=== PATIENT | male | born 1945 | race Caucasian/White ===

== ENCOUNTER 2019-10-31 15:40 | Emergency (ER) | payer MEDICARE, MEDICAID, SELFPAY ==
[2019-10-31 15:48] VITALS: BP 136/84; PULSE 81; RESP 16; TEMP 36.9; O2SAT 96; BMI 25.0
--- NOTE | 2019-10-31 16:01 | ED_ITS ---
Entered by Shelli Bear, acting as scribe for Ade Burr MD, [facility] [place] - Altered Mental Status General: Chief Complaint: Altered Mental Status Stated Complaint: AMS,WEAKNESS Time Seen by Provider: 10/31/19 16:01 Source: family Mode of arrival: wheelchair Limitations: altered mental status History of Present Illness: HPI narrative: 74 yo Male presents to ED with complaint of altered mental status and weakness. Pt's caregiver states that the patient has been acting like he can't walk and had to be brought in using a wheelchair and he normally walks just fine. Pt's caregiver states that the patient is MR and he is the equivalent of a 2 year old and cannot tell you what is wrong. Pt's caregiver states that patient has fallen a couple of times in the last few days. MD complaint: altered mental status and weakness Onset (ago): day(s) Timing confirmed by: family member Consistency of symptoms: Getting Worse Associated symptoms: Reports no associated symptoms Review of Systems General: Reports: ROS unobtainable due to mental status Neuro: Reports: weakness in extremities and confusion PFSH ED PFSH: Statuses (acute, chronic, etc) shown below reflect problem list status as previously entered and may not be historically accurate Social History Smoking and tobacco status: never smoked Physical Exam Const: COMMON NORMALS: no apparent distress, average body habitus, no limitations, healthy appearing, alert and well nourished ORIENTATION/CONSCIOUSNESS: not oriented to person, not oriented to place and not oriented to time HENMT: COMMON NORMALS: normocephalic, head/scalp atraumatic and moist oral mucous membranes HEAD & SCALP: normocephalic and atraumatic Eye: COMMON NORMALS: PERRL, EOMs intact bilaterally, conjunctivae normal and no scleral icterus CONJUNCTIVA: Yes conjunctivae normal PUPIL: Yes PERRL Neck/C-Spine: COMMON NORMALS: full ROM, supple, no meningeal signs, no JVD and no carotid bruits Chest: COMMONS NORMALS: inspection of chest normal and palpation of chest normal Resp: COMMON NORMALS: normal respiratory effort, no retractions, no use of accessory muscles, clear to auscultation bilaterally and percussion normal AUSCULTATION: clear to auscultation bilaterally PERCUSSION: percussion normal Cardio: COMMON NORMALS: no JVD, regular rate, regular rhythm, S1 normal heart sound, S2 normal heart sound, no gallops, no clicks, no murmurs, no rub and peripheral pulses 2+ throughout RATE: regular rate RHYTHM: regular rhythm HEART SOUNDS: S1 normal and S2 normal PERIPHERAL PULSES: pulses 2+ throughout GI: COMMON NORMALS: normal to inspection, nondistended, normoactive bowel sounds, soft to palpation, non-tender, no hepatosplenomegaly, no masses and no bruits PALPATION: Yes soft and Yes no hepatosplenomegaly : COMMON NORMALS: Yes no CVA tenderness BLADDER/KIDNEY EXAM: Yes no CVA tenderness Back/Pelvis: COMMON NORMALS: no CVA tenderness Extremity: COMMON NORMALS: normal to inspection, full ROM, normal capillary refill, no calf tenderness and no pedal edema Neuro: SENSORIUM/ORIENTATION: Yes alert, No oriented to person, No oriented to place and No oriented to time MENINGEAL SIGNS: Yes no meningeal signs OTHER: Unable to perform a complete neurologic exam due to patient condition and altered mental status Skin: COMMON NORMALS: no rashes or lesions noted, no wounds, skin turgor normal, no jaundice, no petechiae and no mottling GENERAL SKIN EXAM: no rashes or lesions noted and turgor normal Course Consultations: Consultation #1: Dr. Chua, neurosurgeon at [facility] in [place]. Subdural hematoma is too small for neurosurgery intervention. He should be transferred to [facility] in [place] for neurologic work-up as his symptoms are concerning. Consultation #2: Indiana Avery, ED physician at [facility] in [place] she kindly accepted the patient to her service. Vital Signs: Vital signs: Vital Signs Temperature 98.5 F 10/31/19 15:48 Pulse Rate 78 10/31/19 19:24 Respiratory Rate 16 10/31/19 19:24 Blood Pressure 139/78 10/31/19 19:24 Pulse Oximetry 95 10/31/19 19:24 MDM - Altered Mental Status MDM Narrative: Medical decision making narrative: 74-year-old male patient was brought into the emergency department with complaints of altered mental status. Per his caregiver he has also falling down a few times the last 2 days. His falls were unwitnessed. Evaluation in the emergency department yielded his subacute subdural hematoma on the right frontal area of his brain. Caregivers report that the patient is unable to walk today where he usually walks unassisted. He is therefore transferred to [facility] in [place] for further evaluation and management Lab Data: Labs: Lab Results 10/31/19 10/31/19 10/31/19 Range/Units 16:55 16:55 16:55 WBC 7.3 (4.0-10.0) 10^3/ uL RBC 4.49 (4.1-5.3) 10^6/u L Hgb 13.1 (11.7-16.6) g/dL Hct 39.6 L (42.0-52.0) % MCV 88.2 (80-94) fL MCH 29.2 (28.0-34.0) pg MCHC 33.1 (30.0-36.0) g/dL RDW 14.1 (12.1-15.1) % Plt Count 150 (130-400) 10^3/c mm MPV 10.1 (7.4-10.4) fL Neut % (Auto) 59.0 % Lymph % (Auto) 20.2 % [place] % (Auto) 17.7 % Eos % (Auto) 2.2 % Baso % (Auto) 0.5 % Neut # (Auto) 4.3 (1.8-7.7) 10^3/u L Lymph # (Auto) 1.5 (0.8-4.8) 10^3/u L [place] # (Auto) 1.3 H (0.2-0.9) 10^3/u L Eos # (Auto) 0.2 (0.0-0.8) 10^3/u L Baso # (Auto) 0.0 (0.0-0.1) 10^3/u L Nucleated RBC % (a uto) 0 % Nucleated RBCs # 0.0 /100WBC Sodium 135 L (136-145) mmol/L Potassium 4.0 (3.5-5.1) mmol/L Chloride 96 L (98-107) mmol/L Carbon Dioxide 28 (22-29) mmol/L Anion Gap 15.0 (5-19) BUN 14 (8-23) mg/dL Creatinine 1.3 H (0.7-1.2) mg/dL Glucose 118 H (74-106) mg/dL Lactate 1.0 (0.5-2.2) mmol/L Calcium 9.5 (8.5-10.5) mg/dL Total Bilirubin 0.6 (0.15-1.2) mg/dL AST 15 (0-40) U/L ALT 12 (0-41) U/L Alkaline Phosphata se 55 (40-130) IU/L C-Reactive Protein 64.5 H (0.0-4.9) mg/L Total Protein 7.4 (6.6-8.7) g/dL Albumin 4.0 (3.5-5.2) g/dL Globulin 3.4 (1.3-4.6) g/dL Urine Color (Yellow) Urine Appearance (CLEAR) Urine pH (5-7) Ur Specific Gravit y (1.005-1.030) Urine Protein (Negative) Urine Glucose (UA) (Normal) Urine Ketones (Negative) Urine Occult Blood (Negative) Urine Nitrate (Negative) Urine Bilirubin (NEGATIVE) Urine Urobilinogen (Negative) mg/dL Ur Leukocyte Skylar ase (Negative) 10/31/19 Range/Units 17:52 WBC (4.0-10.0) 10^3/ uL RBC (4.1-5.3) 10^6/u L Hgb (11.7-16.6) g/dL Hct (42.0-52.0) % MCV (80-94) fL MCH (28.0-34.0) pg MCHC (30.0-36.0) g/dL RDW (12.1-15.1) % Plt Count (130-400) 10^3/c mm MPV (7.4-10.4) fL Neut % (Auto) % Lymph % (Auto) % [place] % (Auto) % Eos % (Auto) % Baso % (Auto) % Neut # (Auto) (1.8-7.7) 10^3/u L Lymph # (Auto) (0.8-4.8) 10^3/u L [place] # (Auto) (0.2-0.9) 10^3/u L Eos # (Auto) (0.0-0.8) 10^3/u L Baso # (Auto) (0.0-0.1) 10^3/u L Nucleated RBC % (a uto) % Nucleated RBCs # /100WBC Sodium (136-145) mmol/L Potassium (3.5-5.1) mmol/L Chloride (98-107) mmol/L Carbon Dioxide (22-29) mmol/L Anion Gap (5-19) BUN (8-23) mg/dL Creatinine (0.7-1.2) mg/dL Glucose (74-106) mg/dL Lactate (0.5-2.2) mmol/L Calcium (8.5-10.5) mg/dL Total Bilirubin (0.15-1.2) mg/dL AST (0-40) U/L ALT (0-41) U/L Alkaline Phosphata se (40-130) IU/L C-Reactive Protein (0.0-4.9) mg/L Total Protein (6.6-8.7) g/dL Albumin (3.5-5.2) g/dL Globulin (1.3-4.6) g/dL Urine Color Yellow (Yellow) Urine Appearance Clear (CLEAR) Urine pH 5 (5-7) Ur Specific Gravit y 1.015 (1.005-1.030) Urine Protein Neg (Negative) Urine Glucose (UA) Norm (Normal) Urine Ketones Negative (Negative) Urine Occult Blood Neg (Negative) Urine Nitrate Negative (Negative) Urine Bilirubin 1+ H (NEGATIVE) Urine Urobilinogen Norm (Negative) mg/dL Ur Leukocyte Skylar ase Negative (Negative) Imaging Data^: CT Head: Radiologist's impression: [place] [address] CT Scan Report Signed Patient: Yaakov Toure #: [id number] : 4Acct#:[id number] Age/Sex: 74 / MADM Date: 10/31/19 Loc: ERRoom/Bed: Attending Dr: Ordering Provider/Ordering MD: Ade Burr MD, [facility] [place] of Service: 10/31/19 Procedure(s): CT head wo con* [id number] Accession Number(s): [id number] Report Number: [id number] PROCEDURE INFORMATION: Exam: CT Head Without Contrast Exam date and time: 10/31/2019 4:45 PM Age: 74 years old Clinical indication: Weakness, extremity and weakness, facial; Patient HX: ? Sinus infection/ couldn't walk , weak shaky; Additional info: AMS TECHNIQUE: Imaging protocol: Computed tomography of the head without contrast. Total DLP: 475.91 mGy-cm Radiation optimization: All CT scans at this facility use at least one of these dose optimization techniques: automated exposure control; mA and/or kV adjustment per patient size (includes targeted exams where dose is matched to clinical indication); or iterative reconstruction. COMPARISON: No relevant prior studies available. FINDINGS: Brain: Mild diffuse cortical volume loss. Mild hypodensities in supratentorial periventricular and subcortical white matter. Right frontal subdural hematoma measuring 4.8 mm in thickness. This is isodense with the brain cortex. Ventricles: Normal. No ventriculomegaly. Bones/joints: Unremarkable. No acute fracture. Sinuses: Visualized sinuses are unremarkable. No fluid levels. Mastoid air cells: Visualized mastoid air cells are well aerated. Soft tissues: Unremarkable. Vasculature: No hyperdense artery. CT/CT head wo con* [id number] IMPRESSION: 1. Small subacute (isodense) small right frontal subdural hematoma. 2. Mild microangiopathy. Radiation Dose CTDIVOL = (mGy): DLP = 475.91 (mGy-cm) Dictated By:Reed Estrella Signed By:Kartik Estrella Date/Time:10/31/191723 DD/ CXR: Radiologist's impression: [facility] [address] [place] [address] XRay Report Signed Patient: Yaakov Toure #: [id number] : 4At#:[id number] Age/Sex: 74 / MADM Date: 10/31/19 Loc: ERRoom/Bed: Attending Dr: Ordering Provider/Ordering MD: Ade Burr [place], [facility] [place] of Service: 10/31/19 Procedure(s): XR chest 1V portable [id number] Accession Number(s): [id number] Report Number: [id number] PROCEDURE INFORMATION: Exam: XR Chest, 1 View Exam date and time: 10/31/2019 5:02 PM Age: 74 years old Clinical indication: Other: Weakness, shakey and can't walk; Additional info: AMS TECHNIQUE: Imaging protocol: XR of the chest Views: 1 view. COMPARISON: CR Chest 1 [place] [id number] 04/12/2019 10:03 PM FINDINGS: Lungs: Discoid atelectasis in both lung bases. Pleural space: Unremarkable. No pleural effusion. No pneumothorax. Heart/Mediastinum: Unremarkable. No cardiomegaly. Bones/joints: Unremarkable. XR/XR chest 1V portable [id number] IMPRESSION: Basilar atelectasis. Dictated By:Reed Estrella Signed By:Reed EstrellaSigned Date/Time:10/31/191752 DD/ 51 Discharge Plan Discharge Patient Disposition: Xfer Short-Term Hosp Clinical Impression: Subacute subdural hematoma Altered mental status Qualifiers: Altered mental status type: disorientation Qualified Code(s): R41.0 - Disorientation, unspecified Condition: Stable Referrals: Arturo Bell MD [Family Provider] - Discharge Date/Time: 10/31/19 19:12 Coding Level of Care Code ED Ship Erector for Chg Fwd Exam Problem Focused The documentation recorded by the Chema barboza Carmen, accurately reflects the service I personally performed and the decisions made by Aminah gunderson Adegoke I, MD, [facility] [place] Oct 31, 2019 15:40
--- NOTE | 2019-10-31 16:42 | XRR_ITS ---
PROCEDURE INFORMATION: Exam: XR Chest, 1 View Exam date and time: 10/31/2019 5:02 PM Age: 74 years old Clinical indication: Other: Weakness, shakey and can't walk; Additional info: AMS TECHNIQUE: Imaging protocol: XR of the chest Views: 1 view. COMPARISON: CR Chest 1 [place] [id number] 04/12/2019 10:03 PM FINDINGS: Lungs: Discoid atelectasis in both lung bases. Pleural space: Unremarkable. No pleural effusion. No pneumothorax. Heart/Mediastinum: Unremarkable. No cardiomegaly. Bones/joints: Unremarkable. XR/XR chest 1V portable [id number] IMPRESSION: Basilar atelectasis.
--- NOTE | 2019-10-31 16:42 | CTR_ITS ---
PROCEDURE INFORMATION: Exam: CT Head Without Contrast Exam date and time: 10/31/2019 4:45 PM Age: 74 years old Clinical indication: Weakness, extremity and weakness, facial; Patient HX: ? Sinus infection/ couldn't walk , weak shaky; Additional info: AMS TECHNIQUE: Imaging protocol: Computed tomography of the head without contrast. Total DLP: 475.91 mGy-cm Radiation optimization: All CT scans at this facility use at least one of these dose optimization techniques: automated exposure control; mA and/or kV adjustment per patient size (includes targeted exams where dose is matched to clinical indication); or iterative reconstruction. COMPARISON: No relevant prior studies available. FINDINGS: Brain: Mild diffuse cortical volume loss. Mild hypodensities in supratentorial periventricular and subcortical white matter. Right frontal subdural hematoma measuring 4.8 mm in thickness. This is isodense with the brain cortex. Ventricles: Normal. No ventriculomegaly. Bones/joints: Unremarkable. No acute fracture. Sinuses: Visualized sinuses are unremarkable. No fluid levels. Mastoid air cells: Visualized mastoid air cells are well aerated. Soft tissues: Unremarkable. Vasculature: No hyperdense artery. CT/CT head wo con* [id number] IMPRESSION: 1. Small subacute (isodense) small right frontal subdural hematoma. 2. Mild microangiopathy. Radiation Dose CTDIVOL = (mGy): DLP = 475.91 (mGy-cm)
[2019-10-31 17:11] LABS: Basophils % 0.5 %; Eosinophils # 0.2 10^3/uL (0.0-0.8); Eosinophils % 2.2 %; Hematocrit 39.6 % (42.0-52.0); Hemoglobin 13.1 g/dL (11.7-16.6); Lymphocytes # 1.5 10^3/uL (0.8-4.8); Lymphocytes % 20.2 %; Mean Corpuscular HGB Conc 33.1 g/dL (30.0-36.0); Mean Corpuscular Hemoglobin 29.2 pg (28.0-34.0); Mean Corpuscular Volume 88.2 fL (80-94); Mean Platelet Volume 10.1 fL (7.4-10.4); Monocytes # 1.3 10^3/uL (0.2-0.9); Monocytes % 17.7 %; Neutrophils # 4.3 10^3/uL (1.8-7.7); Nucleated Red Blood Cells % 0 %; Platelet Count 150 10^3/cmm (130-400); Red Blood Count 4.49 10^6/uL (4.1-5.3); Red Cell Distribution Width 14.1 % (12.1-15.1); White Blood Count 7.3 10^3/uL (4.0-10.0)
[2019-10-31 17:31] LABS: Alanine Aminotransferase 12 U/L (0-41); Alkaline Phosphatase 55 IU/L (40-130); Aspartate Amino Transferase 15 U/L (0-40); Blood Urea Nitrogen 14 mg/dL (8-23); C Reactive Protein 64.5 mg/L (0.0-4.9); Calcium 9.5 mg/dL (8.5-10.5); Carbon Dioxide 28 mmol/L (22-29); Chloride 96 mmol/L (98-107); Globulin 3.4 g/dL (1.3-4.6); Glucose 118 mg/dL (74-106); Sodium 135 mmol/L (136-145); Total Bilirubin 0.6 mg/dL (0.15-1.2); Total Protein 7.4 g/dL (6.6-8.7)
[2019-10-31 18:08] LABS: Add Urine Microscopic? NO
[2019-10-31 18:09] LABS: Bilirubin Urine 1+ (NEGATIVE); Blood Urine Neg (Negative); Glucose Urine UA Norm (Normal); Ketones Urine Negative (Negative); Leukocyte Esterase Urine Negative (Negative); Nitrate Urine Negative (Negative); Protein Urine Neg (Negative); Specific Gravity, Urine 1.015 (1.005-1.030); Urine Appearance Clear (CLEAR); Urine Color Yellow (Yellow); Urobilinogen Urine Norm (Negative); pH Urine 5 (5-7)
[2019-10-31 19:24] VITALS: BP 139/78; PULSE 78; RESP 16; O2SAT 95
== END 2019-10-31 19:12 | disposition short-term general hospital (02) ==
PROVIDERS: Emergency Provider Family Medicine; Family Provider Internal Medicine
DX: S06.5X9A Traumatic subdural hemorrhage with loss of consciousness of unspecified duration, initial encounter (principal); W19.XXXA Unspecified fall, initial encounter
CPT/HCPCS: 36415; 51702; 70450; 71045; 80053; 81003; 83605; 85025; 86140; 99281; 99284

== ENCOUNTER → 2020-03-02 14:51 | Outpatient (BNVA) | payer MEDICARE, MEDICAID, SELFPAY | PROVIDERS: Family Provider Internal Medicine; Visit Provider Specialist | DX: F31.9 Bipolar disorder, unspecified (principal); S06.5X9A Traumatic subdural hemorrhage with loss of consciousness of unspecified duration, initial encounter; X58.XXXA Exposure to other specified factors, initial encounter; F31.74 Bipolar disorder, in full remission, most recent episode manic; Q07.9 Congenital malformation of nervous system, unspecified | CPT/HCPCS: 99214 ==

== ENCOUNTER 2020-06-04 10:11 | Emergency (ER) | payer MEDICARE, MEDICAID, SELFPAY ==
[2020-06-04 10:22] VITALS: BP 166/108; PULSE 85; RESP 18; TEMP 36.2; O2SAT 99; BMI 28.8
[2020-06-04 10:29] VITALS: PULSE 84; RESP 16; O2SAT 97
--- NOTE | 2020-06-04 10:34 | XR_ITS ---
NOTE: Report was unsigned for reason: Order was edited. Original Signature date and time was: 06/04/20 @ 11:07 WS: [id number] AP pelvis, AP and frog-leg views both hips, 06/04/2020 Clinical Data: fall, non-weightbearing Comparison: None. Findings: The hips are intact. No fractures are seen. No pelvic fractures are noted. The SI joints and pubic symphysis are unremarkable. The soft tissues are normal. MTDD XR/XR hip BI 2V wo/w pel [id number] Impression: Negative pelvis and hips.
--- NOTE | 2020-06-04 10:34 | XR_ITS ---
WS: [id number] Portable AP upright chest, 06/04/2020 Clinical Data: dyspnea/cough Comparison: Portable chest, 10/31/2019. Findings: There is volume loss in the right lung with a patchy opacity. This could represent atelecta sis and pneumonia. The right diaphragm is elevated. The left lung shows minimal atelectasis over the surface of the left diaphragm unchanged. The heart is normal. The pulmonary vascularity is not increa sed. The aortic arch and descending aorta show tortuosity. XR/XR chest 1V portable [id number] Impression: 1. Patchy opacity in the right lung which could represent pneumonia and recomme nd repeat chest x-ray in one to 2 days. 2. Minimal atelectasis over the surface of the left diaphragm unchanged. 3. Atherosclerosis and elevated right diaphragm.
--- NOTE | 2020-06-04 10:34 | ECG_ITS ---
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 Measurements Intervals [place] Rate: 82 P: 49 KS: 153 QRS: 43 QRSD: 94 T: 64 QT: 362 QTc: 424 Interpretive Statements SINUS RHYTHM INTERPRETATION BASED ON A DEFAULT AGE OF 40 YEARS No previous ECG available for comparison Electronically Signed On 06-04-2020 21:13:59 CDT by Ludy Lara M.D. [id number]
--- NOTE | 2020-06-04 10:38 | W.ED.FALL ---
HPI - Fall General: Chief Complaint: Fall Stated Complaint: FELL OUT OF BED, NOSE BLEED, FEET SWOLLEN Time Seen by Provider: 06/04/20 10:20 History of Present Illness: HPI Narrative: 74-year-old male he is a resident of a shelter. He hit his nose and his had a brief episode of epistaxis there is no loss of consciousness. Reportedly been concerned recently about him having fluid retention and he has not been walking as much as normal he generally has a shuffling gait but lately he has not even been getting up and getting around without assistance which is unusual evidently for him no previous fall to he did partially weight-bear after the fall today. He has significant mental handicap and developmental delay and is nonverbal. Street from caregiver present in room today MD complaint: fall Review of Systems General: Reports: ROS unobtainable due to mental status PFSH ED PFSH: Social History Smoking and tobacco status: never smoked Alcohol intake: never History of recent travel: No Current gender identity: Male Physical Exam Const: COMMON NORMALS: no acute distress GENERAL APPEARANCE: cooperative and comfortable HENMT: COMMON NORMALS: normocephalic, atraumatic, hearing grossly normal bilaterally, external ears normal, EAC's normal, TM's normal bilaterally, Normal nasal mucous membranes and turbinates present, moist oral mucous membranes and oropharynx normal HEAD & SCALP: normocephalic and atraumatic NOSE: Normal nasal mucous membranes and turbinates present EXTERNAL EAR: Yes external ears normal EXTERNAL AUDITORY CANAL: EAC's normal TYMPANIC MEMBRANE: TM's normal bilaterally OTHER: Dried blood in the nares no active bleeding mild swelling around the bridge of the nose or does not appear to be any significant deformity Eye: COMMON NORMALS: Equal, round and reactive pupils present, EOMs intact bilaterally, conjunctivae normal and no scleral icterus CONJUNCTIVA: Yes conjunctivae normal PUPIL: Yes Equal, round and reactive pupils present Neck/C-Spine: COMMON NORMALS: full ROM, no lymphadenopathy, supple and no JVD Lymph: LYMPHATIC: no lymphadenopathy noted and no lymphedema noted Resp: COMMON NORMALS: normal respiratory effort, No retractions, No use of accessory muscles and clear to auscultation bilaterally AUSCULTATION: clear to auscultation bilaterally Cardio: COMMON NORMALS: no JVD, regular rate, regular rhythm and No murmurs present (Cardio) RATE: regular rate RHYTHM: regular rhythm GI: COMMON NORMALS: Soft to palpation and No hepatosplenomegaly present AUSCULTATION: Yes normoactive bowel sounds PALPATION: Yes Soft to palpation, No Tenderness to palpation present (GI), No Guarding due to palpation present (GI) and Yes No hepatosplenomegaly present Extremity: COMMON NORMALS: normal to inspection, capillary refill normal, no clubbing, cyanosis or edema, no calf tenderness and no pedal edema Skin: COMMON NORMALS: no rashes or lesions noted GENERAL SKIN EXAM: no rashes or lesions noted Course Vital Signs: Vital signs: Vital Signs Temperature 97.2 F L 06/04/20 10:22 Pulse Rate 74 06/04/20 12:50 Respiratory Rate 16 06/04/20 10:29 Blood Pressure 134/92 06/04/20 12:50 Pulse Oximetry 96 06/04/20 12:50 MDM - Fall MDM Narrative: Medical decision making narrative: No acute fractures will discharge home can swab inside nares with [id number] antibiotic or Vaseline follow-up as needed Lab Data: Labs: Lab Results 06/04/20 06/04/20 06/04/20 Range/Units 11:24 11:24 11:46 WBC 6.0 (4.0-10.0) 10^3/ uL RBC 4.71 (4.1-5.3) 10^6/u L Hgb 13.8 (11.7-16.6) g/dL Hct 41.8 L (42.0-52.0) % MCV 88.7 (80-94) fL MCH 29.3 (28.0-34.0) pg MCHC 33.0 (30.0-36.0) g/dL RDW 14.1 (12.1-15.1) % Plt Count 215 (130-400) 10^3/c mm MPV 9.2 (7.4-10.4) fL Neut % (Auto) 61.9 % Lymph % (Auto) 20.2 % [place] % (Auto) 12.3 % Eos % (Auto) 3.6 % Baso % (Auto) 0.5 % Neut # (Auto) 3.74 (1.8-7.7) 10^3/u L Lymph # (Auto) 1.2 (0.8-4.8) 10^3/u L [place] # (Auto) 0.7 (0.2-0.9) 10^3/u L Eos # (Auto) 0.2 (0.0-0.8) 10^3/u L Baso # (Auto) 0.0 (0.0-0.1) 10^3/u L Nucleated RBC % (a uto) 0 % Nucleated RBCs # 0.0 /100WBC Sodium 134 L (136-145) mmol/L Potassium 3.9 (3.5-5.1) mmol/L Chloride 98 (98-107) mmol/L Carbon Dioxide 27 (22-29) mmol/L Anion Gap 12.9 (5-19) BUN 16 (8-23) mg/dL Creatinine 1.1 (0.7-1.2) mg/dL GFR Calculation Not Reportable Glucose 103 (65-115) mg/dL Calculated Osmolal ity 275 L (285-295) mOsm/k g Calcium 9.1 (8.5-10.5) mg/dL Total Bilirubin 0.2 (0.15-1.2) mg/dL AST 10 (0-40) U/L ALT 9 (0-41) U/L Alkaline Phosphata se 43 (40-130) IU/L Creatine Kinase 47 (39-308) U/L Total Protein 7.2 (6.6-8.7) g/dL Albumin 3.7 (3.5-5.2) g/dL Globulin 3.5 (1.3-4.6) g/dL Urine Color Yellow (Yellow) Urine Appearance Clear (CLEAR) Urine pH 6 (5-7) Ur Specific Gravit y 1.010 (1.005-1.030) Urine Protein Neg (Negative) Urine Glucose (UA) Norm (Normal) Urine Ketones Negative (Negative) Urine Blood Neg (Negative) Urine Nitrate Negative (Negative) Urine Bilirubin Neg (NEGATIVE) Urine Urobilinogen Neg (Negative) mg/dL Ur Leukocyte Skylar ase Negative (Negative) Discharge Plan Discharge Patient Disposition: Home Clinical Impression: Fall, Epistaxis Condition: Stable Prescriptions: No Action trihexyphenidyl 2 mg tablet 2 mg PO BID RF: 0 divalproex [Depakote] 500 mg tablet,delayed release (DR/EC) 500 mg PO BID RF: 0 olanzapine [Zyprexa] 5 mg tablet 5 mg PO BID RF: 0 chlorhexidine gluconate 0.12 % mouthwash 15 ml BUCCAL BID RF: 0 clomipramine [Anafranil] 50 mg capsule 50 mg PO DAILY RF: 0 quetiapine [Seroquel] 100 mg tablet 100 mg PO DAILY RF: 0 carbamide peroxide [Debrox] 6.5 % drops 5 drop EAR-BOTH DAILY RF: 0 dextromethorphan-guaifenesin 10-200 mg/5 mL liquid 7.5 ml PO Q8H PRNRF: 0 alum-mag hydroxide-simeth [Mylanta Maximum Strength] 400-400-40 mg/5 mL suspension 5 ml PO QID PRNRF: 0 ibuprofen [IBU] 600 mg tablet 600 mg PO Q6H PRNRF: 0 lorazepam 2 mg tablet 2 mg PO Q6H PRNRF: 0 loratadine 10 mg capsule 10 mg PO DAILY RF: 0 acetaminophen [Tylenol] 325 mg capsule 650 mg PO QID RF: 0 omeprazole 20 mg capsule,delayed release(DR/EC) 20 mg PO DAILY RF: 0 alum-mag hydroxide-simeth [Mylanta Maximum Strength] 400-400-40 mg/5 mL suspension 30 ml PO .q 4 hours PRNRF: 0 bismuth subsalicylate [Pepto-Bismol] 262 mg/15 mL suspension 524 mg PO .q 4 hours PRNRF: 0 fluconazole [Diflucan] 100 mg tablet 100 mg PO DAILY Qty: 7 RF: 0 Discharge Orders: Discharge Order (Routine); Ordered 06/04/20 Ordered By: Paul Hummel Discharge Diet: Usual diet Discharge Activity: Resume usual activity Activity Restrictions/Additional Instructions: Follow-up with your primary care doctor within the next 5 days Discharge Date/Time: 06/04/20 12:50 Coding Level of Care Code ED Lead Php Developer for Tushar Galvez
--- NOTE | 2020-06-04 10:40 | XR_ITS ---
WS: [id number] Nasal bones, 3 views, 06/04/2020 Clinical Data: fall Comparison: None. Findings: The nasal bone is intact. There is a mild irregularity of the tip of the nasal spine which could repr esent an old injury. The maxillary sinuses show no air-fluid levels. The frontal and sphenoid sinuses are unremarkable. The orbits are normal. XR/XR nasal bones min 3V [id number] Impression: 1. Negative for new injury. 2. Slight irregularity of nasal spine which could represent an old injury.
[2020-06-04 10:46] VITALS: O2SAT 96
--- NOTE | 2020-06-04 11:02 | PC.NURSE ---
portable xray at bedside
[2020-06-04 11:31] LABS: Basophils % 0.5 %; Eosinophils # 0.2 10^3/uL (0.0-0.8); Eosinophils % 3.6 %; Hematocrit 41.8 % (42.0-52.0); Hemoglobin 13.8 g/dL (11.7-16.6); Lymphocytes # 1.2 10^3/uL (0.8-4.8); Lymphocytes % 20.2 %; Mean Corpuscular Hemoglobin 29.3 pg (28.0-34.0); Mean Corpuscular Volume 88.7 fL (80-94); Mean Platelet Volume 9.2 fL (7.4-10.4); Monocytes # 0.7 10^3/uL (0.2-0.9); Monocytes % 12.3 %; Neutrophils # 3.74 10^3/uL (1.8-7.7); Neutrophils % 61.9 %; Nucleated Red Blood Cells % 0 %; Platelet Count 215 10^3/cmm (130-400); Red Blood Count 4.71 10^6/uL (4.1-5.3); Red Cell Distribution Width 14.1 % (12.1-15.1)
[2020-06-04 11:47] LABS: Alanine Aminotransferase 9 U/L (0-41); Albumin Level 3.7 g/dL (3.5-5.2); Alkaline Phosphatase 43 IU/L (40-130); Anion Gap 12.9 (5-19); Aspartate Amino Transferase 10 U/L (0-40); Blood Urea Nitrogen 16 mg/dL (8-23); Calcium 9.1 mg/dL (8.5-10.5); Carbon Dioxide 27 mmol/L (22-29); Chloride 98 mmol/L (98-107); Creatine Phosphokinase 47 U/L (39-308); Globulin 3.5 g/dL (1.3-4.6); Glucose 103 mg/dL (65-115); Osmolality Calculated 275 mOsm/kg (285-295); Potassium 3.9 mmol/L (3.5-5.1); Sodium 134 mmol/L (136-145); Total Bilirubin 0.2 mg/dL (0.15-1.2); Total Protein 7.2 g/dL (6.6-8.7)
[2020-06-04 11:52] LABS: Add Urine Microscopic? NO
[2020-06-04 11:56] LABS: Urine Appearance Clear (CLEAR); Urine Color Yellow (Yellow); pH Urine 6 (5-7)
[2020-06-04 11:57] LABS: Bilirubin Urine Neg (NEGATIVE); Blood Urine Neg (Negative); Glucose Urine UA Norm (Normal); Ketones Urine Negative (Negative); Leukocyte Esterase Urine Negative (Negative); Nitrate Urine Negative (Negative); Protein Urine Neg (Negative); Urobilinogen Urine Neg (Negative)
[2020-06-04 12:14] VITALS: BP 162/98; PULSE 75; O2SAT 96
[2020-06-04 12:50] VITALS: BP 134/92; PULSE 74; O2SAT 96
== END 2020-06-04 12:50 | disposition home or self-care (01) ==
PROVIDERS: Emergency Provider Family Medicine
DX: R04.0 Epistaxis (principal)
CPT/HCPCS: 12345; 36415; 70160; 71045; 73521; 73523; 80053; 81003; 82550; 85025; 93005; 97161; 99283

== ENCOUNTER → 2020-06-22 10:38 | Outpatient (BNVA) | payer MEDICARE, MEDICAID, SELFPAY | PROVIDERS: Visit Provider Internal Medicine | DX: Z20.828 Contact with and (suspected) exposure to other viral communicable diseases (principal) | CPT/HCPCS: 87635 ==

== ENCOUNTER → 2020-07-23 13:36 | Outpatient (BNVA) | payer MEDICARE, MEDICAID, SELFPAY | PROVIDERS: Family Provider Internal Medicine; Visit Provider Nurse Practitioner | DX: Z11.59 Encounter for screening for other viral diseases (principal) | CPT/HCPCS: 87635 ==

== ENCOUNTER 2020-07-26 09:22 | Day surgery (SDC) | payer MEDICARE, MEDICAID, SELFPAY ==
[2020-07-26 10:01] VITALS: BP 153/87; PULSE 94; RESP 18; TEMP 36.2; O2SAT 95
[2020-07-26] MEDS: sodium chloride 0.9% 1,000 ML 30 ML IV (10:05)
--- NOTE | 2020-07-26 10:19 | P.HP_ITS ---
Same Day Surgery H&P Indication for Procedure/HPI DATE OF PROCEDURE: July 26, 2020 CHIEF COMPLAINT/INDICATIONFOR SURGICAL PROCEDURE: History of colon polyp PREOP DIAGNOSIS: c PLANNED PROCEDRUE: Operation Date: 07/26/20 10:45 Proposed Procedures p Colonoscopy 59973 K63.5(Not Applicable) - Arturo Bell MD Medications/Allergies* Home Medications Medication Instructions Recorded Confirmed Type carbamide peroxide 6.5 % ear drops 5 drop EAR-BOTH DAILY 03/02/20 07/23/20 Hi story chlorhexidine gluconate 0.12 % 15 ml BUCCAL BID 03/02/20 07/23/20 History mouthwash dextromethorphan-guaifenesin 10 7.5 ml PO Q8H PRN 03/02/20 07/23/20 History mg-200 mg/5 mL oral liquid divalproex 500 mg tablet,delayed 500 mg PO BID 03/02/20 07/23/20 History release ibuprofen 600 mg tablet 600 mg PO Q6H PRN 03/02/20 07/23/20 History loratadine 10 mg capsule 10 mg PO DAILY 03/02/20 07/23/20 History olanzapine 5 mg tablet 5 mg PO BID tab 03/02/20 07/23/20 History quetiapine 100 mg tablet 100 mg PO DAILY 03/02/20 07/23/20 History trihexyphenidyl 2 mg tablet 2 mg PO BID tab 03/02/20 07/23/20 History acetaminophen 325 mg capsule 650 mg PO QID cap 06/01/20 07/23/20 History aluminum-mag hydroxide-simethicone 30 ml PO .q 4 hours PRN ml 06/01/20 07/23/20 History 400 mg-400 mg-40 mg/5 mL oral susp bismuth subsalicylate 262 mg/15 mL 524 mg PO .q 4 hours PRN ml 06/01/20 07/23/20 History oral suspension omeprazole 20 mg capsule,delayed 20 mg PO DAILY 06/01/20 07/23/20 History release clomipramine [Anafranil] 50 mg PO DAILY 06/22/20 07/23/20 History Allergies/Adverse Reactions Allergy/AdvReac Type Severity Reaction Status Date / Time No Known Allergies Allergy Verified 06/08/20 14:31 Current Medications: Generic Name Dose Route Start Last Admin Trade Name Freq PRN Reason Stop Dose Admin Sodium Chloride 1,000 mls @ 30 mls/hr 07/26/20 09:45 07/26/20 10:05 Sodium Chloride 0.9% IV 07/27/20 09:44 30 mls/hr .Q24H ROLA Administration Pertinent History/Comorbid Conditions* Social History Smoking and tobacco status: never smoked Alcohol intake: never History of recent travel: No Current gender identity: Male Pertinent Exam Findings alert, oriented x 3, clear to auscultation bilaterally, regular rate & rhythm, operative site marked and procedure specific exam findings Recommendations Surgery/Procedure today Coding Level of Care Code Acute Substation Operator Chief for Tushar Galvez
--- NOTE | 2020-07-26 10:34 | ANES.PREANE2 ---
Pre-Anesthetic Assessment Pre-Anesthetic Assessment: Height/Weight: Height 1.75 m Weight 80.286 kg Temp Pulse Resp BP Pulse Ox 97.1 F L 94 18 153/87 95 07/26/20 10:01 07/26/20 10:01 07/26/20 10:01 07/26/20 10:01 07/26/20 10:01 Preop Diagnosis: hx polyps Proposed Procedure: Operation Date: 07/26/20 10:45 Proposed Procedures p Colonoscopy 18864 K63.5(Not Applicable) - Arturo Bell MD Familial anesthetic complications: None Was Beta Abdiaziz taken within 24 hours: N/A Last intake: Intake Last Liquid Date 07/25/20 Last Liquid Time 20:00 Last Solid Date 07/24/20 Last Solid Time 18:00 Social: Social History: No alcohol and No tobacco Exam: Pre-Anes Outpt Exam: alert, oriented x 3, clear to auscultation bilaterally and regular rate & rhythm Airway: Cervical ROM: WNL Dentition: Full Additional comments: not cooperating with MP class CV/HEM: CV/HEM: HTN GI: GI: GERD Neuropsych: Comments: Severe MR, psychosis, organic affective disorder, expressive aphasia Anesthetic Plan: ASA status: 3 Anesthesia: MAC Risk of > 500 ml blood loss (7ml/kg in children): No Meds/Allergies Current Medications: Current Medications Generic Name Dose Route Start Last Admin Trade Name Freq PRN Reason Stop Dose Admin Sodium Chloride 1,000 mls @ 30 ml s/hr 07/26/20 09:45 07/26/20 10:05 Sodium Chloride 0.9% IV 07/27/20 09:44 30 mls/hr .Q24H ROLA Administration PFSH Anesthesia PFSH: Social History Smoking and tobacco status: never smoked Alcohol intake: never History of recent travel: No Current gender identity: Male Data Anesthesia Cardiac Studies: No Data to Display
[2020-07-26 12:49] VITALS: BP 117/86; PULSE 73; RESP 14; TEMP 36.1; O2SAT 98
--- NOTE | 2020-07-26 12:53 | ANE.PACU2 ---
Inpatient post-anesthesia follow up: Airway intact: Yes Vital signs: Temperature 97 F Pulse Rate 73 Respiratory Rate 14 Blood Pressure 117/86 Pulse Oximetry 98 Oxygen Delivery Me thod Nasal Cannula Oxygen Flow Rate 2 Fraction of Inspir ed Oxygen Hydration adequate: Yes Nausea and vomiting: No Pain level: 1 Mental status: Baseline
[2020-07-26 13:15] VITALS: BP 139/79; PULSE 72; RESP 18; O2SAT 100
== END 2020-07-26 13:28 | disposition home or self-care (01) ==
PROVIDERS: Family Provider Internal Medicine; Visit Provider Internal Medicine
PROC: 0DJD8ZZ Inspection of Lower Intestinal Tract, Via Natural or Artificial Opening Endoscopic (ICD-10-PCS; CPT 45378; principal; 2020-07-26 10:45)
DX: Z86.010 Personal history of colon polyps (principal)
CPT/HCPCS: 12345; G0121; J2250; J2704; J7030

== ENCOUNTER 2020-08-26 21:18 | Inpatient (IN) | payer MEDICARE, MEDICAID, SELFPAY ==
--- NOTE | 2020-08-26 21:20 | XR_ITS ---
WS: [id number] PORTABLE CHEST HISTORY: sob COMPARISON: 06/04/2020 Moderate elevation RIGHT hemidiaphragm. Improved aeration throughout the RIGHT lung. Minimal atelecta sis at the LEFT lung base. No pleural effusion or pneumothorax. Cardiac size: Normal. Mediastinum/Aorta: Normal mediastinum. No osseous abnormality seen. XR/XR chest 1V portable [id number] IMPRESSION: 1. Improved aeration RIGHT upper lobe. 2. Subsegmental atelectasis LEFT lung base.
[2020-08-26 21:22] VITALS: BP 146/84; PULSE 125; RESP 18; TEMP 38.2; O2SAT 91; BMI 28.0
--- NOTE | 2020-08-26 21:37 | ECG_ITS ---
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: : 1945 Requested By: Sylvie Douglas Order Number: [id number] Milena MD: MELBA MINA Measurements Intervals [place] Rate: 119 P: 76 MS: 130 QRS: 81 QRSD: 85 T: 80 QT: 291 QTc: 409 Interpretive Statements SINUS TACHYCARDIA LOW QRS VOLTAGE IN EXTREMITY LEADS [QRS DEFLECTION < 0.5 mV IN LIMB LEADS] ABNORMAL RHYTHM ECG Compared to ECG 06/04/2020 10:48:06 Low QRS voltage now present Sinus rhythm no longer present Electronically Signed On 08-27-2020 20:03:16 BUILDING SERVICES SUPERVISOR by MELBA MINA [id number]
[2020-08-26 21:39] VITALS: BP 152/89; PULSE 107; RESP 32; TEMP 38.8; O2SAT 93
--- NOTE | 2020-08-26 21:45 | ED_ITS ---
HPI - Weakness General: Chief complaint: Airway/Esophagus Foreign Body Stated complaint: poss aspiration Time Seen by Provider: 08/26/20 21:35 Source: patient Mode of arrival: ambulatory Limitations: physical limitation History of Present Illness: HPI Narrative: 75-year-old male who has a history of mental retardation and lives at a halfway. Per caregiver patient has had a cough and increased weakness. She states he typically is able to ambulate and is not able to ambulate at all currently. She states that he has had a cough along with gurgling and she is concerned he may have aspirated. He is febrile here with a temperature 100.8. Unable to get any history from patient as he is nonverbal. Associated symptoms: Reports fever(s) Review of Systems General: Reports: ROS unobtainable due to mental status Const: Reports: fever(s) Resp: Reports: productive cough PFSH ED PFSH: Social History Smoking and tobacco status: never smoked Alcohol intake: never History of recent travel: No Current gender identity: Male Physical Exam Const: COMMON NORMALS: negative for patient oriented x3 and negative for alert EXAM LIMITATIONS: altered mental status GENERAL APPEARANCE: ill appearing HENMT: COMMON NORMALS: normocephalic and atraumatic HEAD & SCALP: normocephalic and atraumatic Eye: COMMON NORMALS: Equal, round and reactive pupils present and EOMs intact bilaterally PUPIL: Yes Equal, round and reactive pupils present Neck/C-Spine: COMMON NORMALS: full ROM and supple Chest: COMMONS NORMALS: normal inspection of the chest and normal palpation of entire chest wall Resp: COMMON NORMALS: normal respiratory effort, No retractions and No use of accessory muscles AUSCULTATION: rales Cardio: COMMON NORMALS: regular rate, regular rhythm and No murmurs present (Cardio) RATE: regular rate RHYTHM: regular rhythm GI: COMMON NORMALS: Normal to inspection, nondistended, normoactive bowel sounds present, Soft to palpation, non-tender and no masses PALPATION: Yes Soft to palpation Extremity: COMMON NORMALS: normal to inspection and full ROM Neuro: COMMON NORMALS: negative for patient oriented x3 SENSORIUM/ORIENTATION: No alert Psych: COMMON NORMALS: cooperative; negative for mental status grossly normal Skin: COMMON NORMALS: no rashes or lesions noted and no wounds GENERAL SKIN EXAM: no rashes or lesions noted Course Vital Signs: Vital signs: Vital Signs Temperature 102 F H 08/26/20 21:39 Pulse Rate 105 H 08/26/20 23:03 Respiratory Rate 23 H 08/26/20 23:03 Blood Pressure 152/89 08/26/20 21:39 Pulse Oximetry 92 08/26/20 23:03 MDM - Weakness MDM Narrative: Medical decision making narrative: Yaakov presents here with generalized weakness along with decreased mental status. Patient did test positive for COVID-19 and he is febrile here as well. This is likely causing his weakness and confusion. I spoke to the hospitalist and will admit. Patient has no signs of septic shock. Lab Data: Labs: Lab Results 08/26/20 08/26/20 08/26/20 Range/Units 22:15 22:30 22:30 WBC 5.9 (4.0-10.0) 10^3/ uL RBC 4.94 (4.1-5.3) 10^6/u L Hgb 14.5 (11.7-16.6) g/dL Hct 46.2 (42.0-52.0) % MCV 93.5 (80-94) fL MCH 29.4 (28.0-34.0) pg MCHC 31.4 (30.0-36.0) g/dL RDW 14.7 (12.1-15.1) % Plt Count 174 (130-400) 10^3/c mm MPV 10.8 H (7.4-10.4) fL Neut % (Auto) 80.3 % Lymph % (Auto) 7.6 % Tama % (Auto) 10.5 % Eos % (Auto) 0.5 % Baso % (Auto) 0.3 % Neut # (Auto) 4.74 (1.8-7.7) 10^3/u L Lymph # (Auto) 0.5 L (0.8-4.8) 10^3/u L Tama # (Auto) 0.6 (0.2-0.9) 10^3/u L Eos # (Auto) 0.0 (0.0-0.8) 10^3/u L Baso # (Auto) 0.0 (0.0-0.1) 10^3/u L Nucleated RBC % (a uto) 0 % Nucleated RBCs # 0.0 /100WBC Sodium 128 L (136-145) mmol/L Potassium 4.8 (3.5-5.1) mmol/L Chloride 94 L (98-107) mmol/L Carbon Dioxide 22 (22-29) mmol/L Anion Gap 16.8 (5-19) BUN 16 (8-23) mg/dL Creatinine 0.9 (0.7-1.2) mg/dL GFR Calculation Not Reportable Glucose 149 H (65-115) mg/dL Calculated Osmolal ity 270 L (285-295) mOsm/k g Lactic Acid (0.5-2.2) mmol/L Calcium 8.9 (8.5-10.5) mg/dL Total Bilirubin 0.3 (0.15-1.2) mg/dL AST 26 (0-40) U/L ALT 14 (0-41) U/L Alkaline Phosphata se 51 (40-130) IU/L C-Reactive Protein 65.0 H (0.0-4.9) mg/L Total Protein 7.4 (6.6-8.7) g/dL Albumin 3.5 (3.5-5.2) g/dL Globulin 3.9 (1.3-4.6) g/dL SARS-CoV-2 Ag (Rap id) Positive H (Negative) 08/26/20 Range/Units 22:30 WBC (4.0-10.0) 10^3/ uL RBC (4.1-5.3) 10^6/u L Hgb (11.7-16.6) g/dL Hct (42.0-52.0) % MCV (80-94) fL MCH (28.0-34.0) pg MCHC (30.0-36.0) g/dL RDW (12.1-15.1) % Plt Count (130-400) 10^3/c mm MPV (7.4-10.4) fL Neut % (Auto) % Lymph % (Auto) % Tama % (Auto) % Eos % (Auto) % Baso % (Auto) % Neut # (Auto) (1.8-7.7) 10^3/u L Lymph # (Auto) (0.8-4.8) 10^3/u L Tama # (Auto) (0.2-0.9) 10^3/u L Eos # (Auto) (0.0-0.8) 10^3/u L Baso # (Auto) (0.0-0.1) 10^3/u L Nucleated RBC % (a uto) % Nucleated RBCs # /100WBC Sodium (136-145) mmol/L Potassium (3.5-5.1) mmol/L Chloride (98-107) mmol/L Carbon Dioxide (22-29) mmol/L Anion Gap (5-19) BUN (8-23) mg/dL Creatinine (0.7-1.2) mg/dL GFR Calculation Glucose (65-115) mg/dL Calculated Osmolal ity (285-295) mOsm/k g Lactic Acid 2.4 H (0.5-2.2) mmol/L Calcium (8.5-10.5) mg/dL Total Bilirubin (0.15-1.2) mg/dL AST (0-40) U/L ALT (0-41) U/L Alkaline Phosphata se (40-130) IU/L C-Reactive Protein (0.0-4.9) mg/L Total Protein (6.6-8.7) g/dL Albumin (3.5-5.2) g/dL Globulin (1.3-4.6) g/dL SARS-CoV-2 Ag (Rap id) (Negative) Imaging Data^: CXR: Attestation: I personally reviewed and interpreted this imaging study as follows: My impression: no acute abnormality EKG Data^: EKG 1: Attestation: I personally reviewed and interpreted this EKG as follows: EKG interpretation date: 08/26/20 EKG interpretation time: 21:58 Interpretation: sinus tach hr [address] or t wave abnormalities qrs 85 qtc 361 Discharge Plan Discharge Patient Disposition: Admitted As Inpatient Clinical Impression: COVID-19, Weakness Condition: Stable Coding Level of Care Code ED Senior Information Security Consultant for Chg Fwd Exam Comprehensive
--- NOTE | 2020-08-26 22:00 | PC.NURSE ---
Patient's critical care nurse brings patient in for possible aspiration. Patient lives at a half-way. The critical care nurse states she has been off work for a few days and came to work today to find patient is no longer able to ambulate as usual, he has had a loss of appetite, and is generally not acting himself. Caregiver reports that patient is normally up walking around the home and talking. home care giver states the patient talks at the level of a 1 yr old.
[2020-08-26 22:43] LABS: SARS Covid-2 Antigen Positive (Negative)
[2020-08-26 23:03] VITALS: PULSE 105; RESP 23; O2SAT 92
[2020-08-26 23:09] LABS: Basophils % 0.3 %; Eosinophils % 0.5 %; Hematocrit 46.2 % (42.0-52.0); Hemoglobin 14.5 g/dL (11.7-16.6); Lymphocytes # 0.5 10^3/uL (0.8-4.8); Lymphocytes % 7.6 %; Mean Corpuscular HGB Conc 31.4 g/dL (30.0-36.0); Mean Corpuscular Hemoglobin 29.4 pg (28.0-34.0); Mean Corpuscular Volume 93.5 fL (80-94); Mean Platelet Volume 10.8 fL (7.4-10.4); Monocytes # 0.6 10^3/uL (0.2-0.9); Monocytes % 10.5 %; Neutrophils # 4.74 10^3/uL (1.8-7.7); Neutrophils % 80.3 %; Nucleated Red Blood Cells % 0 %; Platelet Count 174 10^3/cmm (130-400); Red Blood Count 4.94 10^6/uL (4.1-5.3); Red Cell Distribution Width 14.7 % (12.1-15.1); White Blood Count 5.9 10^3/uL (4.0-10.0)
[2020-08-26 23:28] LABS: Albumin Level 3.5 g/dL (3.5-5.2); Alkaline Phosphatase 51 IU/L (40-130); Blood Urea Nitrogen 16 mg/dL (8-23); Calcium 8.9 mg/dL (8.5-10.5); Carbon Dioxide 22 mmol/L (22-29); Chloride 94 mmol/L (98-107); Globulin 3.9 g/dL (1.3-4.6); Glucose 149 mg/dL (65-115); Osmolality Calculated 270 mOsm/kg (285-295); Sodium 128 mmol/L (136-145); Total Bilirubin 0.3 mg/dL (0.15-1.2); Total Protein 7.4 g/dL (6.6-8.7)
[2020-08-26 23:29] LABS: Lactic Sepsis W/Reflex 2.4 mmol/L (0.5-2.2)
[2020-08-26 23:30] LABS: Alanine Aminotransferase 14 U/L (0-41); Anion Gap 16.8 (5-19); Aspartate Amino Transferase 26 U/L (0-40); Potassium 4.8 mmol/L (3.5-5.1)
[2020-08-26 23:57] VITALS: BP 171/81; PULSE 112; RESP 23; O2SAT 93
[2020-08-26 23:58] LABS: Fibrinogen 516 mg/dL (174-498)
[2020-08-27] VITALS (10 sets, daily range): BP systolic 124–163; BP diastolic 65–94; PULSE 70–112; RESP 17–30; TEMP 36.3–38.8; O2SAT 88–94
[2020-08-27 00:01] LABS: D Dimer 1.91 ug/mIFEU (0-0.59)
[2020-08-27 00:07] LABS: Protein Urine Neg (Negative); Urine Appearance SL Hazy (CLEAR); Urine Color Yellow (Yellow); pH Urine 5 (5-7)
[2020-08-27 00:08] LABS: Add Urine Microscopic? YES; Bilirubin Urine Neg (Negative); Blood Urine 3+ (Negative); Glucose Urine UA Norm (Normal); Ketones Urine 1+ (Negative); Leukocyte Esterase Urine Negative (Negative); Nitrate Urine Negative (Negative); Urobilinogen Urine 1 mg/dL (Negative)
[2020-08-27 00:13] LABS: Add Urine Culture? Yes; Bacteria Urine 1+ /hpf; Squamous Epithelial Cell Urine 0-4 /hpf (0-5); WBC Urine 0-4 /hpf (0-5)
[2020-08-27 00:44] LABS: Reflex Lactate Order REFLEX LACTIC ORDERD
--- NOTE | 2020-08-27 01:35 | PC.SOCIAL ---
Wilfredo's contacts for nursing: Corporate Analyst: Kelly [phone] apparatus repair mechanic: Zackery Blair [phone] Information given to floor
[2020-08-27 03:32] LABS: Lactic Acid level (Lactate) 1.3 mmol/L (0.5-2.2)
--- NOTE | 2020-08-27 05:07 | P.HP_ITS ---
Providers/Chief Complaint Admitting Physician: Negin Arizmendi MD Primary Care Provider: Arturo Bell MD Chief Complaint: poss aspiration History of Present Illness Yaakov Toure is a 75 year old male with past medical history of severe mental retardation, bipolar disorder with behavior disturbances) brought to the ER today from [place] assisted living facility because of 3 to 4 days of cough with expectoration, fever and increasing lethargy. History is obtained by talking to caregivers at the facility. At a baseline patient is able to ambulate independently, speaks a few legible words however these are out of context. He has been more lethargic over the past 3 to 4 days. They were initially concerned that he may have aspirated and have changed his diet to normal pur?ed consistency since yesterday. Upon presentation to the ER he was noted to have a temperature of 100.8, unable to ambulate, needing a two-person assist to move from wheelchair to the bed. Sepsis noted to be significantly weaker than his baseline. More subacutely he has been having increasing gait disturbances, per review of notes from Dr. Tee, patient had a subdural hematoma in October 2019. He tested positive for COVID-19 antigen. He was maintaining oxygen saturation on room air of 94% and received Bamlanivimab in the ER. Chest x-ray does not show any gross consolidation, appears to be unchanged since June 2020.. Final radiology interpretation is pending at this time. A CT of the head was also ordered however this has not been performed just yet. Review of Systems General: Reports: ROS unobtainable due to medical condition and ROS unobtainable due to mental status Medications/Allergies Home Medications Medication Instructions Recorded Confirmed Last Taken Type carbamide peroxide 6.5 % ear drops 5 drop EAR-BOTH DAILY 03/02/20 07/23/20 07/23/20 History chlorhexidine gluconate 0.12 % 15 ml BUCCAL BID 03/02/20 07/23/20 07/23/20 History mouthwash dextromethorphan-guaifenesin 10 7.5 ml PO Q8H PRN 03/02/20 07/23/20 07/23/20 History mg-200 mg/5 mL oral liquid divalproex 500 mg tablet,delayed 500 mg PO BID 03/02/20 07/23/20 07/25/20 History release ibuprofen 600 mg tablet 600 mg PO Q6H PRN 03/02/20 07/23/20 07/20/20 History loratadine 10 mg capsule 10 mg PO DAILY 03/02/20 07/23/20 07/25/20 History olanzapine 5 mg tablet 5 mg PO BID tab 03/02/20 07/23/20 07/25/20 History quetiapine 100 mg tablet 100 mg PO DAILY 03/02/20 07/23/20 07/25/20 History trihexyphenidyl 2 mg tablet 2 mg PO BID tab 03/02/20 07/23/20 07/25/20 History acetaminophen 325 mg capsule 650 mg PO QID cap 06/01/20 07/23/20 07/23/20 History aluminum-mag hydroxide-simethicone 30 ml PO .q 4 hours PRN ml 06/01/20 07/23/20 07/23/20 History 400 mg-400 mg-40 mg/5 mL oral susp bismuth subsalicylate 262 mg/15 mL 524 mg PO .q 4 hours PRN ml 06/01/20 07/23/20 Unknown History oral suspension omeprazole 20 mg capsule,delayed 20 mg PO DAILY 06/01/20 07/23/20 07/25/20 History release clomipramine [Anafranil] 50 mg PO DAILY 06/22/20 07/23/20 07/25/20 History lorazepam 2 mg tablet 2 mg PO Q6H PRN #20 tab 06/24/20 07/23/20 07/24/20 Rx Allergies Allergy/AdvReac Type Severity Reaction Status Date / Time No Known Allergies Allergy Verified 06/08/20 14:31 PFSH Acute PFSH: Medical History (Updated 08/27/20 @ 05:25 by Negin Arizmendi MD) Bipolar 1 disorder Social History Smoking and tobacco status: never smoked Alcohol intake: never History of recent travel: No Current gender identity: Male Vitals/I&O/Wt Last Vital Signs Temp 98.7 F 08/27/20 04:00 Pulse 86 08/27/20 04:00 Resp 17 08/27/20 04:00 BP 131/81 08/27/20 04:00 Pulse Ox 94 08/27/20 04:00 08/26/20 08/26/20 08/27/20 14:59 22:59 06:59 Output Total 250 / 250 Balance -250 / -250 Weight last 48 hrs Weight 86.183 kg Physical Exam Urinary Catheter Management^: Martinez: Cath Placed During This Visit: yes Urinary Catheter Date of Insertion: 08/26/20 Urinary Catheter Time of Insertion: 23:59 Data : 08/26/20 22:30 08/26/20 22:30 Micro: Microbiology 08/26/20 22:30 Blood Culture - Preliminary Blood SPECIMEN COLLECTED 08/26/20 22:30 Blood Culture - Preliminary Blood SPECIMEN COLLECTED A&P Assessment and plan (1) COVID-19: Admit to [facility] Currently hemodynamically stable, maintaining 94% saturation on room air. No gross consolidation noted on chest x-ray, D-dimer noted to be elevated, CTA of the chest ordered to evaluate for PE. Patient received Bamlanivimab in the ER Noted to have increased coughing and aspiration at the snf facility, n.p.o. for now except for meds, dysphagia screening in the morning and retrial of different consistencies. Has been on pur?ed diet most recently. IV ceftriaxone 1 g every 24 hours empirically to cover for aspiration. Status: Acute (2) Weakness: Likely related to the acute viral illness CT head ordered to rule out underlying CVA or and or hemorrhage given history of subdural hematoma earlier this year. Status: Acute (3) Hyponatremia: Clinically appears to be dehydrated, start D5 normal saline at 75 cc/h. Status: Acute Additional A&P Information DVT prophylaxis SCDs for now while pending CT head Full code per advanced directives at assisted living Attestations Medical Necessity Statement*: less than 2 midnight admission for managemet of mild to moderate Covid19, generalized weakness, need for iv hydration Coding Level of Care Code Acute Medical Office Secretary for [facility] Fw Diagnoses COVID-19 U07.1 Weakness R53.1 Hyponatremia E87.1
[2020-08-27] MEDS: cefTRIAXone 1,000 MG in sodium chloride 0.9% (plus) 50 ML 100 MG IV (08:49)
[2020-08-27] MEDS: dextrose 5%-sod chloride 0.9% 1,000 ML 75 ML IV ×2 (08:49→23:47)
[2020-08-27] MEDS: quetiapine 100 mg Tablet PO (08:50)
[2020-08-27] MEDS: divalproex DR 500 mg Tablet PO ×2 (08:50→17:23)
[2020-08-27] MEDS: pantoprazole DR 40 mg Tablet PO (08:50)
[2020-08-27] MEDS: OLANZapine 5 mg TABLET PO ×2 (08:50→17:23)
--- NOTE | 2020-08-27 18:05 | PM.PN ---
Subjective Subjective: Interval history: CTA of the chest and CT of the head were ordered for today. Due to baseline functioning, patient will require sedation for this to be done. Consent needs to be obtained from guardian for both the contrast and the sedation. At this point in time I have asked for the CT of the head to be done without contrast and will work on getting the consent. Cannot be done until security is available for transport. Patient did have endoscopy in July so it may be helpful to see what he was sedated with at that point in time. H&P indicates that patient received monoclonal antibody therapy in the emergency room. I have not been able to verify this and documentation from the ED physician, ED nursing staff or from pharmacy. There is an order listed for infusion but I do not know that it was ever carried out. With hospitalization, monoclonal antibody treatment not indicated/recommended. Mr. Toure simply repeats go home go home during evaluation. Does not answer questions much. Review of some old records indicates this is probably his baseline. Rash developed upper chest this evening, macular, erythematous, not spreading or urticarial. He spencer snot seem to be scratching at this. No change in vital signs initially noted but he later developed a fever and I suspect it was related to this.. In addition to this, decreased ROM on neck during examination. Previous documentation in chart indicate normal ROM or no indication of baseline. Review of medicaton lists shows he is normally on trihexaphenidyl but not given here. Could be an extrapyramidal response. However, also history of subdural hematoma earlier this year with a not dissimilar presentation. Vitals/I&O/Wt Last Vital Signs Temp 97.8 F 08/27/20 16:00 Pulse 89 08/27/20 16:00 Resp 22 H 08/27/20 16:00 BP 151/83 08/27/20 16:00 Pulse Ox 92 08/27/20 16:00 08/27/20 08/27/20 08/27/20 06:59 14:59 22:59 Intake Total 120 / 120 Output Total 250 / 250 800 / 800 Balance -250 / -250 -680 / -680 Weight last 48 hrs Weight 86.183 kg Physical Exam Const: OTHER: Awake, unhappy with current setting, asks to go home, not otherwise very interactive, ill appearing HENMT: OTHER: dry lips, secretions noted to oral mucosal surfaces Neck/C-Spine: OTHER: Limited ROM front to back, better side to side, moans when I touch him so hard to discern if pain in the neck Resp: OTHER: Coarse breath sounds with upper airway mucus noted, occasional productive cough Cardio: OTHER: 1+ pulses, regular rhythm, distant heart sounds GI: OTHER: Abdomen soft, nondistended, grimaces with touch, positive bowel sounds : OTHER: normal external, randolph noted Extremity: NARRATIVE EXTREMITY EXAM: no pitting edema, doughy skin Neuro: OTHER: moans, generally weak but will move extremities in response to touch at times Psych: OTHER: scared, anxious, can be consoled briefly Skin: OTHER: pale, red macules across upper chest and neck, not urticaria Urinary Catheter Management^: Randolph: Cath Placed During This Visit: yes Reason for Continuing Indwelling Catheter: Acute Urinary Retention or Obstruction Urinary Catheter Date of Insertion: 08/26/20 Urinary Catheter Time of Insertion: 23:59 Data : 08/26/20 22:30 08/26/20 22:30 Micro: Microbiology 08/26/20 22:30 Blood Culture - Preliminary Blood Gram positive cocci 08/26/20 22:30 Blood Culture - Preliminary Blood SPECIMEN COLLECTED A&P Assessment and plan (1) Weakness: At baseline walks around but has been total care patient recently Status: Acute (2) COVID-19: Recent fever, productive cough, increasing lethargy and generalized weakness. Thus far on room air with stable oxygenation. Work-up currently with lymphopenia, elevated fibrinogen and D-dimer, lactic acidosis, elevated CRP. 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 Has associated intermittent explosive disorder, OCD Status: Chronic (5) Bipolar 1 disorder, manic, full remission: Chronically on clomipramine, Depakote, Zyprexa and Seroquel. Takes trihexyphenidyl as well. Status: Chronic (6) Subdural hematoma: History of subdural hematoma in October of this year in which patient presented with alteration of mental status and difficulty walking. 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, behavioral Gram positive Cocci in 1/4 blood culture bottles Will see if can get CT head without contrast without sedation Give trihexaphenidyl (aware of general contraindication at his age but on at home for quite some time) and monitor response to treatment Under the circumstances and history this is the most urgent to perform in my opionion Hold CTA chest presently, not requiring oxygen, and need to rule out bleed in head For CTA and/or LP consideration, assuming neck not extrapyrimadol symptoms, will need conscious sedation and staffing available for these to be done Can consider echo evaluation of right heart chambers as he might be more cooperative with that Add Vancomycin to Rocephin Follow up cultures Mucolytic, has lisaitsusison ordered Would not be cooperative with inhaler treatments Monitor respiratory status for change, especially in response to current clinical condition and the usual medications he is on Continue sips and chips and meds diet Check depakote level if not done already Repeat labs in am Randolph removed Decrease IVFs rate If no bleed on CT head, start lovenox SCDs in place Supportive care otherwise Full code Disposition plans will depend I think on the level of care patient will need and clinical course Attestations Medical Necessity Statement*: Change to inpatient status as with positive blood cultures, IV antibiotics and other issues as noted above stay will now extend beyond 2 midnights Coding Level of Care Code Acute 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
[2020-08-27] MEDS: diphenhydrAMINE 25 mg Capsule PO (18:46)
[2020-08-27] MEDS: vancomycin 1,000 MG in sodium chloride 0.9% 250 ML 250 MG IV (20:22)
[2020-08-27 20:34] LABS: Valproic Acid Level 56.6 ug/mL (50-100)
[2020-08-27] MEDS: acetaminophen 325 mg Tablet 650 MG PO ×2 (21:25)
--- NOTE | 2020-08-27 23:26 | PC.NURSE ---
AT APPROXIMATELY 2030 THE PATIENT WAS FOUND TO BE PALE, FINGERS AND TOES CYANOTIC, CAP REFILL <3 SECONDS. ELEVATED TEMPERATURE, OXYGEN SATURATION 88% ON ROOM AIR, OTHER VS UNREMARKABLE. 2 LITERS OF OXYGEN VIA NASAL CANULA APPLIED TO PATIENT. APPROXIMATELY 1 HOUR LATER, PATIENT WAS STILL FEBRILE. OTHER VS WNL. THE PATIENT WAS FOUND TO BE UNRESPONSIVE TO VOICE OR TOUCH. MINIMAL RESPONSE TO STERNAL RUB. AFTER APPROXIMATELY 45 SECONDS THE PATIENT BEGAN TO RESPOND. AT THIS POINT PO TYLENOL WAS GIVEN, THE PATIENT SWALLOWED WITHOUT ISSUE. HOSPITALIST WAS CALLED AND INFORMED OF CONDITION AND VITAL SIGNS. NO NEW ORDERS RECEIVED, WILL MONITOR.
--- NOTE | 2020-08-27 23:38 | CTR_ITS ---
PROCEDURE INFORMATION: Exam: CT Head Without Contrast Exam date and time: 08/27/2020 6:13 PM Age: 75 years old Clinical indication: Altered mental status/memory loss; Confusion or disorientation; Patient HX: AMS HX of subdural 10/20 TECHNIQUE: Imaging protocol: Computed tomography of the head without contrast. Radiation optimization: All CT scans at this facility use at least one of these dose optimization techniques: automated exposure control; mA and/or kV adjustment per patient size (includes targeted exams where dose is matched to clinical indication); or iterative reconstruction. COMPARISON: CT head wo con* [id number] 10/31/2019 5:17 PM RADIATION DOSE METRICS: Total DLP (mGy-cm): 1855.95 FINDINGS: Brain: Mild cortical volume loss. Mild hypodensities in supratentorial periventricular white matter. No intracranial hemorrhage. Cerebral ventricles: Stable mild prominence of the lateral ventricles. Bones/joints: Unremarkable. No acute fracture. Paranasal sinuses: Visualized sinuses are unremarkable. No fluid levels. Mastoid air cells: Visualized mastoid air cells are well aerated. Orbital cavity: Prior cataract surgery. Vasculature: No hyperdense artery. Soft tissues: Unremarkable. CT/CT head wo con* [id number] IMPRESSION: 1. No acute intracranial abnormality. 2. Mild microangiopathy. Radiation Dose CTDIVOL = (mGy): DLP = 1855.95 (mGy-cm)
[2020-08-28] VITALS (8 sets, daily range): BP systolic 101–145; BP diastolic 74–88; PULSE 63–92; RESP 18–26; TEMP 36.4–38.3; O2SAT 91–95
[2020-08-28] MEDS: enoxaparin 40 mg/0.4 mL Syringe SUBCUT ×2 (00:59→23:46)
--- NOTE | 2020-08-28 01:31 | PC.NURSE ---
AT SHIFT CHANGE, IT WAS REPORTED THAT THE PATIENT EXPERIENCED A RED RASH TO HIS CHEST. THE BOUNDARIES WERE MARKED BY PREVIOUS NURSE AND THERE WAS NO NOTED PROGRESSION. WHEN THIS NURSE WENT IN TO ROUND AT 0100, IT WAS NOTED THAT THE PATIENT'S ARMS WERE NOW RED. MESSAGE SENT TO HOSPITALIST, AWAITING REPLY.
[2020-08-28] MEDS: dexamethasone 4 mg/mL INJ 6 MG IVP (03:34)
--- NOTE | 2020-08-28 05:14 | CTR_ITS ---
PROCEDURE INFORMATION: Exam: CT Angiography Chest With Contrast Exam date and time: 08/28/2020 2:10 PM Age: 75 years old Clinical indication: Abnormal findings; Abnormal diagnostic tests; Elevated d-dimer; Patient HX: Covid + w elev d-dimer; Additional info: Evalute for pe TECHNIQUE: Imaging protocol: Computed tomographic angiography of the chest with intravenous contrast. 3D rendering (Not supervised by radiologist): MIP and/or 3D reconstructed images were created by the technologist. Radiation optimization: All CT scans at this facility use at least one of these dose optimization techniques: automated exposure control; mA and/or kV adjustment per patient size (includes targeted exams where dose is matched to clinical indication); or iterative reconstruction. Contrast material: OMNI 350; Contrast volume: 73 ml; Contrast route: INTRAVENOUS (IV); COMPARISON: CT Chest/Abdomen/Pelvis w IV* 04/13/2019 12:06 AM RADIATION DOSE METRICS: Total DLP (mGy-cm): 542.43 FINDINGS: Pulmonary arteries: Normal. No pulmonary emboli. Aorta: Unremarkable. No aortic aneurysm. No aortic dissection. Lungs: Bilateral geographic ground-glass opacities, right greater than left, consistent with [id number] bilateral Covid-19 pneumonia versus other viral pneumonia. Pleural space: Mild bilateral pleural fluid collections. Heart: Severe calcified coronary artery disease. Lymph nodes: Unremarkable. No enlarged lymph nodes. Gallbladder and bile ducts: Continued multiple gallstones within the gallbladder. Kidneys and ureters: Multiple right renal simple cysts with the largest measuring > 1.0 cm . Bones/joints: Unremarkable. No acute fracture. Soft tissues: Unremarkable. Other findings: Examination is limited secondary to motion artifact. Examination is limited by artifact from one or both arms by the patient's side. CT/CT angio chest PE protcl [id number] IMPRESSION: 1. Examination is limited secondary to motion artifact. 2. Bilateral geographic ground-glass opacities, right greater than left, consistent with [id number] bilateral Covid-19 pneumonia versus other viral pneumonia. 3. Severe calcified coronary artery disease. 4. Mild bilateral pleural fluid collections. 5. No pulmonary embolus or aortic dissection. COMMENTS: Consistent with the [employer]'s Incidental Findings Committee white paper (J Am Seth Radiol 2018): Any incidental renal lesion less than 1 cm or classified as too small to characterize, or any incidental cystic renal lesion characterized as simple-appearing, is likely benign. No follow-up imaging is recommended for these lesions per consensus recommendations based on imaging criteria. Radiation Dose CTDIVOL = (mGy): DLP = 542.43 (mGy-cm)
[2020-08-28 06:59] LABS: Basophils % 0.1 %; Hematocrit 37.5 % (42.0-52.0); Hemoglobin 12.3 g/dL (11.7-16.6); Lymphocytes # 0.6 10^3/uL (0.8-4.8); Lymphocytes % 6.3 %; Mean Corpuscular HGB Conc 32.8 g/dL (30.0-36.0); Mean Corpuscular Hemoglobin 28.9 pg (28.0-34.0); Mean Corpuscular Volume 88.2 fL (80-94); Mean Platelet Volume 10.1 fL (7.4-10.4); Monocytes # 0.9 10^3/uL (0.2-0.9); Monocytes % 10.6 %; Neutrophils # 7.15 10^3/uL (1.8-7.7); Neutrophils % 82.2 %; Nucleated Red Blood Cells % 0 %; Platelet Count 195 10^3/cmm (130-400); Red Blood Count 4.25 10^6/uL (4.1-5.3); Red Cell Distribution Width 14.7 % (12.1-15.1); White Blood Count 8.7 10^3/uL (4.0-10.0)
[2020-08-28 07:25] LABS: INR 1.09 (0.8-1.2)
[2020-08-28 07:28] LABS: Partial Thromboplastin Time 34.2 SECONDS (23.9-36.7)
[2020-08-28 07:32] LABS: Alanine Aminotransferase 11 U/L (0-41); Albumin Level 2.9 g/dL (3.5-5.2); Alkaline Phosphatase 41 IU/L (40-130); Anion Gap 13.2 (5-19); Aspartate Amino Transferase 20 U/L (0-40); Blood Urea Nitrogen 12 mg/dL (8-23); C Reactive Protein 136.6 mg/L (0.0-4.9); Carbon Dioxide 24 mmol/L (22-29); Chloride 99 mmol/L (98-107); Ferritin 332 ng/mL (30-400); Globulin 3.2 g/dL (1.3-4.6); Glucose 145 mg/dL (65-115); Lactate Dehydrogenase 237 U/L (135-225); Osmolality Calculated 276 mOsm/kg (285-295); Potassium 4.2 mmol/L (3.5-5.1); Sodium 132 mmol/L (136-145); Total Bilirubin 0.3 mg/dL (0.15-1.2); Total Protein 6.1 g/dL (6.6-8.7)
[2020-08-28 07:37] LABS: Creatine Phosphokinase 433 U/L (39-308)
[2020-08-28] MEDS: cefTRIAXone 2,000 MG in sodium chloride 0.9% (plus) 50 ML 100 MG IV (08:50)
--- NOTE | 2020-08-28 10:13 | USCV_ITS ---
Yaakov Toure Age: 75 Gender: M : 1945 Exam Date: 08/28/2020 12:40 Ordering Phys: Ranjan Park MD Technologist: Brandy Mcghee [place] [facility] [place]: Gram + ve cocci bcx, ? endocarditis BP: 110 / 75 HR: 80 Rhythm: Sinus Technical Quality: Suboptimal MEASUREMENTS (Male / Female) Normal Values 2D ECHO LV Diastolic Diameter PLAX 3.3 cm 4.2 - 5.9 / 3.9 - 5.3 cm LV Systolic Diameter PLAX 1.6 cm LV Chamber Size 4.1 cm IVS Diastolic Thickness 1.3 cm 0.6 - 1.0 / 0.6 - 0.9 cm IVS Systolic Thickness 1.3 cm LVPW Diastolic Thickness 0.8 cm 0.6 - 1.0 / 0.6 - 0.9 cm LVPW Systolic Thickness 0.8 cm RV Chamber Size 2.7 cm LVOT Diameter 1.8 cm LV Ejection Fraction 2D Teich 83.4 % LV Ejection Fraction MOD 2C 70.6 % LV Ejection Fraction 2C AL 72.3 % LA Diameter 2.9 cm LA Width 2.9 cm LA Height 3.9 cm RA Width 2.6 cm RA Height 3.6 cm Aorta at Sinotubular Diameter 2.6 cm M-MODE LV Diastolic Diameter MM 4.7 cm 4.2 - 5.9 / 3.9 - 5.3 cm LV Systolic Diameter MM 3.6 cm LV Ejection Fraction MM Teich 48.0 % IVS Diastolic Thickness MM 1.2 cm 0.6 - 1.0 / 0.6 - 0.9 cm IVS Systolic Thickness MM 1.5 cm LVPW Diastolic Thickness MM 1.4 cm 0.6 - 1.0 / 0.6 - 0.9 cm LVPW Systolic Thickness MM 1.7 cm Aortic Annulus Diameter 3.6 cm LA Ao Ratio MM 1.1 MV E Point Septal Separation 0.9 cm DOPPLER AV Peak Velocity 136.0 cm/s LVOT Peak Velocity 102.0 cm/s AV Area Cont Eq vti 2.0 cm squared AV Area Cont Eq pk 2.0 cm squared MV Area PHT 3.1 cm squared Mitral E to A Ratio 0.8 MV E' Velocity 40.5 cm/s Mitral E to MV E' Ratio 7.0 Mitral E to LV E' Lateral Ratio 5.8 Mitral E to LV E' Septal Ratio 8.9 TR Peak Velocity 231.0 cm/s TR Peak Gradient 21.3 mmHg TV Peak E Velocity 85.0 cm/s Right Atrial Pressure 3.0 mmHg Pulmonary Artery Systolic Pressu 24.3 mmHg FINDINGS Left Ventricle Normal left ventricular cavity size. No regional wall motion abnormalities. Normal left ventricular systolic function. Left ventricular ejection fraction is estimated at 60 %. Grade I/IV diastolic dysfunction (abnormal relaxation filling pattern), normal to mildly elevated filling pressures. Right Ventricle The right ventricle is normal in size and function. Right Atrium The right atrium is normal in size. Left Atrium The left atrium is normal in size. Mitral Valve Moderately thickened mitral valve. Mitral annular calcification. No mitral valve stenosis. Mild mitral valve regurgitation. Aortic Valve Moderate aortic valve calcification. No aortic valve stenosis. Mild aortic valve regurgitation. Tricuspid Valve Structurally normal tricuspid valve without significant stenosis or regurgitation. Pulmonary artery systolic pressure is normal. Pulmonic Valve Structurally normal pulmonic valve without significant stenosis. There is no pulmonic regurgitation. Pericardium Normal pericardium without effusion. Aorta Normal ascending aorta dimension. CONCLUSIONS 1-Normal left ventricular cavity size. No regional wall motion abnormalities. Normal left ventricular systolic function. Left ventricular ejection fraction is estimated at 60 %. Grade I/IV diastolic dysfunction (abnormal relaxation filling pattern), normal to mildly elevated filling pressures. 2-Moderately thickened mitral valve. Mitral annular calcification. No mitral valve stenosis. Mild mitral valve regurgitation. 3-Moderate aortic valve calcification. No aortic valve stenosis. Mild aortic valve regurgitation. 4-There is no pericardial effusion. 5-Pulmonary artery systolic pressure is within normal limits. 6-Right atrial pressure is around 5 mm of mercury. 7-There are no prior echocardiogram studies to compare. Ludy Lara MD (Electronically Signed) Final Date: 28 August 2020 19:15 S
--- NOTE | 2020-08-28 10:14 | CTR_ITS ---
PROCEDURE INFORMATION: Exam: CT Lumbar Spine Without Contrast Exam date and time: 08/28/2020 2:10 PM Age: 75 years old Clinical indication: Low back pain; Patient HX: Neck and back pain w gram + ve cocci - epidural abcess vs osteo; Additional info: R/O epidural abscess vs verebral osteo TECHNIQUE: Imaging protocol: Computed tomography images of the lumbar spine without contrast. Radiation optimization: All CT scans at this facility use at least one of these dose optimization techniques: automated exposure control; mA and/or kV adjustment per patient size (includes targeted exams where dose is matched to clinical indication); or iterative reconstruction. COMPARISON: No relevant prior studies available. RADIATION DOSE METRICS: Total DLP (mGy-cm): 2039.6 FINDINGS: Vertebrae: Moderate to severe multilevel spine degenerative changes including degenerative disc disease, spondylosis and facet degenerative changes. Prominent Schmorl's nodes involving L1-L2, L2-L3 and L3-L4. Discs/Spinal canal/Neural foramina: No significant disc protrusion. No severe spinal canal stenosis. No significant neural foraminal narrowing. Vasculature: Calcification of the abdominal aorta and/or iliac arteries consistent with atherosclerotic vessel disease. Soft tissues: Unremarkable. CT/CT lumbar spine wo con* [id number] IMPRESSION: No acute findings. MRI with and without contrast is more sensitive epidural abscess/discitis/osteomyelitis. Radiation Dose CTDIVOL = (mGy): DLP = 2039.6 (mGy-cm)
--- NOTE | 2020-08-28 10:14 | CTR_ITS ---
PROCEDURE INFORMATION: Exam: CT Cervical Spine Without Contrast Exam date and time: 08/28/2020 2:10 PM Age: 75 years old Clinical indication: Neck pain; Patient HX: Neck and back pain w gram + ve cocci - epidural abcess vs osteo; Additional info: Gram +ve cocci TECHNIQUE: Imaging protocol: Computed tomography images of the cervical spine without contrast. Axial, coronal and sagittal reformatted images were created and reviewed. Radiation optimization: All CT scans at this facility use at least one of these dose optimization techniques: automated exposure control; mA and/or kV adjustment per patient size (includes targeted exams where dose is matched to clinical indication); or iterative reconstruction. COMPARISON: No relevant prior studies available. RADIATION DOSE METRICS: Total DLP (mGy-cm): 704.44 FINDINGS: Bones/joints: Normal cervical lordosis. No CT evidence of acute fracture, dislocation or subluxation. Alignment anatomic. Vertebral body heights maintained. Discs/Spinal canal/Neural foramina: Mild multilevel degenerative changes, characterized by disc space narrowing, osteophytosis and uncovertebral and facet joint hypertrophy. Mild multilevel neural foraminal narrowing. No significant spinal stenosis. Soft tissues: Grossly unremarkable. Lungs: Grossly unremarkable. CT/CT cervical spin wo con* [id number] IMPRESSION: No acute findings. Radiation Dose CTDIVOL = (mGy): DLP = 704.44 (mGy-cm)
--- NOTE | 2020-08-28 10:14 | CTR_ITS ---
PROCEDURE INFORMATION: Exam: CT Thoracic Spine Without Contrast Exam date and time: 08/28/2020 2:10 PM Age: 75 years old Clinical indication: Pain in thoracic spine; Without myelpathy or radiculopathy; Patient HX: Neck and back pain w gram + ve cocci - epidural abcess vs osteo; Additional info: Gram +ve cocci, evaluate for epidual abscess, osteo TECHNIQUE: Imaging protocol: Computed tomography images of the thoracic spine without contrast. Radiation optimization: All CT scans at this facility use at least one of these dose optimization techniques: automated exposure control; mA and/or kV adjustment per patient size (includes targeted exams where dose is matched to clinical indication); or iterative reconstruction. COMPARISON: No relevant prior studies available. RADIATION DOSE METRICS: Total DLP (mGy-cm): 2445.07 FINDINGS: Vertebrae: Mild levoscoliosis. Mild thoracic spondylosis. Discs/Spinal canal/Neural foramina: No significant disc protrusion. No severe spinal canal stenosis. No significant neural foraminal narrowing. Soft tissues: Unremarkable. Lungs: Lung findings as discussed in CTA chest. CT/CT thoracic spin wo con* [id number] IMPRESSION: 1. Mild levoscoliosis. 2. Mild thoracic spondylosis. Radiation Dose CTDIVOL = (mGy): DLP = 2445.07 (mGy-cm)
[2020-08-28] MEDS: vancomycin 1,000 MG in sodium chloride 0.9% 250 ML 250 MG IV ×2 (12:07→21:57)
[2020-08-28] MEDS: OLANZapine 5 mg TABLET PO ×2 (12:25→17:59)
[2020-08-28] MEDS: pantoprazole DR 40 mg Tablet PO (12:25)
[2020-08-28] MEDS: divalproex DR 500 mg Tablet PO ×2 (12:25→17:59)
[2020-08-28] MEDS: quetiapine 100 mg Tablet PO (12:26)
--- NOTE | 2020-08-28 12:54 | PM.PN ---
Subjective Subjective: Interval history: This morning patient was examined, he is sleeping, he is arousable, does awaken, does not really respond to questions, does not really follow commands, a bit agitated when I try to uncover him, much happy when I put him back under the covers Vitals/I&O/Wt Last Vital Signs Temp 98.9 F 08/28/20 12:00 Pulse 80 08/28/20 12:00 Resp 18 08/28/20 12:00 BP 101/74 08/28/20 12:00 Pulse Ox 91 08/28/20 12:00 08/27/20 08/28/20 08/28/20 22:59 06:59 14:59 Intake Total 1370 / 1370 160 / 1530 Output Total 1200 / 1200 800 / 2000 Balance 170 / 170 -640 / -470 Weight last 48 hrs Weight 86.183 kg Physical Exam Const: COMMON NORMALS: no acute distress EXAM LIMITATIONS: behavioral limitations and physical limitations ORIENTATION/CONSCIOUSNESS: Yes awake; not oriented to person, not oriented to place and not oriented to time Neck/C-Spine: COMMON NORMALS: no JVD Chest: COMMONS NORMALS: normal inspection of the chest Resp: COMMON NORMALS: normal respiratory effort, No retractions, No use of accessory muscles and clear to auscultation bilaterally AUSCULTATION: clear to auscultation bilaterally, no crackles and no wheezes Cardio: COMMON NORMALS: no JVD, regular rate, regular rhythm, S1 normal heart sound present and S2 normal heart sound present RATE: regular rate RHYTHM: regular rhythm HEART SOUNDS: S1 normal heart sound present and S2 normal heart sound present GI: COMMON NORMALS: Normal to inspection, nondistended, normoactive bowel sounds present, Soft to palpation, non-tender and No hepatosplenomegaly present PALPATION: Yes Soft to palpation and Yes No hepatosplenomegaly present Extremity: COMMON NORMALS: capillary refill normal, no clubbing, cyanosis or edema and no pedal edema Neuro: SENSORIUM/ORIENTATION: No oriented to person, No oriented to place and No oriented to time Urinary Catheter Management^: Maritnez: Cath Placed During This Visit: yes, but has since been removed by the nurse Reason for Continuing Indwelling Catheter: Decision to DC Catheter Urinary Catheter Date of Insertion: 08/26/20 Urinary Catheter Time of Insertion: 23:59 Date Urinary Catheter Removed: 08/28/20 Time Urinary Catheter Discontinued: 20:15 Data : 08/28/20 05:40 08/28/20 05:40 Micro: Microbiology 08/26/20 23:53 Urine Culture - Preliminary Urine Catheterized 08/26/20 22:30 Blood Culture - Preliminary Blood Gram positive cocci 08/26/20 22:30 Blood Culture - Preliminary Blood Gram positive cocci 08/28/20 05:10 Blood Culture - Preliminary Blood SPECIMEN COLLECTED 08/28/20 05:40 Blood Culture - Preliminary Blood SPECIMEN COLLECTED A&P Assessment and plan (1) Gram-positive bacteremia: -Likely a component of his weakness -Etiology is unclear this point -Is on broad-spectrum antibiotics vancomycin and Rocephin -Cardiac echocardiogram ordered -CT of the cervical, thoracic, lumbar spine ordered -Continue to monitor for fevers, monitor inflammatory markers, follow cultures -Full code -Lovenox for DVT prophylaxis Status: Acute (2) Weakness: At baseline walks around but has been total care patient recently Status: Acute (3) COVID-19: Recent fever, productive cough, increasing lethargy and generalized weakness. Thus far on room air with stable oxygenation. Work-up currently with lymphopenia, elevated fibrinogen and D-dimer, lactic acidosis, elevated CRP. 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 Has associated intermittent explosive disorder, OCD Status: Chronic (6) Bipolar 1 disorder, manic, full remission: Chronically on clomipramine, Depakote, Zyprexa and Seroquel. Takes trihexyphenidyl as well. Status: Chronic (7) Subdural hematoma: History of subdural hematoma in October of this year in which patient presented with alteration of mental status and difficulty walking. Status: Chronic Additional A&P Information Elevated blood sugar without a known history of diabetes Abnormal urinalysis consistent with volume depletion plus minus concentrated specimen with contamination longterm concern for aspiration Rash, believe due to fever Decreased ROM neck, differential: baseline, medication effect/lack of med effect, sole seamer bleed, infection, behavioral Plan for today, will obtain cardiac echocardiogram, CT imaging of the spine, continue antibiotics, Mucolytic, has robitsusison ordered Would not be cooperative with inhaler treatments Monitor respiratory status for change, especially in response to current clinical condition and the usual medications he is on Continue sips and chips and meds diet Check depakote level Martinez removed Decrease IVFs rate If no bleed on CT head, start lovenox SCDs in place Supportive care otherwise Full code Disposition plans will depend I think on the level of care patient will need and clinical course Attestations Medical Necessity Statement*: Patient requires hospitalization for gram-positive bacteremia, COVID-19 Coding Level of Care Code Acute Restorative Care Technician for [facility] Diagnoses Gram-positive bacteremia R78.81 Weakness R53.1 COVID-19 U07.1 Hyponatremia E87.1 Developmental abnormality of central nervous system Q07.9 Bipolar 1 disorder, manic, full remission F31.74 Subdural hematoma S06.5X9A
[2020-08-28] MEDS: LORazepam 2 mg/mL INJ 1 mL 1 MG IVP (14:10)
[2020-08-28] MEDS: iohexol 350 mg/mL 100 mL Btl IV (14:40)
[2020-08-28] MEDS: dextrose 5%-sod chloride 0.9% 1,000 ML 75 ML IV (17:59)
[2020-08-29] VITALS: BP 124/70; PULSE 68; RESP 16; TEMP 36.4; O2SAT 95
[2020-08-29 04:00] VITALS: BP 120/62; PULSE 66; RESP 18; TEMP 36.9; O2SAT 97
[2020-08-29 04:52] LABS: Basophils % 0.1 %; Hemoglobin 12.1 g/dL (11.7-16.6); Lymphocytes # 0.8 10^3/uL (0.8-4.8); Lymphocytes % 11.9 %; Mean Corpuscular HGB Conc 32.7 g/dL (30.0-36.0); Mean Corpuscular Hemoglobin 28.8 pg (28.0-34.0); Mean Corpuscular Volume 88.1 fL (80-94); Mean Platelet Volume 9.2 fL (7.4-10.4); Monocytes # 0.9 10^3/uL (0.2-0.9); Monocytes % 12.3 %; Neutrophils # 5.19 10^3/uL (1.8-7.7); Neutrophils % 74.1 %; Nucleated Red Blood Cells % 0 %; Platelet Count 210 10^3/cmm (130-400); Red Cell Distribution Width 14.4 % (12.1-15.1)
[2020-08-29] MEDS: dexamethasone 4 mg/mL INJ 6 MG IVP (04:54)
[2020-08-29 05:09] LABS: Lactate (Lactic Acid level) 0.9 mmol/L (0.5-2.2)
[2020-08-29 05:18] LABS: Procalcitonin 0.12 ng/mL (0-0.5)
[2020-08-29 05:26] LABS: INR 1.09 (0.8-1.2)
[2020-08-29 05:31] LABS: Alanine Aminotransferase 9 U/L (0-41); Albumin Level 2.7 g/dL (3.5-5.2); Alkaline Phosphatase 35 IU/L (40-130); Aspartate Amino Transferase 15 U/L (0-40); Blood Urea Nitrogen 18 mg/dL (8-23); C Reactive Protein 92.9 mg/L (0.0-4.9); Calcium 8.1 mg/dL (8.5-10.5); Carbon Dioxide 25 mmol/L (22-29); Chloride 103 mmol/L (98-107); Globulin 2.9 g/dL (1.3-4.6); Glucose 139 mg/dL (65-115); Osmolality Calculated 284 mOsm/kg (285-295); Sodium 135 mmol/L (136-145); Total Bilirubin 0.2 mg/dL (0.15-1.2); Total Protein 5.6 g/dL (6.6-8.7)
[2020-08-29 07:05] LABS: Magnesium 2.3 mg/dL (1.7-2.3); Phosphorus 2.8 mg/dL (2.5-4.5)
[2020-08-29 08:00] VITALS: BP 123/81; PULSE 82; RESP 16; TEMP 36.5; O2SAT 92
[2020-08-29] MEDS: dextrose 5%-sod chloride 0.9% 1,000 ML 75 ML IV (08:15)
[2020-08-29] MEDS: OLANZapine 5 mg TABLET PO ×2 (08:16→18:46)
[2020-08-29] MEDS: pantoprazole DR 40 mg Tablet PO (08:16)
[2020-08-29] MEDS: cefTRIAXone 2,000 MG in sodium chloride 0.9% (plus) 50 ML 100 MG IV (08:16)
[2020-08-29] MEDS: quetiapine 100 mg Tablet PO (08:16)
[2020-08-29] MEDS: divalproex DR 500 mg Tablet PO ×2 (08:16→18:46)
[2020-08-29] MEDS: vancomycin 1,000 MG in sodium chloride 0.9% 250 ML 250 MG IV ×2 (10:28→20:06)
[2020-08-29 12:00] VITALS: BP 121/76; PULSE 76; RESP 16; TEMP 37.2; O2SAT 92
--- NOTE | 2020-08-29 12:24 | PM.PN ---
Subjective Subjective: Interval history: This morning patient is awake, alert, does not really see much, all he says is his teeth is hurting him, overnight no fevers, remains normotensive Vitals/I&O/Wt Last Vital Signs Temp 97.7 F 08/29/20 08:00 Pulse 82 08/29/20 08:00 Resp 16 08/29/20 08:00 BP 123/81 08/29/20 08:00 Pulse Ox 92 08/29/20 08:00 08/28/20 08/29/20 08/29/20 22:59 06:59 14:59 Intake Total 250 / 1550 1000 / 1000 Output Total 800 / 800 Balance 250 / 1550 -800 / 750 1000 / 1000 Physical Exam Const: COMMON NORMALS: no acute distress EXAM LIMITATIONS: behavioral limitations and physical limitations ORIENTATION/CONSCIOUSNESS: Yes awake; not oriented to person, not oriented to place and not oriented to time Neck/C-Spine: COMMON NORMALS: no JVD Chest: COMMONS NORMALS: normal inspection of the chest Resp: COMMON NORMALS: normal respiratory effort, No retractions, No use of accessory muscles and clear to auscultation bilaterally AUSCULTATION: clear to auscultation bilaterally, no crackles and no wheezes Cardio: COMMON NORMALS: no JVD, regular rate, regular rhythm, S1 normal heart sound present and S2 normal heart sound present RATE: regular rate RHYTHM: regular rhythm HEART SOUNDS: S1 normal heart sound present and S2 normal heart sound present GI: COMMON NORMALS: Normal to inspection, nondistended, normoactive bowel sounds present, Soft to palpation, non-tender and No hepatosplenomegaly present PALPATION: Yes Soft to palpation and Yes No hepatosplenomegaly present Extremity: COMMON NORMALS: capillary refill normal, no clubbing, cyanosis or edema and no pedal edema Neuro: SENSORIUM/ORIENTATION: No oriented to person, No oriented to place and No oriented to time Urinary Catheter Management^: Martinez: Cath Placed During This Visit: yes, but has since been removed by the nurse Reason for Continuing Indwelling Catheter: Decision to DC Catheter Urinary Catheter Date of Insertion: 08/26/20 Urinary Catheter Time of Insertion: 23:59 Date Urinary Catheter Removed: 08/28/20 Time Urinary Catheter Discontinued: 20:15 Data : 08/29/20 04:40 08/29/20 04:40 Micro: Microbiology 08/26/20 23:53 Urine Culture - Final Urine Catheterized 08/28/20 05:10 Blood Culture - Preliminary Blood NEGATIVE TO DATE 08/28/20 05:40 Blood Culture - Preliminary Blood NEGATIVE TO DATE 08/26/20 22:30 Blood Culture - Preliminary Blood Gram positive cocci 08/26/20 22:30 Blood Culture - Preliminary Blood Gram positive cocci A&P Assessment and plan (1) Gram-positive bacteremia: -Likely a component of his weakness -Likely secondary to endocarditis -Echocardiogram: 1-Normal left ventricular cavity size. No regional wall motion abnormalities. Normal left ventricular systolic function. Left ventricular ejection fraction is estimated at 60 %. Grade I/IV diastolic dysfunction (abnormal relaxation filling pattern), normal to mildly elevated filling pressures. 2-Moderately thickened mitral valve. Mitral annular calcification. No mitral valve stenosis. Mild mitral valve regurgitation. 3-Moderate aortic valve calcification. No aortic valve stenosis. Mild aortic valve regurgitation. 4-There is no pericardial effusion. 5-Pulmonary artery systolic pressure is within normal limits. -Will review echocardiogram with cardiology -CT cervical/lumbar/thoracic spine does not show any significant evidence vertebral osteomyelitis or epidural abscess -Is on broad-spectrum antibiotics vancomycin and Rocephin -Blood culture showing gram-positive cocci, waiting on sensitivity and identification -We will likely require PICC line placement, IV antibiotics for 2 weeks, with transesophageal echocardiogram in 2 to 4 weeks -Continue to monitor for fevers, monitor inflammatory markers, follow cultures -Full code -Lovenox for DVT prophylaxis Status: Acute (2) Weakness: At baseline walks around but has been total care patient recently Status: Acute (3) COVID-19: Recent fever, productive cough, increasing lethargy and generalized weakness. Thus far on room air with stable oxygenation. Work-up currently with lymphopenia, elevated fibrinogen and D-dimer, lactic acidosis, elevated CRP. 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 Has associated intermittent explosive disorder, OCD Status: Chronic (6) Bipolar 1 disorder, manic, full remission: Chronically on clomipramine, Depakote, Zyprexa and Seroquel. Takes trihexyphenidyl as well. Status: Chronic (7) Subdural hematoma: History of subdural hematoma in October of this year in which patient presented with alteration of mental status and difficulty walking. Status: Chronic Additional A&P Information Elevated blood sugar without a known history of diabetes Abnormal urinalysis consistent with volume depletion plus minus concentrated specimen with contamination [facility] concern for aspiration Rash, believe due to fever Decreased ROM neck, differential: baseline, medication effect/lack of med effect, transportation agent bleed, infection, behavioral Mucolytic, has robitsusison ordered Would not be cooperative with inhaler treatments Monitor respiratory status for change, especially in response to current clinical condition and the usual medications he is on Continue sips and chips and meds diet Check depakote level Martinez removed Decrease IVFs rate If no bleed on CT head, start lovenox SCDs in place Supportive care otherwise Full code Disposition plans will depend I think on the level of care patient will need and clinical course Plan: Await for identification for organism on blood cultures, hopefully PICC line placement tomorrow, de-escalation of antibiotic therapy Attestations Medical Necessity Statement*: Patient requires hospitalization for gram-positive bacteremia, COVID-19 Coding Level of Care Code Acute Automation Controls Specialist for [facility] F[facility] Diagnoses Gram-positive bacteremia R78.81 Weakness R53.1 COVID-19 U07.1 Hyponatremia E87.1 Developmental abnormality of central nervous system Q07.9 Bipolar 1 disorder, manic, full remission F31.74 Subdural hematoma S06.5X9A
[2020-08-29 16:07] VITALS: PULSE 80; O2SAT 94
[2020-08-29 20:00] VITALS: BP 135/85; PULSE 72; RESP 20; TEMP 36.4; O2SAT 94
[2020-08-29] MEDS: enoxaparin 40 mg/0.4 mL Syringe SUBCUT (23:17)
[2020-08-30] VITALS (7 sets, daily range): BP systolic 114–134; BP diastolic 74–84; PULSE 18–77; RESP 16–22; TEMP 36.4–36.7; O2SAT 91–95
[2020-08-30] MEDS: dexamethasone 4 mg/mL INJ 6 MG IVP (02:50)
--- NOTE | 2020-08-30 06:17 | NUR.SHIFT ---
Patient had mainly slept overnight. Patient's IV infiltrated and was DC'd. This and another nurse attempted an IV but was unsuccessful. The patient has +3 pitting edema in the bilateral lower extremities and +2 in the right arm.
[2020-08-30] MEDS: OLANZapine 5 mg TABLET PO ×2 (09:28→17:50)
[2020-08-30] MEDS: divalproex DR 500 mg Tablet PO ×2 (09:28→17:50)
[2020-08-30] MEDS: quetiapine 100 mg Tablet PO (09:29)
[2020-08-30] MEDS: pantoprazole DR 40 mg Tablet PO (09:29)
[2020-08-30 11:44] LABS: Vancomycin Trough 14.6 ug/mL (10-15)
--- NOTE | 2020-08-30 13:57 | XR_ITS ---
WS: [id number] CHEST XRAY TECHNIQUE: Portable chest. CLINICAL INFORMATION: PICC placement COMPARISON: None. FINDINGS: Right PICC line with tip in distal SVC. No pneumothorax. Heart: Normal cardiac silhouette. Lungs: Moderate chronic emphysematous changes. Elevation hemidiaphragm. Subsegmental atelectasis in t he right lung and both lower lobes. Mild interstitial thickening/edema bilaterally. Bones: Normal visualized bony structures. XR/XR chest 1V portable [id number] IMPRESSION: Right PICC line with tip in the distal SVC on the final image
[2020-08-30] MEDS: cefTRIAXone 2,000 MG in sodium chloride 0.9% (plus) 50 ML 100 MG IV (14:58)
[2020-08-30] MEDS: vancomycin 1,000 MG in sodium chloride 0.9% 250 ML 250 MG IV ×2 (14:59→19:57)
--- NOTE | 2020-08-30 15:33 | PM.PN ---
Subjective Subjective: Interval history: This morning patient was examined, he is curled up in bed, he does not really say anything, is watching cartoons on the TV, no fevers overnight, Vitals/I&O/Wt Last Vital Signs Temp 97.9 F 08/30/20 15:29 Pulse 70 08/30/20 15:29 Resp 22 H 08/30/20 15:29 BP 117/74 08/30/20 15:29 Pulse Ox 95 08/30/20 15:29 08/30/20 08/30/20 08/30/20 06:59 14:59 22:59 Intake Total 120 / 120 Balance 120 / 120 Physical Exam Const: COMMON NORMALS: no acute distress EXAM LIMITATIONS: behavioral limitations and physical limitations ORIENTATION/CONSCIOUSNESS: Yes awake; not oriented to person, not oriented to place and not oriented to time Neck/C-Spine: COMMON NORMALS: no JVD Chest: COMMONS NORMALS: normal inspection of the chest Resp: COMMON NORMALS: normal respiratory effort, No retractions, No use of accessory muscles and clear to auscultation bilaterally AUSCULTATION: clear to auscultation bilaterally, no crackles and no wheezes Cardio: COMMON NORMALS: no JVD, regular rate, regular rhythm, S1 normal heart sound present and S2 normal heart sound present RATE: regular rate RHYTHM: regular rhythm HEART SOUNDS: S1 normal heart sound present and S2 normal heart sound present GI: COMMON NORMALS: Normal to inspection, nondistended, normoactive bowel sounds present, Soft to palpation, non-tender and No hepatosplenomegaly present PALPATION: Yes Soft to palpation and Yes No hepatosplenomegaly present Extremity: COMMON NORMALS: capillary refill normal, no clubbing, cyanosis or edema and no pedal edema Neuro: SENSORIUM/ORIENTATION: No oriented to person, No oriented to place and No oriented to time Urinary Catheter Management^: Martinez: Cath Placed During This Visit: yes, but has since been removed by the nurse Reason for Continuing Indwelling Catheter: Decision to DC Catheter Urinary Catheter Date of Insertion: 08/26/20 Urinary Catheter Time of Insertion: 23:59 Date Urinary Catheter Removed: 08/28/20 Time Urinary Catheter Discontinued: 20:15 Data : 08/29/20 04:40 08/29/20 04:40 Micro: Microbiology 08/26/20 22:30 Blood Culture - Preliminary Blood Staph capitis sub ureolyticus Staphylococcus species 08/26/20 22:30 Blood Culture - Preliminary Blood Gram positive cocci A&P Assessment and plan (1) Gram-positive bacteremia: -Likely a component of his weakness -Likely secondary to endocarditis -Staph capitis sub ureolyticus -Staphylococcus species -Second blood culture still pending gram-positive so far -Echocardiogram: 1-Normal left ventricular cavity size. No regional wall motion abnormalities. Normal left ventricular systolic function. Left ventricular ejection fraction is estimated at 60 %. Grade I/IV diastolic dysfunction (abnormal relaxation filling pattern), normal to mildly elevated filling pressures. 2-Moderately thickened mitral valve. Mitral annular calcification. No mitral valve stenosis. Mild mitral valve regurgitation. 3-Moderate aortic valve calcification. No aortic valve stenosis. Mild aortic valve regurgitation. 4-There is no pericardial effusion. 5-Pulmonary artery systolic pressure is within normal limits. -Will review echocardiogram with cardiology -CT cervical/lumbar/thoracic spine does not show any significant evidence vertebral osteomyelitis or epidural abscess -Is on broad-spectrum antibiotics vancomycin and Rocephin -Still waiting on full identification and susceptibility -PICC line to be placed today -Likely require 2 weeks of IV antibiotics, followed up by transesophageal echocardiogram -Continue to monitor for fevers, monitor inflammatory markers, follow cultures -Full code -Lovenox for DVT prophylaxis -Will be moved to a correction for IV antibiotics Status: Acute (2) Weakness: At baseline walks around but has been total care patient recently Status: Acute (3) COVID-19: Recent fever, productive cough, increasing lethargy and generalized weakness. Thus far on room air with stable oxygenation. Work-up currently with lymphopenia, elevated fibrinogen and D-dimer, lactic acidosis, elevated CRP. 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 Has associated intermittent explosive disorder, OCD Status: Chronic (6) Bipolar 1 disorder, manic, full remission: Chronically on clomipramine, Depakote, Zyprexa and Seroquel. Takes trihexyphenidyl as well. Status: Chronic (7) Subdural hematoma: History of subdural hematoma in October of this year in which patient presented with alteration of mental status and difficulty walking. Status: Chronic Additional A&P Information SCDs in place Supportive care otherwise Full code Disposition plans will depend I think on the level of care patient will need and clinical course Plan: Await for identification for organism on blood cultures, PICC line to be placed today, will move to the correction hopefully tomorrow Attestations Medical Necessity Statement*: Patient requires hospitalization for gram-positive bacteremia, awaiting correction placement, awaiting susceptibility and identifications Coding Level of Care Code Acute Motion Graphics Artist for [facility] Fwd Diagnoses Gram-positive bacteremia R78.81 Weakness R53.1 COVID-19 U07.1 Hyponatremia E87.1 Developmental abnormality of central nervous system Q07.9 Bipolar 1 disorder, manic, full remission F31.74 Subdural hematoma S06.5X9A
--- NOTE | 2020-08-30 16:08 | PC.SOCIAL ---
IMM Update Pg. 2 of IMM updated and reviewed with patient's Evelyn liang over the phone at [phone].
--- NOTE | 2020-08-30 21:00 | PC.NURSE ---
Both hands of the patient are cold to the touch and the patients lips are partially blue. This nurse reviewed todays AM labs, V/S Cardiac auscultation. AM labs are WNL, the BP dropped over the course of a few hours, however, they are still WNL, no advantageous cardiac sounds auscultated. Lower extremities pulse is present and skin is warm. Will continue to monitor.
[2020-08-30] MEDS: dextrose 5%-sod chloride 0.9% 1,000 ML 30 ML IV (22:53)
[2020-08-30] MEDS: enoxaparin 40 mg/0.4 mL Syringe SUBCUT (23:08)
[2020-08-31] MEDS: dexamethasone 4 mg/mL INJ 6 MG IVP (02:53)
[2020-08-31 03:43] LABS: INR 1.13 (0.8-1.2)
[2020-08-31 03:50] LABS: C Reactive Protein 19.6 mg/L (0.0-4.9)
[2020-08-31 04:00] VITALS: BP 135/73; PULSE 69; RESP 18; TEMP 36.5; O2SAT 94
[2020-08-31 04:00] LABS: Procalcitonin 0.08 ng/mL (0-0.5)
--- NOTE | 2020-08-31 06:20 | NUR.SHIFT ---
Patient has had an uneventful night. Patient has had periods of wakefulness and sleeping.
[2020-08-31 07:56] VITALS: BP 134/78; PULSE 75; RESP 18; TEMP 37.1; O2SAT 91
[2020-08-31] MEDS: divalproex DR 500 mg Tablet PO (07:56)
[2020-08-31] MEDS: cefTRIAXone 2,000 MG in sodium chloride 0.9% (plus) 50 ML 100 MG IV (07:56)
[2020-08-31] MEDS: pantoprazole DR 40 mg Tablet PO (07:57)
[2020-08-31] MEDS: OLANZapine 5 mg TABLET PO (07:57)
[2020-08-31] MEDS: quetiapine 100 mg Tablet PO (07:57)
[2020-08-31 08:00] VITALS: PULSE 60; O2SAT 92
[2020-08-31] MEDS: vancomycin 1,000 MG in sodium chloride 0.9% 250 ML 250 MG IV (09:28)
[2020-08-31 10:17] LABS: Basophils % 0.3 %; Hematocrit 35.2 % (42.0-52.0); Hemoglobin 11.4 g/dL (11.7-16.6); Lymphocytes # 0.6 10^3/uL (0.8-4.8); Mean Corpuscular HGB Conc 32.4 g/dL (30.0-36.0); Mean Corpuscular Hemoglobin 28.6 pg (28.0-34.0); Mean Corpuscular Volume 88.4 fL (80-94); Mean Platelet Volume 9.8 fL (7.4-10.4); Monocytes # 0.4 10^3/uL (0.2-0.9); Monocytes % 6.3 %; Neutrophils # 5.28 10^3/uL (1.8-7.7); Nucleated Red Blood Cells % 0 %; Platelet Count 216 10^3/cmm (130-400); Red Blood Count 3.98 10^6/uL (4.1-5.3); Red Cell Distribution Width 14.4 % (12.1-15.1); White Blood Count 6.5 10^3/uL (4.0-10.0)
[2020-08-31 10:37] LABS: Alanine Aminotransferase 18 U/L (0-41); Albumin Level 2.7 g/dL (3.5-5.2); Alkaline Phosphatase 38 IU/L (40-130); Blood Urea Nitrogen 18 mg/dL (8-23); Calcium 7.7 mg/dL (8.5-10.5); Carbon Dioxide 23 mmol/L (22-29); Chloride 107 mmol/L (98-107); Globulin 2.8 g/dL (1.3-4.6); Glucose 171 mg/dL (65-115); Osmolality Calculated 298 mOsm/kg (285-295); Sodium 141 mmol/L (136-145); Total Bilirubin 0.2 mg/dL (0.15-1.2); Total Protein 5.5 g/dL (6.6-8.7)
[2020-08-31 10:44] LABS: Anion Gap 15.1 (5-19); Aspartate Amino Transferase 23 U/L (0-40); Potassium 4.1 mmol/L (3.5-5.1)
[2020-08-31 12:00] VITALS: BP 130/75; PULSE 77; RESP 18; TEMP 36.9; O2SAT 92
--- NOTE | 2020-08-31 12:17 | P.DS_ITS ---
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 (6) Bipolar 1 disorder, manic, full remission: Status: Chronic (7) Subdural hematoma: Status: Chronic Reason for Visit Reason for Visit: poss aspiration Hospital Course Hospital Course This is a 75-year-old with intellectual disability, bipolar disorder, behavioral disturbances, who presents from [facility] because of a 3 to 4 days history of cough, fevers, increasing lethargy Patient was admitted to [facility] for acute respiratory failure secondary to COVID-19, admitted to the [facility] general medical floors, received remdesivir, Decadron, inhaler therapy, antibiotics for secondary bacterial infection. Patient clinically improved, lungs were clear to auscultation bilaterally, patient had no particular complaints, no observable cough, saturating in the high 90s on room air, afebrile. Patient finished 4 out of 5 days of remdesivir, decision was made to cut short treatment as he remained on room air for the last 48 hours. I have dischargeD the patient albuterol, Advair, vitamin C, zinc, was discharged to [facility]. Patient was also found to have gram-positive bacteremia secondary to staph species, concerning for endocarditis, I reviewed echocardiogram with cardiology service Dr. Saenz who did not see any gross vegetations, patient will require a transesophageal echocardiogram at some point, however cannot perform at this time given his COVID-19 positive status and high risk of aerosolization and exposure. Staph species are penicillin resistant, sensitive to vancomycin, repeat blood cultures negative. I have discharged patient on 6 weeks of vancomycin, [facility] to dose vancomycin based on vancomycin troughs, weekly CBCs and CMP's. Last vancomycin trough on 08/30/2020 was 14.6, recheck trough tomorrow morning at 730am, currently on vancomycin 1000 mg every 12 hours, total of 6 weeks starting on 08/27/2020, creatinine discharge 0.7. T he plan is to do a transesophageal echocardiogram in 2 to 3 weeks, patient is to follow-up with cardiology service. In addition patient is to follow-up with infectious disease in 2 to 3 weeks. PICC line was also placed. Physical Exam Const: COMMON NORMALS: no acute distress EXAM LIMITATIONS: behavioral limitations and physical limitations ORIENTATION/CONSCIOUSNESS: Yes awake; not oriented to person, not oriented to place and not oriented to time Neck/C-Spine: COMMON NORMALS: no JVD Chest: COMMONS NORMALS: normal inspection of the chest Resp: COMMON NORMALS: normal respiratory effort, No retractions, No use of accessory muscles and clear to auscultation bilaterally AUSCULTATION: clear to auscultation bilaterally, no crackles and no wheezes Cardio: COMMON NORMALS: no JVD, regular rate, regular rhythm, S1 normal heart sound present and S2 normal heart sound present RATE: regular rate RHYTHM: regular rhythm HEART SOUNDS: S1 normal heart sound present and S2 normal heart sound present GI: COMMON NORMALS: Normal to inspection, nondistended, normoactive bowel sounds present, Soft to palpation, non-tender and No hepatosplenomegaly present PALPATION: Yes Soft to palpation and Yes No hepatosplenomegaly present Extremity: COMMON NORMALS: capillary refill normal, no clubbing, cyanosis or edema and no pedal edema Neuro: SENSORIUM/ORIENTATION: No oriented to person, No oriented to place and No oriented to time Urinary Catheter Management^: Martinez: Cath Placed During This Visit: yes, but has since been removed by the nurse Reason for Continuing Indwelling Catheter: Decision to DC Catheter Urinary Catheter Date of Insertion: 08/26/20 Urinary Catheter Time of Insertion: 23:59 Date Urinary Catheter Removed: 08/28/20 Time Urinary Catheter Discontinued: 20:15 Discharge Data Data Completed and Pending: Completed Studies During Hospitalization Category Date Time Status CT angio chest PE protcl [id number] Rout ine Cat Scan 08/28/20 05:[address] cervical spin wo con* [id number] Rout ine Cat Scan 08/28/20 10:[address] head wo con* 7 0450 Urgent Cat Scan 08/27/20 23:[address] lumbar spine w o con* [id number] Routi ne Cat Scan 08/28/20 10:[address] thoracic spin wo con* [id number] Rout ine Cat Scan 08/28/20 10:14 Completed CXRP [XR chest 1V portable [id number]] R outine Exams 08/30/20 13:57 Completed XR chest 1V alicia ble [id number] Stat Exams 08/26/20 21:20 Completed CV echo complete* [id number] Routine Ultrasound 08/28/20 10:13 Completed Pending at discharge Category Date Time Status Blood Culture AM LABS Lab 08/28/20 05:10 Results Blood Culture Sta t Lab 08/26/20 22:30 Results C Reactive Protei n Timed Lab 08/30/20 04:00 Ordered Complete Blood Co unt w/Auto AM LABS Lab 08/30/20 04:00 Ordered Comprehensive Met abolic Panel AM LA BS Lab 08/30/20 04:00 Ordered Magnesium Timed Lab 08/30/20 04:00 Ordered Phosphorus Timed Lab 08/30/20 04:00 Ordered Procalcitonin Darrick ed Lab 08/30/20 04:00 Ordered Prothrombin Time INR AM LABS Lab 08/30/20 04:00 Ordered Labs from last 24 hours 08/31/20 08/31/20 08/31/20 10:00 09:55 03:15 WBC 6.5 RBC 3.98 L Hgb 11.4 L Hct 35.2 L MCV 88.4 MCH 28.6 MCHC 32.4 RDW 14.4 Plt Count 216 MPV 9.8 Neut % (Auto) 81.0 Lymph % (Auto) 9.0 Prowers % (Auto) 6.3 Eos % (Auto) 0.0 Baso % (Auto) 0.3 Neut # (Auto) 5.28 Lymph # (Auto) 0.6 L [place] # (Auto) 0.4 Eos # (Auto) 0.0 Baso # (Auto) 0.0 Nucleated RBC % (a uto) 0 Nucleated RBCs # 0.0 PT INR Sodium 141 Potassium 4.1 Chloride 107 Carbon Dioxide 23 Anion Gap 15.1 BUN 18 Creatinine 0.7 GFR Calculation Not Reportable Glucose 171 H Calculated Osmolal ity 298 H Calcium 7.7 L Phosphorus 3.0 Magnesium 2.0 Total Bilirubin 0.2 AST 23 ALT 18 Alkaline Phosphata se 38 L C-Reactive Protein Total Protein 5.5 L Albumin 2.7 L Globulin 2.8 Procalcitonin 08/31/20 08/31/20 08/31/20 03:15 03:15 03:15 WBC RBC Hgb Hct MCV MCH MCHC RDW Plt Count MPV Neut % (Auto) Lymph % (Auto) [place] % (Auto) Eos % (Auto) Baso % (Auto) Neut # (Auto) Lymph # (Auto) [place] # (Auto) Eos # (Auto) Baso # (Auto) Nucleated RBC % (a uto) Nucleated RBCs # PT 14.80 INR 1.13 Sodium Potassium Chloride Carbon Dioxide Anion Gap BUN Creatinine GFR Calculation Glucose Calculated Osmolal ity Calcium Phosphorus Magnesium Total Bilirubin AST ALT Alkaline Phosphata se C-Reactive Protein 19.6 H Total Protein Albumin Globulin Procalcitonin 0.08 Vitals: Last Vital Signs Temp 98.7 F 08/31/20 07:56 Pulse 60 08/31/20 08:00 Resp 18 08/31/20 07:56 BP 134/78 08/31/20 07:56 Pulse Ox 92 08/31/20 08:00 Discharge Plan Discharge Patient Disposition: Xfer SNF Condition: Stable Prescriptions: New vancomycin 1,000 mg recon soln 1,000 mg IV Q12H Qty: 10 RF: 0 albuterol sulfate 90 mcg/actuation HFA aerosol inhaler 1 inh inhalation Q6H PRN (Reason: shortness of breath or wheezing) Qty: 18 RF: 0 Advair Diskus 100-50 mcg/dose blister with device 1 inh inhalation DAILY Qty: 60 RF: 0 ascorbic acid (vitamin C) 500 mg tablet 500 mg PO BID 30 Days Qty: 60 RF: 0 zinc 50 mg tablet 50 mg PO DAILY 30 Days Qty: 30 RF: 0 Continued trihexyphenidyl 2 mg tablet 2 mg PO BID RF: 0 divalproex [Depakote] 500 mg tablet,delayed release (DR/EC) 500 mg PO BID RF: 0 olanzapine [Zyprexa] 5 mg tablet 5 mg PO BID RF: 0 quetiapine [Seroquel] 100 mg tablet 100 mg PO BEDTIME RF: 0 carbamide peroxide [Debrox] 6.5 % drops See Rx Instructions .ROUTE .COMPLEX RF: 0 ibuprofen [IBU] 600 mg tablet 600 mg PO Q6H PRN (Reason: Pain) RF: 0 loratadine 10 mg capsule 10 mg PO DAILY PRN (Reason: Allergy Symptoms) RF: 0 acetaminophen [Tylenol] 325 mg capsule 650 mg PO Q4H PRN (Reason: Pain) RF: 0 omeprazole 20 mg capsule,delayed release(DR/EC) 20 mg PO DAILY RF: 0 alum-mag hydroxide-simeth [Mylanta Maximum Strength] 400-400-40 mg/5 mL suspension 30 ml PO Q4H PRN (Reason: gas relief) RF: 0 bismuth subsalicylate [Pepto-Bismol] 262 mg/15 mL suspension 524 mg PO Q4H PRN (Reason: loose stools) RF: 0 lorazepam 2 mg tablet 2 mg PO Q6H PRN (Reason: Agitation) Qty: 20 RF: 0 clomipramine [Anafranil] 50 mg Capsule 50 mg PO BEDTIME RF: 0 Tussin DM 10-100 mg/5 mL Liquid 10 ml PO Q4H PRN (Reason: Cough) RF: 0 chlorhexidine gluconate 2 % Liquid See Rx Instructions .ROUTE .COMPLEX RF: 0 Ensure Liquid 1 ea PO DAILY PRN (Reason: unknown) RF: 0 Milk of Magnesia See Rx Instructions .ROUTE .COMPLEX RF: 0 Neosporin ([id number]) See Rx Instructions .ROUTE .COMPLEX RF: 0 Discharge Orders: Discharge Order (Routine); Ordered 08/31/20 Ordered By: Ranjan Park Other Ambulatory Orders: Complete Blood Count w/Auto (WEEKLY) Timeframe: 20200907 Location: Determined by Patient Ordered By: Ranjan Park Complete Blood Count w/Auto (WEEKLY) Timeframe: 20200908 Location: Determined by Patient Ordered By: Ranjan Park Complete Blood Count w/Auto (WEEKLY) Timeframe: 20200909 Location: Determined by Patient Ordered By: Ranjan Park Complete Blood Count w/Auto (WEEKLY) Timeframe: 20200910 Location: Determined by Patient Ordered By: Ranjan Park Complete Blood Count w/Auto (WEEKLY) Timeframe: 20200911 Location: Determined by Patient Ordered By: Ranjan Park Comprehensive Metabolic Panel (WEEKLY) Timeframe: 20200907 Facility: [facility] - Location: Lab - Main Lab Ordered By: Ranjan Park Comprehensive Metabolic Panel (WEEKLY) Timeframe: 20200908 Facility: [facility] - Location: Lab - Main Lab Ordered By: Ranjan Park Comprehensive Metabolic Panel (WEEKLY) Timeframe: 20200909 Facility: [facility] - Location: Lab - Main Lab Ordered By: Ranjan Park Comprehensive Metabolic Panel (WEEKLY) Timeframe: 20200910 Facility: [facility] - Location: Lab - Main Lab Ordered By: Ranjan Park Comprehensive Metabolic Panel (WEEKLY) Timeframe: 20200911 Facility: [facility] - Location: Lab - Main Lab Ordered By: Ranjan Park Referrals: Arturo Bell MD [Primary Care Provider] - Negin Arizmendi MD [Hospitalist] - 2 weeks (Endocarditis) Ludy Lara MD [Physician] - 2 weeks (NEEDS DAWNA FOR ENDOCARDITIS COVID POSITIVE) Discharge Activity: Resume usual activity Patient Instructions: Endocarditis (DC) Activity Restrictions/Additional Instructions: care home pharmacy to dose vancomycin vanc trough: 14.6, 08/30/2020 next trough 09/01/2020 7:30am total 6 weeks, starting 08/27/2020 Follow-up with cardiology in 2 weeks for a transesophageal echocardiogram Follow-up with infectious disease in 2 to 3 weeks after transesophageal echocardiogram Monitor for fevers, inhaler therapy as required COVID-19, facemask, handwashing, social distancing, self isolate for 3 weeks starting 08/27/2020 Discharge Attestations Time Spent in Discharge Care*: less than 30 min Quality Metrics Clinical Quality Measures During this hospital stay, did patient experience: None Coding Level of Care Code Acute Sport Psychologist for g Fwd Exam Detailed Diagnoses Gram-positive bacteremia R78.81 Weakness R53.1 COVID-19 U07.1 Hyponatremia E87.1 Developmental abnormality of central nervous system Q07.9 Bipolar 1 disorder, manic, full remission F31.74 Subdural hematoma S06.5X9A
[2020-08-31 16:00] VITALS: BP 128/75; PULSE 75; RESP 18; TEMP 37; O2SAT 93
[2020-08-31 17:36] VITALS: BP 128/75; PULSE 75; RESP 18; TEMP 37; O2SAT 93
== END 2020-08-31 17:37 | disposition skilled nursing facility (03) | DRG 177 ==
LOC: ER 23:35 → MEDSURG 08-27 00:02
PROVIDERS: Hospitalist; Admitting Provider Student in an Organized Health Care Education/Training Program; Emergency Provider Emergency Medicine; PCP Internal Medicine; Visit Provider Family Medicine
DX: U07.1 COVID-19 (principal); J96.00 Acute respiratory failure, unspecified whether with hypoxia or hypercapnia; F72 Severe intellectual disabilities; E87.1 Hypo-osmolality and hyponatremia; I38 Endocarditis, valve unspecified; F31.9 Bipolar disorder, unspecified; F63.81 Intermittent explosive disorder; I08.0 Rheumatic disorders of both mitral and aortic valves; B95.7 Other staphylococcus as the cause of diseases classified elsewhere
CPT/HCPCS: 12345; 36415; 36569; 36592; 51702; 70450; 71045; 71275; 72125; 72128; 72131; 80053; 80164; 80202; 81001; 82550; 82728; 83605; 83615; 83735; 84100; 84145; 85025; 85378; 85384; 85610; 85730; 86140; 87040; 87077; 87086; 87186; 87205; 87426; 93005; 93306; 96372; 96375; 99283; G0378; J0696; J1100; J1650; J2060; J3370; J7050; Q9967

== ENCOUNTER 2020-09-06 10:58 | Outpatient (CLI) | payer MEDICARE, MEDICAID, SELFPAY ==
[2020-09-06 10:59] VITALS: BP 147/89; PULSE 75; RESP 16; TEMP 36.7; O2SAT 94; BMI 28.8
--- NOTE | 2020-09-06 11:10 | ED_ITS ---
HPI - General Adult General: Chief complaint: General Medical Stated complaint: PICC LINE REPLACEMENT Time Seen by Provider: 09/06/20 10:59 Source: other (custodial staff) Mode of arrival: EMS Limitations: other (Developmental delay) History of Present Illness: HPI narrative: 75-year-old male with a history of developmental delay who had a recent hospital admission for Covid pneumonia leading to acute respiratory failure. During his hospital admission he also was diagnosed with gram-positive bacteremia and was placed on intravenous vancomycin for 6 weeks because there are concerns for infective endocarditis and sensitivity showed resistance to penicillins. He is being scheduled for a DAWNA in about 1 to 2 weeks. Apparently sometime today he pulled out his PICC line and the custodial sent him here to get a new PICC line inserted. The nurse apparently informed the custodial staff that PICC line insertion is not a procedure usually done in the emergency department but he was still sent over. The patient is not in any distress and there is no bleeding from the PICC line site. Review of Systems General: Reports: ROS unobtainable due to mental status PFSH ED PFSH: Medical History Bipolar 1 disorder Colorectal polyp detected on colonoscopy Developmental abnormality of central nervous system Intermittent explosive disorder Obsessive-compulsive behavior Organic affective disorder Subdural hematoma (~10/2019) Social History Smoking and tobacco status: never smoked Alcohol intake: never History of recent travel: No Current gender identity: Male Physical Exam Const: COMMON NORMALS: no acute distress, average body habitus, patient oriented x3, no limitations, healthy appearing, alert and well nourished HENMT: COMMON NORMALS: normocephalic, atraumatic and moist oral mucous membranes HEAD & SCALP: normocephalic and atraumatic Eye: PERIORBITAL: periorbital findings abnormal positive left periorbital ecchymosis Neck/C-Spine: COMMON NORMALS: no JVD Resp: COMMON NORMALS: normal respiratory effort, No retractions, No use of accessory muscles, clear to auscultation bilaterally and percussion normal AUSCULTATION: clear to auscultation bilaterally PERCUSSION: percussion normal Cardio: COMMON NORMALS: no JVD, regular rate, regular rhythm, S1 normal heart sound present, S2 normal heart sound present, No gallops present (Cardio), No clicks present (Cardio), No murmurs present (Cardio), No rub (Cardio) and Peripheral pulses 2+ throughout RATE: regular rate RHYTHM: regular rhythm HEART SOUNDS: S1 normal heart sound present and S2 normal heart sound present PERIPHERAL PULSES: Peripheral pulses 2+ throughout GI: COMMON NORMALS: Normal to inspection, nondistended, normoactive bowel sounds present, Soft to palpation, non-tender, No hepatosplenomegaly present, no masses and no bruits PALPATION: Yes Soft to palpation and Yes No hepatosplenomegaly present Extremity: COMMON NORMALS: normal to inspection, full ROM, capillary refill normal, no calf tenderness and no pedal edema NARRATIVE EXTREMITY EXAM: No obvious injuries noted. There is some bruising on his right bicep muscle but I cannot identify any puncture wound for the PICC line site. He does have a puncture wound noted on his left upper arm that is bandaged. No active bleeding noted. Vascular status intact, difficult to examine neuro status as the patient is unable to respond to my questions due to his baseline developmental delay. 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 He currently has a PICC line to receive IV vancomycin for 6 weeks due to bacteremia and concerns for infective endocarditis. As PICC lines are not inserted in the emergency department arrangements were made for him to get a PICC line done by outpatient services today and he is discharged from the ED to outpatient services for the PICC line insertion. Medical Records: Attestation: I reviewed the patient's medical records. Discharge Plan Discharge Patient Disposition: [facility] Not MCR w Plan Readm Clinical Impression: Gram-positive bacteremia Condition: Stable Prescriptions: Continued trihexyphenidyl 2 mg tablet 2 mg PO BID RF: 0 divalproex [Depakote] 500 mg tablet,delayed release (DR/EC) 500 mg PO BID RF: 0 olanzapine [Zyprexa] 5 mg tablet 5 mg PO BID RF: 0 quetiapine [Seroquel] 100 mg tablet 100 mg PO BEDTIME RF: 0 carbamide peroxide [Debrox] 6.5 % drops See Rx Instructions .ROUTE .COMPLEX RF: 0 ibuprofen [IBU] 600 mg tablet 600 mg PO Q6H PRN (Reason: Pain) RF: 0 loratadine 10 mg capsule 10 mg PO DAILY PRN (Reason: Allergy Symptoms) RF: 0 acetaminophen [Tylenol] 325 mg capsule 650 mg PO Q4H PRN (Reason: Pain) RF: 0 omeprazole 20 mg capsule,delayed release(DR/EC) 20 mg PO DAILY RF: 0 alum-mag hydroxide-simeth [Mylanta Maximum Strength] 400-400-40 mg/5 mL suspension 30 ml PO Q4H PRN (Reason: gas relief) RF: 0 bismuth subsalicylate [Pepto-Bismol] 262 mg/15 mL suspension 524 mg PO Q4H PRN (Reason: loose stools) RF: 0 lorazepam 2 mg tablet 2 mg PO Q6H PRN (Reason: Agitation) Qty: 20 RF: 0 clomipramine [Anafranil] 50 mg Capsule 50 mg PO BEDTIME RF: 0 Tussin DM 10-100 mg/5 mL Liquid 10 ml PO Q4H PRN (Reason: Cough) RF: 0 chlorhexidine gluconate 2 % Liquid See Rx Instructions .ROUTE .COMPLEX RF: 0 Ensure Liquid 1 ea PO DAILY PRN (Reason: unknown) RF: 0 Milk of Magnesia See Rx Instructions .ROUTE .COMPLEX RF: 0 Neosporin ([id number]) See Rx Instructions .ROUTE .COMPLEX RF: 0 vancomycin 1,000 mg recon soln 1,000 mg IV Q12H Qty: 10 RF: 0 albuterol sulfate 90 mcg/actuation HFA aerosol inhaler 1 inh inhalation Q6H PRN (Reason: shortness of breath or wheezing) Qty: 18 RF: 0 Advair Diskus 100-50 mcg/dose blister with device 1 inh inhalation DAILY Qty: 60 RF: 0 ascorbic acid (vitamin C) 500 mg tablet 500 mg PO BID 30 Days Qty: 60 RF: 0 zinc 50 mg tablet 50 mg PO DAILY 30 Days Qty: 30 RF: 0 Discharge Orders: Discharge ED (Routine); Ordered 09/06/20 Ordered By: Ade Burr Referrals: Arturo Bell MD [Primary Care Provider] - 1-3 days Discharge Diet: Usual diet Discharge Activity: Resume usual activity Patient Instructions: Peripherally Inserted Central Catheters and Midline Catheters (ED) Activity Restrictions/Additional Instructions: Return for any new or worsening symptoms. You will be taken to the outpatient department where a new PICC line will be inserted. Follow the care of the PICC line as instructed by the PICC line nurse. Continue IV antibiotics as prescribed. Coding Level of Care Code ED Green Marketing Specialist for Tushar Fwd Exam Comprehensive
[2020-09-06 11:50] VITALS: BP 156/83; PULSE 81; RESP 18; O2SAT 96
--- NOTE | 2020-09-06 13:24 | XR_ITS ---
WS: [id number] XR chest 1V portable [id number] REASON FOR EXAM: PICC LINE VERIFICATION FINDINGS: No PICC line is identified between the shoulder and the chest bilaterally. On the edge of the film th ere appears to be a small bore catheter containing multiple complex loops in the right upper arm. Thi s may represent the PICC line, correlation with insertion site. XR/XR chest 1V portable [id number] IMPRESSION: Question of PICC line, right upper arm as above.
[2020-09-06 14:00] VITALS: BP 150/84; PULSE 78; RESP 14; O2SAT 96
--- NOTE | 2020-09-06 17:10 | SUR.PHASEII ---
discharged with all belongings back to [place] at 1710
== END 2020-09-06 12:46 | disposition home or self-care (01) ==
LOC: ER 11:24 → OPS 12:48
PROVIDERS: Emergency Provider Family Medicine; PCP Internal Medicine; Visit Provider Internal Medicine
DX: Z45.2 Encounter for adjustment and management of vascular access device (principal)
CPT/HCPCS: 12345; 36569; 71045; 99281

== ENCOUNTER 2020-11-23 20:31 | Inpatient (IN) | payer MEDICARE, MEDICAID, SELFPAY ==
[2020-11-23 20:34] VITALS: BP 134/82; PULSE 88; RESP 18; TEMP 35.9; O2SAT 91; BMI 34.0
--- NOTE | 2020-11-23 20:39 | XR_ITS ---
WS: [id number] Exam: XR hip RT 2-3V wo/w pel* [id number] Date/Time of Exam: 11/23/2020 8:48 PM Reason For Exam: fall There is a markedly comminuted displaced fracture of the subtrochanteric region of the right femur. L arge butterfly fragment noted at the fracture site. Significant angulation and displacement of the lo wer fragment. No dislocation. Minimal DJD of the joint compartment. XR/XR hip RT 2-3V wo/w pel* [id number] IMPRESSION: 1. Comminuted, angulated, displaced subtrochanteric fracture of the right femur .
--- NOTE | 2020-11-23 20:41 | W.ED.FALL ---
HPI - Fall General: Chief Complaint: Fall Stated Complaint: FALL Time Seen by Provider: 11/23/20 20:36 Source: EMS Mode of arrival: EMS Limitations: altered mental status History of Present Illness: HPI Narrative: 75-year-old male who is here from a senior living as a history of severe MR. Patient had tripped and fell there and has obvious deformity to his right hip. Staff at facility denies any other injuries. No history is available from patient due to his MR. Review of Systems General: Reports: ROS unobtainable due to mental status PFS ED PFSH: Medical History Bipolar 1 disorder Colorectal polyp detected on colonoscopy Developmental abnormality of central nervous system Intermittent explosive disorder Obsessive-compulsive behavior Organic affective disorder Subdural hematoma (~10/2019) Social History Smoking and tobacco status: never smoked Alcohol intake: never History of recent travel: No Current gender identity: Male Physical Exam Const: COMMON NORMALS: no acute distress, patient oriented x3 and healthy appearing HENMT: COMMON NORMALS: normocephalic and atraumatic HEAD & SCALP: normocephalic and atraumatic Eye: COMMON NORMALS: Equal, round and reactive pupils present and EOMs intact bilaterally PUPIL: Yes Equal, round and reactive pupils present Neck/C-Spine: COMMON NORMALS: full ROM and supple Chest: COMMONS NORMALS: normal inspection of the chest and normal palpation of entire chest wall Resp: COMMON NORMALS: normal respiratory effort, No retractions, No use of accessory muscles and clear to auscultation bilaterally AUSCULTATION: clear to auscultation bilaterally Cardio: COMMON NORMALS: regular rate, regular rhythm and No murmurs present (Cardio) RATE: regular rate RHYTHM: regular rhythm GI: COMMON NORMALS: Normal to inspection, nondistended, normoactive bowel sounds present, Soft to palpation, non-tender and no masses PALPATION: Yes Soft to palpation Extremity: NARRATIVE EXTREMITY EXAM: Obvious deformity and tenderness to right hip distal pulses and sensation intact Neuro: COMMON NORMALS: patient oriented x3, moves all extremities and no focal motor deficits Psych: COMMON NORMALS: mental status grossly normal, Normal thought process present and cooperative THOUGHT PROCESS: Normal thought process present Skin: COMMON NORMALS: no rashes or lesions noted and no wounds GENERAL SKIN EXAM: no rashes or lesions noted Course Vital Signs: Vital signs: Vital Signs Temperature 96.7 F L 11/23/20 20:34 Pulse Rate 88 11/23/20 20:34 Respiratory Rate 18 11/23/20 20:34 Blood Pressure 134/82 11/23/20 20:34 Pulse Oximetry 91 11/23/20 20:34 MDM - Fall MDM Narrative: Medical decision making narrative: Patient presents here with a hip fracture from a fall. I did speak to orthopedist along with hospitalist and will admit. He has no other signs of any other injuries from his fall. Imaging Data^: xr r hip: Attestation: I personally reviewed and interpreted this imaging study as follows: My impression: comminuted hip fx Discharge Plan Discharge Patient Disposition: Admitted As Inpatient Clinical Impression: Closed right hip fracture Condition: Stable Coding Level of Care Code ED Frickertron Checker for Tushar Galvez Exam Comprehensive
--- NOTE | 2020-11-23 20:54 | XR_ITS ---
WS: [id number] Exam: XR chest 1V portable [id number] Date/Time of Exam: 11/23/2020 8:54 PM Reason For Exam: fall Comparison 09/06/2020. Plaque atelectatic change in both lower lung zones. The lungs are fully expanded. No acute infiltrate s or pleural effusions. Chronic elevation of the right diaphragm. Unremarkable cardiomediastinal silh ouette. Regional bony structures are intact. XR/XR chest 1V portable [id number] IMPRESSION: 1. Bibasal plaque atelectasis. No acute process.
--- NOTE | 2020-11-23 20:54 | ECG_ITS ---
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
[2020-11-23 21:44] VITALS: BP 134/82; PULSE 101; RESP 20; O2SAT 96
[2020-11-23 21:56] LABS: Basophils % 0.3 %; Eosinophils # 0.1 10^3/uL (0.0-0.8); Eosinophils % 0.9 %; Hematocrit 40.5 % (42.0-52.0); Hemoglobin 13.4 g/dL (11.7-16.6); Lymphocytes # 1.1 10^3/uL (0.8-4.8); Lymphocytes % 9.5 %; Mean Corpuscular HGB Conc 33.1 g/dL (30.0-36.0); Mean Corpuscular Hemoglobin 29.5 pg (28.0-34.0); Mean Corpuscular Volume 89.2 fL (80-94); Mean Platelet Volume 10.6 fL (7.4-10.4); Monocytes # 1.1 10^3/uL (0.2-0.9); Monocytes % 9.4 %; Neutrophils # 8.99 10^3/uL (1.8-7.7); Neutrophils % 79.5 %; Nucleated Red Blood Cells % 0 %; Platelet Count 178 10^3/cmm (130-400); Red Blood Count 4.54 10^6/uL (4.1-5.3); Red Cell Distribution Width 14.1 % (12.1-15.1); White Blood Count 11.3 10^3/uL (4.0-10.0)
--- NOTE | 2020-11-23 22:03 | P.HP_ITS ---
Providers/Chief Complaint Primary Care Provider: Arturo Bell MD Chief Complaint: FALL History of Present Illness Yaakov Toure is a 75 year old male who has history of bipolar disorder, resident of a custodial presented today after sustaining a fall. As per the caregiver Mr. Toure was changing his trousers when he lost his balance and fell backwards. Patient is not able to provide any history. He needs verbal clues to get an answer. He gets a lot of of antipsychotics for his agitation as well. Diagnosis in the ER revealed right femur displaced fracture with a lot of subcutaneous swelling. No vascular compromise. Dr. Peterson has been notified and consulted. Most of the information was taken from the caregiver. Diagnostics revealed tachycardia, afebrile, mild leukocytosis, I would request urinalysis, Martinez catheter placement, BNP level, he has mild signs of fluid overload, hip x-ray reviewed with findings mentioned above. Chest x-ray reveals right hemidiaphragm, EKG reviewed sinus rhythm. Review of Systems General: Reports: ROS unobtainable due to medical condition (Intellectual disability) Medications/Allergies Home Medications Medication Instructions Recorded Confirmed Last Taken Type carbamide peroxide 6.5 % ear drops See Rx Instructions .ROUTE .COMPLEX 03/02/20 11/23/20 07/23/20 History divalproex 500 mg tablet,delayed 500 mg PO BID@08,199903/02/20 11/23/20 11/23/20 History release ibuprofen 600 mg tablet 600 mg PO Q6H PRN 03/02/20 11/23/20 07/20/20 History loratadine 10 mg capsule 10 mg PO DAILY PRN 03/02/20 11/23/20 07/25/20 History olanzapine 5 mg tablet 5 mg PO BID@08 tab 03/02/20 11/23/20 11/23/20 History quetiapine 100 mg tablet 100 mg PO BEDTIME@199903/02/20 11/23/20 11/22/20 History trihexyphenidyl 2 mg tablet 2 mg PO BID@08 tab 03/02/20 11/23/20 11/23/20 History acetaminophen 325 mg capsule 650 mg PO Q4H PRN cap 06/01/20 11/23/20 07/23/20 History aluminum-mag hydroxide-simethicone 30 ml PO Q4H PRN ml 06/01/20 11/23/20 07/23/20 History 400 mg-400 mg-40 mg/5 mL oral susp bismuth subsalicylate 262 mg/15 mL 524 mg PO Q4H PRN ml 06/01/20 11/23/20 Unknown History oral suspension omeprazole 20 mg capsule,delayed 20 mg PO DAILY@0800 06/01/20 11/23/20 11/23/20 History release clomipramine [Anafranil] 50 mg PO BEDTIME@199906/22/20 11/23/20 11/22/20 History lorazepam 2 mg tablet 2 mg PO Q6H PRN #20 tab 06/24/20 11/23/20 07/24/20 Rx Milk of Magnesia See Rx Instructions .ROUTE .COMPLEX 08/27/20 11/23/20 Unknown History Neosporin ([id number]) See Rx Instructions .ROUTE .COMPLEX 08/27/20 11/23/20 Unknown History chlorhexidine gluconate See Rx Instructions .ROUTE .COMPLEX 08/27/20 11/23/20 11/23/20 History dextromethorphan-guaifenesin 10 ml PO Q4H PRN 08/27/20 11/23/20 Unknown History [Tussin DM] nebulizers #1 ea 09/13/20 11/23/20 Unknown Rx ascorbic acid (vitamin C) 500 mg 500 mg PO BID@0800,1999 cap 10/05/20 11/23/20 11/23/20 History capsule zinc 50 mg tablet 50 mg PO DAILY@0800 10/05/20 11/23/20 Unknown History wheelchair #1 ea 11/03/20 11/23/20 Unknown Rx albuterol sulfate [Ventolin HFA] 1 inh INHALATION DAILY@0800 11/23/20 11/23/20 11/23/20 History fluticasone propion-salmeterol 1 inh INHALATION DAILY@0800 11/23/20 11/23/20 11/23/20 History [Advair Diskus] furosemide 60 mg PO DAILY@0800 11/23/20 11/23/20 11/23/20 History Allergies Allergy/AdvReac Type Severity Reaction Status Date / Time No Known Allergies Allergy Verified 11/23/20 14:47 PFSH Acute PFSH: Medical History Bipolar 1 disorder Colorectal polyp detected on colonoscopy 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 Intermittent explosive disorder Leg edema Normal colonoscopy Obsessive-compulsive behavior Organic affective disorder Subdural hematoma (~10/2019) Traumatic subdural hematoma Surgical History Hx of colonoscopy Family History Other Family history non-contributory Social History Smoking and tobacco status: never smoked Alcohol intake: never History of recent travel: No Current gender identity: Male Vitals/I&O/Wt Last Vital Signs Temp 96.7 F L 11/23/20 20:34 Pulse 101 H 11/23/20 21:44 Resp 20 H 11/23/20 21:44 BP 134/82 11/23/20 21:44 Pulse Ox 96 11/23/20 21:44 Weight last 48 hrs Weight 104.326 kg Physical Exam Narrative: EXAM NARRATIVE: Patient was playing in bed with caregiver at the bedside was saturating well on room air I turned off his nasal cannula oxygenation patient was not showing any respiratory distress He was complaining of right knee pain, has underlying intellectual disability S1, S2 sinus tachycardia No acute respiratory distress with active stridor or audible wheezing Abdomen soft bowel sound present Massive swelling of right leg at the site of fracture no active drainage, tender to palpation no vascular compromise of lower extremity Bilateral lower extremity edema 1+ Neuro exam limited because of intellectual disability Grossly moving all of his extremities Data : 11/23/20 21:50 11/23/20 21:50 A&P Assessment and plan (1) Closed right hip fracture: Displaced right hip fracture Dr. Peterson consulted No vascular compromise We will keep him n.p.o., SCDs Morphine and Dilaudid for analgesia Considering underlying bipolar disorder intellectual disability, weightbearing to reduce traction and swelling would not be a suitable option at this time Status: Acute (2) Frailty: prison resident who at baseline is able to ambulate on his own, eats regular diet, has baseline intellectual disability, sustained a fall while he was changing his dress before going to bed and sustained right femur fracture Kindly add calcium and vitamin D at the time of discharge DVT prophylaxis to be added after his surgery Status: Acute Attestations Medical Necessity Statement*: Anticipating stay in the hospital course more than 2 midnights for right femur fracture with excessive subcutaneous swelling Time Spent in Patient Care: (>than 50% of time spent in counselling and/or direct pt care on unit) . 30mins Coding Level of Care Code Acute Teletray Operator for Tushar Galvez Diagnoses Closed right hip fracture S72.001A Frailty R54
[2020-11-23 22:06] LABS: INR 1.12 (0.8-1.2)
[2020-11-23 22:12] VITALS: BP 134/82; PULSE 98; RESP 18; O2SAT 99
[2020-11-23 22:12] LABS: Anion Gap 14.1 (5-19); Blood Urea Nitrogen 20 mg/dL (8-23); Calcium 8.9 mg/dL (8.5-10.5); Carbon Dioxide 30 mmol/L (22-29); Chloride 96 mmol/L (98-107); Glucose 168 mg/dL (65-115); Osmolality Calculated 288 mOsm/kg (285-295); Potassium 4.1 mmol/L (3.5-5.1); Sodium 136 mmol/L (136-145)
[2020-11-23 23:23] VITALS: BP 134/82; PULSE 110; RESP 18; O2SAT 95
[2020-11-23 23:31] VITALS: RESP 18; O2SAT 96
[2020-11-23] MEDS: HYDROmorphone 1 mg/mL INJ 1 mL IVP (23:31)
[2020-11-24] VITALS (30 sets, daily range): BP systolic 75–134; BP diastolic 50–88; PULSE 95–126; RESP 16–19; TEMP 36.5–38.7; O2SAT 90–98
--- NOTE | 2020-11-24 | SCC_ITS ---
Procedure Done: Right IM nail femur (subtrochanteric femur fracture) 234.7 seconds of fluoroscopic guidance, for a cumulative dose of 37.92 mGy, was provided to Dr. Peterson by the radiology department. C-arm images of the RIGHT femur were saved for the patient's permanent record. [facility]
--- NOTE | 2020-11-24 | XR_ITS ---
WS: [id number] Exam: XR hip RT 2-3V wo/w pel* [id number] Date/Time of Exam: 11/24/2020 12:00 AM Reason For Exam: FALL, gamma nail Intraoperative C-arm images of the right hip are submitted for evaluation. There is internal orthopedic fixation of a comminuted subtrochanteric fracture of the right femur. An intramedullary ama courses the length of the femur. A femoral neck screw is in satisfactory position . There is some separation of fracture fragments at the fracture site.
[2020-11-24] MEDS: dextrose 5%-sod chloride 0.45% 1,000 ML 75 ML IV ×2 (00:52→13:50)
[2020-11-24 06:03] LABS: Blood Urea Nitrogen 20 mg/dL (8-23); Calcium 8.8 mg/dL (8.5-10.5); Carbon Dioxide 28 mmol/L (22-29); Chloride 97 mmol/L (98-107); Glucose 229 mg/dL (65-115); Osmolality Calculated 292 mOsm/kg (285-295); Sodium 136 mmol/L (136-145)
[2020-11-24 06:09] LABS: Anion Gap 15.7 (5-19); Potassium 4.7 mmol/L (3.5-5.1)
--- NOTE | 2020-11-24 06:25 | PC.NURSE ---
while in caring for another pt OR team came to pts room and retrieved pt to take him to OR for his surgery. OR team stated they would take care of all consents and medications for surgery.
--- NOTE | 2020-11-24 06:37 | P.CONIM_ITS ---
Providers/Reason For Consult Consulting Physican/Specialty*: orthopedics Reason for Consult*: Femur fracture Attending Physician: Ludy Del Rio MD Primary Care Provider: Arturo Bell MD History of Present Illness History of Present Illness Yaakov Toure is a 75 year old male who has history of bipolar disorder, resident of a fdc presented today after sustaining a fall. As per the caregiver Mr. Toure was changing his trousers when he lost his balance and fell backwards. Patient is not able to provide any history. He needs verbal clues to get an answer. He gets a lot of of antipsychotics for his agitation as well. Diagnosis in the ER revealed right femur displaced fracture with a lot of subcutaneous swelling. No vascular compromise. physician primary care sports medicine at bedside Review of Systems General: Reports: ROS unobtainable due to medical condition (Intellectual disability) and ROS unobtainable due to mental status Eyes: Denies: photophobia Meds/Allergies Home Medications and Allergies Home Medications Medication Instructions Recorded Confirmed Last Taken Type carbamide peroxide 6.5 % ear drops See Rx Instructions .ROUTE .COMPLEX 03/02/20 11/23/20 07/23/20 History divalproex 500 mg tablet,delayed 500 mg PO BID@0800,199903/02/20 11/23/20 11/23/20 History release ibuprofen 600 mg tablet 600 mg PO Q6H PRN 03/02/20 11/23/20 07/20/20 History loratadine 10 mg capsule 10 mg PO DAILY PRN 03/02/20 11/23/20 07/25/20 History olanzapine 5 mg tablet 5 mg PO BID@08 tab 03/02/20 11/23/20 11/23/20 History quetiapine 100 mg tablet 100 mg PO BEDTIME@199903/02/20 11/23/20 11/22/20 History trihexyphenidyl 2 mg tablet 2 mg PO BID@0800,1999 tab 03/02/20 11/23/20 11/23/20 History acetaminophen 325 mg capsule 650 mg PO Q4H PRN cap 06/01/20 11/23/20 07/23/20 History aluminum-mag hydroxide-simethicone 30 ml PO Q4H PRN ml 06/01/20 11/23/20 07/23/20 History 400 mg-400 mg-40 mg/5 mL oral susp bismuth subsalicylate 262 mg/15 mL 524 mg PO Q4H PRN ml 06/01/20 11/23/20 Unknown History oral suspension omeprazole 20 mg capsule,delayed 20 mg PO DAILY@0800 06/01/20 11/23/20 11/23/20 History release clomipramine [Anafranil] 50 mg PO BEDTIME@199906/22/20 11/23/20 11/22/20 History lorazepam 2 mg tablet 2 mg PO Q6H PRN #20 tab 06/24/20 11/23/20 07/24/20 Rx Milk of Magnesia See Rx Instructions .ROUTE .COMPLEX 08/27/20 11/23/20 Unknown History Neosporin ([id number]) See Rx Instructions .ROUTE .COMPLEX 08/27/20 11/23/20 Unknown History chlorhexidine gluconate See Rx Instructions .ROUTE .COMPLEX 08/27/20 11/23/20 11/23/20 History dextromethorphan-guaifenesin 10 ml PO Q4H PRN 08/27/20 11/23/20 Unknown History [Tussin DM] nebulizers #1 ea 09/13/20 11/23/20 Unknown Rx ascorbic acid (vitamin C) 500 mg 500 mg PO BID@0800,1999 cap 10/05/20 11/23/20 11/23/20 History capsule zinc 50 mg tablet 50 mg PO DAILY@0810/05/20 11/23/20 Unknown History wheelchair #1 ea 11/03/20 11/23/20 Unknown Rx albuterol sulfate [Ventolin HFA] 1 inh INHALATION DAILY@0811/23/20 11/23/20 11/23/20 History fluticasone propion-salmeterol 1 inh INHALATION DAILY@0811/23/20 11/23/20 11/23/20 History [Advair Diskus] furosemide 60 mg PO DAILY@0811/23/20 11/23/20 11/23/20 History Allergies Allergy/AdvReac Type Severity Reaction Status Date / Time No Known Allergies Allergy Verified 11/23/20 14:47 Current Medications Current Medications Generic Name Dose Route Start Last Admin Trade Name Freq PRN Reason Stop Dose Admin Dextrose/Sodium Chloride 1,000 mls @ 75 mls/hr 11/24/20 00:45 11/24/20 00:52 Dextrose 5%-Sod Chloride 0.45% IV 75 mls/hr .[id number] ROLA Administration PFSH Acute PFSH: Medical History Bipolar 1 disorder Colorectal polyp detected on colonoscopy 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 Intermittent explosive disorder Leg edema Normal colonoscopy Obsessive-compulsive behavior Organic affective disorder Subdural hematoma (~10/2019) Traumatic subdural hematoma Surgical History Hx of colonoscopy Family History Other Family history non-contributory Social History Smoking and tobacco status: never smoked Alcohol intake: never History of recent travel: No Current gender identity: Male Vitals/I&O/Wt Last Vital Signs Temp 96.7 F L 11/23/20 20:34 Pulse 102 H 11/24/20 06:24 Resp 18 11/24/20 06:24 BP 134/82 11/24/20 05:28 Pulse Ox 96 11/24/20 06:24 11/23/20 11/23/20 11/24/20 14:59 22:59 06:59 Output Total 400 / 400 Balance -400 / -400 Weight last 48 hrs Weight 230 lb Physical Exam Narrative: EXAM NARRATIVE: right thigh swelling Urinary Catheter Management^: Martinez: Cath Placed During This Visit: yes Reason for Continuing Indwelling Catheter: Acute Urinary Retention or Obstruction Urinary Catheter Date of Insertion: 11/23/20 Urinary Catheter Time of Insertion: 23:25 A&P Assessment and plan (1) Subtrochanteric fracture of femur: Right IM nail Status: Acute Additional A&P Information rig Consult Attestations Medical Necessity Statement: right femur fracture Coding Level of Care Code Acute Vocal Music Instructor for Tushar Galvez Diagnoses Subtrochanteric fracture of femur S72.23XA
--- NOTE | 2020-11-24 06:41 | W.PM.OPSUD ---
Surgery/Procedure H&P Update DATE OF PROCEDURE: November 24, 2020 DATE H&P PERFORMED: 11/24/20 H&P UPDATE INFORMATION: I have reviewed H&P completed within last 30 days PREOP DIAGNOSIS: hx polyps PLANNED PROCEDURE: Operation Date: 11/24/20 07:00 Proposed Procedures p Trochanteric Femoral Nail(Right) - Rich Peterson DO
--- NOTE | 2020-11-24 06:44 | ANES.PREANE2 ---
Pre-Anesthetic Assessment Pre-Anesthetic Assessment: Height/Weight: Height 1.75 m Weight 104.326 kg Temp Pulse Resp BP Pulse Ox 96.7 F L 102 H 18 134/82 96 11/23/20 20:34 11/24/20 06:24 11/24/20 06:24 11/24/20 05:28 11/24/20 06:24 Preop Diagnosis: hx polyps Proposed Procedure: Operation Date: 11/24/20 07:00 Proposed Procedures p Trochanteric Femoral Nail(Right) - Rich H Kristen, DO Was Beta Abdiaziz taken within 24 hours: N/A Social: Social History: No alcohol and No tobacco Exam: Pre-Anes Outpt Exam: alert, oriented x 3, clear to auscultation bilaterally and regular rate & rhythm Airway: Submandibular: WNL Cervical ROM: WNL MP: 2 GI: GI: GERD Neuropsych: Neuropsych: Anxiety, Bipolar, Deficit and Seizure Anesthetic Plan: ASA status: 3 Anesthesia: Regional (specify below) Other: SAB Risk of > 500 ml blood loss (7ml/kg in children): Yes, adequate IV access and fluids planned Meds/Allergies Current Medications: Current Medications Generic Name Dose Route Start Last Admin Trade Name Freq PRN Reason Stop Dose Admin Dextrose/Sodium Ch loride 1,000 mls @ 75 ml s/hr 11/24/20 00:45 11/24/20 00:52 Dextrose 5%-Sod Chloride 0.45% IV 75 mls/hr .[id number] ROLA Administration PFSH Anesthesia PFSH: Medical History Bipolar 1 disorder Colorectal polyp detected on colonoscopy 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 Intermittent explosive disorder Leg edema Normal colonoscopy Obsessive-compulsive behavior Organic affective disorder Subdural hematoma (~10/2019) Traumatic subdural hematoma Surgical History Hx of colonoscopy Family History Other Family history non-contributory Social History Smoking and tobacco status: never smoked Alcohol intake: never History of recent travel: No Current gender identity: Male Data Anesthesia CBC & Chem 7: 02/23/21 21:50 11/24/20 05:43 Other Labs: Laboratory Results - last 48 hr 11/23/20 11/23/20 11/23/20 21:50 21:50 21:50 WBC 11.3 H RBC 4.54 Hgb 13.4 Hct 40.5 L MCV 89.2 MCH 29.5 MCHC 33.1 RDW 14.1 Plt Count 178 MPV 10.6 H Neut % (Auto) 79.5 Lymph % (Auto) 9.5 [place] % (Auto) 9.4 Eos % (Auto) 0.9 Baso % (Auto) 0.3 Neut # (Auto) 8.99 H Lymph # (Auto) 1.1 [place] # (Auto) 1.1 H Eos # (Auto) 0.1 Baso # (Auto) 0.0 Nucleated RBC % (auto) 0 Nucleated RBCs # 0.0 PT 14.80 INR 1.12 Sodium 136 Potassium 4.1 Chloride 96 L Carbon Dioxide 30 H Anion Gap 14.1 BUN 20 Creatinine 1.3 H GFR Calculation Not Reportable Glucose 168 H Calculated Osmolality 288 Calcium 8.9 11/24/20 05:43 WBC RBC Hgb Hct MCV MCH MCHC RDW Plt Count MPV Neut % (Auto) Lymph % (Auto) [place] % (Auto) Eos % (Auto) Baso % (Auto) Neut # (Auto) Lymph # (Auto) [place] # (Auto) Eos # (Auto) Baso # (Auto) Nucleated RBC % (auto) Nucleated RBCs # PT INR Sodium 136 Potassium 4.7 Chloride 97 L Carbon Dioxide 28 Anion Gap 15.7 BUN 20 Creatinine 1.3 H GFR Calculation Not Reportable Glucose 229 H Calculated Osmolality 292 Calcium 8.8 Cardiac Studies: No Data to Display
[2020-11-24] MEDS: sodium chloride 0.9% 1,000 ML 30 ML IV ×2 (07:02→08:45)
--- NOTE | 2020-11-24 08:36 | P.OP_ITS ---
Operative Report Date of procedure: November 24, 2020 Pre-op Diagnosis: Right Subtrochanteric femur fracture Post-op diagnosis: same Procedure Done: Right IM nail femur (subtrochanteric femur fracture) Anesthesia: General Estimated blood loss (mL): 100 Condition: stable Disposition: PACU Procedure: Right IM nail for subtrochanteric femur fracture. Patient was brought to the operative suite after undergoing anesthesia was placed onto the fracture table. All areas impingement well-padded. Traction was applied fracture was reduced. Patient was then prepped and draped in normal sterile fashion. Skin incision made proximal to the greater trochanter. Starting pin was inserted. Opening reamer was inserted. Bowel wire is passed across the fracture into the distal femur. Canal was reamed to 12-1/2. A 11 x 400 nail from Valentin Uzhun was inserted. Lag screw was placed up into the femoral head after measuring in drilling. This was 100 mm lag screw. Next edges brought to the distal locking screws. Perfect circles were done and stab incisions were made and screws placed in the distal and proximal screw holes. Wounds were irrigated and closed with Vicryl and pepper. Sterile dressings were applied patient was transferred to the PACU in stable condition.
--- NOTE | 2020-11-24 09:41 | P.ANESPOST_ITS ---
Inpatient post-anesthesia follow up: Airway intact: Yes Vital signs: Temperature 97.7 F Pulse Rate [Monito r] 88 Pulse Rate 114 Respiratory Rate 18 Blood Pressure [Le ft Arm] 134/82 Blood Pressure 107/81 Pulse Oximetry 93 Oxygen Delivery Me thod Room Air Oxygen Flow Rate 3 Fraction of Inspir ed Oxygen Hydration adequate: Yes Nausea and vomiting: No Pain level: 2 Ronny tional Comments: Sedate
--- NOTE | 2020-11-24 12:52 | DCPLANNER ---
care services manager spoke with Guardian and was told that if patient needed to go to a nursing facility, that the guardian wanted patient to go to [facility]. care services manager filled out Patient Choice, with verbal consent for [facility] for first choice and [facility] as second choice.
--- NOTE | 2020-11-24 13:37 | PM.PN ---
Subjective Subjective: Interval history: Yaakov is a 75-year-old white male admitted last night secondary to hip fracture following mechanical fall. He did not have syncope. History and physical was reviewed. Patient has significant communication impairments. This is his baseline. Medications: Reviewed: Yes Vitals/I&O/Wt Last Vital Signs Temp 97.8 F 11/24/20 10:40 Pulse 98 11/24/20 10:40 Resp 18 11/24/20 10:40 BP 105/65 11/24/20 10:40 Pulse Ox 91 11/24/20 10:40 11/23/20 11/24/20 11/24/20 22:59 06:59 14:59 Intake Total 500 / 500 910 / 910 Output Total 400 / 400 300 / 300 Balance 100 / 100 610 / 610 Weight last 48 hrs Weight 104.326 kg Physical Exam Narrative: EXAM NARRATIVE: General exam is no apparent distress Cardiovascular regular in rhythm without murmur Lungs clear Abdomen is soft with positive bowel sounds Extremities no cyanosis clubbing nor edema. Right hip with dressing clean and dry. Cap refill right lower extremity intact and pulse intact. Urinary Catheter Management^: Martinez: Cath Placed During This Visit: yes Reason for Continuing Indwelling Catheter: Acute Urinary Retention or Obstruction Urinary Catheter Date of Insertion: 11/23/20 Urinary Catheter Time of Insertion: 23:25 Data : 11/23/20 21:50 11/24/20 05:43 A&P Assessment and plan (1) Closed right hip fracture: Directly postoperative, IM nailing for right subtrochanteric femur fracture Will likely need detention facility placement Status: Acute (2) Frailty: custodial resident who at baseline is able to ambulate on his own, eats regular diet, has baseline intellectual disability, sustained a fall while he was changing his dress before going to bed and sustained right femur fracture Past history of subdural hematoma, traumatic in 2019 Status: Acute Additional A&P Information History of bipolar disorder Laboratory tomorrow Lovenox for DVT prophylaxis Full Code Attestations Medical Necessity Statement*: Needs continued hospitalization for close follow-up following hip fracture repair. Coding Level of Care Code Acute Data Base Design Analyst for Tushar Galvez Diagnoses Closed right hip fracture S72.001A Frailty R54
--- NOTE | 2020-11-24 14:12 | PC.RESP ---
Pt attempted to use Incentive Spirometer. Pt unable, at this time, we did DB&cough x5.
--- NOTE | 2020-11-24 14:25 | PC.PT ---
Attempted Physical Therapy evaluation at this time. Patient was unable to communicate and would not follow commands. Will try again tomorrow.
[2020-11-24] MEDS: HYDROcodone-acetaminophen 5-325 mg Tablet PO (14:28)
--- NOTE | 2020-11-24 16:52 | PC.NURSE ---
DISCHARGE PLAN PATIENT'S CAREGIVER REQUESTED THAT PATIENT BE DISCHARGED TO SNF, PREFERENCE IS [facility].
--- NOTE | 2020-11-24 18:28 | PC.NURSE ---
SHIFT SUMMARY PATIENT HAS DONE WELL SINCE ARRIVING TO THE FLOOR FROM THE OR. RECEIVED PAIN MEDICATION ONCE. GOOD NEUROVASCULAR CHECKS. MILD SWELLING TO THE RIGHT LEG. GOOD URINE OUTPUT. INCREASING PO INTAKE. NO COMPLAINTS AT THIS TIME.
--- NOTE | 2020-11-24 20:38 | PC.RESP ---
Patient is unable to perform IS effectively. Pt was able to deep breath and cough.
[2020-11-24] MEDS: acetaminophen 325 mg Tablet 650 MG PO (21:02)
[2020-11-24] MEDS: divalproex DR 500 mg Tablet PO (21:03)
[2020-11-24] MEDS: quetiapine 100 mg Tablet PO (21:03)
[2020-11-24] MEDS: ascorbic acid 500 mg Tablet PO (21:03)
[2020-11-24] MEDS: OLANZapine 5 mg TABLET PO (21:03)
[2020-11-24] MEDS: enoxaparin 40 mg/0.4 mL Syringe SUBCUT (21:04)
[2020-11-25] VITALS (18 sets, daily range): BP systolic 101–126; BP diastolic 68–84; PULSE 99–129; RESP 6–28; TEMP 36.5–38.4; O2SAT 86–98
--- NOTE | 2020-11-25 00:20 | PC.RESP ---
Discussed oxygen levels and change in oxygen device with nurse. Patient does feel warm to the touch, nurse verifies that patient has been febrile. Nurse states she is going to discuss with the Physician.
--- NOTE | 2020-11-25 01:05 | XR_ITS ---
WS: [id number] Exam: XR chest 1V portable [id number] Date/Time of Exam: 11/25/2020 1:15 AM Reason For Exam: hypoxia Comparison 11/23/2020. Patchy infiltrates noted in the right basal region. There is also atelectasis and/or infiltrate in th e left lower lobe that is developed since the last exam. Cardiomediastinal structures appear normal. No pneumothorax or pleural effusion. Large bowel interposed beneath the right diaphragm. Bony structu res are intact. Monitoring leads superimpose the chest. XR/XR chest 1V portable [id number] IMPRESSION: 1. Patchy infiltrates in the right lower lung zone. There is also atelectasis a nd possible associated infiltrate in the left lower lobe.
[2020-11-25 01:31] LABS: ABG PCO2 33.6 mmHg (35-45); Arterial Blood Gas Hematocrit 29.8 % (42-52); Base Excess ABG 3.2 mmol/L (-2.0-2.0); Blood Gas Sample Type Arterial; HCO3 ABG 26.3 mmol/L (22-26); PO2 ABG 59.1 mmHg (80.0-100.0)
[2020-11-25 01:32] LABS: Blood Gas Operator Identificat HARKR; Blood Gas Sample Site Brachial, right; Oxygen Device OXY MASK
[2020-11-25] MEDS: acetaminophen 325 mg Tablet 650 MG PO (02:10)
[2020-11-25 02:45] LABS: Basophils # 0.1 10^3/uL (0.0-0.1); Basophils % 0.5 %; Hematocrit 29.7 % (42.0-52.0); Hemoglobin 9.7 g/dL (11.7-16.6); Lymphocytes # 1.5 10^3/uL (0.8-4.8); Lymphocytes % 7.3 %; Mean Corpuscular HGB Conc 32.7 g/dL (30.0-36.0); Mean Corpuscular Hemoglobin 29.8 pg (28.0-34.0); Mean Corpuscular Volume 91.1 fL (80-94); Mean Platelet Volume 12.2 fL (7.4-10.4); Monocytes # 2.5 10^3/uL (0.2-0.9); Monocytes % 12.3 %; Neutrophils # 15.97 10^3/uL (1.8-7.7); Neutrophils % 79.5 %; Nucleated Red Blood Cells % 0 %; Platelet Count 186 10^3/cmm (130-400); Red Blood Count 3.26 10^6/uL (4.1-5.3); Red Cell Distribution Width 14.4 % (12.1-15.1); White Blood Count 20.1 10^3/uL (4.0-10.0)
[2020-11-25 03:06] LABS: Slide Review Slide Review Perform
[2020-11-25 03:07] LABS: Blood Urea Nitrogen 34 mg/dL (8-23); Calcium 8.3 mg/dL (8.5-10.5); Carbon Dioxide 21 mmol/L (22-29); Chloride 98 mmol/L (98-107); Glucose 185 mg/dL (65-115); Osmolality Calculated 284 mOsm/kg (285-295); Sodium 131 mmol/L (136-145)
[2020-11-25 03:10] LABS: Anion Gap 16.8 (5-19); Potassium 4.8 mmol/L (3.5-5.1)
[2020-11-25 04:24] LABS: D Dimer 1.82 ug/mIFEU (0-0.59)
[2020-11-25] MEDS: HYDROcodone-acetaminophen 5-325 mg Tablet PO (08:05)
[2020-11-25] MEDS: divalproex DR 500 mg Tablet PO ×2 (08:05→19:51)
[2020-11-25] MEDS: zinc gluconate 50 mg Tablet PO (08:06)
[2020-11-25] MEDS: OLANZapine 5 mg TABLET PO ×2 (08:06→19:52)
[2020-11-25] MEDS: sennosides-docusate Tablet 1 TAB PO (08:06)
[2020-11-25] MEDS: ascorbic acid 500 mg Tablet PO (08:07)
[2020-11-25] MEDS: pantoprazole DR 40 mg Tablet PO (08:07)
--- NOTE | 2020-11-25 08:27 | US_ITS ---
WS: [id number] ULTRASOUND RENAL TECHNIQUE: Ultrasound examination of both kidneys. CLINICAL INFORMATION: renal failure COMPARISON: None. FINDINGS: Technically difficult examination. Examination performed in chair. RIGHT: Right kidney is normal in size and appearance. Echogenicity: Normal. Cortical thickness: 1.6 cm; Normal. Hydronephrosis: None. Perinephric fluid: None. Right kidney measures: 10.0 cm x 4.5 cm x 5.4 cm. LEFT: Left kidney is normal in size and appearance. Echogenicity: Normal. Cortical thickness: 1.1 cm; Normal. Hydronephrosis: None. Perinephric fluid: None. Left kidney measures: 12.2 cm x 5.4 cm x 4.9 cm. Normal visualized aorta. Martinez catheter. Aorta not visualized. US/US renal BI* [id number] IMPRESSION: Technically difficult examination. 1. No hydronephrosis in either kidney. 2. Kidneys are otherwise grossly unremarkable. 3. Martinez catheter.
--- NOTE | 2020-11-25 08:33 | P.PN_ITS ---
Subjective Subjective: Interval history: Patient postop day #1 from his right femoral nail. Patient does not communicate much in the room today but looks comfortable in bed. Vitals/I&O/Wt Last Vital Signs Temp 100.6 F H 11/25/20 07:21 Pulse 112 H 11/25/20 07:21 Resp 17 11/25/20 07:21 BP 126/76 11/25/20 07:21 Pulse Ox 95 11/25/20 07:21 11/24/20 11/25/20 11/25/20 22:59 06:59 14:59 Intake Total 240 / 2200 1145 / 3345 50 / 50 Output Total 500 / 800 175 / 975 Balance -260 / 1400 970 / 2370 50 / 50 Weight last 48 hrs Weight 230 lb Physical Exam Narrative: EXAM NARRATIVE: Patient resting comfortably in bed. Dressing clean dry and intact. Urinary Catheter Management^: Martinez: Cath Placed During This Visit: yes Reason for Continuing Indwelling Catheter: Perioperative Use in Selected Surgeries Urinary Catheter Date of Insertion: 11/23/20 Urinary Catheter Time of Insertion: 23:25 Data : 11/25/20 02:24 11/25/20 02:24 A&P Assessment and plan (1) Subtrochanteric fracture of femur: Postop day #1 right femur fracture. Up with physical therapy. Weight-bear as tolerated right lower extremity. Discharge planning. Status: Acute Attestations Medical Necessity Statement*: Patient needs medical issues resolved before he can be discharged. Coding Level of Care Code Acute Landscape Contractor for Tushar Galvez Diagnoses Subtrochanteric fracture of femur S72.23XA
[2020-11-25 09:48] LABS: NT Pro B Type Natriuretic Pept 1815 pg/mL (0-450)
--- NOTE | 2020-11-25 09:49 | P.PN_ITS ---
Subjective Subjective: Interval history: Yaakov was eating some breakfast this morning. He did not appear to be choking. He had some fevers last night. Oxygen requirement increased to 12 L per oxygen mask. Medications: Reviewed: Yes Vitals/I&O/Wt Last Vital Signs Temp 100.6 F H 11/25/20 07:21 Pulse 108 H 11/25/20 09:41 Resp 18 11/25/20 09:41 BP 126/76 11/25/20 07:21 Pulse Ox 92 11/25/20 09:41 11/24/20 11/25/20 11/25/20 22:59 06:59 14:59 Intake Total 240 / 2200 1145 / 3345 650 / 650 Output Total 500 / 800 175 / 975 Balance -260 / 1400 970 / 2370 650 / 650 Weight last 48 hrs Weight 104.326 kg Physical Exam Narrative: EXAM NARRATIVE: General exam is no apparent distress Cardiovascular regular in rhythm without murmur Lungs coarse at the bases with diminished breath sounds Abdomen is soft with positive bowel sounds Extremities no cyanosis clubbing . Right hip with dressing clean and dry. Cap refill right lower extremity intact and pulse intact. 1+ edema present most extremities Urinary Catheter Management^: Martinez: Cath Placed During This Visit: yes Reason for Continuing Indwelling Catheter: Perioperative Use in Selected Surgeries Urinary Catheter Date of Insertion: 11/23/20 Urinary Catheter Time of Insertion: 23:25 Data : 11/25/20 02:24 11/25/20 02:24 A&P Assessment and plan (1) Closed right hip fracture: Postoperative day #1 IM nailing for right subtrochanteric femur fracture Will need custodial facility placement Status: Acute (2) Frailty: shelter resident who at baseline is able to ambulate on his own, eats regular diet, has baseline intellectual disability, sustained a fall while he was changing his dress before going to bed and sustained right femur fracture Past history of subdural hematoma, traumatic in 2019 Status: Acute Additional A&P Information Acute hypoxic respiratory failure. Suspect aspiration. DuoNeb as needed Aspiration pneumonitis. IV antibiotics consisting of vancomycin and Zosyn will be initiated. Secondary to fever will obtain blood cultures. Dysphagia level 1 diet. Speech therapy evaluation. Mild hyponatremia. Elevated BNP. Some elevation may have occurred secondary to renal failure. However, on exam he appears slightly fluid overloaded. His fluid will be discontinued currently. Check echocardiogram. Despite his renal dysfunction may need a dose of IV Lasix should respiratory status not improve with di scontinuation of fluids Acute kidney injury. May be secondary to hypotension noted yesterday evening. He has Martinez so obstruction is less likely. Check renal ultrasound. UA with micro, urine culture History of bipolar disorder Lovenox for DVT prophylaxis Full Code Attestations Medical Necessity Statement*: Needs continued hospitalization for close follow-up of aspiration pneumonitis, acute kidney injury postoperative day #1 hip surgery Coding Level of Care Code Acute Deployment Technician for Chg Fwd Diagnoses Closed right hip fracture S72.001A Frailty R54
[2020-11-25] MEDS: vancomycin 1,250 MG/250 ML PIGGYBACK 200 MG IV (09:55)
[2020-11-25 10:49] LABS: Bilirubin Urine Neg (Negative); Blood Urine Neg (Negative); Glucose Urine UA Norm (Normal); Ketones Urine 1+ (Negative); Leukocyte Esterase Urine Negative (Negative); Nitrate Urine Negative (Negative); Protein Urine Neg (Negative); Urine Appearance Clear (CLEAR); Urine Color Yellow (Yellow); Urobilinogen Urine Norm (Negative); pH Urine 5 (5-7)
[2020-11-25 10:52] LABS: Add Urine Culture? No; Bacteria Urine TRACE /hpf; Fine Granular Casts Urine RARE /lpf; Squamous Epithelial Cell Urine 0-4 /hpf (0-5); WBC Urine RARE /hpf (0-5)
[2020-11-25] MEDS: piperacillin-tazobactam 3.375 GM in sodium chloride 0.9% (plus) 50 ML IV ×2 (11:39→19:10)
[2020-11-25] MEDS: ipratropium-albuterol 3 mL Neb INHALATION ×2 (13:10→20:41)
[2020-11-25 16:39] LABS: Anion Gap 16.1 (5-19); Blood Urea Nitrogen 43 mg/dL (8-23); Carbon Dioxide 24 mmol/L (22-29); Chloride 92 mmol/L (98-107); Glucose 212 mg/dL (65-115); Osmolality Calculated 283 mOsm/kg (285-295); Potassium 4.1 mmol/L (3.5-5.1); Sodium 128 mmol/L (136-145)
[2020-11-25 16:43] LABS: Creatine Phosphokinase 1773 U/L (39-308)
[2020-11-25] MEDS: FUROsemide 10 mg/mL SDV 4mL 40 MG IVP (17:46)
[2020-11-25] MEDS: quetiapine 100 mg Tablet PO (19:51)
[2020-11-25] MEDS: heparin 5,000 unit/mL INJ 1 mL 5000 UNIT SUBCUT (21:09)
[2020-11-26] VITALS (15 sets, daily range): BP systolic 117–124; BP diastolic 74–83; PULSE 95–175; RESP 18–22; TEMP 37.2–37.8; O2SAT 92–95
[2020-11-26 02:59] LABS: Basophils % 0.2 %; Hematocrit 24.2 % (42.0-52.0); Hemoglobin 7.9 g/dL (11.7-16.6); Lymphocytes # 1.3 10^3/uL (0.8-4.8); Lymphocytes % 9.3 %; Mean Corpuscular HGB Conc 32.6 g/dL (30.0-36.0); Mean Corpuscular Hemoglobin 30.2 pg (28.0-34.0); Mean Corpuscular Volume 92.4 fL (80-94); Mean Platelet Volume 11.4 fL (7.4-10.4); Monocytes # 1.7 10^3/uL (0.2-0.9); Monocytes % 12.1 %; Neutrophils # 11.03 10^3/uL (1.8-7.7); Neutrophils % 77.8 %; Nucleated Red Blood Cells % 0 %; Platelet Count 180 10^3/cmm (130-400); Red Blood Count 2.62 10^6/uL (4.1-5.3); Red Cell Distribution Width 14.8 % (12.1-15.1); White Blood Count 14.2 10^3/uL (4.0-10.0)
[2020-11-26 03:25] LABS: Alanine Aminotransferase 15 U/L (0-41); Albumin Level 2.5 g/dL (3.5-5.2); Alkaline Phosphatase 55 IU/L (40-130); Aspartate Amino Transferase 43 U/L (0-40); Blood Urea Nitrogen 49 mg/dL (8-23); Calcium 7.7 mg/dL (8.5-10.5); Carbon Dioxide 23 mmol/L (22-29); Chloride 94 mmol/L (98-107); Globulin 3.1 g/dL (1.3-4.6); Glucose 194 mg/dL (65-115); Osmolality Calculated 288 mOsm/kg (285-295); Sodium 130 mmol/L (136-145); Total Bilirubin 0.2 mg/dL (0.15-1.2); Total Protein 5.6 g/dL (6.6-8.7)
[2020-11-26] MEDS: piperacillin-tazobactam 3.375 GM in sodium chloride 0.9% (plus) 50 ML IV ×3 (03:48→21:54)
[2020-11-26] MEDS: ipratropium-albuterol 3 mL Neb INHALATION ×2 (08:45→15:23)
--- NOTE | 2020-11-26 10:05 | PM.PN ---
Subjective Subjective: Interval history: Patient sleepy this morning. Urine output picked up yesterday after Lasix dose. Medications: Reviewed: Yes Vitals/I&O/Wt Last Vital Signs Temp 98.9 F 11/26/20 07:35 Pulse 115 H 11/26/20 08:54 Resp 18 11/26/20 08:48 BP 124/77 11/26/20 07:35 Pulse Ox 94 11/26/20 08:48 11/25/20 11/26/20 11/26/20 22:59 06:59 14:59 Intake Total 50 / 1364.167 700 / 2064.167 Output Total 450 / 550 985 / 1535 Balance -400 / 814.167 -285 / 529.167 Physical Exam Narrative: EXAM NARRATIVE: General exam is no apparent distress, sleepy. Will open eyes to verbal stimuli Cardiovascular tachy but regular rhythm without murmur Lungs coarse at the bases Abdomen is soft with positive bowel sounds Extremities no cyanosis clubbing . Right hip with dressing clean and dry. Cap refill right lower extremity intact and pulse intact. 1+ edema present most extremities Urinary Catheter Management^: Martinez: Cath Placed During This Visit: yes Reason for Continuing Indwelling Catheter: Accurate Measurement of Urinary Output in Critically Ill Patients Urinary Catheter Date of Insertion: 11/23/20 Urinary Catheter Time of Insertion: 23:25 Data : 11/26/20 02:33 11/26/20 02:33 Micro: Microbiology 11/25/20 10:00 Urine Culture - Preliminary Urine Catheterized 11/25/20 14:31 Blood Culture - Preliminary Blood SPECIMEN COLLECTED 11/25/20 14:31 Blood Culture - Preliminary Blood SPECIMEN COLLECTED A&P Assessment and plan (1) Closed right hip fracture: Postoperative day #2 IM nailing for right subtrochanteric femur fracture Will need fpc facility placement Status: Acute (2) 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 Hemoglobin 7.9 today. Was 9.7 yesterday. Repeat tomorrow. May improve with diuresis. Acute hypoxic respiratory failure. Suspect aspiration. DuoNeb as needed. Oxygen has been able to be weaned to 4 L Aspiration pneumonitis. IV antibiotics consisting of vancomycin and Zosyn will be initiated. Secondary to fever blood cultures were obtained. Dysphagia level 1 diet. Speech therapy evaluation is being performed. Check MRSA PCR Mild hyponatremia. Improved following dose of Lasix yesterday. Repeat dose today. Elevated BNP. Some elevation may have occurred secondary to renal failure. However, on exam he appears slightly fluid overloaded. Echocardiogram August 20 demonstrated EF of 60% 1/4 diastolic dysfunction, mild mitral and aortic regurgitation. Repeat dose of Lasix today. As he is somewhat tachycardic will check EKG Acute kidney injury. May be secondary to hypotension noted yesterday evening. He has Martinez so obstruction is less likely. Renal ultrasound showed no hydronephrosis. Urinalysis negative. Urine culture pending. History of bipolar disorder Lethargy. May be related to psychiatric medication. Hold these with the exception of trihexyphenidyl Lovenox changed to heparin for DVT prophylaxis secondary to renal dysfunction Full Code Attestations Medical Necessity Statement*: Needs continued hospitalization for IV antibiotics secondary to pneumonia Coding Level of Care Code Acute Lining Feller for [facility] Fwd Diagnoses Closed right hip fracture S72.001A Frailty R54
--- NOTE | 2020-11-26 10:06 | ECG_ITS ---
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 Measurements Intervals [place] Rate: 113 P: 35 MO: 126 QRS: 18 QRSD: 87 T: 65 QT: 306 QTc: 420 Interpretive Statements SINUS TACHYCARDIA NONSPECIFIC T-WAVE ABNORMALITY ABNORMAL RHYTHM ECG Compared to ECG 11/23/2020 21:37:50 T-wave abnormality now present Sinus rhythm no longer present Electronically Signed On 11-27-2020 11:31:57 PRIMER WATERPROOFING MACHINE ADJUSTER by Melinda Carrion M.D. [id number]
[2020-11-26 10:47] LABS: Valproic Acid Level 33.9 ug/mL (50-100)
[2020-11-26] MEDS: sennosides-docusate Tablet 1 TAB PO (11:01)
[2020-11-26] MEDS: heparin 5,000 unit/mL INJ 1 mL 5000 UNIT SUBCUT (11:02)
[2020-11-26] MEDS: pantoprazole DR 40 mg Tablet PO (11:02)
[2020-11-26] MEDS: vancomycin 1,250 MG/250 ML PIGGYBACK 200 MG IV (11:49)
--- NOTE | 2020-11-26 16:33 | PC.SOCIAL ---
IMM Update Attempted to call patient's guardian to discuss medicare rights, voicemail left.
--- NOTE | 2020-11-26 17:29 | PC.SLP ---
Patient unable to be awakened to participate in therapy.
[2020-11-26] MEDS: HYDROcodone-acetaminophen 5-325 mg Tablet PO (19:03)
[2020-11-26] MEDS: HYDROmorphone 1 mg/mL INJ 1 mL 0.4 MG IVP (19:36)
--- NOTE | 2020-11-26 19:41 | PC.NURSE ---
Pt was observed to have a pulse of 180s on telemetry. Vitals obtained. Blood pressure stable. Oxygen saturation 88% on 2 L, titrated up to 4 L. Sats improved to 92%. EKG obtained showing a fib with RVR. Dr. Del Rio notified. Orders given for cardizem 15 mg IV push now. New 20 g IV inserted in left AC. Cardizem given. Vitals obtained-- temp 100.0, pulse 160s, respirations 20, O2 sats 92% on 5L, BP 122/83. Dr. Del Rio notified of pulse post cardizem push. Orders given for cardizem gtt. Bedside report given to Kelly Mir LPN.
[2020-11-26] MEDS: budesonide 0.5 mg/2 mL Neb INHALATION (20:14)
--- NOTE | 2020-11-26 20:26 | PC.NURSE ---
cardizem drip started at fixed rate of 5m/hr. Pt vitals currently bp 131/83 HR 165, O2 sat 94% on 5L. Monitoring closely
[2020-11-26] MEDS: apixaban 5 mg Tablet PO (20:30)
--- NOTE | 2020-11-26 20:51 | PC.NURSE ---
Patient was running excellerated pulse rate per telemetry monitors in room, this nurse went and assessed patient on Med Surge and called Dr. Del Rio to see about increasing cardizem or giving a push to help control heart rate. Dr. Del Rio gave orders to turn cardizem gtt up to 15. Continuing to monitor patients vitals from telemetry monitors in ICU. Continue care.
[2020-11-27] VITALS (17 sets, daily range): BP systolic 108–155; BP diastolic 66–82; PULSE 81–100; RESP 17–18; TEMP 36.4–37.4; O2SAT 92–97
[2020-11-27] MEDS: ipratropium-albuterol 3 mL Neb INHALATION ×4 (03:26→20:31)
[2020-11-27] MEDS: piperacillin-tazobactam 3.375 GM in sodium chloride 0.9% (plus) 50 ML IV ×3 (05:16→21:32)
[2020-11-27 06:45] LABS: Basophils % 0.1 %; Hemoglobin 7.8 g/dL (11.7-16.6); Lymphocytes # 1.2 10^3/uL (0.8-4.8); Lymphocytes % 7.7 %; Mean Corpuscular HGB Conc 32.5 g/dL (30.0-36.0); Mean Corpuscular Hemoglobin 30.1 pg (28.0-34.0); Mean Corpuscular Volume 92.7 fL (80-94); Mean Platelet Volume 11.2 fL (7.4-10.4); Monocytes # 1.4 10^3/uL (0.2-0.9); Neutrophils # 12.24 10^3/uL (1.8-7.7); Neutrophils % 81.5 %; Nucleated Red Blood Cells % 0.1 %; Platelet Count 222 10^3/cmm (130-400); Red Blood Count 2.59 10^6/uL (4.1-5.3); Red Cell Distribution Width 15.2 % (12.1-15.1)
[2020-11-27 07:15] LABS: Alanine Aminotransferase 12 U/L (0-41); Albumin Level 2.8 g/dL (3.5-5.2); Alkaline Phosphatase 48 IU/L (40-130); Anion Gap 16.1 (5-19); Aspartate Amino Transferase 27 U/L (0-40); Blood Urea Nitrogen 48 mg/dL (8-23); Calcium 8.1 mg/dL (8.5-10.5); Carbon Dioxide 24 mmol/L (22-29); Chloride 99 mmol/L (98-107); Globulin 3.3 g/dL (1.3-4.6); Glucose 154 mg/dL (65-115); Osmolality Calculated 296 mOsm/kg (285-295); Potassium 4.1 mmol/L (3.5-5.1); Sodium 135 mmol/L (136-145); Total Bilirubin 0.3 mg/dL (0.15-1.2); Total Protein 6.1 g/dL (6.6-8.7)
[2020-11-27] MEDS: budesonide 0.5 mg/2 mL Neb INHALATION ×2 (08:16→20:31)
[2020-11-27] MEDS: pantoprazole DR 40 mg Tablet PO (08:42)
[2020-11-27] MEDS: sennosides-docusate Tablet 1 TAB PO (08:42)
--- NOTE | 2020-11-27 09:29 | PC.CHAP ---
Pastoral Care Encounter/Spiritual Assessment Type of Contact [] Declined engineer technician visit [] Patient/Family/Request visit [] Outpatient visit [] Follow-up visit [] Physician referral [] Code/Alert [X] Routine visit [] Staff referral [] Actively dying [] Patient sleeping [] Family support [] [] Out of room [] Palliative care [] [] Receiving care in room [] Pre-surgical visit [] Trauma [] Long length of stay [] ICU visit [] Other: Relational/Emotional Strength [] Patient feels connected with others/family/visitors/staff [] Distress [] Loneliness/isolation [] Abandonment Spirituality of Patient [] Person of Tiana [] Attends Scientology of their Tiana [] Believes in Prayer [] Reads Bible or Samaritan materials [] There are Spiritual issues to be addressed Seam Presser Interventions [X] Prayer [] Active listening [] Non-anxious presence [] Spiritual/emotional support [] Crisis/trauma care [] Spiritual counseling [] Bereavement support [] Provided bereavement packet [] Provided Bible/devotional materials [] Provided toy/stuffed animal, coloring book to patient or family member [] Provided Communion [] Anointing/[place] [] Salvation [] Completed spiritual assessment [] Other: Impact on Illness or Injury [] Angry [] Fearful [] Anxious [] Often cries [] Exhaustion [] Unable to work [] Unable to attend restorationism [] Unable to walk/stand [] Unable to read [] Unable to drive [] Unable to eat/drink [] Unable to sleep [] Unable to be with family [] Patient intubated [] Other: Summary Pt awake but unresponsive to any verbal communication. Seam Presser did pray Time spent with patient 2 min
--- NOTE | 2020-11-27 10:13 | P.PN_ITS ---
Subjective Subjective: Interval history: Patient is postop day #3 for his right hip nail. For a subtrochanteric femur fracture patient is resting in bed comfortably not very communicative. Vitals/I&O/Wt Last Vital Signs Temp 98.2 F 11/27/20 08:00 Pulse 81 11/27/20 08:25 Resp 18 11/27/20 08:17 BP 108/66 11/27/20 08:00 Pulse Ox 97 11/27/20 08:17 11/26/20 11/27/20 11/27/20 22:59 06:59 14:59 Intake Total 780.333 / 1070.333 150 / 1220.333 120 / 120 Output Total 950 / 1650 Balance 780.333 / 370.333 -800 / -429.667 120 / 120 Physical Exam Narrative: EXAM NARRATIVE: Dressing dry. Urinary Catheter Management^: Martinez: Cath Placed During This Visit: yes Reason for Continuing Indwelling Catheter: Accurate Measurement of Urinary Output in Critically Ill Patients Urinary Catheter Date of Insertion: 11/23/20 Urinary Catheter Time of Insertion: 23:25 Data : 11/27/20 06:26 11/27/20 06:26 Micro: Microbiology 11/25/20 10:00 Urine Culture - Final Urine Catheterized 11/26/20 Unknown MRSA Culture - Final Nose 11/25/20 14:31 Blood Culture - Preliminary Blood NEGATIVE TO DATE 11/25/20 14:31 Blood Culture - Preliminary Blood NEGATIVE TO DATE A&P Additional A&P Information Postop day #3 right IM nail for subtrochanteric femur fracture. Weight-bear as tolerated DVT prophylaxis with Lovenox. Attestations Medical Necessity Statement*: needs placement in [place] Coding Level of Care Code Acute Service Observer Chief for Tushar Galvez
[2020-11-27] MEDS: vancomycin 1,250 MG/250 ML PIGGYBACK 200 MG IV (12:32)
--- NOTE | 2020-11-27 15:19 | P.PN_ITS ---
Subjective Subjective: Interval history: Awake at this present time, sitting in a chair at the bedside, no apparent acute distress, does not participate in conversation, kidney function is improving creatinine at 1.3 today, white blood cell count improving at 15, MRSA PCR returned negative, vancomycin is being discontinued. Overnight patient had an acute event wherein he developed atrial fibrillation with RVR with heart rate going up to 170. He was given Cardizem pushes and then started on Cardizem infusion for a short time which has subsequently been discontinued. This morning patient appears to be in sinus rhythm on telemetry. Hemoglobin stable at 7.8 Medications: Reviewed: Yes Vitals/I&O/Wt Last Vital Signs Temp 97.6 F 11/27/20 11:38 Pulse 87 11/27/20 14:00 Resp 18 11/27/20 11:38 BP 124/68 11/27/20 11:38 Pulse Ox 97 11/27/20 11:38 11/27/20 11/27/20 11/27/20 06:59 14:59 22:59 Intake Total 150 / 1220.333 630 / 630 Output Total 950 / 1650 Balance -800 / -429.667 630 / 630 Physical Exam Narrative: EXAM NARRATIVE: GEN: Awake, does not appear to be in any acute distress CVS: S1S2 N RS: CTA B/L Abd: Soft, nt/nd , bs+ Extremities with 1+ pitting edema bilaterally Urinary Catheter Management^: Martinez: Cath Placed During This Visit: yes Reason for Continuing Indwelling Catheter: Accurate Measurement of Urinary Output in Critically Ill Patients Urinary Catheter Date of Insertion: 11/23/20 Urinary Catheter Time of Insertion: 23:25 Data : 11/27/20 06:26 11/27/20 06:26 Micro: Microbiology 11/25/20 10:00 Urine Culture - Final Urine Catheterized 11/26/20 Unknown MRSA Culture - Final Nose 11/25/20 14:31 Blood Culture - Preliminary Blood NEGATIVE TO DATE 11/25/20 14:31 Blood Culture - Preliminary Blood NEGATIVE TO DATE A&P Assessment and plan (1) Closed right hip fracture: Postoperative day #3 IM nailing for right subtrochanteric femur fracture Will need half-way facility placement Status: Acute (2) Frailty: 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 Hemoglobin stable at 7.8 today. Acute hypoxic respiratory failure. Suspect aspiration. DuoNeb as needed. Oxygen has been able to be weaned to 2 L Aspiration pneumonitis. IV antibiotics consisting of vancomycin and Zosyn are currently ongoing. Will discontinue vancomycin as MRSA PCR has returned negative. Fever curve appears to be improving. T-max over last 24 hours is 100 Fahrenheit blood culture thus far negative to date dysphagia level 1 diet. Speech therapy evaluation is being performed. Mild hyponatremia. This is improving Elevated BNP. Some elevation may have occurred secondary to renal failure. However, on exam he appears slightly fluid overloaded. Echocardiogram August 20 demonstrated EF of 60% 1/4 diastolic dysfunction, mild mitral and aortic regurgitation. Repeat dose of Lasix 20 mg today. A. fib with RVR overnight, currently patient back in sinus rhythm. Heart rate in the 80s. We will add low-dose of metoprolol to 12.5 mg p.o. daily. Patient was started on Eliquis 5 mg twice daily last night, however will discontinue the same. At this present time risks of bleeding outweigh benefit from stroke prevention given recent surgery, history of subdural hematoma in 2020. Acute kidney injury. May be secondary to hypotension. He has Martinez so obstruction is less likely. Renal ultrasound showed no hydronephrosis. Urinalysis negative. Urine culture pending. Creatinine is currently improving History of bipolar disorder Lethargy. Improving with holding psychiatric medications apart from trihexyphenidyl Lovenox changed to heparin for DVT prophylaxis secondary to renal dysfunction Full Code Attestations Medical Necessity Statement*: Ongoing need for IV antibiotics, disposition planning, pending placement at SNF Coding Level of Care Code Acute Equity Structurer for [facility] Fwd Diagnoses Closed right hip fracture S72.001A Frailty R54
[2020-11-27] MEDS: iron polysaccharide complex 150 mg Capsule PO (17:41)
[2020-11-27] MEDS: heparin 5,000 unit/mL INJ 1 mL 5000 UNIT SUBCUT (17:41)
[2020-11-27] MEDS: HYDROcodone-acetaminophen 5-325 mg Tablet PO (18:15)
[2020-11-27] MEDS: divalproex DR 500 mg Tablet PO (21:31)
[2020-11-28] VITALS (17 sets, daily range): BP systolic 113–146; BP diastolic 62–85; PULSE 83–98; RESP 17–18; TEMP 36.5–37.9; O2SAT 92–98
[2020-11-28] MEDS: heparin 5,000 unit/mL INJ 1 mL 5000 UNIT SUBCUT (00:42)
[2020-11-28] MEDS: ipratropium-albuterol 3 mL Neb INHALATION ×3 (03:14→20:16)
[2020-11-28] MEDS: HYDROcodone-acetaminophen 5-325 mg Tablet PO (04:48)
[2020-11-28] MEDS: piperacillin-tazobactam 3.375 GM in sodium chloride 0.9% (plus) 50 ML IV ×3 (06:13→22:08)
[2020-11-28 06:29] LABS: Basophils % 0.1 %; Hematocrit 21.5 % (42.0-52.0); Hemoglobin 6.8 g/dL (11.7-16.6); Lymphocytes # 1.2 10^3/uL (0.8-4.8); Lymphocytes % 8.8 %; Mean Corpuscular HGB Conc 31.6 g/dL (30.0-36.0); Mean Corpuscular Hemoglobin 28.8 pg (28.0-34.0); Mean Corpuscular Volume 91.1 fL (80-94); Mean Platelet Volume 10.6 fL (7.4-10.4); Monocytes # 1.4 10^3/uL (0.2-0.9); Monocytes % 10.1 %; Neutrophils # 10.57 10^3/uL (1.8-7.7); Neutrophils % 78.4 %; Nucleated Red Blood Cells % 0.3 %; Platelet Count 232 10^3/cmm (130-400); Red Blood Count 2.36 10^6/uL (4.1-5.3); White Blood Count 13.5 10^3/uL (4.0-10.0)
[2020-11-28] MEDS: budesonide 0.5 mg/2 mL Neb INHALATION ×2 (07:27→20:16)
[2020-11-28 08:05] LABS: Alanine Aminotransferase 11 U/L (0-41); Albumin Level 2.5 g/dL (3.5-5.2); Alkaline Phosphatase 51 IU/L (40-130); Anion Gap 13.5 (5-19); Aspartate Amino Transferase 22 U/L (0-40); Blood Urea Nitrogen 40 mg/dL (8-23); Calcium 8.1 mg/dL (8.5-10.5); Carbon Dioxide 28 mmol/L (22-29); Chloride 101 mmol/L (98-107); Globulin 3.1 g/dL (1.3-4.6); Glucose 132 mg/dL (65-115); Magnesium 2.3 mg/dL (1.7-2.3); Osmolality Calculated 300 mOsm/kg (285-295); Potassium 3.5 mmol/L (3.5-5.1); Sodium 139 mmol/L (136-145); Total Bilirubin 0.4 mg/dL (0.15-1.2); Total Protein 5.6 g/dL (6.6-8.7)
[2020-11-28] MEDS: metoprolol succinate ER (24 HR) 25 mg Tablet 12.5 MG PO (08:45)
[2020-11-28] MEDS: sennosides-docusate Tablet 1 TAB PO (08:45)
[2020-11-28] MEDS: pantoprazole DR 40 mg Tablet PO (08:45)
[2020-11-28] MEDS: iron polysaccharide complex 150 mg Capsule PO ×2 (08:45→17:43)
[2020-11-28] MEDS: divalproex DR 500 mg Tablet PO ×2 (08:45→22:07)
--- NOTE | 2020-11-28 10:24 | PC.NURSE ---
attempted to call [facility] for consent for blood. was unable to reach her at this time.
--- NOTE | 2020-11-28 11:12 | PC.NURSE ---
attempted to call [facility] for consent of blood. no answer at this time
--- NOTE | 2020-11-28 12:59 | P.PN_ITS ---
Subjective Subjective: Interval history: Hemoglobin trended down to 6.8 today, hemodynamically remained stable, no acute events overnight Medications: Reviewed: Yes Vitals/I&O/Wt Last Vital Signs Temp 99.0 F 11/28/20 12:33 Pulse 91 11/28/20 12:33 Resp 17 11/28/20 12:33 BP 113/62 11/28/20 12:33 Pulse Ox 96 11/28/20 11:24 11/27/20 11/28/20 11/28/20 22:59 06:59 14:59 Intake Total 470 / 1100 50 / 1150 980 / 980 Output Total 1050 / 1050 825 / 1875 Balance -580 / 50 -775 / -725 980 / 980 Physical Exam Narrative: EXAM NARRATIVE: GEN: Awake, does not appear to be in any acute d istress CVS: S1S2 N RS: CTA B/L Abd: Soft, nt/nd , bs+ Extremities with 1+ pitting edema bilaterally Urinary Catheter Management^: Martinez: Cath Placed During This Visit: yes Reason for Continuing Indwelling Catheter: Accurate Measurement of Urinary Output in Critically Ill Patients Urinary Catheter Date of Insertion: 11/23/20 Urinary Catheter Time of Insertion: 23:25 Data : 11/28/20 06:12 11/28/20 06:12 Micro: Microbiology 11/25/20 10:00 Urine Culture - Final Urine Catheterized A&P Assessment and plan (1) Closed right hip fracture: Postoperative day #4 IM nailing for right subtrochanteric femur fracture Will need residential facility placement Status: Acute (2) Frailty: alf resident who at baseline is able to ambulate on his own, eats regular diet, has baseline intellectual disability, sustained a fall while he was changing his dress before going to bed and sustained right femur fracture Past history of subdural hematoma, traumatic in 2019 Status: Acute Additional A&P Information Acute postoperative blood loss anemia. Hemoglobin drifted down to 6.8 today, ordered 1 unit of blood transfusion Acute hypoxic respiratory failure. Suspect aspiration. DuoNeb as needed. Oxygen has been able to be weaned to 2 L Aspiration pneumonitis. IV antibiotics Zosyn are currently ongoing. discon tinued vancomycin as MRSA PCR has returned negative. Fever curve appears to be improving. He is currently afebrile Mild hyponatremia. This is improving Elevated BNP. Some elevation may have occurred secondary to renal failure. However, on exam he appears slightly fluid overloaded. Echocardiogram August 20 demonstrated EF of 60% 1/4 diastolic dysfunction, mild mitral and aortic regurgitation. Has received as needed Lasix during admission, currently appears to be euvolemic A. fib with RVR overnight on November 27, currently patient back in sinus rhythm. Heart rate in the 80s. We will add low-dose of metoprolol to 12.5 mg p.o. daily. Patient was started on Eliquis 5 mg twice daily, however this has been discontinued as this present time risks of bleeding outweigh benefit from stroke prevention given n developing anemia, recent surgery, history of subdural hematoma in 2019. Acute kidney injury. May be secondary to hypotension. He has Martinez so obstruction is less likely. Renal ultrasound showed no hydronephrosis. Urinalysis negative. Urine culture pending. Creatinine is currently improving History of bipolar disorder Lethargy. Improving with holding psychiatric medications apart from trihexyphenidyl. Divalproex has been resumed Lovenox changed to heparin for DVT prophylaxis secondary to renal dysfunction, hold today as hemoglobin drifting down Full Code Dispo : SNF Attestations Medical Necessity Statement*: Hemoglobin drifted down to 6.8 today, 1 unit of blood transfusion ordered Coding Level of Care Code Acute Operations Section Manager for Chg Fwd Diagnoses Closed right hip fracture S72.001A Frailty R54
[2020-11-28] MEDS: sodium chloride 0.9% (100 ml) 100 ML 125 ML (15:00)
--- NOTE | 2020-11-28 17:01 | PC.SOCIAL ---
IM follow up called to Kelly patient caregiver and explained.She verbalized understanding and no questions.
--- NOTE | 2020-11-28 18:30 | PC.NURSE ---
pt ate well today. pt had 1 unit of RBC. pt bruising on right hip is not any worse. pt currently has ice on hip.
[2020-11-29] VITALS (9 sets, daily range): BP systolic 116–150; BP diastolic 70–81; PULSE 79–92; RESP 16–20; TEMP 36.4–37.1; O2SAT 93–98
--- NOTE | 2020-11-29 00:15 | PC.NURSE ---
PT had incontinent episode and stated he felt he still needed to void but could not, Bladder scan showed >380 mls, PT straight cathed with a 14 fr and 350 mls clear yellow urine returned, Pt tolerated well with no complaints of pain or discomfort.
[2020-11-29] MEDS: piperacillin-tazobactam 3.375 GM in sodium chloride 0.9% (plus) 50 ML IV (05:45)
[2020-11-29 07:42] LABS: Basophils % 0.2 %; Eosinophils % 0.2 %; Hematocrit 29.2 % (42.0-52.0); Hemoglobin 9.4 g/dL (11.7-16.6); Lymphocytes # 1.5 10^3/uL (0.8-4.8); Lymphocytes % 10.9 %; Mean Corpuscular HGB Conc 32.2 g/dL (30.0-36.0); Mean Corpuscular Hemoglobin 28.7 pg (28.0-34.0); Mean Corpuscular Volume 89.3 fL (80-94); Mean Platelet Volume 10.2 fL (7.4-10.4); Monocytes # 1.8 10^3/uL (0.2-0.9); Monocytes % 13.5 %; Neutrophils # 9.47 10^3/uL (1.8-7.7); Neutrophils % 70.5 %; Nucleated Red Blood Cells % 0.3 %; Platelet Count 245 10^3/cmm (130-400); Red Blood Count 3.27 10^6/uL (4.1-5.3); Red Cell Distribution Width 16.8 % (12.1-15.1); White Blood Count 13.4 10^3/uL (4.0-10.0)
[2020-11-29 08:07] LABS: Alanine Aminotransferase 15 U/L (0-41); Albumin Level 2.6 g/dL (3.5-5.2); Alkaline Phosphatase 49 IU/L (40-130); Anion Gap 17.4 (5-19); Aspartate Amino Transferase 20 U/L (0-40); Blood Urea Nitrogen 31 mg/dL (8-23); Calcium 7.9 mg/dL (8.5-10.5); Carbon Dioxide 29 mmol/L (22-29); Chloride 99 mmol/L (98-107); Globulin 3.5 g/dL (1.3-4.6); Glucose 109 mg/dL (65-115); Osmolality Calculated 301 mOsm/kg (285-295); Potassium 3.4 mmol/L (3.5-5.1); Sodium 142 mmol/L (136-145); Total Bilirubin 0.4 mg/dL (0.15-1.2); Total Protein 6.1 g/dL (6.6-8.7)
[2020-11-29] MEDS: budesonide 0.5 mg/2 mL Neb INHALATION (08:17)
[2020-11-29] MEDS: ipratropium-albuterol 3 mL Neb INHALATION (08:17)
--- NOTE | 2020-11-29 10:05 | PM.PN ---
Subjective Subjective: Interval history: Yaakov has difficulty communicating which is his baseline. He is much more alert than when I saw him on Sunday. He was transfused a unit of packed red blood cells over the weekend secondary to low hemoglobin. He has had no obvious active bleeding. Medications: Reviewed: Yes Vitals/I&O/Wt Last Vital Signs Temp 97.8 F 11/29/20 08:00 Pulse 86 11/29/20 08:18 Resp 16 11/29/20 08:18 BP 150/81 11/29/20 08:00 Pulse Ox 93 11/29/20 08:18 11/28/20 11/29/20 11/29/20 22:59 06:59 14:59 Intake Total 920 / 1950 630 / 2580 400 / 400 Output Total 900 / 900 1100 / 2000 Balance 20 / 1050 -470 / 580 400 / 400 Physical Exam Narrative: EXAM NARRATIVE: General exam is no apparent distress, sleepy. Will open eyes to verbal stimuli Cardiovascular tachy but regular rhythm without murmur Lungs coarse at the bases Abdomen is soft with positive bowel sounds Extremities no cyanosis clubbing . Right hip with dressing clean and dry. Hematoma right hip fracture repair site noted Urinary Catheter Management^: Martinez: Cath Placed During This Visit: yes Reason for Continuing Indwelling Catheter: Perioperative Use in Selected Surgeries Urinary Catheter Date of Insertion: 11/23/20 Urinary Catheter Time of Insertion: 23:25 Data : 11/29/20 07:10 11/29/20 07:10 A&P Assessment and plan (1) Closed right hip fracture: Postoperative day #5 IM nailing for right subtrochanteric femur fracture Will need retirement facility placement Status: Acute (2) Frailty: long term resident who at baseline is able to ambulate on his own, eats regular diet, has baseline intellectual disability, sustained a fall while he was changing his dress before going to bed and sustained right femur fracture Past history of subdural hematoma, traumatic in 2019 Status: Acute Additional A&P Information Acute postoperative blood loss anemia. He was transfused for hemoglobin of 6.8 and is now 9.4. He does not have any evidence of active bleeding. Heparin subcutaneous restarted for DVT prophylaxis. Eliquis will be okay to use for DVT prophylaxis on discharge and then nursing facility physician will have to decide whether it is warranted after completion of DVT prophylaxis after hip surgery(if history of atrial fibrillation still warrants continued DVT prophylaxis in this patient with history of subdural) Acute hypoxic respiratory failure. Consistent with aspiration pneumonitis. Oxygen has been weaned down to 3 L Aspiration pneumonitis. Continue Zosyn. Vancomycin discontinued as MRSA PCR has returned negative. We will discharge him on Augmentin when he is able to transition to skilled care Mild hyponatremia. This is improving Hypokalemia, supplement Elevated BNP. Some elevation may have occurred secondary to renal failure. However, on exam he appears slightly fluid overloaded. Echocardiogram August 20 demonstrated EF of 60% 1/4 diastolic dysfunction, mild mitral and aortic regurgitation. Has received as needed Lasix during admission, currently appears to be euvolemic. Resume his oral Lasix dosing today. Reduce dose to 40 mg. A. fib with RVR overnight on November 27, currently patient back in sinus rhythm. Heart rate in the 80s. We will add low-dose of metoprolol to 12.5 mg p.o. daily. Acute kidney injury. May be secondary to hypotension. He has Martinez so obstruction is less likely. Renal ultrasound showed no hydronephrosis. Urinalysis negative. This has resolved History of bipolar disorder Lethargy. Improving with holding psychiatric medications apart from trihexyphenidyl. Divalproex has been resumed Heparin for DVT prophylaxis Full Code Awaiting skilled placement Attestations Medical Necessity Statement*: Needs continued hospitalization for treatment of aspiration pneumonitis with IV antibiotics pending retirement facility placement. Coding Level of Care Code Acute Mica Plate Layer Hand for Tushar Fwd Diagnoses Closed right hip fracture S72.001A Frailty R54
[2020-11-29] MEDS: iron polysaccharide complex 150 mg Capsule PO (10:34)
[2020-11-29] MEDS: divalproex DR 500 mg Tablet PO (10:34)
[2020-11-29] MEDS: pantoprazole DR 40 mg Tablet PO (10:34)
[2020-11-29] MEDS: potassium chloride ER 20 mEq Tablet 40 MEQ PO (10:35)
[2020-11-29] MEDS: FUROsemide 40 mg Tablet PO (10:35)
[2020-11-29] MEDS: sennosides-docusate Tablet 1 TAB PO (10:35)
[2020-11-29] MEDS: metoprolol succinate ER (24 HR) 25 mg Tablet 12.5 MG PO (10:36)
[2020-11-29] MEDS: heparin 5,000 unit/mL INJ 1 mL 5000 UNIT SUBCUT (10:36)
--- NOTE | 2020-11-29 14:10 | P.DS_ITS ---
Discharge Providers Date of Admission: 11/23/20 22:55 Date of Discharge: November 29, 2020 Attending Provider at Admission: Ludy Del Rio MD Attending Provider at Discharge: Nick Todd MD Primary Care Provider: Arturo Bell MD Diagnoses at Discharge Discharge Diagnosis (1) Closed right hip fracture: Status: Acute (2) Frailty: Status: Acute Reason for Visit Reason for Visit: FALL Hospital Course Hospital Course Yaakov is a 75-year-old white male with underlying history of traumatic brain injury who presented with a fall, sustaining a right hip fracture. Surgical evaluation occurred and he underwent right IM nailing of a subtrochanteric femur fracture on November 24. Following the surgery he had fevers, and a clinical picture consistent with aspiration pneumonitis. He required oxygen. He was placed on broad-spectrum antibiotics, nebs, and closely monitored. He was changed to a dysphagia level 1 diet. Urine was checked and no evidence of infection. With this he slowly improved. Many of his psychiatric medications were adjusted and/or held. Lethargy lessened, fever defervesced. He did have significant anemia and required 1 unit of packed red blood cells post surgery secondary to acute blood loss anemia from his surgery. He had no evidence of ongoing blood loss. On November 29 it was thought he was stable to transition to skilled care. At that time he was afebrile and vital signs were stable. He was saturating 97% on 3 L per nasal cannula. White blood cell count had decreased to 13.4. Hemoglobin had stabilized at 9.4. He will finish 4 more days of Augmentin, as he is already finished 6 days of Zosyn. He will follow-up with orthopedics per their instruction, and the primary care provider at halfway facility in 3 to 5 days with a CBC and BMP. Physical Exam Narrative: EXAM NARRATIVE: Please see note from earlier today Urinary Catheter Management^: Martinez: Cath Placed During This Visit: yes Reason for Continuing Indwelling Catheter: Perioperative Use in Selected Surgeries Urinary Catheter Date of Insertion: 11/23/20 Urinary Catheter Time of Insertion: 23:25 Discharge Data Data Completed and Pending: Completed Studies During Hospitalization Category Date Time Status XR chest 1V alicia ble [id number] Stat Exams 11/23/20 20:54 Completed XR chest 1V alicia ble [id number] Stat Exams 11/25/20 01:05 Completed XR hip RT 2-3V wo /w pel* [id number] Rout ine Exams 11/24/20 Completed XR hip RT 2-3V wo /w pel* [id number] Stat Exams 11/23/20 20:39 Completed US renal BI* [id number] Routine Ultrasound 11/25/20 08:27 Completed Pending at discharge Category Date Time Status BMP [Basic [employer] lic Panel] AM LABS Lab 11/30/20 04:00 Ordered Blood Culture Sta t Lab 11/25/20 14:31 Results Complete Blood Co unt w/Auto AM LABS Lab 11/30/20 04:00 Ordered Leukocyte Reduced RBC Routine Lab 11/28/20 10:30 Results Type and Screen R outine Lab 11/28/20 10:30 Results Labs from last 24 hours 11/29/20 11/29/20 11/28/20 07:10 07:10 10:30 WBC 13.4 H RBC 3.27 L Hgb 9.4 L Hct 29.2 L MCV 89.3 MCH 28.7 MCHC 32.2 RDW 16.8 H Plt Count 245 MPV 10.2 Neut % (Auto) 70.5 Lymph % (Auto) 10.9 Sully % (Auto) 13.5 Eos % (Auto) 0.2 Baso % (Auto) 0.2 Neut # (Auto) 9.47 H Lymph # (Auto) 1.5 Sully # (Auto) 1.8 H Eos # (Auto) 0.0 Baso # (Auto) 0.0 Nucleated RBC % (a uto) 0.3 Nucleated RBCs # 0.0 Sodium 142 Potassium 3.4 L Chloride 99 Carbon Dioxide 29 Anion Gap 17.4 BUN 31 H Creatinine 0.9 GFR Calculation Not Reportable Glucose 109 Calculated Osmolal ity 301 H Calcium 7.9 L Total Bilirubin 0.4 AST 20 ALT 15 Alkaline Phosphata se 49 Total Protein 6.1 L Albumin 2.6 L Globulin 3.5 Crossmatch See Detail Vitals: Last Vital Signs Temp 97.6 F 11/29/20 11:15 Pulse 87 11/29/20 11:15 Resp 18 11/29/20 11:15 BP 145/75 11/29/20 11:15 Pulse Ox 97 11/29/20 11:15 Discharge Plan Discharge Patient Disposition: Xfer SNF Condition: Stable Prescriptions: New hydrocodone-acetaminophen 5-325 mg tablet 1 tab PO Q6H PRN (Reason: pain) Qty: 20 RF: 0 metoprolol succinate 25 mg Tablet Extended Release 24 Hr 12.5 mg PO DAILY Qty: 30 RF: 0 sennosides-docusate sodium 8.6-50 mg Tablet 1 tab PO DAILY Qty: 30 RF: 0 ipratropium-albuterol 0.5 mg-3 mg(2.5 mg base)/3 mL Solution For Nebulization 3 ml inhalation Q4H.RESPIRATORY PRN (Reason: Shortness Of Breath) Qty: 100 R F: 0 furosemide 40 mg Tablet 40 mg PO DAILY@0800 Qty: 30 RF: 0 amoxicillin-pot clavulanate [Augmentin] 875-125 mg tablet 1 tab PO BID Qty: 8 RF: 0 enoxaparin [Lovenox] 40 mg/0.4 mL syringe 40 mg SUBCUT DAILY 21 Days Qty: 8.4 RF: 0 Continued trihexyphenidyl 2 mg tablet 2 mg PO BID@08,1999 RF: 0 divalproex [Depakote] 500 mg tablet,delayed release (DR/EC) 500 mg PO BID@0800,1999 RF: 0 quetiapine [Seroquel] 100 mg tablet 100 mg PO BEDTIME@1999 RF: 0 loratadine 10 mg capsule 10 mg PO DAILY PRN (Reason: Allergy Symptoms) RF: 0 acetaminophen [Tylenol] 325 mg capsule 650 mg PO Q4H PRN (Reason: Pain) RF: 0 omeprazole 20 mg capsule,delayed release(DR/EC) 20 mg PO DAILY@0800 RF: 0 alum-mag hydroxide-simeth [Mylanta Maximum Strength] 400-400-40 mg/5 mL suspension 30 ml PO Q4H PRN (Reason: gas relief) RF: 0 bismuth subsalicylate [Pepto-Bismol] 262 mg/15 mL suspension 524 mg PO Q4H PRN (Reason: loose stools) RF: 0 (DME) nebulizers Misc See Rx Instructions .ROUTE .MEDSUPPLY Qty: 1 RF: 0 (DME) wheelchair See Rx Instructions .Route .MEDSUPPLY Qty: 1 RF: 0 clomipramine [Anafranil] 50 mg Capsule 50 mg PO BEDTIME@1999 RF: 0 Advair Diskus 100-50 mcg/dose Blister With Device 1 inh INHALATION DAILY@0800 RF: 0 Ventolin HFA 90 mcg/actuation Hfa Aerosol Inhaler 1 inh INHALATION DAILY@0800 RF: 0 chlorhexidine gluconate 2 % Liquid See Rx Instructions .ROUTE .COMPLEX RF: 0 Milk of Magnesia See Rx Instructions .ROUTE .COMPLEX RF: 0 Changed lorazepam 2 mg tablet 1 mg PO Q6H PRN (Reason: Agitation) Qty: 20 RF: 0 Discontinued zinc 50 mg tablet 50 mg PO DAILY@0800 RF: 0 ascorbic acid (vitamin C) 500 mg capsule 500 mg PO BID@799,1999 RF: 0 olanzapine [Zyprexa] 5 mg tablet 5 mg PO BID@799,1999 RF: 0 carbamide peroxide [Debrox] 6.5 % drops See Rx Instructions .ROUTE .COMPLEX RF: 0 ibuprofen [IBU] 600 mg tablet 600 mg PO Q6H PRN (Reason: Pain) RF: 0 furosemide 40 mg tablet 60 mg PO DAILY@0800 RF: 0 dextromethorphan-guaifenesin [Tussin DM] 10-100 mg/5 mL Liquid 10 ml PO Q4H PRN (Reason: Cough) RF: 0 Neosporin ([id number]) See Rx Instructions .ROUTE .COMPLEX RF: 0 Discharge Orders: Discharge Order (Routine); Ordered 11/29/20 Ordered By: Nick Todd Referrals: Arturo Bell MD [Primary Care Provider] - 4-7 days Discharge Diet: Cardiac and Soft Mechanical Discharge Activity: Increase activity as tolerated Patient Instructions: Opioid Safety Activity Restrictions/Additional Instructions: You are being discharged from the hospital today during which time you have been under the care of Dr. Peterson. You had a right femur fracture fracture. You were treated for this injury with right intramedullary nail. You may resume you normal diet (including any special diets as directed by your primary doctor) as well as your home medications. You should follow up with you primary doctor if you have any questions regarding medication you took prior to your stay in the hospital. You may take your pain medication as prescribed. After the first few days, take your pain medication as needed. Do not drive or drink alcohol while taking your pain medication. Your injury may increase your risk of developing a blood clot,or DVT, in your arm or leg. This could potentially dislodge and travel to your lungs and become a life threatening condition called apulmonary embolus,or PE. You have been prescribed Lovenox to be taken to prevent this. Frequent movement of the legs will also help prevent this from occurring. If you develop any new or worsening cough, chestpain, bloody sputum or shortness of breath, call 911 or go to the EmergencyRoom. Always keep your surgical incision/dressing clean and dry. If you experience increasing pain at your incision site, redness, swelling, increasing discharge, foul odors, or fevers (greater than 100.4), night sweats or chills you should call the office at the above number. If you feel this is an emergency you should be evaluated in the Emergency Department of a nearby hospital. Orthopedic Patient Instructions Summary: Weight Bearing: Weight-bear as tolerated Activity: As tolerated. Diet: Regular. . Wound Care: Keep dressing clean and dry. Anticoagulation: Lovenox Pain Medication: Take only as needed. Ice, rest and elevation will be of great benefit. Please plan to follow-up [facility] Dr Peterson in 2 weeks. You will need to call the clinic [phone] to schedule this visit. Thank you far allowing me to participate in your care. Do not hesitate to call the office with any questions or concerns. Dysphagia level 1 diet Monitor for oversedation with his psychiatric medication Oxygen 3 L per nasal cannula titrate to keep sat greater than or equal to 92% Please arrange follow-up with Dr. Peterson prior to patient's discharge Follow-up with primary care provider at halfway facility 3 to 4 days with CBC and BMP Discharge Attestations Time Spent in Discharge Care*: greater than 30 min Quality Metrics Clinical Quality Measures During this hospital stay, did patient experience: None Coding Level of Care Code Acute Termite Technician for Chg Fwd Diagnoses Closed right hip fracture S72.001A Frailty R54
--- NOTE | 2020-11-29 17:06 | PC.NURSE ---
Removed patient's randolph catheter. Patient tolerated well. Bilateral IV's removed catheter tip intact. Coban applied. [facility] transport came and picked up patient on 3L NC. Skin issues addressed and reported on to [facility].
--- NOTE | 2020-11-29 17:13 | PC.NURSE ---
Narcotic scripts that were printed for patient to be delivered to [facility] need a signature from the physician. Dr. Todd notified and stated he will send scripts in electronically to [facility] pharmacy.
== END 2020-11-29 17:00 | disposition skilled nursing facility (03) | DRG 480 ==
LOC: ER 21:09 → ER IP 22:55 → MEDSURG 11-24 11:16
PROVIDERS: Orthopaedic Surgery; Student in an Organized Health Care Education/Training Program; Admitting Provider Internal Medicine; Emergency Provider Emergency Medicine; PCP Internal Medicine; Visit Provider Internal Medicine
PROC: 0QS606Z Reposition Right Upper Femur with Intramedullary Internal Fixation Device, Open Approach (ICD-10-PCS; CPT 27245; principal; 2020-11-24 07:00)
DX: S72.21XA Displaced subtrochanteric fracture of right femur, initial encounter for closed fracture (principal); J96.01 Acute respiratory failure with hypoxia; J69.0 Pneumonitis due to inhalation of food and vomit; E87.1 Hypo-osmolality and hyponatremia; N17.9 Acute kidney failure, unspecified; D62 Acute posthemorrhagic anemia; W01.0XXA Fall on same level from slipping, tripping and stumbling without subsequent striking against object, initial encounter; Z86.16 Personal history of COVID-19; F31.9 Bipolar disorder, unspecified; F79 Unspecified intellectual disabilities; F63.81 Intermittent explosive disorder; I95.9 Hypotension, unspecified; I48.91 Unspecified atrial fibrillation; Z87.820 Personal history of traumatic brain injury
CPT/HCPCS: 36415; 36430; 36600; 51702; 71045; 73502; 76000; 76770; 80048; 80053; 80164; 81001; 82550; 82803; 83605; 83735; 83880; 85025; 85378; 85610; 86850; 86900; 86920; 87040; 87086; 87641; 92526; 92610; 93005; 94640; 94660; 96365; 96372; 96375; 97110; 97161; 97166; 97530; 97535; 99285; C1713; C1776; J0690; J1170; J1644; J1650; J1940; J2250; J2405; J2543; J2704; J3010; J3370; J3490; J7030; J7626; J7799; P9016

== ENCOUNTER → 2020-12-23 10:48 | Outpatient (BNVA) | payer OTHER, SELFPAY | PROVIDERS: PCP Internal Medicine; Visit Provider Orthopaedic Surgery | DX: Z48.89 Encounter for other specified surgical aftercare (principal); W19.XXXD Unspecified fall, subsequent encounter; S72.23 Displaced subtrochanteric fracture of unspecified femur | CPT/HCPCS: 73502 ==

== ENCOUNTER 2021-01-05 17:12 | Outpatient (CLI) | payer OTHER, MEDICARE, SELFPAY ==
[2021-01-05 17:42] LABS: Basophils % 0.5 %; Eosinophils # 0.1 10^3/uL (0.0-0.8); Eosinophils % 1.2 %; Hematocrit 41.5 % (42.0-52.0); Lymphocytes % 27.6 %; Mean Corpuscular HGB Conc 31.3 g/dL (30.0-36.0); Mean Corpuscular Hemoglobin 28.3 pg (28.0-34.0); Mean Corpuscular Volume 90.2 fL (80-94); Mean Platelet Volume 10.6 fL (7.4-10.4); Monocytes # 0.8 10^3/uL (0.2-0.9); Monocytes % 10.5 %; Neutrophils % 59.8 %; Nucleated Red Blood Cells % 0 %; Platelet Count 281 10^3/cmm (130-400); Red Cell Distribution Width 15.2 % (12.1-15.1); White Blood Count 7.4 10^3/uL (4.0-10.0)
[2021-01-05 19:11] LABS: Blood Urea Nitrogen 27 mg/dL (8-23); Calcium 9.3 mg/dL (8.5-10.5); Carbon Dioxide 26 mmol/L (22-29); Chloride 101 mmol/L (98-107); Glucose 137 mg/dL (65-115); Osmolality Calculated 295 mOsm/kg (285-295); Sodium 139 mmol/L (136-145)
[2021-01-05 19:29] LABS: Anion Gap 16.5 (5-19); Potassium 4.5 mmol/L (3.5-5.1)
== END 2021-01-05 17:13 | disposition home or self-care (01) ==
PROVIDERS: PCP Internal Medicine; Visit Provider Internal Medicine
DX: D64.9 Anemia, unspecified (principal); M62.81 Muscle weakness (generalized)
CPT/HCPCS: 80048; 85025

== ENCOUNTER → 2021-02-03 10:19 | Outpatient (BNVA) | payer MEDICARE, MEDICAID, SELFPAY | PROVIDERS: PCP Internal Medicine; Visit Provider Orthopaedic Surgery | DX: Z48.89 Encounter for other specified surgical aftercare (principal); S72.001D Fracture of unspecified part of neck of right femur, subsequent encounter for closed fracture with routine healing; X58.XXXD Exposure to other specified factors, subsequent encounter | CPT/HCPCS: 73502 ==

== ENCOUNTER → 2021-02-24 10:50 | Outpatient (BNVA) | payer MEDICARE, MEDICAID, SELFPAY | PROVIDERS: PCP Internal Medicine; Visit Provider Orthopaedic Surgery | DX: Z48.89 Encounter for other specified surgical aftercare (principal); S72.001D Fracture of unspecified part of neck of right femur, subsequent encounter for closed fracture with routine healing; X58.XXXD Exposure to other specified factors, subsequent encounter | CPT/HCPCS: 73502 ==

== ENCOUNTER 2022-09-01 18:50 | Inpatient (IN) | payer MEDICARE, MEDICAID, SELFPAY ==
[2022-09-01 18:52] VITALS: BP 158/107; PULSE 135; RESP 24; TEMP 37.7; O2SAT 92; BMI 25.9
--- NOTE | 2022-09-01 18:56 | CTR_ITS ---
PROCEDURE INFORMATION: Exam: CT Head Without Contrast Exam date and time: 09/01/2022 7:19 PM Age: 77 years old Clinical indication: Altered mental status/memory loss and fever; Patient HX: Lethargy and fever per caregivers. History of dementia. ; Additional info: Fever AMS TECHNIQUE: Imaging protocol: Computed tomography of the head without contrast. Radiation optimization: All CT scans at this facility use at least one of these dose optimization techniques: automated exposure control; mA and/or kV adjustment per patient size (includes targeted exams where dose is matched to clinical indication); or iterative reconstruction. COMPARISON: CT head wo con* [id number] 08/27/2020 7:28 PM RADIATION DOSE METRICS: Total DLP (mGy-cm): 1260.56 FINDINGS: Brain: Moderate cortical volume loss. Mild hypodensities in supratentorial periventricular and subcortical white matter, consistent with microangiopathy. No intracranial hemorrhage. Images were repeated through the upper head due to motion. Cerebral ventricles: No ventriculomegaly. Paranasal sinuses: Visualized sinuses are unremarkable. No fluid levels. Mastoid air cells: Visualized mastoid air cells are well aerated. Orbital cavities: Prior cataract surgery. Bones/joints: Unremarkable. No acute fracture. Soft tissues: Possible contusion in the superior midline parietal scalp. Vasculature: No hyperdense artery. CT/CT head wo con* [id number] IMPRESSION: 1. No acute intracranial abnormality.
--- NOTE | 2022-09-01 18:56 | XRR_ITS ---
PROCEDURE INFORMATION: Exam: XR Chest Exam date and time: 09/01/2022 7:08 PM Age: 77 years old Clinical indication: Cough and other: AMS; Additional info: Fever AMS TECHNIQUE: Imaging protocol: Radiologic exam of the chest. Views: 1 view. COMPARISON: CR XR chest 1V portable [id number] 11/25/2020 1:21 AM FINDINGS: Lungs: There is extensive consolidation in the lateral inferior right lung. The left lung is clear. Pleural spaces: No pneumothorax. Heart/Mediastinum: Cardiomediastinal contours are unremarkable. Diaphragm: There is moderate asymmetric elevation of the right hemidiaphragm. Bones/joints: Bones are unremarkable. XR/XR chest 1V portable [id number] IMPRESSION: Extensive right lung consolidation consistent with pneumonia.
--- NOTE | 2022-09-01 18:57 | ECG_ITS ---
[facility] Test Date: 2022-09-01 Pat Name: Yaakov Toure Department: Room: Gender: Male [place] Tender: : 1945 Requested By: Niko Mccarty Order Number: [id number] Milena MD: Melinda Carrion M.D. Measurements Intervals [place] Rate: 136 P: 69 ME: 135 QRS: 60 QRSD: 86 T: 68 QT: 286 QTc: 430 Interpretive Statements SINUS TACHYCARDIA MODERATE ST DEPRESSION [0.05+ mV ST DEPRESSION] Compared to ECG 11/26/2020 10:44:51 ST (T wave) deviation now present T-wave abnormality no longer present Electronically Signed On 09-02-2022 7:45:22 QUALITY LEAD by Melinda Carrion M.D. [id number]
[2022-09-01 18:59] LABS: Glucose Point of Care 244 mg/dL (70-110)
[2022-09-01] MEDS: sodium chloride 0.9% 1,000 ML 999 ML IV ×2 (19:03→20:53)
[2022-09-01] MEDS: naloxone 0.4 mg/ml SDV IVP (19:03)
--- NOTE | 2022-09-01 19:14 | W.ED.AMS ---
HPI - Altered Mental Status General: Chief Complaint: Altered Mental Status Stated Complaint: AMS Time Seen by Provider: 09/01/22 18:56 Source: family (Caregiver) History of Present Illness: 77-year-old male who is significantly mentally handicapped. He lives in a longterm setting. Yesterday, he saw his primary care physician because he had refused to walk. He apparently not infrequently does this, sometimes when ill. Today, he had looked more ill to his caregivers. He had a 102 temperature at home. He was brought in by private vehicle. On arrival in triage, the patient became unresponsive. He appeared to be breathing and eyes were open. He did not respond to sternal rub. This seemed to resolve on its own. It lasted a couple of minutes. There is no tonic-clonic activity Of note, he was given Luther for the first time in quite a while today due to his potential hip pain and inability to walk. He has only had 1 dose. complaint: altered mental status and decreased responsiveness Onset (ago): hour(s) Timing confirmed by: caregiver Severity: moderate Context: other Associated symptoms: Reports other Review of Systems General: Reports: ROS unobtainable due to mental status and Other (Taken from caregiver) Const: Reports: fever(s); Denies: chills Resp: Denies: dyspnea, productive cough or non-productive cough GI: Denies: vomiting or diarrhea Skin/Breast: Denies: rash Neuro: Reports: behavioral changes PFS ED PFSH: Medical History Bipolar 1 disorder Closed right hip fracture Colorectal polyp detected on colonoscopy 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 Intermittent explosive disorder Leg edema Normal colonoscopy Obsessive-compulsive behavior Organic affective disorder Subdural hematoma (~10/2019) Traumatic subdural hematoma Subtrochanteric fracture of femur Surgical History (Updated 09/01/22 @ 22:01 by Ludy Del Rio MD) History of hip surgery Hx of colonoscopy Family History Other Family history non-contributory Social History Smoking and tobacco status: never smoked Alcohol intake: never History of recent travel: No Current gender identity: Male Physical Exam Const: GENERAL APPEARANCE: cooperative, lethargic, ill appearing and frail appearing ORIENTATION/CONSCIOUSNESS: Yes awake and Yes lethargic HENMT: COMMON NORMALS: normocephalic, atraumatic and Normal external nose present HEAD & SCALP: normocephalic and atraumatic FACE & SINUS: normal facial exam and face symmetric NOSE: Normal external nose present Eye: COMMON NORMALS: Equal, round and reactive pupils present and EOMs intact bilaterally PUPIL: Yes Equal, round and reactive pupils present Neck/C-Spine: GENERAL: Yes trachea midline Chest: CHEST: Yes Symmetrical chest wall rise Resp: COMMON NORMALS: normal respiratory effort, No use of accessory muscles and clear to auscultation bilaterally AUSCULTATION: clear to auscultation bilaterally Cardio: COMMON NORMALS: regular rate and regular rhythm RATE: regular rate RHYTHM: regular rhythm GI: COMMON NORMALS: Normal to inspection, nondistended, normoactive bowel sounds present and Soft to palpation PALPATION: Yes Soft to palpation Neuro: BHARAT COMA SCALE: document GCS findings [place] coma scale eye opening: Spontaneous [place] coma scale verbal response: None [place] coma scale motor response: Localising [place] coma scale total score: 10 SENSORIUM/ORIENTATION: Yes lethargic Skin: COMMON NORMALS: no wounds Course Vital Signs: Vital signs: Vital Signs Temperature 99.9 F H 09/01/22 18:52 Pulse Rate 135 H 09/01/22 18:52 Respiratory Rate 24 H 09/01/22 18:52 Blood Pressure 158/107 09/01/22 18:52 Pulse Oximetry 92 09/01/22 18:52 Oxygen Delivery Me thod 09/01/22 18:52 Oxygen Flow Rate 3 09/01/22 18:52 MDM - Altered Mental Status Medical Decision Making 77-year-old male presenting with fever and altered mental status. He had a brief period of nonresponsiveness in triage. He appears back to baseline now. His heart rate is elevated. Blood pressure 102/70. He has received 1 L of fluid, and is on his way through 2.5 more liters to complete sepsis bolus. His lactic acid is significantly elevated at 4. His white blood cell count is 10.3. His CRP is 68. He has a right lung consolidation consistent with pneumonia. His swabs for influenza are negative. He has received Rocephin and Zithromax here. He will be admitted. He is hypoxic, now on oxygen at 3 L satting 96%. Spoke with hospitalist, has agreed to admission. Lab Data 09/01/22 19:02 09/01/22 19: Radiology Impressions Chest X-Ray 09/01/22 18:56 IMPRESSION: Extensive right lung consolidation consistent with pneumonia. ADDENDUM: 09/01/22 193 THIS REPORT CONTAINS FINDINGS THAT MAY BE CRITICAL TO PATIENT CARE. The findings were verbally communicated via telephone conference with [place] [employer]OWERS at 7:33 PM [employer]ODU[employer] PROCESSOR on 09/01/2022. The findings were acknowledged and understood. Head CT 09/01/22 18:56 IMPRESSION: 1. No acute intracranial abnormality. Laboratory Results WBC 10.3 10^3/uL (4.0-10.0) H 09/01/22 19: RBC 4.15 10^6/uL (4.1-5.3) 09/01/22 19: Hgb 12.7 g/dL (11.7-16.6) 09/01/22 19: Hct 38.1 % (42.0-52.0) L 09/01/22 19: MCV 91.8 fl (80-94) 09/01/22 19: MCH 30.6 pg (28.0-34.0) 09/01/22 19: MCHC 33.3 g/dL (30.0-36.0) 09/01/22 19: RDW 15.7 % (12.1-15.1) H 09/01/22 19: Plt Count 352 10^3/cmm (130-400) 09/01/22 19: MPV 10.4 fL (7.4-10.4) 09/01/22 19: Neut % (Auto) 80.9 % 09/01/22 19: Lymph % (Auto) 7.2 % 09/01/22 19: [place] % (Auto) 10.9 % 09/01/22 19: Eos % (Auto) 0.3 % 09/01/22 19: Baso % (Auto) 0.4 % 09/01/22 19: Neut # (Auto) 8.37 10^3/uL (1.8-7.7) H 09/01/22 19:02 Lymph # (Auto) 0.7 10^3/uL (0.8-4.8) L 09/01/22 19:02 [place] # (Auto) 1.1 10^3/uL (0.2-0.9) H 09/01/22 19:02 Eos # (Auto) 0.0 10^3/uL (0.0-0.8) 09/01/22 19:02 Baso # (Auto) 0.0 10^3/uL (0.0-0.1) 09/01/22 19:02 Nucleated RBC % (auto) 0 % 09/01/22 19: Nucleated RBCs # 0.0 /100WBC 09/01/22 19:02 Specimen Type Arterial 09/01/22 20:00 Sample Site Brachial, right 09/01/22 20:00 ABG pH 7.53 (7.35-7.45) H 09/01/22 20:00 ABG pCO2 35.0 mmHg (35-45) 09/01/22 20:00 ABG pO2 65.4 mmHg (80.0-100.0) L 09/01/22 20:00 ABG HCO3 28.9 mmol/L (22-26) H 09/01/22 20:00 ABG Base Excess 6.0 mmol/L (-2.0-2.0) H 09/01/22 20:00 Alexis Test N/a 09/01/22 20:00 Hematocrit 34.9 % (42-52) L 09/01/22 20:00 O2 Delivery Device Nc 09/01/22 20:00 O2 Liters/Min 3.0 % 09/01/22 20:00 General Distillery Worker ID Hinja 09/01/22 20:00 Sodium 139 mmol/L (136-145) 09/01/22 19:02 Potassium 4.1 mmol/L (3.5-5.1) 09/01/22 19:02 Chloride 97 mmol/L (98-107) L 09/01/22 19:02 Carbon Dioxide 26 mmol/L (22-29) 09/01/22 19:02 Anion Gap 20.1 (5-19) H 09/01/22 19:02 BUN 32 mg/dL (8-23) H 09/01/22 19:02 Creatinine 1.6 mg/dL (0.7-1.2) H 09/01/22 19:02 GFR Calculation Not Reportable 09/01/22 19:02 Glucose 216 mg/dL (65-115) H 09/01/22 19:02 POC Glucose 244 mg/dL (70-110) H 09/01/22 18:55 Calculated Osmolality 301 mOsm/kg (285-295) H 09/01/22 19:02 Lactate 4.3 mmol/L (0.5-2.2) H* 09/01/22 19:02 Calcium 9.0 mg/dL (8.5-10.5) 09/01/22 19:02 Magnesium 2.2 mg/dL (1.7-2.3) 09/01/22 19:02 Total Bilirubin 0.7 mg/dL (0.15-1.2) 09/01/22 19:02 AST 27 U/L (0-40) 09/01/22 19: ALT 9 U/L (0-41) 09/01/22 19:02 Alkaline Phosphatase 119 U/L (40-130) 09/01/22 19:02 C-Reactive Protein 68.5 mg/L (0.0-4.9) H 09/01/22 19:02 Total Protein 6.8 g/dL (6.6-8.7) 09/01/22 19:02 Albumin 3.2 g/dL (3.5-5.2) L 09/01/22 19:02 Globulin 3.6 g/dL (1.3-4.6) 09/01/22 19:02 Procalcitonin 3.01 ng/mL (0-0.5) H 09/01/22 19:02 Valproic Acid 34.8 ug/mL (50-100) L 09/01/22 19:02 Influenza Type A Ag negative (Negative) 09/01/22 19:02 Influenza Type B Ag negative (Negative) 09/01/22 19:02 SARS-CoV-2 Ag (Rapid) negative (Negative) 09/01/22 19:02 Group A Strep Rapid Negative (Negative) 09/01/22 19:02 Critical Care Time Critical Care Time: Critical Care Time: Yes Total Critical Care Time: 35 Attestation: This case had a high probability of a clinically significant, sudden, or life threatening deterioration of this patient's condition which required my full and direct attention, intervention and personal management. Time is independent of any procedures performed. Discharge Plan Discharge Patient Disposition: Admitted As Inpatient Admit Provider: Ludy Del Rio Clinical Impression: Sepsis, Altered mental status, Pneumonia Condition: Stable Coding Level of Care Code ED Wood Science Professor for g Fwd Exam Comprehensive
[2022-09-01 19:24] LABS: Rapid Strep A Test Negative (Negative)
[2022-09-01 19:29] LABS: Alanine Aminotransferase 9 U/L (0-41); Albumin Level 3.2 g/dL (3.5-5.2); Alkaline Phosphatase 119 U/L (40-130); Blood Urea Nitrogen 32 mg/dL (8-23); C Reactive Protein 68.5 mg/L (0.0-4.9); Carbon Dioxide 26 mmol/L (22-29); Chloride 97 mmol/L (98-107); Globulin 3.6 g/dL (1.3-4.6); Glucose 216 mg/dL (65-115); Magnesium 2.2 mg/dL (1.7-2.3); Osmolality Calculated 301 mOsm/kg (285-295); Sodium 139 mmol/L (136-145); Total Bilirubin 0.7 mg/dL (0.15-1.2); Total Protein 6.8 g/dL (6.6-8.7)
[2022-09-01 19:31] LABS: Valproic Acid Level 34.8 ug/mL (50-100)
[2022-09-01 19:38] LABS: Basophils % 0.4 %; Eosinophils % 0.3 %; Hematocrit 38.1 % (42.0-52.0); Hemoglobin 12.7 g/dL (11.7-16.6); Lymphocytes # 0.7 10^3/uL (0.8-4.8); Lymphocytes % 7.2 %; Mean Corpuscular HGB Conc 33.3 g/dL (30.0-36.0); Mean Corpuscular Hemoglobin 30.6 pg (28.0-34.0); Mean Corpuscular Volume 91.8 fl (80-94); Mean Platelet Volume 10.4 fL (7.4-10.4); Monocytes # 1.1 10^3/uL (0.2-0.9); Monocytes % 10.9 %; Neutrophils # 8.37 10^3/uL (1.8-7.7); Neutrophils % 80.9 %; Nucleated Red Blood Cells % 0 %; Platelet Count 352 10^3/cmm (130-400); Red Blood Count 4.15 10^6/uL (4.1-5.3); Red Cell Distribution Width 15.7 % (12.1-15.1); White Blood Count 10.3 10^3/uL (4.0-10.0)
[2022-09-01 19:40] LABS: Anion Gap 20.1 (5-19); Aspartate Amino Transferase 27 U/L (0-40); Potassium 4.1 mmol/L (3.5-5.1)
[2022-09-01 19:41] LABS: Lactate (Lactic Acid level) 4.3 mmol/L (0.5-2.2)
[2022-09-01 19:43] LABS: Influenza A by IFA negative (Negative); Influenza B by IFA negative (Negative)
[2022-09-01 20:05] LABS: ABG PH Result 7.53 (7.35-7.45); Arterial Blood Gas Hematocrit 34.9 % (42-52); Blood Gas Sample Site Brachial, right; Blood Gas Sample Type Arterial; HCO3 ABG 28.9 mmol/L (22-26); Oxygen Device NC; PO2 ABG 65.4 mmHg (80.0-100.0)
[2022-09-01 20:16] LABS: SARS Covid-2 Antigen negative (Negative)
[2022-09-01] MEDS: cefTRIAXone 1,000 MG in sodium chloride 0.9% (plus) 50 ML 100 MG IV (20:44)
[2022-09-01] MEDS: azithromycin 500 MG in sodium chloride 0.9% 250 ML 250 MG IV (20:52)
--- NOTE | 2022-09-01 20:54 | PM.HP ---
Providers/Chief Complaint Primary Care Provider: Denis Saini DO Chief Complaint: AMS History of Present Illness Yaakov Toure is a 77 year old male long term resident, intellectual disability, traumatic brain injury, presented to hospital for febrile episodes, hypoxia. Patient was seen by Dr. Padilla roughly 3 days ago, he recommended echo to rule out decompensated heart failure, caregiver is at the bedside who is stating that since his hip surgery a year back patient has been very inconsistent with his ability to get out of bed independently, when he is not able to get out of bed long term would know that something is wrong with him & this time he was evaluated by Dr. Padilla who recommended to increase his Lasix. No significant improvement in his motivation to get up from bed in the last few days. Today he started spiking fever 102 and was hypoxic in low 80s that prompted his visit to the ER. Does not use oxygen at baseline. In the ER he is tachycardic, hypoxic requiring 3 L of oxygen, septic with right-sided pneumonia he has been given septic bolus blood cultures requested lactic acid is high At baseline he does not communicate mostly answers in 1 or 2 word but very inconsistent When he arrived in the ER he was unresponsive for about a minute however he was hemodynamically stable, he did not lose pulses eyes were open and he kept staring towards the ceiling and he was breathing fine, he went back to his baseline spontaneously, patient does get mood stabilizers Patient is wearing briefs, on 3 L, makes eye contact, no acute distress patient seems very comfortable at the time of my evaluation Review of Systems General: Reports: ROS unobtainable due to medical condition Medications/Allergies Home Medications Medication Instructions Recorded Confirmed Last Taken Type trihexyphenidyl 2 mg tablet 2 mg PO BID@0800,199903/02/20 08/31/22 11/23/20 History bismuth subsalicylate 262 mg/15 mL 524 mg PO Q4H PRN loose stools 06/01/20 08/31/22 Unknown History oral suspension (Pepto-Bismol) clomipramine 50 mg capsule 50 mg PO BEDTIME@199906/22/20 08/31/22 11/22/20 History (Anafranil) nebulizers #1 ea 09/13/20 08/31/22 Unknown Rx wheelchair #1 ea 11/03/20 08/31/22 Unknown Rx albuterol sulfate 90 mcg/actuation 1 inh inhalation DAILY@0800 11/23/20 08/31/22 11/23/20 History aerosol inhaler (Ventolin HFA) furosemide 40 mg tablet 40 mg PO DAILY@0800 #30 tabs 11/29/20 08/31/22 Unknown Rx ipratropium 0.5 mg-albuterol 3 mg 3 ml inhalation Q4H.RESPIRATORY 11/29/20 08/31/22 Unknown Rx (2.5 mg base)/3 mL nebulization PRN Shortness Of Breath #100 mL soln metoprolol succinate 25 mg 12.5 mg PO DAILY #30 tabs 11/29/20 08/31/22 Unknown Rx tablet,extended release 24 hr sennosides 8.6 mg-docusate sodium 1 tab PO DAILY #30 tabs 11/29/20 08/31/22 Unknown Rx 50 mg tablet loratadine 10 mg capsule 10 mg PO DAILY PRN Allergy 10/04/21 08/31/22 Unknown Rx Symptoms #30 caps aluminum-mag hydroxide-simethicone 30 ml PO Q4H PRN gas relief #3,000 10/10/21 08/31/22 Unknown Rx 400 mg-400 mg-40 mg/5 mL oral susp mL (Mylanta Maximum Strength) dextromethorphan-guaifenesin 10 See Rx Instructions .Route 10/10/21 08/31/22 Unknown Rx mg-100 mg/5 mL oral syrup (Tussin .COMPLEX #237 mL DM) acetaminophen 325 mg tablet See Rx Instructions .Route 04/24/22 08/31/22 Unknown Rx .COMPLEX #120 tabs divalproex 500 mg tablet,delayed 500 mg PO BID@0800,1999 #60 tabs 05/15/22 08/31/22 Unknown Rx release (Depakote) quetiapine 100 mg tablet (Seroquel) 100 mg PO BEDTIME@1999 #30 tabs 05/15/22 08/31/22 Unknown Rx omeprazole 20 mg capsule,delayed See Rx Instructions .Route 06/13/22 08/31/22 Unknown Rx release .COMPLEX #30 caps furosemide 40 mg tablet See Rx Instructions .Route 06/26/22 08/31/22 Unknown Rx .COMPLEX #90 tabs olanzapine 10 mg tablet See Rx Instructions .Route 07/03/22 08/31/22 Unknown Rx .COMPLEX #30 tabs chlorhexidine gluconate 0.12 % See Rx Instructions .Route 07/18/22 08/31/22 Unknown Rx mouthwash .COMPLEX #473 mL Allergies Allergy/AdvReac Type Severity Reaction Status Date / Time No Known Allergies Allergy Verified 08/31/22 08:37 PFSH Acute PFSH: Medical History Bipolar 1 disorder Closed right hip fracture Colorectal polyp detected on colonoscopy 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 Intermittent explosive disorder Leg edema Normal colonoscopy Obsessive-compulsive behavior Organic affective disorder Subdural hematoma (~10/2019) Traumatic subdural hematoma Subtrochanteric fracture of femur Surgical History (Updated 09/01/22 @ 22:01 by Ludy Del Rio MD) History of hip surgery Hx of colonoscopy Family History Other Family history non-contributory Social History Smoking and tobacco status: never smoked Alcohol intake: never History of recent travel: No Current gender identity: Male Vitals/I&O/Wt Last Vital Signs Temp 99.9 F H 09/01/22 18:52 Pulse 135 H 09/01/22 18:52 Resp 24 H 09/01/22 18:52 BP 158/107 09/01/22 18:52 Pulse Ox 92 09/01/22 18:52 O2 Del Method 09/01/22 18:52 O2 Flow Rate 3 09/01/22 18:52 Weight last 48 hrs Weight 79.56 kg Physical Exam Narrative: Elderly male No acute distress Seems very comfortable Laying supine Currently on 3 L nasal cannula Bilateral breath sounds with rhonchi at the base of the lungs No audible stridor or wheezing Abdomen soft Lower extremity with trace edema Patient looks at you, answers in 1 or 2 words Does not communicate very well Intellectual disability S1, S2 sinus tachycardia Data 09/01/22 19:02 09/01/22 19:02 Micro: Microbiology 09/01/22 19:50 Blood Culture - Preliminary Blood SPECIMEN COLLECTED 09/01/22 19:45 Blood Culture - Preliminary Blood SPECIMEN COLLECTED A&P Assessment and plan (1) Sepsis: (2) Altered mental status: (3) Pneumonia: (4) Dementia: Qualifiers: Dementia type: unspecified type Dementia severity: moderate Dementia behavioral or psychological symptom: without behavioral, psychotic, or mood disturbance or anxiety Qualified Code(s): F03.B0 - Unspecified dementia, moderate, without behavioral disturbance, psychotic disturbance, mood disturbance, and anxiety (5) Organic affective disorder: (6) Bipolar 1 disorder: Plan Sepsis related to community-acquired pneumonia Dense pneumonia right side No recent episode of aspiration or vomiting I would use broad-spectrum antibiotics for now sputum culture He has been given septic bolus Sepsis criteria met with febrile episodes, tachypnea tachycardia and high lactic acid Requested procalcitonin level Repeat lactic acid Continue IV antibiotics and IV fluids Patient is full code Currently he is on 3 L which is a new requirement Hypoxia related to [facility] pneumonia with underlying sepsis Mechanical soft diet, speech therapy evaluation DVT prophylaxis Heparin Attestations Medical Necessity Statement*: More than 2 midnights anticipated for management of sepsis Time Spent in Patient Care: 40 Coding Level of Care Code Acute Medical Oncology Physician for [facility] Diagnoses Sepsis A41.9 Altered mental status R41.82 Pneumonia J18.9 Dementia F03.B0 Dementia type: unspecified type Dementia severity: moderate Dementia behavioral or psychological symptom: without behavioral, psychotic, or mood disturbance or anxiety Organic affective disorder F06.30 Bipolar 1 disorder F31.9
--- NOTE | 2022-09-01 21:06 | PC.NURSE ---
Pt is more verbal at this time. Answers questions with one word to short phrases
[2022-09-01 21:39] LABS: Procalcitonin 3.01 ng/mL (0-0.5)
[2022-09-01] MEDS: sodium chloride 0.9% 500 ML 999 ML IV (22:30)
[2022-09-01 22:47] LABS: Adenovirus Not Detected (NOT DETECT); Chlamydia Pneumoniae Not Detected (NOT DETECT); Coronavirus 229E,HKU1,NL63,OC4 Not Detected (NOT DETECT); Human Metapneumovirus Not Detected (NOT DETECT); Human Rhinovirus/Enterovirus Not Detected (NOT DETECT); Influenza A Not Detected (NOT DETECT); Influenza A H1 Not Detected (NOT DETECT); Influenza A H1-2009 Not Detected (NOT DETECT); Influenza A H3 Not Detected (NOT DETECT); Influenza B Not Detected (NOT DETECT); Mycoplasma Pneumoniae Not Detected (NOT DETECT); Parainfluenza Virus Type 1 Not Detected (NOT DETECT); Parainfluenza Virus Type 2 Not Detected (NOT DETECT); Parainfluenza Virus Type 3 Not Detected (NOT DETECT); Parainfluenza Virus Type 4 Not Detected (NOT DETECT); Respiratory Syncytial Virus A Not Detected (NOT DETECT); Respiratory Syncytial Virus B Not Detected (NOT DETECT); SARS-COV-2 Not Detected (NOT DETECT)
[2022-09-01 23:10] VITALS: BP 89/60; PULSE 96; RESP 21; O2SAT 91
[2022-09-01 23:16] VITALS: BP 98/60; PULSE 96; RESP 20; O2SAT 94
[2022-09-02] VITALS (8 sets, daily range): BP systolic 120–136; BP diastolic 68–84; PULSE 97–109; RESP 16–24; TEMP 36.3–37.1; O2SAT 93–97
[2022-09-02] MEDS: vancomycin 1,250 MG/250 ML PIGGYBACK 200 MG IV ×2 (00:02→23:50)
[2022-09-02] MEDS: sodium chloride 0.9% 1,000 ML 75 ML IV ×2 (00:02→20:40)
[2022-09-02] MEDS: heparin 5,000 unit/mL INJ 1 mL 5000 UNIT SUBCUT ×3 (00:02→23:48)
--- NOTE | 2022-09-02 00:55 | PC.NURSE ---
Caregiver states that patient is incontinent. Dr. Del Rio ordered stright cath to obtain UA.
[2022-09-02 01:00] LABS: Add Urine Microscopic? NO; Charge for UA Resulting for Rev
[2022-09-02] MEDS: piperacillin-tazobactam 3.375 GM in sodium chloride 0.9% (plus) 50 ML IV ×3 (01:08→20:36)
[2022-09-02 01:18] LABS: Bilirubin Urine Neg (Negative); Blood Urine Neg (Negative); Glucose Urine UA 1+ (Normal); Ketones Urine Negative (Negative); Leukocyte Esterase Urine Negative (Negative); Nitrate Urine Negative (Negative); Protein Urine Neg (Negative); Urine Appearance Clear (CLEAR); Urine Color Yellow (Yellow); Urobilinogen Urine Neg (Negative); pH Urine 5 (5-7)
[2022-09-02 05:25] LABS: Hematocrit 29.6 % (42.0-52.0); Hemoglobin 9.5 g/dL (11.7-16.6); Mean Corpuscular HGB Conc 32.1 g/dL (30.0-36.0); Mean Corpuscular Hemoglobin 30.5 pg (28.0-34.0); Mean Corpuscular Volume 95.2 fl (80-94); Mean Platelet Volume 10.3 fL (7.4-10.4); Platelet Count 243 10^3/cmm (130-400); Red Blood Count 3.11 10^6/uL (4.1-5.3); Red Cell Distribution Width 15.9 % (12.1-15.1); White Blood Count 14.9 10^3/uL (4.0-10.0)
[2022-09-02 05:46] LABS: Blood Urea Nitrogen 34 mg/dL (8-23); Calcium 8.2 mg/dL (8.5-10.5); Carbon Dioxide 27 mmol/L (22-29); Chloride 102 mmol/L (98-107); Glucose 139 mg/dL (65-115); Magnesium 1.6 mg/dL (1.7-2.3); Osmolality Calculated 296 mOsm/kg (285-295); Phosphorus 3.9 mg/dL (2.5-4.5); Sodium 138 mmol/L (136-145)
[2022-09-02 05:47] LABS: Lactate (Lactic Acid level) 2.3 mmol/L (0.5-2.2)
[2022-09-02 06:16] LABS: Absolute Segmented Neutrophil 10.6 10/cmm (1.6-7.1); Band Neutrophils Absolute 2.5 10^3/cmm (0.0-1.2); Eosinophils 0 %; Lymphocytes 8 %; Lymphocytes Absolute 1.2 10^3/cmm (1.2-3.4); Monocytes Absolute 0.6 10^3/cmm (0.1-0.6); Segmented Neutrophils 71 %; Total Cells Counted 100 (0-100)
[2022-09-02 06:17] LABS: Absolute Neutrophil 13.1 10^3/cmm (1.4-6.5); Anisocytosis 1+; Platelet Estimate Normal (Normal); Toxic Granulation 2+
[2022-09-02] MEDS: divalproex DR 500 mg Tablet PO ×2 (09:37→20:43)
[2022-09-02] MEDS: hyDRALAzine 25 mg Tablet PO ×3 (09:38→20:43)
[2022-09-02] MEDS: metoprolol succinate ER (24 HR) 25 mg Tablet 12.5 MG PO (09:38)
[2022-09-02] MEDS: pantoprazole DR 40 mg Tablet PO (09:38)
--- NOTE | 2022-09-02 18:48 | P.PN_ITS ---
Subjective Subjective: Patient was seen and examined this morning, was afebrile, his other vitals and labs have been reviewed. Medications: Medication Review Details: Generic Name Dose Route Start Last Admin Trade Name Juan Manuel PRN Reason Stop Dose Admin Divalproex Sodium 500 mg 09/02/22 08:00 09/02/22 09:[address] 50 0 Mg Tablet PO 500 mg BID@799,1999 ROLA Administration Heparin Sodium (Po rcine) 5,000 unit 09/01/22 23:17 09/02/22 12:16 Heparin 5,000 Un it/Ml Inj 1 Ml SUBCUT 5,000 unit Q12H ROLA Administration Hydralazine HCl 25 mg 09/02/22 09:00 09/02/22 17:53 Hydralazine 25 M g Tablet PO 25 mg TID ROLA Administration Sodium Chloride 1,000 mls @ 75 ml s/hr 09/01/22 23:17 09/02/22 00:02 Sodium Chloride 0.9% IV 75 mls/hr .[id number] ROLA Administration Piperacillin Sod/T azobactam 50 mls @ 12.5 mls /hr 09/01/22 23:30 09/02/22 14:04 Sod 3.375 gm/ So dium Chloride IV Infused Q8H ROLA Infusion Protocol As Directed Vancomycin/PEG/NAD A/Lysine/Water 1,250 mg in 250 m ls @ 200 mls/hr 09/01/22 23:30 09/02/22 00:58 Vancocin IV Infused Q24H ROLA Infusion Metoprolol Succina te 12.5 mg 09/02/22 09:00 09/02/22 09:38 Metoprolol Succi sandhya Er (24 Hr) 25 Mg Tablet PO 12.5 mg DAILY ROLA Administration Pantoprazole Sodiu m 40 mg 09/02/22 09:00 09/02/22 09:[address] 40 Mg Tablet PO 40 mg DAILY ROLA Administration Trihexyphenidyl HC l 2 mg 09/02/22 08:00 09/02/22 12:16 Trihexyphenidyl 2 Mg Tablet PO 2 mg BID@799,1999 ROLA Administration Vitals/I&O/Wt Last Vital Signs Temp 97.4 F L 09/02/22 16:00 Pulse 109 H 12/03/22 16:00 Resp 18 09/02/22 16:00 BP 130/78 09/02/22 16:00 Pulse Ox 95 09/02/22 16:00 O2 Del Method 09/02/22 16:00 O2 Flow Rate 2.5 09/02/22 16:00 09/02/22 09/02/22 09/02/22 06:59 14:59 22:59 Intake Total 800 / 3100 1250 / 1250 Output Total 625 / 625 Balance 175 / 2475 1250 / 1250 Weight last 48 hrs Weight 79.56 kg Physical Exam Narrative: Not in acute distress, awake Resp: COMMON NORMALS: normal respiratory effort, No retractions, No use of accessory muscles and clear to auscultation bilaterally EFFORT & INSPECTION: Yes symmetric chest movement AUSCULTATION: clear to auscultation bilaterally Cardio: COMMON NORMALS: regular rate, regular rhythm, S1 normal heart sound present, S2 normal heart sound present, No gallops present (Cardio), No murmurs present (Cardio), No rub (Cardio) and Peripheral pulses 2+ throughout RATE: regular rate RHYTHM: regular rhythm HEART SOUNDS: S1 normal heart sound present and S2 normal heart sound present PERIPHERAL PULSES: Peripheral pulses 2+ throughout GI: COMMON NORMALS: Normal to inspection, nondistended, normoactive bowel sounds present, Soft to palpation, non-tender, No hepatosplenomegaly present and no masses AUSCULTATION: Yes normoactive bowel sounds PALPATION: Yes Soft to palpation and Yes No hepatosplenomegaly present RECTAL EXAM: Yes deferred Extremity: COMMON NORMALS: no clubbing, cyanosis or edema and no pedal edema Data 09/02/22 05:16 09/02/22 05:16 Micro: Microbiology 09/01/22 19:02 Group A Streptococcus Rapid Screen - Preliminary Throat 09/02/22 05:00 MRSA Culture - Final Nose 09/01/22 19:50 Blood Culture - Preliminary Blood SPECIMEN COLLECTED 09/01/22 19:45 Blood Culture - Preliminary Blood SPECIMEN COLLECTED A&P Assessment and plan (1) Sepsis: (2) Altered mental status: (3) Pneumonia: (4) Dementia: Qualifiers: Dementia type: unspecified type Dementia severity: moderate Dementia behavioral or psychological symptom: without behavioral, psychotic, or mood disturbance or anxiety Qualified Code(s): F03.B0 - Unspecified dementia, moderate, without behavioral disturbance, psychotic disturbance, mood disturbance, and anxiety (5) Organic affective disorder: (6) Bipolar 1 disorder: Plan Assessment: Sepsis secondary to pneumonia Intellectual disability H/O TBI BPD1 Plan: CT head without contrast: Has not shown any acute intracranial pathology X-ray chest: Extensive right lung consolidation. Follow blood culture Monitor x-ray chest Sputum gram stain and culture if obtained any MRSA PCR Urine Legionella antigen Bacterial antigen panel Procalcitonin Currently on broad-spectrum antibiotics Continue gentle IV hydration CODE STATUS; full code DVT prophylaxis on Lovenox Attestations Medical Necessity Statement*: Patient is still in hospital for management of sepsis. Coding Level of Care Code Acute Endodontics Dentist for [facility] Fwd Diagnoses Sepsis A41.9 Altered mental status R41.82 Pneumonia J18.9 Dementia F03.B0 Dementia type: unspecified type Dementia severity: moderate Dementia behavioral or psychological symptom: without behavioral, psychotic, or mood disturbance or anxiety Organic affective disorder F06.30 Bipolar 1 disorder F31.9
[2022-09-02] MEDS: quetiapine 100 mg Tablet PO (20:43)
[2022-09-03] VITALS (8 sets, daily range): BP systolic 93–110; BP diastolic 62–69; PULSE 80–136; RESP 14–23; TEMP 36.4–36.9; O2SAT 93–98
[2022-09-03] MEDS: piperacillin-tazobactam 3.375 GM in sodium chloride 0.9% (plus) 50 ML IV ×3 (05:03→21:31)
[2022-09-03 05:30] LABS: Basophils % 0.1 %; Eosinophils % 0.1 %; Hematocrit 25.2 % (42.0-52.0); Lymphocytes # 1.3 10^3/uL (0.8-4.8); Lymphocytes % 12.8 %; Mean Corpuscular HGB Conc 31.7 g/dL (30.0-36.0); Mean Corpuscular Hemoglobin 30.1 pg (28.0-34.0); Mean Corpuscular Volume 94.7 fl (80-94); Mean Platelet Volume 10.5 fL (7.4-10.4); Monocytes # 1.2 10^3/uL (0.2-0.9); Monocytes % 11.8 %; Neutrophils # 7.38 10^3/uL (1.8-7.7); Neutrophils % 74.7 %; Nucleated Red Blood Cells % 0 %; Platelet Count 213 10^3/cmm (130-400); Red Blood Count 2.66 10^6/uL (4.1-5.3); Red Cell Distribution Width 16.1 % (12.1-15.1); White Blood Count 9.9 10^3/uL (4.0-10.0)
[2022-09-03 05:50] LABS: Anion Gap 13.5 (5-19); Blood Urea Nitrogen 39 mg/dL (8-23); Calcium 8.1 mg/dL (8.5-10.5); Carbon Dioxide 27 mmol/L (22-29); Chloride 105 mmol/L (98-107); Glucose 125 mg/dL (65-115); Osmolality Calculated 305 mOsm/kg (285-295); Potassium 3.5 mmol/L (3.5-5.1); Sodium 142 mmol/L (136-145)
[2022-09-03] MEDS: divalproex DR 500 mg Tablet PO ×2 (09:09→21:31)
[2022-09-03] MEDS: hyDRALAzine 25 mg Tablet PO ×2 (09:09→16:38)
[2022-09-03] MEDS: metoprolol succinate ER (24 HR) 25 mg Tablet 12.5 MG PO (09:09)
[2022-09-03] MEDS: pantoprazole DR 40 mg Tablet PO (09:09)
[2022-09-03] MEDS: sodium chloride 0.9% 1,000 ML 75 ML IV (09:26)
[2022-09-03] MEDS: heparin 5,000 unit/mL INJ 1 mL 5000 UNIT SUBCUT ×2 (12:48→23:09)
--- NOTE | 2022-09-03 16:46 | PM.PN ---
Subjective Subjective: Patient was seen and examined this morning, WBC count is trending down. Saturating well on minimal supplemental oxygen. Medications: Medication Review Details: Generic Name Dose Route Start Last Admin Trade Name Juan Manuel PRN Reason Stop Dose Admin Divalproex Sodium 500 mg 09/02/22 08:00 09/03/22 09:[address] 50 0 Mg Tablet PO 500 mg BID@0800,1999 ROLA Administration Heparin Sodium (Po rcine) 5,000 unit 09/01/22 23:17 09/03/22 12:48 Heparin 5,000 Un it/Ml Inj 1 Ml SUBCUT 5,000 unit Q12H ROLA Administration Hydralazine HCl 25 mg 09/02/22 09:00 09/03/22 16:38 Hydralazine 25 M g Tablet PO 25 mg TID ROLA Administration Sodium Chloride 1,000 mls @ 75 ml s/hr 09/01/22 23:17 09/03/22 09:26 Sodium Chloride 0.9% IV 75 mls/hr .[id number] ROLA Administration Piperacillin Sod/T azobactam 50 mls @ 12.5 mls /hr 09/01/22 23:30 09/03/22 13:13 Sod 3.375 gm/ So dium Chloride IV 12.5 mls/hr Q8H ROLA Administration Protocol As Directed Vancomycin/PEG/NAD A/Lysine/Water 1,250 mg in 250 m ls @ 200 mls/hr 09/01/22 23:30 09/03/22 01:21 Vancocin IV Infused Q24H ROLA Infusion Metoprolol Succina te 12.5 mg 09/02/22 09:00 09/03/22 09:09 Metoprolol Succi sandhya Er (24 Hr) 25 Mg Tablet PO 12.5 mg DAILY ROLA Administration Pantoprazole Sodiu m 40 mg 09/02/22 09:00 09/03/22 09:[address] 40 Mg Tablet PO 40 mg DAILY ROLA Administration Quetiapine Fumarat e 100 mg 09/02/22 20:00 09/02/22 20:43 Quetiapine 100 M g Tablet PO 100 mg BEDTIME@1999 ROLA Administration Trihexyphenidyl HC l 2 mg 09/02/22 08:00 09/03/22 09:08 Trihexyphenidyl 2 Mg Tablet PO 2 mg BID@08,1999 [facility] Administration Vitals/I&O/Wt Last Vital Signs Temp 97.6 F 09/03/22 15:41 Pulse 87 09/03/22 15:41 Resp 15 09/03/22 15:41 BP 106/67 09/03/22 15:41 Pulse Ox 95 09/03/22 15:41 O2 Del Method 09/03/22 15:41 O2 Flow Rate 2 09/03/22 08:00 09/03/22 09/03/22 09/03/22 06:59 14:59 22:59 Intake Total 300 / 2580 1530 / 1530 Balance 300 / 2580 1530 / 1530 Weight last 48 hrs Weight 79.56 kg Physical Exam Narrative: Not in acute distress, awake Resp: COMMON NORMALS: normal respiratory effort, No retractions, No use of accessory muscles and clear to auscultation bilaterally EFFORT & INSPECTION: Yes symmetric chest movement AUSCULTATION: clear to auscultation bilaterally Cardio: COMMON NORMALS: regular rate, regular rhythm, S1 normal heart sound present, S2 normal heart sound present, No gallops present (Cardio), No murmurs present (Cardio), No rub (Cardio) and Peripheral pulses 2+ throughout RATE: regular rate RHYTHM: regular rhythm HEART SOUNDS: S1 normal heart sound present and S2 normal heart sound present PERIPHERAL PULSES: Peripheral pulses 2+ throughout GI: COMMON NORMALS: Normal to inspection, nondistended, normoactive bowel sounds present, Soft to palpation, non-tender, No hepatosplenomegaly present and no masses AUSCULTATION: Yes normoactive bowel sounds PALPATION: Yes Soft to palpation and Yes No hepatosplenomegaly present RECTAL EXAM: Yes deferred Extremity: COMMON NORMALS: no clubbing, cyanosis or edema and no pedal edema Data 09/03/22 04:49 09/03/22 04:49 Micro: Microbiology 09/01/22 19:02 Group A Streptococcus Rapid Screen - Final Throat 09/02/22 00:54 Bacterial Antigens - Final Urine,Clean Catch 09/02/22 00:54 Legionella Urinary Antigen - Final Urine Catheterized 09/01/22 19:50 Blood Culture - Preliminary Blood NEGATIVE TO DATE 09/01/22 19:45 Blood Culture - Preliminary Blood NEGATIVE TO DATE 09/02/22 05:00 MRSA Culture - Final Nose A&P Assessment and plan (1) Sepsis: (2) Altered mental status: (3) Pneumonia: (4) Dementia: Qualifiers: Dementia type: unspecified type Dementia severity: moderate Dementia behavioral or psychological symptom: without behavioral, psychotic, or mood disturbance or anxiety Qualified Code(s): F03.B0 - Unspecified dementia, moderate, without behavioral disturbance, psychotic disturbance, mood disturbance, and anxiety (5) Organic affective disorder: (6) Bipolar 1 disorder: Plan Assessment: Sepsis secondary to pneumonia Intellectual disability H/O TBI BPD1 Plan: CT head without contrast: Has not shown any acute intracranial pathology X-ray chest: Extensive right lung consolidation. Follow blood culture:NTD Monitor x-ray chest Sputum gram stain and culture if obtained any MRSA PCR: Negative Urine Legionella antigen: Negative Bacterial antigen panel: Negative Procalcitonin: 3.01 Currently on broad-spectrum antibiotics IV hydration has been discontinued CODE STATUS; full code DVT prophylaxis on Lovenox Attestations Medical Necessity Statement*: Patient needs to be in hospital for management of sepsis. Coding Level of Care Code Acute Utility Person for [facility] Diagnoses Sepsis A41.9 Altered mental status R41.82 Pneumonia J18.9 Dementia F03.B0 Dementia type: unspecified type Dementia severity: moderate Dementia behavioral or psychological symptom: without behavioral, psychotic, or mood disturbance or anxiety Organic affective disorder F06.30 Bipolar 1 disorder F31.9
[2022-09-03] MEDS: quetiapine 100 mg Tablet PO (21:31)
[2022-09-03 22:48] LABS: Glucose Point of Care 169 mg/dL (70-110)
[2022-09-04] VITALS (8 sets, daily range): BP systolic 100–116; BP diastolic 64–75; PULSE 73–100; RESP 16–22; TEMP 36.7–37.6; O2SAT 93–97
[2022-09-04] MEDS: piperacillin-tazobactam 3.375 GM in sodium chloride 0.9% (plus) 50 ML IV ×3 (03:57→20:25)
[2022-09-04 05:48] LABS: Basophils % 0.1 %; Eosinophils % 0.2 %; Hematocrit 25.2 % (42.0-52.0); Lymphocytes # 1.2 10^3/uL (0.8-4.8); Lymphocytes % 13.4 %; Mean Corpuscular HGB Conc 31.7 g/dL (30.0-36.0); Mean Corpuscular Hemoglobin 30.4 pg (28.0-34.0); Mean Corpuscular Volume 95.8 fl (80-94); Mean Platelet Volume 10.5 fL (7.4-10.4); Monocytes # 0.7 10^3/uL (0.2-0.9); Monocytes % 7.3 %; Neutrophils # 7.15 10^3/uL (1.8-7.7); Neutrophils % 77.8 %; Nucleated Red Blood Cells % 0 %; Platelet Count 266 10^3/cmm (130-400); Red Blood Count 2.63 10^6/uL (4.1-5.3); White Blood Count 9.2 10^3/uL (4.0-10.0)
[2022-09-04 06:17] LABS: Anion Gap 11.4 (5-19); Blood Urea Nitrogen 39 mg/dL (8-23); Calcium 8.2 mg/dL (8.5-10.5); Carbon Dioxide 28 mmol/L (22-29); Chloride 109 mmol/L (98-107); Glucose 132 mg/dL (65-115); Osmolality Calculated 311 mOsm/kg (285-295); Potassium 3.4 mmol/L (3.5-5.1); Sodium 145 mmol/L (136-145)
[2022-09-04] MEDS: pantoprazole DR 40 mg Tablet PO (09:10)
[2022-09-04] MEDS: divalproex DR 500 mg Tablet PO ×2 (09:10→19:52)
[2022-09-04] MEDS: metoprolol succinate ER (24 HR) 25 mg Tablet 12.5 MG PO (09:10)
--- NOTE | 2022-09-04 10:37 | PC.SOCIAL ---
IMM update IMM updated with patient's guardian Evelyn Toure. Verbalized an understanding. Initialled, dated, timed, and placed in chart.
--- NOTE | 2022-09-04 11:45 | XR_ITS ---
WS: [id number] EXAMINATION: XR chest 1V portable [id number] REASON FOR EXAM: sob COMPARISON: 09/01/2022 ORDER DATE: 09/04/2022 11:54 AM TECHNIQUE: A single, portable frontal chest x-ray was obtained. X-RAY FINDINGS: There is been a significant degree of improvement in the patchy infiltrate in the right lung base wit h peripheral consolidation significantly diminished. Right diaphragm elevation remains. The left lung remains clear of infiltrate with some minor atelectasis medially. No pleural effusions or pneumothor ax. Cardiomediastinal silhouette is normal. No evidence for pulmonary edema. Soft tissue and osseous structures are unremarkable. No tubes or lines are present. XR/XR chest 1V portable [id number] IMPRESSION: Significant improvement in the right basilar peripheral consolidating infiltra te
--- NOTE | 2022-09-04 11:52 | PC.CHAP ---
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 [] Patient/Family/Request visit [] Outpatient visit [] Follow-up visit [] Physician referral [] Code/Alert [x] Routine visit [] Staff referral [] Actively dying [] Patient sleeping [] Family support [] [] Out of room [] Palliative care [] [] Receiving care in room [] Pre-surgical visit [] Trauma [] Long length of stay [] ICU visit [] Other: Relational/Emotional Strength [] Patient feels connected with others/family/visitors/staff [] Distress [] Loneliness/isolation [] Abandonment Spirituality of Patient [] Person of Tiana [] Attends Muslim of their Tiana [] Believes in Prayer [] Reads Bible or Confucianism materials [] There are Spiritual issues to be addressed Lottery Office Manager Interventions [x] Prayer [] Active listening [] Non-anxious presence [] Spiritual/emotional support [] Crisis/trauma care [] Spiritual counseling [] Bereavement support [] Provided bereavement packet [] Provided Bible/devotional materials [] Provided toy/stuffed animal, coloring book to patient or family member [] Provided Communion [] Anointing/[place] [] Salvation [x] Completed spiritual assessment [] Other: Impact on Illness or Injury [] Angry [] Fearful [] Anxious [] Often cries [] Exhaustion [] Unable to work [] Unable to attend shinto [] Unable to walk/stand [] Unable to read [] Unable to drive [] Unable to eat/drink [] Unable to sleep [] Unable to be with family [] Patient intubated [] Other: Summary patient wont talk Time spent with patient
[2022-09-04] MEDS: heparin 5,000 unit/mL INJ 1 mL 5000 UNIT SUBCUT ×2 (13:01→23:27)
--- NOTE | 2022-09-04 15:46 | PM.PN ---
Subjective Subjective: Patient was seen and examined this morning, WBC count has normalized, serum creatinine has normalized, X-ray chest done today shows significant improvement in right-sided dense consolidation, has been afebrile. We will involve physical therapy today, and anticipating discharge by tomorrow on oral antibiotics. Medications: Medication Review Details: Generic Name Dose Route Start Last Admin Trade Name Juan Manuel PRN Reason Stop Dose Admin Divalproex Sodium 500 mg 09/02/22 08:00 09/04/22 09:[address] 50 0 Mg Tablet PO 500 mg BID@ ROLA Administration Heparin Sodium (Po rcine) 5,000 unit 09/01/22 23:17 09/04/22 13:01 Heparin 5,000 Un it/Ml Inj 1 Ml SUBCUT 5,000 unit Q12H ROLA Administration Piperacillin Sod/T azobactam 50 mls @ 12.5 mls /hr 09/01/22 23:30 09/04/22 13:01 Sod 3.375 gm/ So dium Chloride IV 12.5 mls/hr Q8H ROLA Administration Protocol As Directed Metoprolol Succina te 12.5 mg 09/02/22 09:00 09/04/22 09:10 Metoprolol Succi sandhya Er (24 Hr) 25 Mg Tablet PO 12.5 mg DAILY ROLA Administration Pantoprazole Sodiu m 40 mg 09/02/22 09:00 09/04/22 09:[address] 40 Mg Tablet PO 40 mg DAILY ROLA Administration Quetiapine Fumarat e 100 mg 09/02/22 20:00 09/03/22 21:31 Quetiapine 100 M g Tablet PO 100 mg BEDTIME@1999 ROLA Administration Trihexyphenidyl HC l 2 mg 09/02/22 08:00 09/04/22 09:10 Trihexyphenidyl 2 Mg Tablet PO 2 mg BID@ ROLA Administration Vitals/I&O/Wt Last Vital Signs Temp 98.2 F 09/04/22 12:00 Pulse 93 09/04/22 12:00 Resp 18 09/04/22 12:00 BP 106/71 09/04/22 12:00 Pulse Ox 96 09/04/22 12:00 O2 Del Method 09/04/22 12:00 O2 Flow Rate 2 09/04/22 08:00 09/04/22 09/04/22 09/04/22 06:59 14:59 22:59 Intake Total 170 / 3066.25 650 / 650 Balance 170 / 3066.25 650 / 650 Physical Exam Narrative: Not in acute distress, awake Resp: COMMON NORMALS: normal respiratory effort, No retractions, No use of accessory muscles and clear to auscultation bilaterally EFFORT & INSPECTION: Yes symmetric chest movement AUSCULTATION: clear to auscultation bilaterally Cardio: COMMON NORMALS: regular rate, regular rhythm, S1 normal heart sound present, S2 normal heart sound present, No gallops present (Cardio), No murmurs present (Cardio), No rub (Cardio) and Peripheral pulses 2+ throughout RATE: regular rate RHYTHM: regular rhythm HEART SOUNDS: S1 normal heart sound present and S2 normal heart sound present PERIPHERAL PULSES: Peripheral pulses 2+ throughout GI: COMMON NORMALS: Normal to inspection, nondistended, normoactive bowel sounds present, Soft to palpation, non-tender, No hepatosplenomegaly present and no masses AUSCULTATION: Yes normoactive bowel sounds PALPATION: Yes Soft to palpation and Yes No hepatosplenomegaly present RECTAL EXAM: Yes deferred Extremity: COMMON NORMALS: no clubbing, cyanosis or edema and no pedal edema Data 09/04/22 05:27 09/04/22 05:27 Micro: Microbiology 09/01/22 19:02 Group A Streptococcus Rapid Screen - Final Throat A&P Assessment and plan (1) Sepsis: (2) Altered mental status: (3) Pneumonia: (4) Dementia: Qualifiers: Dementia type: unspecified type Dementia severity: moderate Dementia behavioral or psychological symptom: without behavioral, psychotic, or mood disturbance or anxiety Qualified Code(s): F03.B0 - Unspecified dementia, moderate, without behavioral disturbance, psychotic disturbance, mood disturbance, and anxiety (5) Organic affective disorder: (6) Bipolar 1 disorder: Plan Assessment: Sepsis secondary to pneumonia 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 Follow blood culture:NTD Monitor x-ray chest Sputum gram stain and culture if obtained any MRSA PCR: Negative Urine Legionella antigen: Negative Bacterial antigen panel: Negative Procalcitonin: 3.01 Currently on broad-spectrum antibiotics IV hydration has been discontinued CODE STATUS; full code DVT prophylaxis on Lovenox Attestations Medical Necessity Statement*: Patient is still in hospital for management of sepsis. 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
[2022-09-04] MEDS: potassium chloride ER 20 mEq Tablet 40 MEQ PO (17:46)
[2022-09-04] MEDS: quetiapine 100 mg Tablet PO (19:52)
[2022-09-05] VITALS (7 sets, daily range): BP systolic 97–125; BP diastolic 61–74; PULSE 82–116; RESP 16–18; TEMP 36.5–37.4; O2SAT 94–100
[2022-09-05] MEDS: piperacillin-tazobactam 3.375 GM in sodium chloride 0.9% (plus) 50 ML IV (04:37)
[2022-09-05 06:44] LABS: Basophils % 0.2 %; Eosinophils % 0.2 %; Hematocrit 26.3 % (42.0-52.0); Hemoglobin 8.3 g/dL (11.7-16.6); Lymphocytes # 1.2 10^3/uL (0.8-4.8); Lymphocytes % 14.9 %; Mean Corpuscular HGB Conc 31.6 g/dL (30.0-36.0); Mean Corpuscular Hemoglobin 30.4 pg (28.0-34.0); Mean Corpuscular Volume 96.3 fl (80-94); Mean Platelet Volume 10.4 fL (7.4-10.4); Monocytes # 0.7 10^3/uL (0.2-0.9); Monocytes % 9.2 %; Neutrophils % 70.9 %; Nucleated Red Blood Cells % 0.2 %; Platelet Count 289 10^3/cmm (130-400); Red Blood Count 2.73 10^6/uL (4.1-5.3); Red Cell Distribution Width 15.9 % (12.1-15.1); White Blood Count 8.1 10^3/uL (4.0-10.0)
[2022-09-05] MEDS: divalproex DR 500 mg Tablet PO (10:34)
[2022-09-05] MEDS: pantoprazole DR 40 mg Tablet PO (10:35)
[2022-09-05] MEDS: metoprolol succinate ER (24 HR) 25 mg Tablet 12.5 MG PO (10:35)
[2022-09-05] MEDS: heparin 5,000 unit/mL INJ 1 mL 5000 UNIT SUBCUT (10:35)
--- NOTE | 2022-09-05 11:28 | P.DS_ITS ---
Discharge Providers Date of Admission: 09/01/22 20:57 Date of Discharge: September 05, 2022 Attending Provider at Admission: Ludy Del Rio MD Attending Provider at Discharge: Magen Gil MD Primary Care Provider: Denis Saini DO Diagnoses at Discharge Discharge Diagnosis (1) Sepsis: Status: Acute (2) Altered mental status: Status: Acute (3) Pneumonia: Status: Acute (4) Dementia: Status: Acute Qualifiers: Dementia type: unspecified type Dementia severity: moderate Dementia behavioral or psychological symptom: without behavioral, psychotic, or mood disturbance or anxiety Qualified Code(s): F03.B0 - Unspecified dementia, moderate, without behavioral disturbance, psychotic disturbance, mood dis turbance, and anxiety (5) Organic affective disorder: Status: Acute (6) Bipolar 1 disorder: Status: Acute Reason for Visit Reason for Visit: [facility] Hospital Course Hospital Course ?77-year-old male with past medical history of intellectual disability traumatic brain injury, resident of a correction, was brought in with chief complaint of, fever, and hypoxia, patient was admitted for the management of sepsis secondary to right-sided pneumonia: Patient was kept on broad-spectrum antibiotics, DuoNebs supplemental oxygen as needed, blood cultures were negative,MRSA PCR: Negative,Urine Legionella antigen: Negative, Bacterial antigen panel: Negative, Procalcitonin: 3.01. Patient was also managed for prerenal GIRISH, Lasix was kept on hold, patient was continued on gentle IV hydration to which he responded well, serum creatinine has normalized at the time of discharge, Lasix has been kept on hold on discharge, as the patient is currently euvolemic, repeat BMP can be done in a week, and depending upon the current state, decision regarding Lasix initiation can be taken. Patient was also managed for altered mental status possibly secondary to sepsis and pneumonia CT head without contrast was negative, at the time of discharge patient was at his baseline. Overall patient responded well to above medical management, he was discharged on p.o. Augmentin. Will follow with his primary care physician in a week. Physical Exam Narrative: Not in acute distress, awake Resp: COMMON NORMALS: normal respiratory effort, No retractions, No use of accessory muscles and clear to auscultation bilaterally EFFORT & INSPECTION: Yes symmetric chest movement AUSCULTATION: clear to auscultation bilaterally Cardio: COMMON NORMALS: regular rate, regular rhythm, S1 normal heart sound present, S2 normal heart sound present, No gallops present (Cardio), No murmurs present (Cardio), No rub (Cardio) and Peripheral pulses 2+ throughout RATE: regular rate RHYTHM: regular rhythm HEART SOUNDS: S1 normal heart sound present and S2 normal heart sound present PERIPHERAL PULSES: Peripheral pulses 2+ throughout GI: COMMON NORMALS: Normal to inspection, nondistended, normoactive bowel sounds present, Soft to palpation, non-tender, No hepatosplenomegaly present and no masses AUSCULTATION: Yes normoactive bowel sounds PALPATION: Yes Soft to palpation and Yes No hepatosplenomegaly present RECTAL EXAM: Yes deferred Extremity: COMMON NORMALS: no clubbing, cyanosis or edema and no pedal edema Discharge Data Studies Completed and Pending Completed Studies During Hospitalization Category Date Time Status CT head wo con* [id number] Stat Cat Scan 09/01/22 18:56 Completed XR chest 1V portable [id number] Routine Exams 09/04/22 11:45 Completed XR chest 1V portable [id number] Stat Exams 09/01/22 18:56 Completed Pending at discharge Category Date Time Status Basic Metabolic Panel Routine Lab 09/05/22 07:14 Ordered Blood Culture Stat Lab 09/01/22 19:50 Results Sputum Culture and Gram Stain Stat Lab 09/01/22 21:11 Uncollected Radiology Impressions Head CT 09/01/22 18:56 IMPRESSION: 1. No acute intracranial abnormality. Chest X-Ray 09/04/22 11:45 IMPRESSION: Significant improvement in the right basilar peripheral consolidating infiltrate Laboratory Results WBC 8.1 10^3/uL (4.0-10.0) 09/05/22 06:24 Corrected WBC Cancelled 09/05/22 05:30 RBC 2.73 10^6/uL (4.1-5.3) L 09/05/22 06:24 Hgb 8.3 g/dL (11.7-16.6) L 09/05/22 06:24 Hct 26.3 % (42.0-52.0) L 09/05/22 06:24 MCV 96.3 fl (80-94) H 09/05/22 06:24 MCH 30.4 pg (28.0-34.0) 09/05/22 06:24 MCHC 31.6 g/dL (30.0-36.0) 09/05/22 06:24 RDW 15.9 % (12.1-15.1) H 09/05/22 06:24 Plt Count 289 10^3/cmm (130-400) 09/05/22 06:24 MPV 10.4 fL (7.4-10.4) 09/05/22 06:24 Gran % Cancelled 09/05/22 05:30 Neut % (Auto) 70.9 % 09/05/22 06:24 Lymph % (Auto) 14.9 % 09/05/22 06:24 [place] % (Auto) 9.2 % 09/05/22 06:24 Eos % (Auto) 0.2 % 09/05/22 06:24 Baso % (Auto) 0.2 % 09/05/22 06:24 Neut # (Auto) 5.70 10^3/uL (1.8-7.7) 09/05/22 06:24 Lymph # (Auto) 1.2 10^3/uL (0.8-4.8) 09/05/22 06:24 [place] # (Auto) 0.7 10^3/uL (0.2-0.9) 09/05/22 06:24 Eos # (Auto) 0.0 10^3/uL (0.0-0.8) 09/05/22 06:24 Baso # (Auto) 0.0 10^3/uL (0.0-0.1) 09/05/22 06:24 Absolute Gran (auto) Cancelled 09/05/22 05:30 Nucleated RBC % (auto) 0.2 % 09/05/22 06:24 Total Counted 100 (0-100) 09/02/22 05:16 Atypical Lymphs % 0.0 % (0-5) 09/02/22 05:16 Absolute Neutrophils 13.1 10^3/cmm (1.4-6.5) H 09/02/22 05:16 Segmented Neutrophils 71 % 09/02/22 05:16 Abs Segm Neuts (Man) 10.6 10/cmm (1.6-7.1) H 09/02/22 05:16 Band Neutrophils 17.0 % 09/02/22 05:16 Abs Band Neuts (Man) 2.5 10^3/cmm (0.0-1.2) H 09/02/22 05:16 Absolute Lymphocytes 1.2 10^3/cmm (1.2-3.4) 09/02/22 05:16 Lymphocytes (Manual) 8 % 09/02/22 05:16 Monocytes (Manual) 4.0 % 09/02/22 05:16 Absolute Monocytes 0.6 10^3/cmm (0.1-0.6) 09/02/22 05:16 Eosinophils (Manual) 0 % 09/02/22 05:16 Absolute Eosinophils 0.0 10^3/cmm (0.0-0.7) 09/02/22 05:16 Basophils (Manual) 0.0 % 09/02/22 05:16 Absolute Basophils 0.0 10^3/cmm (0.0-0.2) 09/02/22 05:16 Nucleated RBCs # 0.0 /100WBC 09/05/22 06:24 Toxic Granulation 2+ H 09/02/22 05:16 Platelet Estimate Normal (Normal) 09/02/22 05:16 Anisocytosis 1+ H 09/02/22 05:16 Specimen Type Arterial 09/01/22 20:00 Sample Site Brachial, right 09/01/22 20:00 ABG pH 7.53 (7.35-7.45) H 09/01/22 20:00 ABG pCO2 35.0 mmHg (35-45) 09/01/22 20:00 ABG pO2 65.4 mmHg (80.0-100.0) L 09/01/22 20:00 ABG HCO3 28.9 mmol/L (22-26) H 09/01/22 20:00 ABG Base Excess 6.0 mmol/L (-2.0-2.0) H 09/01/22 20:00 Alexis Test N/a 09/01/22 20:00 Hematocrit 34.9 % (42-52) L 09/01/22 20:00 O2 Delivery Device Nc 09/01/22 20:00 O2 Liters/Min 3.0 % 09/01/22 20:00 Office Helper ID Hinja 09/01/22 20:00 Sodium Cancelled 09/05/22 05:30 Potassium Cancelled 09/05/22 05:30 Chloride Cancelled 09/05/22 05:30 Carbon Dioxide Cancelled 09/05/22 05:30 Anion Gap Cancelled 09/05/22 05:30 BUN Cancelled 09/05/22 05:30 Creatinine Cancelled 09/05/22 05:30 GFR Calculation Cancelled 09/05/22 05:30 Glucose Cancelled 09/05/22 05:30 POC Glucose 169 mg/dL (70-110) H 09/03/22 21:56 Calculated Osmolality Cancelled 09/05/22 05:30 Lactate 2.3 mmol/L (0.5-2.2) H 09/02/22 05:16 Calcium Cancelled 09/05/22 05:30 Phosphorus 3.9 mg/dL (2.5-4.5) 09/02/22 05:16 Magnesium 1.6 mg/dL (1.7-2.3) L 09/02/22 05:16 Total Bilirubin 0.7 mg/dL (0.15-1.2) 09/01/22 19:02 AST 27 U/L (0-40) 09/01/22 19:02 ALT 9 U/L (0-41) 09/01/22 19:02 Alkaline Phosphatase 119 U/L (40-130) 09/01/22 19:02 C-Reactive Protein 161.0 mg/L (0.0-4.9) H 09/02/22 05:16 Total Protein 6.8 g/dL (6.6-8.7) 09/01/22 19:02 Albumin 3.2 g/dL (3.5-5.2) L 09/01/22 19:02 Globulin 3.6 g/dL (1.3-4.6) 09/01/22 19:02 Procalcitonin 3.01 ng/mL (0-0.5) H 09/01/22 19:02 Urine Color Yellow (Yellow) 09/02/22 00:54 Urine Appearance Clear (CLEAR) 09/02/22 00:54 Urine pH 5 (5-7) 09/02/22 00:54 Ur Specific [place] 1.020 (1.005-1.030) 09/02/22 00:54 Urine Protein Neg (Negative) 09/02/22 00:54 Urine Glucose (UA) 1+ (Normal) H 09/02/22 00:54 Urine Ketones Negative (Negative) 09/02/22 00:54 Urine Blood Neg (Negative) 09/02/22 00:54 Urine Nitrate Negative (Negative) 09/02/22 00:54 Urine Bilirubin Neg (Negative) 09/02/22 00:54 Urine Urobilinogen Neg mg/dL (Negative) 09/02/22 00:54 Ur Leukocyte Esterase Negative (Negative) 09/02/22 00:54 Nasal Influ A H1 2009 PCR Not detected (NOT DETECT) 09/01/22 21:01 Valproic Acid 34.8 ug/mL (50-100) L 09/01/22 19:02 Adenovirus (PCR) Not detected (NOT DETECT) 09/01/22 21:01 C. pneumoniae DNA (PCR) Not detected (NOT DETECT) 09/01/22 21:01 Coronavirus 229E (PCR) Not detected (NOT DETECT) 09/01/22 21:01 Human Metapneumovir PCR Not detected (NOT DETECT) 09/01/22 21:01 Influenza A (H1) PCR Not detected (NOT DETECT) 09/01/22 21:01 Influenza A (H3) PCR Not detected (NOT DETECT) 09/01/22 21:01 Influenza Type A Ag negative (Negative) 09/01/22 19:02 Influenza Type A (PCR) Not detected (NOT DETECT) 09/01/22 21:01 Influenza Type B Ag negative (Negative) 09/01/22 19:02 Influenza Type B (PCR) Not detected (NOT DETECT) 09/01/22 21:01 M. pneumoniae (PCR) Not detected (NOT DETECT) 09/01/22 21:01 Parainfluenza 1 (PCR) Not detected (NOT DETECT) 09/01/22 21:01 Parainfluenza 2 (PCR) Not detected (NOT DETECT) 09/01/22 21:01 Parainfluenza 3 (PCR) Not detected (NOT DETECT) 09/01/22 21:01 Parainfluenza 4 (PCR) Not detected (NOT DETECT) 09/01/22 21:01 RSV Type A (PCR) Not detected (NOT DETECT) 09/01/22 21:01 RSV Type B (PCR) Not detected (NOT DETECT) 09/01/22 21:01 Entero/Rhino (PCR) Not detected (NOT DETECT) 09/01/22 21:01 SARS-CoV-2 (PCR) Not detected (NOT DETECT) 09/01/22 21:01 SARS-CoV-2 Ag (Rapid) negative (Negative) 09/01/22 19:02 Group A Strep Rapid Negative (Negative) 09/01/22 19:02 Vitals Last Vital Signs Temp 98.9 F 09/05/22 08:00 Pulse 90 09/05/22 08:58 Resp 18 09/05/22 08:58 BP 125/69 09/05/22 08:00 Pulse Ox 94 09/05/22 08:58 O2 Del Method 09/05/22 08:58 O2 Flow Rate 2 09/05/22 08:58 Discharge Plan Discharge Patient Disposition: Home Condition: Stable Prescriptions: New amoxicillin-pot clavulanate [Augmentin] 500-125 mg tablet 1 tab PO BID Qty: 14 0RF Continued hydrocodone-acetaminophen 5-325 mg Tablet 1 tab PO TID PRN (Reason: Pain) Zyprexa 5 mg Tablet 5 mg PO BID Depakote 500 mg Tablet,Delayed Release (Dr/Ec) 500 mg PO BID Seroquel 100 mg Tablet 100 mg PO BEDTIME lorazepam 2 mg Tablet 2 mg PO Q6H PRN (Reason: Agitation) Prilosec 20 mg Capsule,Delayed Release(Dr/Ec) 20 mg PO DAILY Claritin 10 mg Tablet 10 mg PO DAILY chlorhexidine gluconate 0.12 % Mouthwash 15 ml BUCCAL BID Held Lasix 40 mg Tablet 40 mg PO BID Hold Instructions: Resume on 09/19/22. Discharge Orders: Discharge Order (Routine); Ordered 09/05/22 Ordered By: Magen Gil Other Ambulatory Orders: Basic Metabolic Panel (Routine) Timeframe: 1 Week Facility: [facility] - Location: Lab - Main Lab Ordered By: Magen Gil Referrals: Denis Saini DO [Primary Care Provider] - 7-10 days Patient Instructions: Opioid Safety Discharge Attestations Time Spent in Discharge Care*: less than 30 min Quality Metrics Clinical Quality Measures [ No reported AMI, CVA or VTE this stay] Coding Level of Care Code Acute [facility] [place] note Diagnoses Sepsis A41.9 Altered mental status R41.82 Pneumonia J18.9 Dementia F03.B0 Dementia type: unspecified type Dementia severity: moderate Dementia behavioral or psychological symptom: without behavioral, psychotic, or mood disturbance or anxiety Organic affective disorder F06.30 Bipolar 1 disorder F31.9
[2022-09-05 12:56] LABS: Anion Gap 14.6 (5-19); Blood Urea Nitrogen 33 mg/dL (8-23); Calcium 8.4 mg/dL (8.5-10.5); Carbon Dioxide 24 mmol/L (22-29); Chloride 111 mmol/L (98-107); Creatinine Clr Calc Pharmacy 58.1203; Glucose 200 mg/dL (65-115); Osmolality Calculated 315 mOsm/kg (285-295); Potassium 3.6 mmol/L (3.5-5.1); Sodium 146 mmol/L (136-145)
--- NOTE | 2022-09-05 15:04 | PC.NURSE ---
1350 discharge packet given to health care transport from care home. patient in stable condition. patient transferred to wheelchair per 2 total assist.[id number] patient taken to private car and loaded per 3 total assist. patient emily well.
== END 2022-09-05 13:55 | disposition home or self-care (01) | DRG 871 ==
LOC: ER 20:50 → MEDSURG 21:39
PROVIDERS: Admitting Provider Internal Medicine; Emergency Provider Emergency Medicine; PCP Family Medicine; Visit Provider Internal Medicine
DX: A41.9 Sepsis, unspecified organism (principal); J18.9 Pneumonia, unspecified organism; N17.9 Acute kidney failure, unspecified; F79 Unspecified intellectual disabilities; Z87.820 Personal history of traumatic brain injury; F31.9 Bipolar disorder, unspecified; F42.9 Obsessive-compulsive disorder, unspecified; F03.C0 Unspecified dementia, severe, without behavioral disturbance, psychotic disturbance, mood disturbance, and anxiety; Z79.891 Long term (current) use of opiate analgesic; N18.30 Chronic kidney disease, stage 3 unspecified
CPT/HCPCS: 36415; 36416; 36600; 51702; 70450; 71045; 80048; 80053; 80164; 81003; 82803; 82962; 83605; 83735; 84100; 84145; 85007; 85025; 86140; 86403; 87040; 87081; 87426; 87449; 87486; 87581; 87633; 87641; 87804; 87880; 92507; 92523; 92526; 92610; 93005; 94664; 94760; 96365; 96367; 96372; 96375; 97161; 97167; 99285; J0456; J0696; J1644; J2310; J2543; J3370; J7030; J7040; J7050

== ENCOUNTER 2022-09-12 09:59 | Outpatient (CLI) | payer MEDICARE, MEDICAID, SELFPAY ==
[2022-09-12 11:13] LABS: Anion Gap 14.4 (5-19); Blood Urea Nitrogen 15 mg/dL (8-23); Calcium 8.8 mg/dL (8.5-10.5); Carbon Dioxide 24 mmol/L (22-29); Chloride 102 mmol/L (98-107); Glucose 123 mg/dL (65-115); Osmolality Calculated 284 mOsm/kg (285-295); Potassium 4.4 mmol/L (3.5-5.1); Sodium 136 mmol/L (136-145)
== END 2022-09-12 10:00 | disposition home or self-care (01) ==
LOC: LAB 10:02
PROVIDERS: Internal Medicine; PCP Family Medicine; Visit Provider Surgery Surgical Critical Care
DX: N17.9 Acute kidney failure, unspecified (principal)
CPT/HCPCS: 36415; 80048

== ENCOUNTER 2022-09-25 10:03 | Outpatient (CLI) | payer MEDICARE, MEDICAID, SELFPAY ==
[2022-09-25 10:42] LABS: Basophils % 0.2 %; Eosinophils % 0.6 %; Hematocrit 32.7 % (42.0-52.0); Hemoglobin 10.1 g/dL (11.7-16.6); Lymphocytes # 1.4 10^3/uL (0.8-4.8); Lymphocytes % 22.9 %; Mean Corpuscular HGB Conc 30.9 g/dL (30.0-36.0); Mean Corpuscular Hemoglobin 28.9 pg (28.0-34.0); Mean Corpuscular Volume 93.4 fl (80-94); Mean Platelet Volume 9.7 fL (7.4-10.4); Monocytes # 0.6 10^3/uL (0.2-0.9); Monocytes % 9.7 %; Neutrophils # 4.15 10^3/uL (1.8-7.7); Neutrophils % 66.1 %; Nucleated Red Blood Cells % 0 %; Platelet Count 350 10^3/cmm (130-400); Red Cell Distribution Width 16.6 % (12.1-15.1); White Blood Count 6.3 10^3/uL (4.0-10.0)
[2022-09-25 11:16] LABS: Alanine Aminotransferase 12 U/L (0-41); Alkaline Phosphatase 421 U/L (40-130); Anion Gap 13.3 (5-19); Aspartate Amino Transferase 15 U/L (0-40); Blood Urea Nitrogen 10 mg/dL (8-23); Carbon Dioxide 28 mmol/L (22-29); Chloride 102 mmol/L (98-107); Globulin 3.2 g/dL (1.3-4.6); Glucose 99 mg/dL (65-115); Osmolality Calculated 287 mOsm/kg (285-295); Potassium 4.3 mmol/L (3.5-5.1); Sodium 139 mmol/L (136-145); Total Bilirubin 0.3 mg/dL (0.15-1.2); Total Protein 6.2 g/dL (6.6-8.7)
== END 2022-09-25 10:04 | disposition home or self-care (01) ==
LOC: LAB 10:05
PROVIDERS: PCP Family Medicine; Visit Provider Family Medicine
DX: Z01.89 Encounter for other specified special examinations (principal)
CPT/HCPCS: 80053; 85025

== ENCOUNTER 2022-09-29 12:29 | Outpatient (CLI) | payer MEDICARE, MEDICAID, SELFPAY ==
--- NOTE | 2022-09-29 12:15 | USCV_ITS ---
ToureYaakov singh Age: 77 Gender: M : 1945 Exam Date: 09/29/2022 12:48 Ordering Phys: Denis Saini DO Technologist: MARTINE Exam Location: [facility] [place] Indication: LLE Swelling HISTORY: LT Lower extremity swelling. PROCEDURES: Venous duplex imaging was performed in only the left lower extremity. The following venous structures were evaluated: common femoral vein, profunda vein, proximal portion of the greater saphenous vein, superficial femoral vein, and the popliteal vein. In addition, the posterior tibial and peroneal trunk were evaluated. On the left side, the common femoral, superficial femoral, profunda femoral, popliteal, posterior tibial, greater saphenous veins, and the peroneal trunk were identified and interrogated in the standard fashion. These veins were found to be easily compressible with spontaneous blood flow. No evidence of insufficiency or thrombus noted. Serial compression, augmentation maneuvers, and spectral Doppler flow evaluation were performed. FINDINGS: No evidence of DVT seen in any vessel visualized at this time. TDS CONCLUSIONS No evidence of left lower extremity DVT. Itz Orta MD (Electronically Signed) Final Date: 29 September 2022 15:12 S
--- NOTE | 2022-09-29 12:38 | XR_ITS ---
WS: [id number] AP upright chest, 09/29/2022 Clinical Data: Recent Pneumonia Comparison: Lateral chest, 09/04/2022 Findings: Patchy bilateral pulmonary opacities are present over both diaphragms. The right diaphragm is slightly elevated. The heart is at the upper limits of normal. No nodules or masses are seen. The aortic arch and descending thoracic aorta show tortuosity. XR/XR chest 1V [id number] Impression: 1. No change in patchy bilateral basilar pulmonary opacities which can represen t atelectasis and/or pneumonia. 2. Atherosclerosis.
== END 2022-09-29 12:30 | disposition home or self-care (01) ==
LOC: RAD 12:30
PROVIDERS: PCP Family Medicine; Visit Provider Family Medicine
DX: J18.9 Pneumonia, unspecified organism (principal); I50.9 Heart failure, unspecified; M79.89 Other specified soft tissue disorders; I70.90 Unspecified atherosclerosis
CPT/HCPCS: 71045; 93971

== ENCOUNTER 2022-10-23 11:46 | Emergency (ER) | payer MEDICARE, MEDICAID, SELFPAY ==
[2022-10-23 11:48] VITALS: BP 105/67; PULSE 65; RESP 16; TEMP 37.1; O2SAT 95; BMI 30.1
--- NOTE | 2022-10-23 12:12 | XR_ITS ---
WS: [id number] Exam: XR chest 1V portable [id number] Date/Time of Exam: 10/23/2022 12:34 PM Reason For Exam: sob Comparison 09/29/2022. Bibasal plaque atelectasis again noted and showing little change since the last study. Heart size is normal. The mediastinum is normal in contour. Low lung volumes are noted probably secondary to limite d inspiration. No pneumothorax. No pleural effusion. Bony structures are intact. XR/XR chest 1V portable [id number] IMPRESSION: 1. Bibasal plaque atelectasis. 2. Low lung volumes secondary to limited inspiration.
--- NOTE | 2022-10-23 13:02 | ECG_ITS ---
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 Measurements Intervals [place] Rate: 58 P: 12 RI: 175 QRS: 29 QRSD: 103 T: 260 QT: 446 QTc: 440 Interpretive Statements SINUS BRADYCARDIA WITH OCCASIONAL VENTRICULAR PREMATURE COMPLEXES NONSPECIFIC T-WAVE ABNORMALITY Compared to ECG 09/01/2022 18:54:08 Ventricular premature complex(es) now present T-wave abnormality now present Sinus tachycardia no longer present ST (T wave) deviation no longer present Electronically Signed On 10-24-2022 7:41:40 MOLD DUMPER by Fab Smith M.D. [id number]
--- NOTE | 2022-10-23 13:20 | PC.NURSE ---
Pt sitting in wheelchair, caregiver with patient.
--- NOTE | 2022-10-23 13:56 | ED_ITS ---
HPI - General Adult General: Chief complaint: Shortness of Breath/Dyspnea Stated complaint: low ox, lethargic, edema Time Seen by Provider: 10/23/22 13:32 Source: other (Caregiver) Mode of arrival: EMS History of Present Illness: This 77-year-old male with a history of congestive heart failure, GIRISH and pneumonia was brought in to the ER for evaluation by caregiver who states that this morning, patient's lung sounds sounded horrible . So she enlisted the assistance of their RN who stated that patient has coarse crackles and should be brought to the ER for evaluation of pneumonia. In addition, he has bilateral pitting pedal edema that has been present since his last admission with pneumonia. He has no fever, nausea, vomiting or any other systemic symptoms. Oxygen saturation is 95% on room air with a respiratory rate of 16. He is not in acute respiratory distress. Patient is nonverbal. History was obtained primarily from caregiver. Review of Systems General: Reports: ROS unobtainable due to medical condition (Patient is nonv erbal.) PFSH ED PFSH: Medical History Altered mental status Bipolar 1 disorder Closed right hip fracture Colorectal polyp detected on colonoscopy Dementia 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 Intermittent explosive disorder Leg edema Normal colonoscopy Obsessive-compulsive behavior Organic affective disorder Pneumonia Subdural hematoma (~10/2019) Traumatic subdural hematoma Subtrochanteric fracture of femur Surgical History History of hip surgery Hx of colonoscopy Family History Other Family history non-contributory Social History Smoking and tobacco status: never smoked Alcohol intake: never History of recent travel: No Current gender identity: Male Physical Exam Const: COMMON NORMALS: no acute distress, patient oriented x3, no limitations and alert HENMT: COMMON NORMALS: normocephalic HEAD & SCALP: normocephalic Eye: COMMON NORMALS: EOMs intact bilaterally Neck/C-Spine: COMMON NORMALS: full ROM and supple Chest: COMMONS NORMALS: normal inspection of the chest Resp: COMMON NORMALS: normal respiratory effort, No retractions and No use of accessory muscles AUSCULTATION: crackles Laterality: bilateral Cardio: COMMON NORMALS: regular rate, regular rhythm and No murmurs present (Cardio) RATE: regular rate RHYTHM: regular rhythm GI: COMMON NORMALS: Normal to inspection, nondistended, normoactive bowel sounds present and non-tender : COMMON NORMALS: Yes no CVA tenderness BLADDER/KIDNEY EXAM: Yes no CVA tenderness Back/Pelvis: COMMON NORMALS: no CVA tenderness and no thoracic nor lumbar tenderness Extremity: LEFT LOWER EXTREMITY: Yes hip joint (Externally rotated. Left leg shorter than right.) OTHER: Bilateral pitting pedal edema. Neuro: COMMON NORMALS: patient oriented x3 and no focal motor deficits SENSORIUM/ORIENTATION: Yes alert Psych: COMMON NORMALS: mental status grossly normal and cooperative Course Reevaluation(s): Reevaluation #1: When patient was undressed, he was found to have swelling over the left hip with marked limitation of left hip movement. On further questioning, caregiver stated that patient stopped walking about 2 months ago. There was no clear history of fall before he stopped walking. X-ray left hip and pelvis ordered. Reevaluation #2: X-ray confirms a displaced intertrochanteric fracture of the left hip. Time: 15:30 Consultations: Consultation #1: Case discussed with Dr. Burris, orthopedic surgeon on-call regarding the intertrochanteric fracture. There is also avulsion fracture of the lesser trochanter. There is relatively extensive callus formation suggesting that the fracture is several weeks old. Dr. Burris noted that at this time, surgery would not be an option. He recommends discharging patient home and advising him to bear weight as tolerated. He will follow-up with patient in the office if patient/caregiver chose. Vital Signs: Vital signs: Vital Signs Temperature 98.7 F 10/23/22 11:48 Pulse Rate 65 10/23/22 11:48 Respiratory Rate 16 10/23/22 11:48 Blood Pressure 105/67 10/23/22 11:48 Pulse Oximetry 95 10/23/22 11:48 Oxygen Delivery Me thod 10/23/22 11:48 MDM - General Adult Medical Decision Making Medical decision making: Patient was brought in because this morning, his lung sounds sounded horrible and they wanted him to be evaluated for pneumonia. Chest x-ray is negative for pneumonia. Patient does have bilateral pedal edema. Given his history of congestive heart failure, his Lasix dose was adjusted. In the course of evaluation, he was found to have shortening and external rotation of the left lower extremity. X-ray confirms an intertrochanteric fracture of the left hip. Orthopedic surgeon believes that surgery cannot be performed at this time because it appears that injury occurred about 2 months ago and he has significant callus formation around the fracture site. He will follow-up with patient in the office. Reasons to return were discussed. Lab Data 10/23/22 13:40 10/23/22 13:40 Radiology Impressions Chest X-Ray 10/23/22 12:12 IMPRESSION: 1. Bibasal plaque atelectasis. 2. Low lung volumes secondary to limited inspiration. Hip/Pelvis X-Ray 10/23/22 14:58 IMPRESSION: 1. Comminuted intertrochanteric fracture of the left hip showing some degree of displacement. There is avulsion of the lesser trochanter. Lateral displacement of the second prominent fracture fragment seen along the upper femur. Relatively extensive callus formation about the fracture site suggesting this fracture is several weeks old. Laboratory Results WBC 7.1 10^3/uL (4.0-10.0) 10/23/22 13:40 RBC 3.68 10^6/uL (4.1-5.3) L 10/23/22 13:40 Hgb 10.5 g/dL (11.7-16.6) L 10/23/22 13:40 Hct 34.0 % (42.0-52.0) L 10/23/22 13:40 MCV 92.4 fl (80-94) 10/23/22 13:40 MCH 28.5 pg (28.0-34.0) 10/23/22 13:40 MCHC 30.9 g/dL (30.0-36.0) 10/23/22 13:40 RDW 17.2 % (12.1-15.1) H 10/23/22 13:40 Plt Count 64 10^3/cmm (130-400) L 10/23/22 13:40 MPV 12.9 fL (7.4-10.4) H 10/23/22 13:40 Neut % (Auto) 76.4 % 10/23/22 13:40 Lymph % (Auto) 13.4 % 10/23/22 13:40 Crook % (Auto) 8.9 % 10/23/22 13:40 Eos % (Auto) 0.3 % 10/23/22 13:40 Baso % (Auto) 0.6 % 10/23/22 13:40 Neut # (Auto) 5.44 10^3/uL (1.8-7.7) 10/23/22 13:40 Lymph # (Auto) 1.0 10^3/uL (0.8-4.8) 10/23/22 13:40 Crook # (Auto) 0.6 10^3/uL (0.2-0.9) 10/23/22 13:40 Eos # (Auto) 0.0 10^3/uL (0.0-0.8) 10/23/22 13:40 Baso # (Auto) 0.0 10^3/uL (0.0-0.1) 10/23/22 13:40 Nucleated RBC % (auto) 0 % 10/23/22 13:40 Nucleated RBCs # 0.0 /100WBC 10/23/22 13:40 Sodium 130 mmol/L (136-145) L 10/23/22 13:40 Potassium 3.8 mmol/L (3.5-5.1) 10/23/22 13:40 Chloride 93 mmol/L (98-107) L 10/23/22 13:40 Carbon Dioxide 24 mmol/L (22-29) 10/23/22 13:40 Anion Gap 16.8 (5-19) 10/23/22 13:40 BUN 36 mg/dL (8-23) H 10/23/22 13:40 Creatinine 1.3 mg/dL (0.7-1.2) H 10/23/22 13:40 GFR Calculation Not Reportable 10/23/22 13:40 Glucose 142 mg/dL (65-115) H 10/23/22 13:40 Calculated Osmolality 281 mOsm/kg (285-295) L 10/23/22 13:40 Calcium 9.7 mg/dL (8.5-10.5) 10/23/22 13:40 Total Bilirubin 0.5 mg/dL (0.15-1.2) 10/23/22 13:40 AST 13 U/L (0-40) 10/23/22 13:40 ALT 10 U/L (0-41) 10/23/22 13:40 Alkaline Phosphatase 279 U/L (40-130) H 10/23/22 13:40 Troponin T Baseline 27 ng/L (0-15) H 10/23/22 13:40 Troponin T 120 Minute 25.01 ng/L (0-15) H 10/23/22 15:39 Delta Troponin T -1.99 ABS# (0-10) L 10/23/22 15:39 NT-Pro-B Natriuret Pep 192 pg/mL (0-450) 10/23/22 13:40 Total Protein 7.2 g/dL (6.6-8.7) 10/23/22 13:40 Albumin 3.2 g/dL (3.5-5.2) L 10/23/22 13:40 Globulin 4.0 g/dL (1.3-4.6) 10/23/22 13:40 Discharge Plan Discharge Patient Disposition: Home Clinical Impression: Leg edema, CHF (congestive heart failure), Closed intertrochanteric fracture of left femur Condition: Stable Prescriptions: No Action (DME) Hospital Bed See Rx Instructions .ROUTE .MEDSUPPLY Qty: 1 0RF Rx Instructions: Please issue hospital bed for weakness, LE edema, heart failure and fall risk. divalproex 500 mg tablet,delayed release (DR/EC) See Rx Instructions .ROUTE .COMPLEX Qty: 60 3RF Dose Instruction: TAKE ONE TABLET BY MOUTH TWICE DAILY AT 8AM AND 8PM Rx Instructions: TAKE ONE TABLET BY MOUTH TWICE DAILY AT 8AM AND 8PM magnesium hydroxide [Milk of Magnesia] 400 mg/5 mL suspension See Rx Instructions .ROUTE .COMPLEX Qty: 3000 5RF Dose Instruction: take 30ml BY MOUTH EVERY 4 HOURS NEEDED FOR FOR GASTRITIS RELIEF Rx Instructions: take 30ml BY MOUTH EVERY 4TH DAY NEEDED FOR FOR CONSTIPATION acetaminophen 325 mg tablet See Rx Instructions .ROUTE .COMPLEX Qty: 120 5RF Dose Instruction: TAKE TWO TABLETS BY MOUTH EVERY 4 HOURS NEEDED FOR PAIN OR ELEVATED TEMPERATURE > 100 Rx Instructions: TAKE TWO TABLETS BY MOUTH EVERY 4 HOURS NEEDED FOR PAIN OR ELEVATED T EMPERATURE > 100 dextromethorphan-guaifenesin [Siltussin-DM] 10-100 mg/5 mL syrup See Rx Instructions .ROUTE .COMPLEX Qty: 237 5RF Dose Instruction: give 10ML BY MOUTH EVERY 4 HOURS NEEDED FOR cough Rx Instructions: give 10ML BY MOUTH EVERY 4 HOURS NEEDED FOR cough Desitin Rapid Relief 13 % cream 1 applic topical DAILY PRN (Reason: diaper rash) Qty: 57 6RF Rx Instructions: Apply to effected areas, PRN for diaper rash. furosemide [Lasix] 40 mg Tablet 60 mg PO DAILY Hold Instructions: Resume on 09/19/22. lorazepam 2 mg Tablet 2 mg PO Q6H PRN (Reason: Agitation) loratadine [Claritin] 10 mg Tablet 10 mg PO BEDTIME Prilosec 20 mg Capsule,Delayed Release(Dr/Ec) 20 mg PO DAILY Mylanta 200-200-20 mg/5 mL Suspension 30 ml PO Q4H PRN (Reason: Gastric Reflux) Rx Instructions: administer between meals olanzapine 10 mg tablet 5 mg PO BID quetiapine 100 mg tablet 100 mg PO BEDTIME Discharge Orders: Discharge ED (Routine); Ordered 10/23/22 Ordered By: Aleln Gonzalez Referrals: Denis Saini DO [Primary Care Provider] - Patient Instructions: Opioid Safety, Pain Management Activity Restrictions/Additional Instructions: Weightbearing as tolerated. Increase the dose of your Lasix from 60 mg daily to 40 mg twice a day. Call Dr. Burris's office to schedule a follow-up appointment. Return if you develop any new or worsening symptoms. Coding Level of Care Code ED Solid Waste Facility Supervisor for Tushar Fwd Exam Comprehensive
[2022-10-23 14:16] LABS: Basophils % 0.6 %; Eosinophils % 0.3 %; Hemoglobin 10.5 g/dL (11.7-16.6); Lymphocytes % 13.4 %; Mean Corpuscular HGB Conc 30.9 g/dL (30.0-36.0); Mean Corpuscular Hemoglobin 28.5 pg (28.0-34.0); Mean Corpuscular Volume 92.4 fl (80-94); Mean Platelet Volume 12.9 fL (7.4-10.4); Monocytes # 0.6 10^3/uL (0.2-0.9); Monocytes % 8.9 %; Neutrophils # 5.44 10^3/uL (1.8-7.7); Neutrophils % 76.4 %; Nucleated Red Blood Cells % 0 %; Platelet Count 64 10^3/cmm (130-400); Red Blood Count 3.68 10^6/uL (4.1-5.3); Red Cell Distribution Width 17.2 % (12.1-15.1); White Blood Count 7.1 10^3/uL (4.0-10.0)
[2022-10-23 14:36] LABS: Troponin(5th) Baseline 27 ng/L (0-15)
[2022-10-23 14:39] LABS: Alanine Aminotransferase 10 U/L (0-41); Albumin Level 3.2 g/dL (3.5-5.2); Alkaline Phosphatase 279 U/L (40-130); Anion Gap 16.8 (5-19); Aspartate Amino Transferase 13 U/L (0-40); Blood Urea Nitrogen 36 mg/dL (8-23); Calcium 9.7 mg/dL (8.5-10.5); Carbon Dioxide 24 mmol/L (22-29); Chloride 93 mmol/L (98-107); Glucose 142 mg/dL (65-115); NT Pro B Type Natriuretic Pept 192 pg/mL (0-450); Osmolality Calculated 281 mOsm/kg (285-295); Potassium 3.8 mmol/L (3.5-5.1); Sodium 130 mmol/L (136-145); Total Bilirubin 0.5 mg/dL (0.15-1.2); Total Protein 7.2 g/dL (6.6-8.7)
--- NOTE | 2022-10-23 14:39 | PC.NURSE ---
WHILE AT BEDSIDE PT LEFT HIP IS SWOLLEN AND TENDER TO PALPATION. SHORTENING AND EXTERNAL ROTATION NOTED TO LEFT FOOT. INFORMED DR. RIGGINS HE PRESENTED TO BEDSIDE TO EVALUATE.
--- NOTE | 2022-10-23 14:48 | ECG_ITS ---
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 Measurements Intervals [place] Rate: 64 P: 108 NE: 164 QRS: 54 QRSD: 102 T: 92 QT: 419 QTc: 435 Interpretive Statements SINUS RHYTHM WITH OCCASIONAL SUPRAVENTRICULAR PREMATURE COMPLEXES NONSPECIFIC T-WAVE ABNORMALITY Compared to ECG 10/23/2022 13:02:18 Sinus bradycardia no longer present Ventricular premature complex(es) no longer present T-wave abnormality still present Electronically Signed On 10-24-2022 7:40:27 PRINCIPAL SOFTWARE ENGINEER by Fab Smith M.D. [email or web address] [email or web address].[email or web address]/[id number]
--- NOTE | 2022-10-23 14:58 | XR_ITS ---
WS: [id number] Exam: XR hip LT 2-3V wo/w pel* [id number] Date/Time of Exam: 10/23/2022 3:01 PM Reason For Exam: left hip pain and abnormality Comminuted intertrochanteric fracture of the left hip noted with some degree of displacement. Extensive callus formation noted suggesting that this fracture is several weeks old. No dislocation. Moderate DJD of the joint compartment. XR/XR hip LT 2-3V wo/w pel* [id number] IMPRESSION: 1. Comminuted intertrochanteric fracture of the left hip showing some degree of displacement. There is avulsion of the lesser trochanter. Lateral displacement of the second prominent fracture fragment seen along the upper femur. Relative ly extensive callus formation about the fracture site suggesting this fracture is several weeks old.
[2022-10-23 16:29] LABS: Troponin 5 2HR 25.01 ng/L (0-15)
[2022-10-23 16:31] LABS: Troponin 5 2HR Delta -1.99 ABS# (0-10)
[2022-10-23] MEDS: FUROsemide 10 mg/mL SDV 4mL 40 MG IM (18:23)
[2022-10-23 18:42] VITALS: BP 136/81; PULSE 74; RESP 18; O2SAT 94
--- NOTE | 2022-10-24 07:49 | PC.NURSE ---
PC TO HOTLINE FOR POTENTIAL NEGLECT/ ABUSE SPOKE WITH MANOLO AND MADE A REPORT.
--- NOTE | 2022-10-24 10:33 | DCPLANNER ---
Addendum entered by Ashley Bucio 11/15/22 08:08: patient Addendum entered by Ashley Bucio 10/26/22 14:17: Patient has a follow up appointment scheduled for Tuesday, November 01, 2022 at 11:[address] Burris at ortho. Clinic will call patient with appointment information. Original Note: population health manager had message to schedule a follow up appointment for patient with ortho. population health manager sent patients information to the front office staff at ortho. Patients information will be printed and reviewed. Clinic will call patient with appointment information.
== END 2022-10-23 18:44 | disposition home or self-care (01) ==
PROVIDERS: Physician Assistant; Emergency Provider Family Medicine; PCP Family Medicine
DX: R60.0 Localized edema (principal); I50.9 Heart failure, unspecified; S72.142A Displaced intertrochanteric fracture of left femur, initial encounter for closed fracture; F03.90 Unspecified dementia, unspecified severity, without behavioral disturbance, psychotic disturbance, mood disturbance, and anxiety; X58.XXXA Exposure to other specified factors, initial encounter
CPT/HCPCS: 36415; 71045; 73502; 80053; 83880; 84484; 85025; 93005; 96372; 99285; J1940

== ENCOUNTER 2022-10-27 08:25 | Inpatient (IN) | payer MEDICARE, MEDICAID, SELFPAY ==
[2022-10-27] VITALS (131 sets, daily range): BP systolic 63–156; BP diastolic 30–100; PULSE 35–110; RESP 4–29; TEMP 26.8–33.9; O2SAT 85–100; BMI 28.8
--- NOTE | 2022-10-27 08:39 | CT_ITS ---
WS: [id number] CT ABDOMEN PELVIS TECHNIQUE: Noncontrast CT of the abdomen and pelvis with coronal and sagittal reformatted images. CLINICAL INFORMATION: Abdominal pain COMPARISON: 7 14,019 DLP: 973.[address] scans at [facility] use at least one of these dose optimization techniques: automated e xposure control; mA and/or kV adjustment per patient size (includes targeted exams where dose is matc hed to clinical indication); or iterative reconstruction. FINDINGS: Small bilateral pleural effusions with compressive atelectasis in the lung bases RIGHT greater than L EFT. A few air bronchograms in the lower lobes and RIGHT middle lobe. Additional partially visualized hazy groundglass infiltrates. Findings compatible with pneumonia. Recommend correlation for viral pn eumonia. Bronchovascular thickening along the visualized lower nate. Mild diffuse body wall anasarca. Normal noncontrast liver. Cholelithiasis. No gallbladder wall thicke shira or pericholecystic fluid. Fatty atrophy of the pancreas. Mild inflammatory stranding and edema along the pancreatic body and tail suspicious for pancreatitis. No drainable fluid collections. Normal GE junction. Proximal stomach appears normal. Noncontrast spl een is normal. Adrenal glands are normal. No hydronephrosis in either kidney. Renal cortical atrophy. Simple RIGHT renal cyst. RIGHT renal cyst measures 3.1 CM. Normal caliber abdominal aorta. Martinez cat heter. Rectosigmoid constipation. Subacute appearing comminuted fractures involving the LEFT intertrochanteric femur partially visualiz ed. Foreshortening of the femoral shaft with callus formation. Mild displacement widening of the frac ture fragments. This is unchanged in appearance since the recent radiographs. Lumbar scoliosis convex LEFT. CT/CT abdomen pelvis wo con [id number] IMPRESSION: 1. Inflammatory stranding and edema about the body and tail pancreas suspicio us for pancreatitis.Correlation with pancreatic enzymes. 2. Small bilateral pleural effusions with compressive atelectasis in the lung bases. Hazy infiltrates in the visualized lung casanova compatible with pneumonia . Recommend correlation with viral pneumonia. 3. Cholelithiasis. No gallbladder wall thickening or pericholecystic fluid. 4. Martinez catheter. 5. Comminuted LEFT intertrochanteric fracture with callus formation and foresh ortening of the LEFT femur unchanged since the prior radiographs. 6. No other acute findings. Notified Paul Hummel DO at 10/27/2022 10:35 AM.
--- NOTE | 2022-10-27 08:39 | ECG_ITS ---
[facility] Test Date: 2022-10-27 Pat Name: Yaakov Toure Department: Room: Gender: Male Manager Line: : 1945 Requested By: Paul Cartwright Order Number: [id number] Milena MD: Melinda Carrion M.D. Measurements Intervals [place] Rate: 46 P: 0 [place]: 0 QRS: 69 QRSD: 109 T: 233 QT: 519 QTc: 455 Interpretive Statements SUPRAVENTRICULAR BRADYCARDIA MODERATE T-WAVE ABNORMALITY, CONSIDER LATERAL ISCHEMIA [-0.1+ mV T-WAVE IN I/aVL/V5/V6] Compared to ECG 10/23/2022 15:26:18 Possible ischemia now present Sinus rhythm no longer present T-wave abnormality still present Electronically Signed On 10-27-2022 22:03:27 LABOR ARBITRATOR by Melinda Carrion M.D. [email or web address]-[email or web address] [email or web address] Circlewadsworth[facility].[employer]/store/NU/[id number] f
--- NOTE | 2022-10-27 08:39 | XR_ITS ---
WS: [id number] Exam: XR chest 1V portable [id number] Date/Time of Exam: 10/27/2022 8:44 AM Reason For Exam: dyspnea/cough Comparison 10/23/2022. Subsegmental atelectasis in both lower lobes with probable associated airspace infiltrates. No pleura l effusions. Decreased lung volumes secondary to limited inspiration. Normal cardiomediastinal silhou ette. Bony structures are intact. No pneumothorax. XR/XR chest 1V portable [id number] IMPRESSION: 1. Subsegmental atelectasis in both lung bases with probable airspace infiltrat es. Superimposed pneumonia is considered likely. 2. Low lung volumes secondary to limited inspiration.
[2022-10-27 08:49] LABS: Hematocrit 32.4 % (42.0-52.0); Hemoglobin 10.3 g/dL (11.7-16.6); Mean Corpuscular HGB Conc 31.8 g/dL (30.0-36.0); Mean Corpuscular Hemoglobin 28.5 pg (28.0-34.0); Mean Corpuscular Volume 89.5 fl (80-94); Platelet Count 29 10^3/cmm (130-400); Red Blood Count 3.62 10^6/uL (4.1-5.3); Red Cell Distribution Width 16.6 % (12.1-15.1); White Blood Count 6.8 10^3/uL (4.0-10.0)
[2022-10-27 09:06] LABS: Lactic Sepsis W/Reflex 1.9 mmol/L (0.5-2.2)
[2022-10-27 09:07] LABS: Troponin(5th) Baseline 28 ng/L (0-15)
[2022-10-27 09:15] LABS: Alanine Aminotransferase 18 U/L (0-41); Alkaline Phosphatase 252 U/L (40-130); Anion Gap 13.8 (5-19); Aspartate Amino Transferase 18 U/L (0-40); Blood Urea Nitrogen 36 mg/dL (8-23); Calcium 9.7 mg/dL (8.5-10.5); Carbon Dioxide 31 mmol/L (22-29); Chloride 91 mmol/L (98-107); Creatine Phosphokinase 73 U/L (39-308); Globulin 3.6 g/dL (1.3-4.6); Glucose 158 mg/dL (65-115); Lipase 117 U/L (13-60); Magnesium 2.2 mg/dL (1.7-2.3); NT Pro B Type Natriuretic Pept 540 pg/mL (0-450); Osmolality Calculated 286 mOsm/kg (285-295); Potassium 3.8 mmol/L (3.5-5.1); Sodium 132 mmol/L (136-145); Total Bilirubin 0.5 mg/dL (0.15-1.2); Total Protein 6.6 g/dL (6.6-8.7)
[2022-10-27 09:16] LABS: Absolute Neutrophil 5.5 10^3/cmm (1.4-6.5); Absolute Segmented Neutrophil 4.5 10/cmm (1.6-7.1); Eosinophils 0 %; Lymphocytes 11 %; Lymphocytes Absolute 0.7 10^3/cmm (1.2-3.4); Monocytes Absolute 0.5 10^3/cmm (0.1-0.6); Platelet Estimate Decreased (Normal); Segmented Neutrophils 66 %; Total Cells Counted 100 (0-100)
--- NOTE | 2022-10-27 09:23 | W.ED.GENADLT ---
HPI - General Adult General: Chief complaint: Altered Mental Status Stated complaint: LOW HR/ CHF Time Seen by Provider: 10/27/22 08:35 Source: EMS Mode of arrival: EMS History of Present Illness: 77-year-old male presents emergency room via EMS from a local [facility]. Patient has altered mental status. . He is given 40 mg of Lasix by EMS. Patient is not on any beta-blockers digoxin and amiodarone or any other negative inotropes. He is unable to provide any further information. He did have an echocardiogram in August 2020 that showed an ejection fraction of 60% PFS ED PFSH: Medical History Altered mental status Bipolar 1 disorder Closed right hip fracture Colorectal polyp detected on colonoscopy Dementia 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 Intermittent explosive disorder Leg edema Normal colonoscopy Obsessive-compulsive behavior Organic affective disorder Pneumonia Subdural hematoma (~10/2019) Traumatic subdural hematoma Subtrochanteric fracture of femur Surgical History History of hip surgery Hx of colonoscopy Family History Other Family history non-contributory Social History Smoking and tobacco status: never smoked Alcohol intake: never History of recent travel: No Current gender identity: Male Procedures Central Line Placement Left IJ: Time Out Performed: Yes Patient Placed on Monitor/Pulse Ox: Yes Prep: mask, gown and gloves Central Line Prep: Chlorhexidine scrub Local Anesthetic: lidocaine 1% Amount of anesthesia used (mL): 4 Ultrasound Used for Placement: Yes Central Line Lumen Inserted: triple Post Procedure: sutured in place, good blood return, all ports aspirated, flushed, capped and sterile dressing applied Post Procedure X-Ray: tip of catheter in good position Patient Tolerated Procedure: well Complications: none Course Vital Signs: Vital signs: Vital Signs Temperature 100.2 F H 10/29/22 07:53 Pulse Rate 78 10/29/22 07:53 Respiratory Rate 6 L 10/31/22 14:39 Blood Pressure 100/65 10/29/22 07:53 Pulse Oximetry 93 10/29/22 07:53 Oxygen Delivery Me thod 10/29/22 07:53 Oxygen Flow Rate 5 10/28/22 08:55 MDM - General Adult Medical Decision Making Patient obtunded he is normal minimal baseline but is worse. Head CT is unremarkable chest x-ray. Questionable superimposed pneumonia. There is some questionable inflammatory stranding of the pancreas and a CT sinuses without cholecystitis. There is an old left intertrochanteric fracture. Patient was hypothermic uncertain as to why staff says that he was not exposed to cold excessively. Deven hugger was placed. Central line was placed for access even started on prophylactic antibiotics ceftriaxone and Zithromax. Pneumonia. He was profoundly bradycardic initially was started on dopamine he been given Lasix in the field his blood pressure worsening was later switched to Levophed after central line was placed. Discussed with hospitalist orders written. Patient was also noted to be extremely bradycardic with heart rate down into the 30s at times. Family has made the patient in no code. Medical Records I reviewed the patient's medical records. Lab Data I reviewed the patient's lab results. 10/27/22 08:38 10/27/22 08:38 Radiology Impressions Abdomen/Pelvis CT 10/27/22 08:39 IMPRESSION: 1. Inflammatory stranding and edema about the body and tail pancreas suspicious for pancreatitis.Correlation with pancreatic enzymes. 2. Small bilateral pleural effusions with compressive atelectasis in the lung bases. Hazy infiltrates in the visualized lung casanova compatible with pneumonia. Recommend correlation with viral pneumonia. 3. Cholelithiasis. No gallbladder wall thickening or pericholecystic fluid. 4. Martinez catheter. 5. Comminuted LEFT intertrochanteric fracture with callus formation and foreshortening of the LEFT femur unchanged since the prior radiographs. 6. No other acute findings. Notified Palu Hummel DO at 10/27/2022 10:[address] 10/27/22 10:53 IMPRESSION: 1. No evidence of intracranial hemorrhage or mass effect. 2. Mild small vessel changes. Mild parenchymal volume loss. 3. No acute intracranial findings. Chest X-Ray 10/27/22 14:31 IMPRESSION: 1. Left-sided IJ line ending in the distal SVC in good position. 2. Again noted are infiltrates and areas of atelectasis in the lower lung zones showing little change since the last exam. Small left pleural effusion has developed. Laboratory Results WBC 6.0 10^3/uL (4.0-10.0) 10/27/22 12:00 RBC 3.11 10^6/uL (4.1-5.3) L 10/27/22 12:00 Hgb 8.9 g/dL (11.7-16.6) L 10/27/22 12:00 Hct 28.2 % (42.0-52.0) L 10/27/22 12:00 MCV 90.7 fl (80-94) 10/27/22 12:00 MCH 28.6 pg (28.0-34.0) 10/27/22 12:00 MCHC 31.6 g/dL (30.0-36.0) 10/27/22 12:00 RDW 16.8 % (12.1-15.1) H 10/27/22 12:00 Plt Count 24 10^3/cmm (130-400) L* 10/27/22 12:00 MPV fL (7.4-10.4) 10/27/22 12:00 Neut % (Auto) 92.5 % 10/27/22 12:00 Lymph % (Auto) 3.5 % 10/27/22 12:00 [place] % (Auto) 2.7 % 10/27/22 12:00 Eos % (Auto) 0.0 % 10/27/22 12:00 Baso % (Auto) 1.0 % 10/27/22 12:00 Neut # (Auto) 5.53 10^3/uL (1.8-7.7) 10/27/22 12:00 Lymph # (Auto) 0.2 10^3/uL (0.8-4.8) L 10/27/22 12:00 [place] # (Auto) 0.2 10^3/uL (0.2-0.9) 10/27/22 12:00 Eos # (Auto) 0.0 10^3/uL (0.0-0.8) 10/27/22 12:00 Baso # (Auto) 0.1 10^3/uL (0.0-0.1) 10/27/22 12:00 Nucleated RBC % (auto) 0.7 % 10/27/22 12:00 Total Counted 100 (0-100) 10/27/22 08:38 Atypical Lymphs % 0.0 % (0-5) 10/27/22 08:38 Absolute Neutrophils 5.5 10^3/cmm (1.4-6.5) 10/27/22 08:38 Segmented Neutrophils 66 % 10/27/22 08:38 Abs Segm Neuts (Man) 4.5 10/cmm (1.6-7.1) 10/27/22 08:38 Band Neutrophils 15.0 % 10/27/22 08:38 Abs Band Neuts (Man) 1.0 10^3/cmm (0.0-1.2) 10/27/22 08:38 Absolute Lymphocytes 0.7 10^3/cmm (1.2-3.4) L 10/27/22 08:38 Lymphocytes (Manual) 11 % 10/27/22 08:38 Monocytes (Manual) 8.0 % 10/27/22 08:38 Absolute Monocytes 0.5 10^3/cmm (0.1-0.6) 10/27/22 08:38 Eosinophils (Manual) 0 % 10/27/22 08:38 Absolute Eosinophils 0.0 10^3/cmm (0.0-0.7) 10/27/22 08:38 Basophils (Manual) 0.0 % 10/27/22 08:38 Absolute Basophils 0.0 10^3/cmm (0.0-0.2) 10/27/22 08:38 Nucleated RBCs # 0.0 /100WBC 10/27/22 12:00 Platelet Estimate Decreased (Normal) 10/27/22 08:38 Haptoglobin 25.0 mg/L (30-200) L 10/27/22 08:38 PT 16.70 SECONDS (12.1-14.9) H 10/27/22 12:00 INR 1.31 (0.8-1.2) H 10/27/22 12:00 APTT 52.1 SECONDS (23.9-36.7) H 10/27/22 12:00 Fibrinogen 550 mg/dL (174-498) H 10/27/22 12:00 Fibrin Degrad Products Pos, 10-40 ug/mL (NEG) H 10/27/22 12:00 D-Dimer 2.00 ug/mIFEU (0-0.59) H 10/27/22 12:00 Specimen Type Arterial 10/27/22 11:49 Sample Site Radial, left 10/27/22 11:49 ABG pH 7.40 (7.35-7.45) 10/27/22 11:49 ABG pCO2 51.0 mmHg (35-45) H 10/27/22 11:49 ABG pO2 84.7 mmHg (80.0-100.0) 10/27/22 11:49 ABG HCO3 31.3 mmol/L (22-26) H 10/27/22 11:49 ABG O2 Saturation 96.8 10/27/22 11:49 ABG Base Excess 5.7 mmol/L (-2.0-2.0) H 10/27/22 11:49 Alexis Test Pos 10/27/22 11:49 A-a O2 Gradient 0.3 mmHg (5-10) L 10/27/22 11:49 Hematocrit 24.7 % (42-52) L 10/27/22 11:49 Hgb O2 Saturation 93.5 % (95-100) L 10/27/22 11:49 Carboxyhemoglobin 2.1 %THgb (0.4-20.1) 10/27/22 11:49 Methemoglobin 1.3 % (0.4-1.5) 10/27/22 11:49 Total Hemoglobin 8.1 g/dL (14-18) L 10/27/22 11:49 Sodium 134.0 mmol/L (131-143) 10/27/22 11:49 Potassium 3.4 mmol/L (3.5-5.0) L 10/27/22 11:49 Glucose 149.0 mg/dL (70-115) H 10/27/22 11:49 Ionized Calcium 1.2 mmol/L (1.1-1.4) 10/27/22 11:49 O2 Delivery Device Nrb 10/27/22 11:49 O2 Liters/Min 12.0 % 10/27/22 11:49 Granite Block Paver ID Cak 10/27/22 11:49 Sodium 132 mmol/L (136-145) L 10/27/22 08:38 Potassium 3.8 mmol/L (3.5-5.1) 10/27/22 08:38 Chloride 91 mmol/L (98-107) L 10/27/22 08:38 Carbon Dioxide 31 mmol/L (22-29) H 10/27/22 08:38 Anion Gap 13.8 (5-19) 10/27/22 08:38 BUN 36 mg/dL (8-23) H 10/27/22 08:38 Creatinine 1.2 mg/dL (0.7-1.2) 10/27/22 08:38 GFR Calculation Not Reportable 10/27/22 08:38 Glucose 158 mg/dL (65-115) H 10/27/22 08:38 Calculated Osmolality 286 mOsm/kg (285-295) 10/27/22 08:38 Lactic Acid 1.9 mmol/L (0.5-2.2) 10/27/22 08:38 Calcium 9.7 mg/dL (8.5-10.5) 10/27/22 08:38 Magnesium 2.2 mg/dL (1.7-2.3) 10/27/22 08:38 Iron 57 ug/dL (59-158) L 10/27/22 08:38 TIBC 271 mcg/dl 10/27/22 08:38 % Saturation 21.0 % (20-50) 10/27/22 08:38 Unsat Iron Binding 214 ug/dL (112-347) 10/27/22 08:38 Ferritin 1146 ng/mL (30-400) H 10/27/22 08:38 Total Bilirubin 0.5 mg/dL (0.15-1.2) 10/27/22 08:38 AST 18 U/L (0-40) 10/27/22 08:38 ALT 18 U/L (0-41) 10/27/22 08:38 Alkaline Phosphatase 252 U/L (40-130) H 10/27/22 08:38 Creatine Kinase 73 U/L (39-308) 10/27/22 08:38 Troponin T Baseline 28 ng/L (0-15) H 10/27/22 08:38 Troponin T 120 Minute 26.09 ng/L (0-15) H 10/27/22 10:40 Delta Troponin T -1.91 ABS# (0-10) L 10/27/22 10:40 NT-Pro-B Natriuret Pep 540 pg/mL (0-450) H 10/27/22 08:38 Total Protein 6.6 g/dL (6.6-8.7) 10/27/22 08:38 Albumin 3.0 g/dL (3.5-5.2) L 10/27/22 08:38 Globulin 3.6 g/dL (1.3-4.6) 10/27/22 08:38 Lipase 117 U/L (13-60) H 10/27/22 08:38 Vitamin B12 > 2000 pg/mL (232-1245) H 10/27/22 08:38 Folate 5.7 ng/mL (4.5-32.2) 10/27/22 08:38 TSH 6.89 uIU/mL (0.27-4.20) H 10/27/22 08:38 Urine Color Yellow (Yellow) 10/27/22 09:18 Urine Appearance Clear (CLEAR) 10/27/22 09:18 Urine pH 5 (5-7) 10/27/22 09:18 Ur Specific [place] 1.015 (1.005-1.030) 10/27/22 09:18 Urine Protein Neg (Negative) 10/27/22 09:18 Urine Glucose (UA) Norm (Normal) 10/27/22 09:18 Urine Ketones Negative (Negative) 10/27/22 09:18 Urine Blood Neg (Negative) 10/27/22 09:18 Urine Nitrate Negative (Negative) 10/27/22 09:18 Urine Bilirubin Neg (Negative) 10/27/22 09:18 Urine Urobilinogen Neg mg/dL (Negative) 10/27/22 09:18 Ur Leukocyte Esterase Negative (Negative) 10/27/22 09:18 Valproic Acid 42.9 ug/mL (50-100) L 10/27/22 08:38 Lymphoma Panel See report 10/27/22 12:00 Immunophenotype Interp See report 10/27/22 12:00 Coronavirus 229E (PCR) Not detected (NOT DETECT) 10/27/22 11:25 Human Metapneumovir PCR Not detected (NOT DETECT) 10/27/22 13:17 Influenza Type A Ag negative (Negative) 10/27/22 09:18 Influenza Type B Ag negative (Negative) 10/27/22 09:18 Entero/Rhino (PCR) Detected (NOT DETECT) A 10/27/22 13:17 SARS-CoV-2 (PCR) Not detected (NOT DETECT) 10/27/22 11:25 Critical Care Time Critical Care Time: Critical Care Time: Yes Total Critical Care Time: 45 Attestation: The high probability of a clinically significant, sudden or life threatening deterioration of the patient's cardivascular, respiratory, renal system(s) required my full and direct attention, intervention and personal management. The critical care time is as shown. This time is in addition to time spent performing any reported procedures but includes the following: [x] Data and vital sign review and interpretation [x] Patient assessment, examination and intervention [x] Documentation [x] Medication orders and management Discharge Plan Discharge Patient Disposition: Admitted As Inpatient Admit Provider: Nick Todd Clinical Impression: Sepsis, GIRISH (acute kidney injury), CHF (congestive heart failure), Community acquired pneumonia, Cognitive impairment, Thrombocytopenia, Anemia, Acute metabolic encephalopathy, Closed intertrochanteric fracture of left hip Condition: Stable Coding Level of Care Code ED Office Services Coordinator for Tushar Galvez
[2022-10-27 09:27] LABS: Add Urine Microscopic? NO; Charge for UA Resulting for Rev
--- NOTE | 2022-10-27 09:27 | ECG_ITS ---
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 Measurements Intervals Harper Rate: 42 P: 77 LA: 204 QRS: 72 QRSD: 111 T: 227 QT: 545 QTc: 457 Interpretive Statements SINUS BRADYCARDIA WITH OCCASIONAL VENTRICULAR PREMATURE COMPLEXES MODERATE INTRAVENTRICULAR CONDUCTION DELAY [110+ ms QRS DURATION] MODERATE T-WAVE ABNORMALITY, CONSIDER ANTEROLATERAL ISCHEMIA [-0.1+ mV T-WAVE IN V3-V6] MODERATE T-WAVE ABNORMALITY, CONSIDER INFERIOR ISCHEMIA [-0.1+ mV T-WAVE IN II/aVF] Compared to ECG 10/23/2022 15:26:18 Ventricular premature complex(es) now present Intraventricular conduction delay now present Possible ischemia now present Sinus rhythm no longer present T-wave abnormality still present Electronically Signed On 10-27-2022 22:02:22 FACULTY ADMINISTRATOR by Melinda Carrion M.D. [id number]
[2022-10-27 09:32] LABS: Bilirubin Urine Neg (Negative); Blood Urine Neg (Negative); Glucose Urine UA Norm (Normal); Ketones Urine Negative (Negative); Leukocyte Esterase Urine Negative (Negative); Nitrate Urine Negative (Negative); Protein Urine Neg (Negative); Specific Gravity, Urine 1.015 (1.005-1.030); Urine Appearance Clear (CLEAR); Urine Color Yellow (Yellow); Urobilinogen Urine Neg (Negative); pH Urine 5 (5-7)
[2022-10-27 09:47] LABS: Influenza A by IFA negative (Negative); Influenza B by IFA negative (Negative)
--- NOTE | 2022-10-27 10:36 | PC.PHAR ---
Addendum entered by Dottie Sarkar 10/27/22 10:39: [facility] STATES THE PT HAS HAD NO MEDICATIONS TODAY Original Note: PT IS FROM [facility] HISTORY SHOWS KCL 10MEQ BID FILLED 10/25/22 PTS [facility] STATES THEY WERENT AWARE OF THE ORDER AND STATES THE PT HASNT STARTED TAKING KCL
[2022-10-27] MEDS: cefTRIAXone 1,000 MG in sodium chloride 0.9% (plus) 50 ML 100 MG IV (10:40)
--- NOTE | 2022-10-27 10:45 | ECG_ITS ---
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 Measurements Intervals [place] Rate: 49 P: 70 LA: 179 QRS: 72 QRSD: 111 T: 159 QT: 517 QTc: 468 Interpretive Statements SINUS BRADYCARDIA MODERATE INTRAVENTRICULAR CONDUCTION DELAY [110+ ms QRS DURATION] MODERATE T-WAVE ABNORMALITY, CONSIDER LATERAL ISCHEMIA [-0.1+ mV T-WAVE IN I/aVL/V5/V6] Compared to ECG 10/27/2022 09:27:52 Ventricular premature complex(es) no longer present T-wave abnormality still present Possible ischemia still present Electronically Signed On 10-27-2022 22:21:30 REIMBURSEMENT CONSULTANT by Melinda Carrion M.D. [id number]
--- NOTE | 2022-10-27 10:53 | CT_ITS ---
WS: [id number] CT HEAD TECHNIQUE: Noncontrast CT of the head obtained from the skullbase to the vertex. CLINICAL INFORMATION: AMS COMPARISON: CT September 01, 2022 DLP: 1244.[address] scans at [facility] use at least one of these dose optimization techniques: automated e xposure control; mA and/or kV adjustment per patient size (includes targeted exams where dose is matc hed to clinical indication); or iterative reconstruction. FINDINGS: No evidence of intracranial hemorrhage or mass effect. Ventricular system and basal cisterns are ortiz nt. Mild small vessel changes with mild parenchymal volume loss. No extra-axial fluid collections. No evidence of mass or mass effect. Paranasal sinuses and mastoid air cells are well aerated. Mild polypoid mucosal thickening LEFT maxil jaycee sinus. Mild mucosal thickening ethmoid air cells. .Normal visualized soft tissues. CT/CT head wo con* [id number] IMPRESSION: 1. No evidence of intracranial hemorrhage or mass effect. 2. Mild small vessel changes. Mild parenchymal volume loss. 3. No acute intracranial findings.
[2022-10-27] MEDS: DOPamine drip 400 MG/250 ML PREMIX 9.7 MG IV (10:54)
[2022-10-27] MEDS: azithromycin 500 MG in sodium chloride 0.9% 250 ML 250 MG IV (10:54)
[2022-10-27] MEDS: sodium chloride 0.9% 500 ML 999 ML IV ×2 (11:04→11:50)
[2022-10-27 11:07] LABS: Troponin 5 2HR 26.09 ng/L (0-15)
[2022-10-27 11:14] LABS: Troponin 5 2HR Delta -1.91 ABS# (0-10)
[2022-10-27 12:01] LABS: Alveolar-Arterial Oxygen Gradi 0.3 mmHg (5-10); Arterial Blood Gas Hematocrit 24.7 % (42-52); Base Excess ABG 5.7 mmol/L (-2.0-2.0); Blood Gas Allen Test Pos; Blood Gas Operator Identificat CAK; Blood Gas Sample Site Radial, left; Blood Gas Sample Type Arterial; Carboxyhemoglobin 2.1 %THgb (0.4-20.1); HCO3 ABG 31.3 mmol/L (22-26); HGB O2 Sat 93.5 % (95-100); Ionized Calcium Level - ABG 1.2 mmol/L (1.1-1.4); Methemoglobin 1.3 % (0.4-1.5); Oxygen Device NRB; Oxygen Saturation ABG 96.8; PO2 ABG 84.7 mmHg (80.0-100.0); Potassium Level - ABG 3.4 mmol/L (3.5-5.0); Total Hemoglobin 8.1 g/dL (14-18)
[2022-10-27 12:15] LABS: Valproic Acid Level 42.9 ug/mL (50-100)
[2022-10-27 12:25] LABS: INR 1.31 (0.8-1.2)
[2022-10-27 12:25] LABS: LAB Peripheral Smear Sent for Review
[2022-10-27 12:26] LABS: Fibrinogen 550 mg/dL (174-498); Partial Thromboplastin Time 52.1 SECONDS (23.9-36.7)
[2022-10-27 12:37] LABS: Basophils # 0.1 10^3/uL (0.0-0.1); Hematocrit 28.2 % (42.0-52.0); Hemoglobin 8.9 g/dL (11.7-16.6); Lymphocytes # 0.2 10^3/uL (0.8-4.8); Lymphocytes % 3.5 %; Mean Corpuscular HGB Conc 31.6 g/dL (30.0-36.0); Mean Corpuscular Hemoglobin 28.6 pg (28.0-34.0); Mean Corpuscular Volume 90.7 fl (80-94); Monocytes # 0.2 10^3/uL (0.2-0.9); Monocytes % 2.7 %; Neutrophils # 5.53 10^3/uL (1.8-7.7); Neutrophils % 92.5 %; Nucleated Red Blood Cells % 0.7 %; Red Blood Count 3.11 10^6/uL (4.1-5.3); Red Cell Distribution Width 16.8 % (12.1-15.1)
[2022-10-27 12:41] LABS: Platelet Count 24 10^3/cmm (130-400)
[2022-10-27 12:45] LABS: Slide Review Slide Review Perform
--- NOTE | 2022-10-27 13:09 | PM.HP ---
Providers/Chief Complaint Primary Care Provider: Denis Saini DO Chief Complaint: LOW HR/ CHF History of Present Illness Yaakov Toure is a 77 year old male presenting to the emergency department with diminished responsiveness. He had had a recent emergency department visit on October 23, for concerns of pneumonia where he was diagnosed with CHF exacerbation. He did okay for a while, but this morning responsiveness was less and he appeared to have some difficulty breathing. No fevers have been noted. He has not had any vomiting or diarrhea. He has been significantly impaired since , has a vocabulary of approximately 3 words, and as he is bedbound activity consists of occasionally throwing a pillow. In the emergency department there was concern of sepsis. Heart rate was also found to be low, hypotension, hypothermia. Abdomen and pelvis CT demonstrated likely pneumonia, left hip fracture with callus formation as present on previous films October 23. He is receiving a sepsis fluid bolus in the ER. Dopamine is being changed to norepinephrine. He has received Rocephin and azithromycin. Blood cultures have been drawn. Lactate was not elevated. Review of Systems General: Reports: ROS unobtainable due to mental status (Patient unable to communicate even at baseline adequately for review of sys) Medications/Allergies Home Medications Medication Instructions Recorded Confirmed Last Taken Type loratadine 10 mg tablet (Claritin) 10 mg PO BEDTIME@20 09/02/22 10/27/22 10/26/22 History lorazepam 2 mg tablet 2 mg PO Q6H PRN Agitation 09/02/22 10/27/22 Unknown History acetaminophen 325 mg tablet See Rx Instructions .Route 10/05/22 10/27/22 Unknown Rx .COMPLEX #120 tabs magnesium hydroxide 400 mg/5 mL See Rx Instructions .Route 10/05/22 10/27/22 Unknown Rx oral suspension (Milk of Magnesia) .COMPLEX #3,000 mL Hospital Bed #1 ea 10/08/22 10/27/22 Unknown Rx zinc oxide 13 % topical cream 1 applic topical DAILY PRN diaper 10/18/22 10/27/22 Unknown Rx (Desitin Rapid Relief) rash #57 grams olanzapine 10 mg tablet 5 mg PO BID@08,20 10/23/22 10/27/22 10/26/22 History omeprazole 20 mg capsule,delayed 20 mg PO DAILY@08 10/23/22 10/27/22 10/26/22 History release quetiapine 100 mg tablet 100 mg PO BEDTIME@20 10/23/22 10/27/22 10/26/22 History potassium chloride 10 mEq 10 meq PO BID #60 tabs 10/25/22 10/27/22 Unknown Rx tablet,extended release aluminum-mag hydroxide-simethicone 30 ml PO Q4H PRN Gastric Reflux 10/27/22 10/27/22 Unknown History 200 mg-200 mg-20 mg/5 mL oral susp bismuth subsalicylate 262 mg/15 mL 524 mg PO Q4H PRN Stomach Upset 10/27/22 10/27/22 Unknown History oral suspension (Pepto-Bismol) carbamide peroxide 6.5 % ear drops See Rx Instructions .Route .COMPLEX 10/27/22 10/27/22 Unknown History (Ear Wax Removal Drops) dextromethorphan-guaifenesin 10 10 ml PO Q4H PRN Cough 10/27/22 10/27/22 Unknown History mg-100 mg/5 mL oral syrup (Robafen DM Cough-Chest Congestion) divalproex 500 mg tablet,delayed 500 mg PO BID@08,20 10/27/22 10/27/22 10/26/22 History release food supplemt, lactose-reduced 1 ea PO DAILY PRN UNKNOWN 10/27/22 10/27/22 Unknown History (Ensure oral liquid) furosemide 40 mg tablet (Lasix) 40 mg PO BID@06,14 10/27/22 10/27/22 10/26/22 History lip protectant 0.6 %-0.5 %-1.1 See Rx Instructions .Route .COMPLEX 10/27/22 10/27/22 Unknown History %-0.5 % topical ointment neomycin-bacitracn Zn-polymyxn 3.5 See Rx Instructions .Route .COMPLEX 10/27/22 10/27/22 Unknown History mg-400 unit-5,000 unit top oint pkt (Neosporin(gte-apl-tcpky)) oxybenzone-padimate o lotion See Rx Instructions .Route .COMPLEX 10/27/22 10/27/22 Unknown History Allergies Allergy/AdvReac Type Severity Reaction Status Date / Time No Known Allergies Allergy Verified 10/27/22 10:06 PFSH Acute PFSH: Medical History Altered mental status Bipolar 1 disorder Closed right hip fracture Colorectal polyp detected on colonoscopy Dementia 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 Intermittent explosive disorder Leg edema Normal colonoscopy Obsessive-compulsive behavior Organic affective disorder Pneumonia Subdural hematoma (~10/2019) Traumatic subdural hematoma Subtrochanteric fracture of femur Surgical History History of hip surgery Hx of colonoscopy Family History Other Family history non-contributory Social History Smoking and tobacco status: never smoked Alcohol intake: never History of recent travel: No Current gender identity: Male Vitals/I&O/Wt Last Vital Signs Temp 82.5 F L 10/27/22 08:36 Pulse 45 L 10/27/22 11:20 Resp 19 H 10/27/22 11:20 BP 65/38 10/27/22 11:20 Pulse Ox 90 10/27/22 11:20 O2 Del Method 10/27/22 09:21 O2 Flow Rate 3 10/27/22 09:21 10/26/22 10/27/22 10/27/22 22:59 06:59 14:59 Intake Total 543.586 / 543.586 Balance 543.586 / 543.586 Weight last 48 hrs Weight 86.183 kg Physical Exam Narrative: General exam is a male, who is very hard to get to respond even with sternal rub. Guardian is at bedside. HEENT: Pupils somewhat diminished but equally round. Oropharynx clear. Neck is supple Cardiovascular bradycardic initially in the ER, but for my exam regular rate and rhythm with a heart rate of 75 on dopamine. I do not auscultate a murmur. Lungs diminished breath sounds bilaterally, with coarse breath sounds at the bases Abdomen is soft. No evident tenderness. No obvious organomegaly exam is deferred Extremities 2-3+ edema bilaterally Skin no rash Neuro no obvious focal deficits Urinary Catheter Management: Martinez: Cath Placed During This Visit: yes Urinary Catheter Date of Insertion: 10/27/22 Urinary Catheter Time of Insertion: 08:36 Sepsis: Is patient septic: Yes Focused sepsis exam performed: Yes Date exam was performed: 10/27/22 Time exam was performed: 13:09 Data 10/27/22 12:00 10/27/22 08:38 Other Labs: Abdomen and pelvis CT demonstrated inflammatory stranding around the pancreas, small bilateral effusions with infiltrates bilaterally, cholelithiasis without cholecystitis, comminuted left intertrochanteric fracture with callus formation as previously visualized on October 23 Chest x-ray consistent with pneumonia Head CT no acute findings Note platelet count in the 20s, this was repeated and confirmed. Initial hemoglobin 10.3 with repeat of 8.9 after hydration Haptoglobin slightly low at 25 DIC panel positive with PTT of 52, pro time of 16, dimer of 2, fibrinogen of 550 ABG with a pH of 7.4, PCO2 51, PO2 85 on 12 L LFTs largely normal with exception of alk phos of 252 CK 73 Troponin 28 with repeat of 26 BNP 540 Albumin 3 Lipase 117 Calcium 9.7 Urinalysis negative Valproic acid level 43 Coronavirus negative. Entero-/rhinovirus PCR positive Influenza negative Peripheral smear, verbal from pathology demonstrates no blasts, no mention of schistocytes Initial EKG demonstrated bradycardia, rate of 46. P waves difficult to see. T waves flipped V4 through 6 Repeat EKG demonstrates what appears to be sinus bradycardia with normal axis. T waves are still flipped. Intraventricular conduction delay noted. Micro: Microbiology 10/27/22 09:06 Blood Culture - Preliminary Blood SPECIMEN COLLECTED 10/27/22 09:00 Blood Culture - Preliminary Blood SPECIMEN COLLECTED A&P Assessment and plan (1) Sepsis: Patient presents with sepsis, with septic shock. Lactic acid was not elevated Endorgan dysfunction was noted with encephalopathy. Hypothermia is present. Severe thrombocytopenia. DIC. Source of infection pneumonia. Sepsis bolus has been ordered by the emergency department Outcome is guarded Blood cultures have been obtained. Sputum cultures cannot be obtained currently, but will reevaluate if can. Broad-spectrum antibiotics with vancomycin and Zosyn Bradycardia noted as well. Norepinephrine initiated for bradycardia as well as hypotension. Echocardiogram ordered (2) Community acquired pneumonia: Has evidence for pneumonia Secondary to severity of sepsis initiate vancomycin and Zosyn MRSA PCR Sputum culture will not be able to be obtained Blood culture was drawn Qualifiers: Laterality: right Lung location: unspecified part of lung Qualified Code(s): J18.9 - Pneumonia, unspecified organism (3) Edema: Patient with significant edema to his lower extremities. From my understanding he is bedbound and likely has some element of venous stasis. However, left side is more swollen than the right. It is conceivable with his fracture to his left femur that he could have a DVT. Check venous duplex bilaterally (4) Closed intertrochanteric fracture of left femur: Has callus formation, likely old, not recommended for any kind of repair considering clinical status (5) Thrombocytopenia: Severe thrombocytopenia. This is likely related to DIC from sepsis. TTP felt to be unlikely, which was double checked against the TTP likelihood calculator(PLASMIC score) (6) Cognitive impairment: Patient with underlying severe cognitive impairment, since impairing his quality of life which has decreased in the last several years. (7) Anemia: Has noted chronic anemia Protonix 40 mg IV twice daily prophylaxis Check anemia panel, stool Hemoccult (8) Acute metabolic encephalopathy: Presents with acute metabolic encephalopathy, superimposed on severe neurologic impairment. This is likely to sepsis CT head noncontrast no acute changes Plan Other medical problems as listed in past medical history Allow natural . Discussed in detail with guardian SCDs for DVT prophylaxis. Anticoagulation contraindicated secondary to low platelets and anemia Protonix for GI prophylaxis Attestations Medical Necessity Statement*: Will require greater than 2 midnight stay secondary to sepsis with septic shock Critical Care Time: The high probability of a clinically significant, sudden or life threatening deterioration of the patient's [neurologic, pulmonary, hematologic] system(s) required my full and direct attention, intervention and personal management. The critical care time is as shown. This time is in addition to time spent performing any reported procedures but includes the following: [x] Data and vital sign review and interpretation [x] Patient assessment, examination and intervention [x] Documentation [x] Medication orders and management Critical Care Time (min): 68 Coding Level of Care Code Acute Code for [facility] Fwd Diagnoses Sepsis A41.9 Community acquired pneumonia J18.9 Laterality: right Lung location: unspecified part of lung Edema R60.9 Closed intertrochanteric fracture of left femur S72.142A Thrombocytopenia D69.6 Cognitive impairment R41.89 Anemia D64.9 Acute metabolic encephalopathy G93.41
--- NOTE | 2022-10-27 13:15 | USCV_ITS ---
Yaakov Toure Age: 77 Gender: M : 1945 Exam Date: 10/27/2022 15:23 Ordering Phys: Nick Todd MD Technologist: CT Exam Location: [facility] [place]_ Indication: PROCEDURES: Bilaterally, the common femoral, superficial femoral, profunda femoral, popliteal, posterior tibial, greater saphenous veins, and the peroneal trunk were identified and interrogated in the standard fashion. These veins were found to be easily compressible with spontaneous blood flow. No evidence of insufficiency or thrombus noted. In addition, the posterior tibial and peroneal trunk were evaluated. FINDINGS: normal us CONCLUSIONS No evidence of right lower extremity DVT. No evidence of left lower extremity DVT. Itz Orta MD (Electronically Signed) Final Date: 27 October 2022 16:40 S
[2022-10-27 13:16] LABS: Adenovirus Not Detected (NOT DETECT); Chlamydia Pneumoniae Not Detected (NOT DETECT); Coronavirus 229E,HKU1,NL63,OC4 Not Detected (NOT DETECT); Human Metapneumovirus Not Detected (NOT DETECT); Human Rhinovirus/Enterovirus Detected (NOT DETECT); Influenza A Not Detected (NOT DETECT); Influenza A H1 Not Detected (NOT DETECT); Influenza A H1-2009 Not Detected (NOT DETECT); Influenza A H3 Not Detected (NOT DETECT); Influenza B Not Detected (NOT DETECT); Mycoplasma Pneumoniae Not Detected (NOT DETECT); Parainfluenza Virus Type 1 Not Detected (NOT DETECT); Parainfluenza Virus Type 2 Not Detected (NOT DETECT); Parainfluenza Virus Type 3 Not Detected (NOT DETECT); Parainfluenza Virus Type 4 Not Detected (NOT DETECT); Respiratory Syncytial Virus A Not Detected (NOT DETECT); Respiratory Syncytial Virus B Not Detected (NOT DETECT); SARS-COV-2 Not Detected (NOT DETECT)
[2022-10-27 13:18] LABS: Human Metapneumovirus Not Detected (NOT DETECT); Human Rhinovirus/Enterovirus Detected (NOT DETECT); Results from Genmark
[2022-10-27 13:59] LABS: Iron 57 ug/dL (59-158); Total Iron Binding Capacity 271 mcg/dl; Unsaturated Iron Binding 214 ug/dL (112-347)
--- NOTE | 2022-10-27 14:05 | USCV_ITS ---
Yaakov Toure Age: 77 Gender: M : 1945 Exam Date: 10/27/2022 14:48 Ordering Phys: Nick Todd MD Technologist: Exam Location: [facility] [place] Indication: ? ef BP: 90 / 55 HR: 40 Rhythm: Sinus Technical Quality: Adequate MEASUREMENTS (Male / Female) Normal Values 2D ECHO LV Diastolic Diameter PLAX 4.2 cm 4.2 - 5.9 / 3.9 - 5.3 cm LV Systolic Diameter PLAX 3.3 cm IVS Diastolic Thickness 1.1 cm 0.6 - 1.0 / 0.6 - 0.9 cm IVS Systolic Thickness 1.5 cm LVPW Diastolic Thickness 1.2 cm 0.6 - 1.0 / 0.6 - 0.9 cm LVPW Systolic Thickness 1.4 cm LVOT Diameter 1.8 cm LV Ejection Fraction 2D Teich 41.6 % LV Ejection Fraction MOD 2C 70.2 % LV Ejection Fraction 2C AL 69.9 % LA Diameter 4.0 cm Aorta at Sinotubular Diameter 2.9 cm IVC Diameter 2.3 cm M-MODE Aortic Annulus Diameter 3.9 cm LA Ao Ratio MM 1.2 MV E Point Septal Separation 1.3 cm DOPPLER AV Peak Velocity 105.0 cm/s LVOT Peak Velocity 63.0 cm/s AV Area Cont Eq vti 1.4 cm squared AV Area Cont Eq pk 1.5 cm squared MV Area PHT 3.3 cm squared Mitral E to A Ratio 1.1 MV E' Velocity 53.6 cm/s Mitral E to MV E' Ratio 8.8 Mitral E to LV E' Lateral Ratio 8.1 Mitral E to LV E' Septal Ratio 9.7 TR Peak Velocity 223.3 cm/s TR Peak Gradient 20.0 mmHg TV Peak E Velocity 97.0 cm/s Right Atrial Pressure 3.0 mmHg Pulmonary Artery Systolic Pressu 23.0 mmHg FINDINGS Left Ventricle Left ventricle is normal in size. LV systolic function is mildly reduced with EF of 40-45%. Mild global hypokinesis. Right Ventricle Normal in size and function Right Atrium Normal in size Left Atrium Normal in size Mitral Valve Structurally normal mitral valve. Mild mitral regurgitation. Aortic Valve Structurally normal aortic valve. No significant stenosis. Trace aortic regurgitation. Tricuspid Valve Mild tricuspid regurgitation. RVSP is normal. Pulmonic Valve Not well-visualized Pericardium Normal Aorta Normal in size IVC Appears to be normal CONCLUSIONS LV systolic function is mildly reduced with EF of 40-45%. Mild mitral regurgitation Trace aortic regurgitation Mild tricuspid regurgitation Compared to prior echocardiogram from 2019, LV systolic function appears to be mildly reduced. Fab Smith MD (Electronically Signed) Final Date: 27 October 2022 18:04 S
[2022-10-27 14:14] LABS: Folate Level 5.7 ng/mL (4.5-32.2)
[2022-10-27 14:19] LABS: Ferritin 1146 ng/mL (30-400)
--- NOTE | 2022-10-27 14:31 | XR_ITS ---
WS: [id number] Exam: XR chest 1V portable [id number] Date/Time of Exam: 10/27/2022 2:31 PM Reason For Exam: Central line placement Compared to the last exam performed earlier on the same day at 0915 hours. A left-sided IJ line has been inserted and appears to end in the distal SVC. Again noted are patchy a irspace infiltrates and areas of atelectasis in the lower lung zones. Small left pleural effusion is now seen. Heart size remains normal. The mediastinum is normal in contour. Bony structures are intact . XR/XR chest 1V portable [id number] IMPRESSION: 1. Left-sided IJ line ending in the distal SVC in good position. 2. Again noted are infiltrates and areas of atelectasis in the lower lung zones showing little change since the last exam. Small left pleural effusion has dev eloped.
--- NOTE | 2022-10-27 14:39 | ECG_ITS ---
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 Measurements Intervals [place] Rate: 59 P: 67 RI: 184 QRS: 66 QRSD: 101 T: 88 QT: 442 QTc: 441 Interpretive Statements SINUS BRADYCARDIA WITH OCCASIONAL VENTRICULAR PREMATURE COMPLEXES NONSPECIFIC T-WAVE ABNORMALITY Compared to ECG 10/27/2022 10:45:09 Ventricular premature complex(es) now present Intraventricular conduction delay no longer present Possible ischemia no longer present T-wave abnormality still present Electronically Signed On 10-27-2022 22:11:25 [employer] by Melinda Carrion M.D. [id number]
[2022-10-27] MEDS: sodium chloride 0.9% 1,000 ML 125 ML IV (15:09)
[2022-10-27] MEDS: pantoprazole 40 mg SDV IVP (15:10)
[2022-10-27] MEDS: vancomycin 1,250 MG/250 ML PIGGYBACK 200 MG IV (15:10)
[2022-10-27] MEDS: piperacillin-tazobactam 3.375 GM in sodium chloride 0.9% (plus) 50 ML IV (15:10)
[2022-10-27 15:16] LABS: Troponin 5 6HR 25.75 ng/L (0-15)
[2022-10-27 15:18] LABS: Troponin 5 6HR Delta -2.25 ng/L (0-12)
[2022-10-27 16:16] LABS: Thyroid Stimulating Hormone 6.89 uIU/mL (0.27-4.20)
[2022-10-27 18:27] LABS: Vitamin B12 > 2000 pg/mL (232-1245)
--- NOTE | 2022-10-27 18:36 | W.PM.EVENTAC ---
Event Note Event Note: Came back to the hospital for reevaluation as called by nursing that norepinephrine is at 25 and blood pressure still low. Family, guardian in room who had spoken with before. She had made statements before when discussing CODE STATUS that they were leaning towards more comfort measures if he should not improve. I discussed with her his current status, on pressors, and whether to continue to escalate care. She recommends pulling back care to comfort measures, but would like a brother to visit if possible prior to withdrawing this care. Patient himself is still unresponsive. Guardian again relates that his quality of life was very poor for many years and gone down substantially even more in the last several months. He cannot really communicate with any staff that is taking care of him, he is immobile, and has no quality of life. We will not escalate care currently. Plan on placing on full comfort measures after family has had a chance to visit.
[2022-10-27] MEDS: morphine 4 mg/mL SDV 1 mL IVP (23:26)
[2022-10-28] VITALS (43 sets, daily range): BP systolic 61–110; BP diastolic 40–63; PULSE 61–108; RESP 13–24; TEMP 34.7–37.7; O2SAT 83–100
[2022-10-28] MEDS: morphine 4 mg/mL SDV 1 mL IVP ×5 (01:46→09:36)
[2022-10-28] MEDS: LORazepam 2 mg/mL INJ 1 mL 1 MG IVP (04:32)
--- NOTE | 2022-10-28 09:57 | PC.NURSE ---
family request that we decrease o2 and give morplhine freely fell that he is have respritory distress. given at this time
--- NOTE | 2022-10-28 10:16 | P.PN_ITS ---
Subjective Subjective: Spoke with the family, patient is obtunded, currently on 5 L OxiMax Family stating that they are okay with turning of oxygen once he is on [facility] MAP 60, he saturating 90% on 5 L oxygen mask Spoke with the ICU nurse to remove central line if right peripheral IV access is functional Vitals/I&O/Wt Last Vital Signs Temp 96.4 F L 10/28/22 05:53 Pulse 61 10/28/22 08:55 Resp 24 H 10/28/22 09:36 BP 97/41 10/28/22 08:15 Pulse Ox 91 10/28/22 08:55 O2 Del Method 10/28/22 08:55 O2 Flow Rate 5 10/28/22 08:55 10/27/22 10/28/22 10/28/22 22:59 06:59 14:59 Intake Total 2014.795 / 5974.605 Output Total 975 / 975 150 / 1125 Balance 1039.795 / 4999.605 -150 / 4849.605 Weight last 48 hrs Weight 86.183 kg Physical Exam Narrative: Patient is obtunded Neuro exam limited Left central line in place Also has right peripheral IV access right arm Anuric MAP 60 Temperature 96.4 Soft abdomen Edema of legs Urinary Catheter Management: Martinez: Cath Placed During This Visit: yes Reason for Continuing Indwelling Catheter: Accurate Measurement of Urinary Output in Critically Ill Patients Urinary Catheter Date of Insertion: 10/27/22 Urinary Catheter Time of Insertion: 08:36 Data 10/27/22 12:00 10/27/22 08:38 Micro: Microbiology 10/27/22 09:06 Blood Culture - Preliminary Blood NEGATIVE TO DATE 10/27/22 09:00 Blood Culture - Preliminary Blood NEGATIVE TO DATE A&P Assessment and plan (1) Need for comfort care: Plan Patient will be transferred to [facility] on comfort care Family is asking if oxygen can be turned off once he is at [facility], I will change Roxanol dose to every 30mins as needed Attestations Medical Necessity Statement*: 5 mins Coding Level of Care Code Acute Code for Chg Fwd Diagnoses Need for comfort care
[2022-10-28] MEDS: morphine 10 mg/0.5 mL oral liq UD PO ×4 (11:33→22:45)
--- NOTE | 2022-10-28 12:10 | PC.NURSE ---
transfer to floor prior for comfort care
--- NOTE | 2022-10-28 21:25 | PC.NURSE ---
ROUNDING/CARE Have talked with family member at bedside about wants for pts care. Is on comfort care and she says does not want him to start hurting. Have given SL Morphine X2 with good relief and pt appears comfortable. Is unresponsive and shows no signs of pain. Will give the SL Morphine every 1 1/2 ours as long as pt is comfortable. If does start showing signs will increase this. Will repositon pt prn as well. She has no objections to us moving him. Was just placed on his right side and was given SL Atropine for some secretions after moving.
[2022-10-29] MEDS: morphine 10 mg/0.5 mL oral liq UD PO ×5 (00:20→06:13)
[2022-10-29 07:53] VITALS: BP 100/65; PULSE 78; RESP 17; TEMP 37.9; O2SAT 93
--- NOTE | 2022-10-29 09:14 | PM.PN ---
Subjective Subjective: Patient is gasping for air Family at the bedside Patient has been getting morphine Vitals/I&O/Wt Last Vital Signs Temp 100.2 F H 10/29/22 07:53 Pulse 78 10/29/22 07:53 Resp 17 10/29/22 07:53 BP 100/65 10/29/22 07:53 Pulse Ox 93 10/29/22 07:53 O2 Del Method 10/29/22 07:53 O2 Flow Rate 5 10/28/22 08:55 10/28/22 10/29/22 10/29/22 22:59 06:59 14:59 Output Total 250 / 250 200 / 450 Balance -250 / -250 -200 / -450 Physical Exam Narrative: Obtunded Not able to follow commands Gasping for air Debilitated Currently not on any oxygen Urinary Catheter Management: Martinez: Cath Placed During This Visit: yes Reason for Continuing Indwelling Catheter: Accurate Measurement of Urinary Output in Critically Ill Patients Urinary Catheter Date of Insertion: 10/27/22 Urinary Catheter Time of Insertion: 08:36 Data 10/27/22 12:00 10/27/22 08:38 Micro: Microbiology 10/27/22 15:37 MRSA Culture - Final Nose 10/27/22 09:06 Blood Culture - Preliminary Blood NEGATIVE TO DATE 10/27/22 09:00 Blood Culture - Preliminary Blood NEGATIVE TO DATE A&P Assessment and plan (1) Need for comfort care: Plan Patient is currently getting Roxanol every 30 minutes for respiratory distress, not on oxygen Continue comfort care Attestations Medical Necessity Statement*: Continue comfort care management Coding Level of Care Code Acute Code for Chg Fwd Diagnoses Need for comfort care
[2022-10-29] MEDS: morphine 10 mg/0.5 mL oral liq UD SUBLINGUAL (10:21)
--- NOTE | 2022-10-30 10:30 | P.PN_ITS ---
Subjective Subjective: Seen this morning. Resting comfortably in bed. Not in any pain at this time. [id number] at bedside. Vitals/I&O/Wt Last Vital Signs Temp 100.2 F H 10/29/22 07:53 Pulse 78 10/29/22 07:53 Resp 17 10/29/22 07:53 BP 100/65 10/29/22 07:53 Pulse Ox 93 10/29/22 07:53 O2 Del Method 10/29/22 07:53 O2 Flow Rate 5 10/28/22 08:55 10/29/22 10/30/22 10/30/22 22:59 06:59 14:59 Intake Total 0 / 0 Output Total 250 / 250 Balance 0 / 0 -250 / -250 Physical Exam Narrative: Exam limited due to Comfort Care status. Coarse breath sounds No grimace to palpation. Urinary Catheter Management: Martinez: Cath Placed During This Visit: yes Reason for Continuing Indwelling Catheter: Accurate Measurement of Urinary Output in Critically Ill Patients Urinary Catheter Date of Insertion: 10/27/22 Urinary Catheter Time of Insertion: 08:36 Data 10/27/22 12:00 10/27/22 08:38 A&P Assessment and plan (1) Need for comfort care: Plan #Comfort care status #Pneumonia #CHF exacerbation #Bipolar disorder #Dementia #Obsessive-compulsive disorder #History of subdural hematoma #Hip fracture ? Patient appears to be comfortable at this time. ? Continue comfort measures ? Had a discussion with [id number]. She would like to take him to a nursing facility with hospice at this time. She would like to choose a [employer] [facility]. Talked with case management. We will be working on his placement. Comfort care only Attestations Medical Necessity Statement*: Comfort measures Coding Level of Care Code Acute Code for Chg Fwd Diagnoses Need for comfort care
[2022-10-30] MEDS: morphine 10 mg/0.5 mL oral liq UD SUBLINGUAL (14:22)
[2022-10-30] MEDS: glycopyrrolate 0.2 mg/mL SDV 2 mL IV ×2 (17:16→23:00)
[2022-10-31 01:40] VITALS: RESP 12
[2022-10-31] MEDS: morphine 4 mg/mL SDV 1 mL IVP (01:40)
[2022-10-31] MEDS: glycopyrrolate 0.2 mg/mL SDV 2 mL IV ×3 (02:58→18:10)
[2022-10-31 06:00] LABS: Leukemia Profile (BBPL) See Report; Lymphoma Profile (BBPL) See Report
[2022-10-31] MEDS: morphine 10 mg/0.5 mL oral liq UD PO ×2 (06:37→18:07)
--- NOTE | 2022-10-31 06:48 | PC.NURSE ---
Received call from pt's sister [place] stating if the pt was to pass away that he is go to the home in [place].
--- NOTE | 2022-10-31 08:24 | PC.SOCIAL ---
Late Entry IMM Update @ [id number] on 10/30/22 IMM updated w/ patient and . Copy provided and copy in chart updated.
--- NOTE | 2022-10-31 10:36 | PC.NURSE ---
This nurse received report from CHELY Saunders at 10:22.
[2022-10-31] MEDS: morphine 10 mg/0.5 mL oral liq UD SUBLINGUAL ×2 (12:09→15:21)
--- NOTE | 2022-10-31 12:55 | PM.PN ---
Subjective Subjective: Seen this morning. Patient having a lot of secretions and a few apneic episodes lasting up to 30 seconds. longterm placement yet to be set up. Vitals/I&O/Wt Last Vital Signs Temp 100.2 F H 10/29/22 07:53 Pulse 78 10/29/22 07:53 Resp 12 10/31/22 01:40 BP 100/65 10/29/22 07:53 Pulse Ox 93 10/29/22 07:53 O2 Del Method 10/29/22 07:53 O2 Flow Rate 5 10/28/22 08:55 10/30/22 10/31/22 10/31/22 22:59 06:59 14:59 Intake Total 0 / 0 Output Total 775 / 775 500 / 1275 525 / 525 Balance -775 / -775 -500 / -1275 -525 / -525 Physical Exam Narrative: Exam limited due to Comfort Care status. Coarse breath sounds No grimace to palpation. Urinary Catheter Management: Martinez: Cath Placed During This Visit: yes Reason for Continuing Indwelling Catheter: Accurate Measurement of Urinary Output in Critically Ill Patients Urinary Catheter Date of Insertion: 10/27/22 Urinary Catheter Time of Insertion: 08:36 Data 10/27/22 12:00 10/27/22 08:38 A&P Assessment and plan (1) Need for comfort care: Plan #Comfort care status #Pneumonia #CHF exacerbation #Bipolar disorder #Dementia #Obsessive-compulsive disorder #History of subdural hematoma #Hip fracture ? Patient appears to be comfortable at this time. ? Continue comfort measures ? Had a discussion with [id number]. She would like to take him to a nursing facility with hospice at this time. She would like to choose [facility]. Talked with case management. We will be working on his placement. Comfort care only Attestations Medical Necessity Statement*: Comfort measures Coding Level of Care Code Acute Code for Chg Fwd Diagnoses Need for comfort care
[2022-10-31 14:39] VITALS: RESP 6
[2022-11-01] MEDS: glycopyrrolate 0.2 mg/mL SDV 2 mL IV ×4 (01:32→23:57)
[2022-11-01] MEDS: lanolin oint 7 gm 1 APPLIC TOPICAL (03:54)
--- NOTE | 2022-11-01 13:14 | PM.PN ---
Subjective Subjective: Seen this morning. Patient having a lot of secretions and there is no acute change compared to yesterday. Yesterday evening the nurse did report that the apneic episodes were increasing. Vitals/I&O/Wt Last Vital Signs Temp 100.2 F H 10/29/22 07:53 Pulse 78 10/29/22 07:53 Resp 6 L 10/31/22 14:39 BP 100/65 10/29/22 07:53 Pulse Ox 93 10/29/22 07:53 O2 Del Method 10/29/22 07:53 O2 Flow Rate 5 10/28/22 08:55 10/31/22 11/01/22 11/01/22 22:59 06:59 14:59 Intake Total 0 / 0 0 / 0 Output Total 700 / 1225 500 / 1725 Balance -700 / -1225 -500 / -1725 0 / 0 Physical Exam Narrative: Exam limited due to Comfort Care status. Coarse breath sounds No grimace to palpation. Urinary Catheter Management: Martinez: Cath Placed During This Visit: yes Reason for Continuing Indwelling Catheter: Accurate Measurement of Urinary Output in Critically Ill Patients Urinary Catheter Date of Insertion: 10/27/22 Urinary Catheter Time of Insertion: 08:36 Data 10/27/22 12:00 10/27/22 08:38 Micro: Microbiology 10/27/22 09:06 Blood Culture - Final Blood NO GROWTH AFTER 5 DAYS 10/27/22 09:00 Blood Culture - Final Blood NO GROWTH AFTER 5 DAYS A&P Assessment and plan (1) Need for comfort care: Plan #Comfort care status #Pneumonia #CHF exacerbation #Bipolar disorder #Dementia #Obsessive-compulsive disorder #History of subdural hematoma #Hip fracture ? Patient appears to be comfortable at this time. ? Continue comfort measures ? Had a discussion with [id number]. She would like to take him to a nursing facility with hospice at this time. She would like to choose [facility]. Talked with case management. We will be working on his placement. Placement pending at this point. Comfort care only Attestations Medical Necessity Statement*: Comfort measures Coding Level of Care Code Acute Code for Chg Fwd Diagnoses Need for comfort care
[2022-11-01] MEDS: morphine 10 mg/0.5 mL oral liq UD PO ×2 (19:54→23:22)
[2022-11-01 23:56] VITALS: RESP 14
[2022-11-01] MEDS: LORazepam 2 mg/mL INJ 1 mL 1 MG IVP (23:56)
[2022-11-01] MEDS: morphine 4 mg/mL SDV 1 mL IVP (23:56)
[2022-11-02] MEDS: morphine 10 mg/0.5 mL oral liq UD PO ×3 (01:45→06:19)
[2022-11-02] MEDS: glycopyrrolate 0.2 mg/mL SDV 2 mL IV ×2 (04:07→11:36)
[2022-11-02 04:17] VITALS: RESP 14
[2022-11-02] MEDS: morphine 4 mg/mL SDV 1 mL IVP (04:17)
[2022-11-02] MEDS: LORazepam 2 mg/mL INJ 1 mL 1 MG IVP (04:17)
[2022-11-02] MEDS: morphine 10 mg/0.5 mL oral liq UD SUBLINGUAL (11:30)
--- NOTE | 2022-11-02 12:29 | PM.DCS ---
Discharge Providers Date of Admission: 10/27/22 13:40 Date of Discharge: November 02, 2022 Attending Provider at Admission: Nick Todd MD Attending Provider at Discharge: Jayde Rae MD Primary Care Provider: Denis Saini DO Diagnoses at Discharge Discharge Diagnosis (1) Need for comfort care: Status: Acute Reason for Visit Reason for Visit: LOW HR/ CHF Brief History: As per Dr. Todd Yaakov Toure is a 77 year old male presenting to the emergency department with diminished responsiveness.? He had had a recent emergency department visit on October 23, for concerns of pneumonia where he was diagnosed with CHF exacerbation.? He did okay for a while, but this morning responsiveness was less and he appeared to have some difficulty breathing.? No fevers have been noted.? He has not had any vomiting or diarrhea.? He has been significantly impaired since , has a vocabulary of approximately 3 words, and as he is bedbound activity consists of occasionally throwing a pillow. In the emergency department there was concern of sepsis.? Heart rate was also found to be low, hypotension, hypothermia.? Abdomen and pelvis CT demonstrated likely pneumonia, left hip fracture with callus formation as present on previous films October 23. He is receiving a sepsis fluid bolus in the ER.? Dopamine is being changed to norepinephrine.? He has received Rocephin and azithromycin.? Blood cultures have been drawn.? Lactate was not elevated. Hospital Course Hospital Course Patient admitted with septic shock. Patient was requiring Levophed at 25. Family wanted to pursue comfort measures. Patient will be going to residential on comfort measures with hospice. He will be discharged today. Physical Exam Narrative: Exam limited due to Comfort Care status. Coarse breath sounds No grimace to palpation. Patient having some apneic episodes at times. Is requiring deep suctioning at times. Vitals not being checked as per request from family. Urinary Catheter Management: Martinez: Cath Placed During This Visit: yes Reason for Continuing Indwelling Catheter: Accurate Measurement of Urinary Output in Critically Ill Patients Urinary Catheter Date of Insertion: 10/27/22 Urinary Catheter Time of Insertion: 08:36 Discharge Data Studies Completed and Pending Completed Studies During Hospitalization Category Date Time Status CT abdomen pelvis wo con [id number] Stat Cat Scan 10/27/22 08:[address] head wo con* [id number] Stat Cat Scan 10/27/22 10:53 Completed XR chest 1V portable [id number] Stat Exams 10/27/22 08:39 Completed XR chest 1V portable [id number] Stat Exams 10/27/22 14:31 [place] [id number] Routine Ultrasound 10/27/22 13:15 Completed CV. echo complete* [id number] Routine Ultrasound 10/27/22 14:05 Completed Radiology Impressions Abdomen/Pelvis CT 10/27/22 08:39 IMPRESSION: 1. Inflammatory stranding and edema about the body and tail pancreas suspicious for pancreatitis.Correlation with pancreatic enzymes. 2. Small bilateral pleural effusions with compressive atelectasis in the lung bases. Hazy infiltrates in the visualized lung casanova compatible with pneumonia. Recommend correlation with viral pneumonia. 3. Cholelithiasis. No gallbladder wall thickening or pericholecystic fluid. 4. Martinez catheter. 5. Comminuted LEFT intertrochanteric fracture with callus formation and foreshortening of the LEFT femur unchanged since the prior radiographs. 6. No other acute findings. Notified Paul Hummel DO at 10/27/2022 10:[address] 10/27/22 10:53 IMPRESSION: 1. No evidence of intracranial hemorrhage or mass effect. 2. Mild small vessel changes. Mild parenchymal volume loss. 3. No acute intracranial findings. Chest X-Ray 10/27/22 14:31 IMPRESSION: 1. Left-sided IJ line ending in the distal SVC in good position. 2. Again noted are infiltrates and areas of atelectasis in the lower lung zones showing little change since the last exam. Small left pleural effusion has developed. Laboratory Results WBC 6.0 10^3/uL (4.0-10.0) 10/27/22 12:00 RBC 3.11 10^6/uL (4.1-5.3) L 10/27/22 12:00 Hgb 8.9 g/dL (11.7-16.6) L 10/27/22 12:00 Hct 28.2 % (42.0-52.0) L 10/27/22 12:00 MCV 90.7 fl (80-94) 10/27/22 12:00 MCH 28.6 pg (28.0-34.0) 10/27/22 12:00 MCHC 31.6 g/dL (30.0-36.0) 10/27/22 12:00 RDW 16.8 % (12.1-15.1) H 10/27/22 12:00 Plt Count 24 10^3/cmm (130-400) L* 10/27/22 12:00 MPV fL (7.4-10.4) 10/27/22 12:00 Neut % (Auto) 92.5 % 10/27/22 12:00 Lymph % (Auto) 3.5 % 10/27/22 12:00 [place] % (Auto) 2.7 % 10/27/22 12:00 Eos % (Auto) 0.0 % 10/27/22 12:00 Baso % (Auto) 1.0 % 10/27/22 12:00 Neut # (Auto) 5.53 10^3/uL (1.8-7.7) 10/27/22 12:00 Lymph # (Auto) 0.2 10^3/uL (0.8-4.8) L 10/27/22 12:00 [place] # (Auto) 0.2 10^3/uL (0.2-0.9) 10/27/22 12:00 Eos # (Auto) 0.0 10^3/uL (0.0-0.8) 10/27/22 12:00 Baso # (Auto) 0.1 10^3/uL (0.0-0.1) 10/27/22 12:00 Nucleated RBC % (auto) 0.7 % 10/27/22 12:00 Total Counted 100 (0-100) 10/27/22 08:38 Atypical Lymphs % 0.0 % (0-5) 10/27/22 08:38 Absolute Neutrophils 5.5 10^3/cmm (1.4-6.5) 10/27/22 08:38 Segmented Neutrophils 66 % 10/27/22 08:38 Abs Segm Neuts (Man) 4.5 10/cmm (1.6-7.1) 10/27/22 08:38 Band Neutrophils 15.0 % 10/27/22 08:38 Abs Band Neuts (Man) 1.0 10^3/cmm (0.0-1.2) 10/27/22 08:38 Absolute Lymphocytes 0.7 10^3/cmm (1.2-3.4) L 10/27/22 08:38 Lymphocytes (Manual) 11 % 10/27/22 08:38 Monocytes (Manual) 8.0 % 10/27/22 08:38 Absolute Monocytes 0.5 10^3/cmm (0.1-0.6) 10/27/22 08:38 Eosinophils (Manual) 0 % 10/27/22 08:38 Absolute Eosinophils 0.0 10^3/cmm (0.0-0.7) 10/27/22 08:38 Basophils (Manual) 0.0 % 10/27/22 08:38 Absolute Basophils 0.0 10^3/cmm (0.0-0.2) 10/27/22 08:38 Nucleated RBCs # 0.0 /100WBC 10/27/22 12:00 Platelet Estimate Decreased (Normal) 10/27/22 08:38 Haptoglobin 25.0 mg/L (30-200) L 10/27/22 08:38 PT 16.70 SECONDS (12.1-14.9) H 10/27/22 12:00 INR 1.31 (0.8-1.2) H 10/27/22 12:00 APTT 52.1 SECONDS (23.9-36.7) H 10/27/22 12:00 Fibrinogen 550 mg/dL (174-498) H 10/27/22 12:00 Fibrin Degrad Products Pos, 10-40 ug/mL (NEG) H 10/27/22 12:00 D-Dimer 2.00 ug/mIFEU (0-0.59) H 10/27/22 12:00 Specimen Type Arterial 10/27/22 11:49 Sample Site Radial, left 10/27/22 11:49 ABG pH 7.40 (7.35-7.45) 10/27/22 11:49 ABG pCO2 51.0 mmHg (35-45) H 10/27/22 11:49 ABG pO2 84.7 mmHg (80.0-100.0) 10/27/22 11:49 ABG HCO3 31.3 mmol/L (22-26) H 10/27/22 11:49 ABG O2 Saturation 96.8 10/27/22 11:49 ABG Base Excess 5.7 mmol/L (-2.0-2.0) H 10/27/22 11:49 Alexis Test Pos 10/27/22 11:49 A-a O2 Gradient 0.3 mmHg (5-10) L 10/27/22 11:49 Hematocrit 24.7 % (42-52) L 10/27/22 11:49 Hgb O2 Saturation 93.5 % (95-100) L 10/27/22 11:49 Carboxyhemoglobin 2.1 %THgb (0.4-20.1) 10/27/22 11:49 Methemoglobin 1.3 % (0.4-1.5) 10/27/22 11:49 Total Hemoglobin 8.1 g/dL (14-18) L 10/27/22 11:49 Sodium 134.0 mmol/L (131-143) 10/27/22 11:49 Potassium 3.4 mmol/L (3.5-5.0) L 10/27/22 11:49 Glucose 149.0 mg/dL (70-115) H 10/27/22 11:49 Ionized Calcium 1.2 mmol/L (1.1-1.4) 10/27/22 11:49 O2 Delivery Device Nrb 10/27/22 11:49 O2 Liters/Min 12.0 % 10/27/22 11:49 Natural Resources Professor ID Cak 10/27/22 11:49 Sodium 132 mmol/L (136-145) L 10/27/22 08:38 Potassium 3.8 mmol/L (3.5-5.1) 10/27/22 08:38 Chloride 91 mmol/L (98-107) L 10/27/22 08:38 Carbon Dioxide 31 mmol/L (22-29) H 10/27/22 08:38 Anion Gap 13.8 (5-19) 10/27/22 08:38 BUN 36 mg/dL (8-23) H 10/27/22 08:38 Creatinine 1.2 mg/dL (0.7-1.2) 10/27/22 08:38 GFR Calculation Not Reportable 10/27/22 08:38 Glucose 158 mg/dL (65-115) H 10/27/22 08:38 Calculated Osmolality 286 mOsm/kg (285-295) 10/27/22 08:38 Lactic Acid 1.9 mmol/L (0.5-2.2) 10/27/22 08:38 Calcium 9.7 mg/dL (8.5-10.5) 10/27/22 08:38 Magnesium 2.2 mg/dL (1.7-2.3) 10/27/22 08:38 Iron 57 ug/dL (59-158) L 10/27/22 08:38 TIBC 271 mcg/dl 10/27/22 08:38 % Saturation 21.0 % (20-50) 10/27/22 08:38 Unsat Iron Binding 214 ug/dL (112-347) 10/27/22 08:38 Ferritin 1146 ng/mL (30-400) H 10/27/22 08:38 Total Bilirubin 0.5 mg/dL (0.15-1.2) 10/27/22 08:38 AST 18 U/L (0-40) 10/27/22 08:38 ALT 18 U/L (0-41) 10/27/22 08:38 Alkaline Phosphatase 252 U/L (40-130) H 10/27/22 08:38 Creatine Kinase 73 U/L (39-308) 10/27/22 08:38 Troponin T Baseline 28 ng/L (0-15) H 10/27/22 08:38 Troponin T 120 Minute 26.09 ng/L (0-15) H 10/27/22 10:40 Delta Troponin T -1.91 ABS# (0-10) L 10/27/22 10:40 Troponin T Hi Sens 6Hr 25.75 ng/L (0-15) H 10/27/22 14:50 Troponin T Hi Sens 6Hr Delta -2.25 ng/L (0-12) L 10/27/22 14:50 NT-Pro-B Natriuret Pep 540 pg/mL (0-450) H 10/27/22 08:38 Total Protein 6.6 g/dL (6.6-8.7) 10/27/22 08:38 Albumin 3.0 g/dL (3.5-5.2) L 10/27/22 08:38 Globulin 3.6 g/dL (1.3-4.6) 10/27/22 08:38 Lipase 117 U/L (13-60) H 10/27/22 08:38 Vitamin B12 > 2000 pg/mL (232-1245) H 10/27/22 08:38 Folate 5.7 ng/mL (4.5-32.2) 10/27/22 08:38 TSH 6.89 uIU/mL (0.27-4.20) H 10/27/22 08:38 Urine Color Yellow (Yellow) 10/27/22 09:18 Urine Appearance Clear (CLEAR) 10/27/22 09:18 Urine pH 5 (5-7) 10/27/22 09:18 Ur Specific [place] 1.015 (1.005-1.030) 10/27/22 09:18 Urine Protein Neg (Negative) 10/27/22 09:18 Urine Glucose (UA) Norm (Normal) 10/27/22 09:18 Urine Ketones Negative (Negative) 10/27/22 09:18 Urine Blood Neg (Negative) 10/27/22 09:18 Urine Nitrate Negative (Negative) 10/27/22 09:18 Urine Bilirubin Neg (Negative) 10/27/22 09:18 Urine Urobilinogen Neg mg/dL (Negative) 10/27/22 09:18 Ur Leukocyte Esterase Negative (Negative) 10/27/22 09:18 Valproic Acid 42.9 ug/mL (50-100) L 10/27/22 08:38 Lymphoma Panel See report 10/27/22 12:00 Immunophenotype Interp See report 10/27/22 12:00 Coronavirus 229E (PCR) Not detected (NOT DETECT) 10/27/22 11:25 Human Metapneumovir PCR Not detected (NOT DETECT) 10/27/22 13:17 Influenza Type A Ag negative (Negative) 10/27/22 09:18 Influenza Type B Ag negative (Negative) 10/27/22 09:18 Entero/Rhino (PCR) Detected (NOT DETECT) A 10/27/22 13:17 SARS-CoV-2 (PCR) Not detected (NOT DETECT) 10/27/22 11:25 Vitals Last Vital Signs Temp 100.2 F H 10/29/22 07:53 Pulse 78 10/29/22 07:53 Resp 14 11/02/22 04:17 BP 100/65 10/29/22 07:53 Pulse Ox 93 10/29/22 07:53 O2 Del Method 10/29/22 07:53 O2 Flow Rate 5 10/28/22 08:55 Discharge Plan Discharge Patient Disposition: Home Condition: Stable Prescriptions: Continued (DME) Hospital Bed See Rx Instructions .ROUTE .MEDSUPPLY Qty: 1 0RF Rx Instructions: Please issue hospital bed for weakness, LE edema, heart failure and fall risk. Discontinued magnesium hydroxide [Milk of Magnesia] 400 mg/5 mL suspension See Rx Instructions .ROUTE .COMPLEX Qty: 3000 5RF Dose Instruction: take 30ml BY MOUTH EVERY 4 HOURS NEEDED FOR FOR GASTRITIS RELIEF Rx Instructions: TAKE 30ML BY MOUTH ON THE 4TH DAY OF NO BM IN 3 DAYS CALL NURSE IF NO BM IN 5 DAYS acetaminophen 325 mg tablet See Rx Instructions .ROUTE .COMPLEX Qty: 120 5RF Dose Instruction: TAKE TWO TABLETS BY MOUTH EVERY 4 HOURS NEEDED FOR PAIN OR ELEVATED TEMPERATURE > 100 Rx Instructions: TAKE TWO TABLETS BY MOUTH EVERY 4 HOURS NEEDED FOR PAIN OR ELEVATED TEMPERATURE > 100 not to exceed 12 tabs in 24 hours Desitin Rapid Relief 13 % cream 1 applic topical DAILY PRN (Reason: diaper rash) Qty: 57 6RF Rx Instructions: Apply to effected areas, PRN for diaper rash. potassium chloride 10 mEq tablet extended release 10 meq PO BID Qty: 60 0RF lorazepam 2 mg Tablet 2 mg PO Q6H PRN (Reason: Agitation) loratadine [Claritin] 10 mg Tablet 10 mg PO BEDTIME@20 omeprazole [Prilosec] 20 mg Capsule,Delayed Release(Dr/Ec) 20 mg PO DAILY@08 olanzapine 10 mg tablet 5 mg PO BID@08,20 quetiapine 100 mg tablet 100 mg PO BEDTIME@20 divalproex 500 mg tablet,delayed release (DR/EC) 500 mg PO BID@08,20 Pepto-Bismol 262 mg/15 mL Suspension 524 mg PO Q4H PRN (Reason: Stomach Upset) Mylanta 200-200-20 mg/5 mL Suspension 30 ml PO Q4H PRN (Reason: Gastric Reflux) Ensure Liquid 1 ea PO DAILY PRN (Reason: UNKNOWN) Robafen DM Cough-Chest Congest 10-100 mg/5 mL syrup 10 ml PO Q4H PRN (Reason: Cough) Neosporin ([id number]-rvjuo) 3.5-400-5,000 qg-lenv-toth Ointment In Packet See Rx Instructions .ROUTE .COMPLEX Rx Instructions: APPLY TOPICALLY TO SCRATCHES PRN FOR SCRAPES AND ABRASIONS Lasix 40 mg tablet 40 mg PO BID@06,14 Ear Wax Removal Drops 6.5 % drops See Rx Instructions .ROUTE .COMPLEX Rx Instructions: FILL BOTH EAR GUO DAILY 4 DAYS EACH MONTH FOR EAR WAX REMOVAL Sunblock Lotion See Rx Instructions .ROUTE .COMPLEX Rx Instructions: APPLY TOPICALLY WHEN IN SUN OR OUTSIDE NEEDED DIRECTED ON BOX Blistex Lip Ointment 0.6-0.5-1.1-0.5 % Ointment See Rx Instructions .ROUTE .COMPLEX Rx Instructions: APPLY TOPICALLY TO NEEDED AREAS NEEDED DIRECTED ON BOX Discharge Orders: Discharge Order (Routine); Ordered 11/02/22 Ordered By: Jayde Rae Referrals: Denis Saini DO [Primary Care Provider] - 4-7 days Patient Instructions: Opioid Safety Activity Restrictions/Additional Instructions: Hospice company to admit and order medications for comfort care. Discharge Attestations Time Spent in Discharge Care*: less than 30 min Quality Metrics Clinical Quality Measures [ No reported AMI, CVA or VTE this stay] Coding Level of Care Code Acute Code for Chg Fwd Diagnoses Need for comfort care
--- NOTE | 2022-11-02 16:11 | PC.NURSE ---
report called to sandie schroeder at [facility]
[2022-11-02 18:16] VITALS: BP 100/62; PULSE 91; RESP 9; TEMP 37.7; O2SAT 84
[2022-11-02 19:47] VITALS: RESP 9
--- NOTE | 2022-11-02 20:44 | PC.NURSE ---
patient left via EMS on stretcher with all belongings at 2017
[2022-11-02 20:45] VITALS: RESP 9
== END 2022-11-02 20:17 | disposition hospice, home (50) | DRG 871 ==
LOC: ER 12:16 → ICU 13:40 → MEDSURG 10-28 10:44
PROVIDERS: Admitting Provider Internal Medicine; Emergency Provider Family Medicine; PCP Family Medicine; Visit Provider Internal Medicine
DX: A41.9 Sepsis, unspecified organism (principal); D65 Disseminated intravascular coagulation [defibrination syndrome]; G93.41 Metabolic encephalopathy; J18.9 Pneumonia, unspecified organism; R65.21 Severe sepsis with septic shock; I50.21 Acute systolic (congestive) heart failure; I95.9 Hypotension, unspecified; Z74.01 Bed confinement status; R68.0 Hypothermia, not associated with low environmental temperature; F31.9 Bipolar disorder, unspecified; F03.90 Unspecified dementia, unspecified severity, without behavioral disturbance, psychotic disturbance, mood disturbance, and anxiety; F63.81 Intermittent explosive disorder; F42.9 Obsessive-compulsive disorder, unspecified; D64.9 Anemia, unspecified; Z66 Do not resuscitate; Z51.5 Encounter for palliative care
CPT/HCPCS: 36415; 36556; 36591; 36592; 36600; 51702; 70450; 71045; 74176; 80051; 80053; 80164; 80503; 81003; 82330; 82550; 82607; 82728; 82746; 82805; 83010; 83540; 83550; 83605; 83690; 83735; 83880; 84443; 84484; 85007; 85025; 85362; 85378; 85384; 85610; 85730; 87040; 87635; 87641; 87801; 87804; 88184; 88185; 93005; 93306; 93970; 96365; 96366; 96367; 96374; 96376; 99291; 99292; C1751; C9113; J0456; J0696; J1265; J2060; J2270; J2543; J3370; J3490; J7030; J7040; J7050; J7060